=== PATIENT | male | born 1940 | race Caucasian/White ===

== ENCOUNTER → 2020-01-07 08:47 | Outpatient (BNVA) | payer MEDICARE, SELFPAY | PROVIDERS: PCP Family Medicine; Visit Provider Internal Medicine Cardiovascular Disease | DX: I50.30 Unspecified diastolic (congestive) heart failure (principal); I48.0 Paroxysmal atrial fibrillation; I25.10 Atherosclerotic heart disease of native coronary artery without angina pectoris; Z79.82 Long term (current) use of aspirin; Z79.899 Other long term (current) drug therapy; Z95.1 Presence of aortocoronary bypass graft | CPT/HCPCS: 93005; 99212 ==

== ENCOUNTER 2020-02-10 07:45 | Outpatient (REF) | payer MEDICARE, SELFPAY ==
[2020-02-10 09:09] LABS: MANUAL DIFF FLAG NO
[2020-02-10 09:19] LABS: Basophils Percent Auto 0.6 % (0-2); Eosinophils Absolute Auto 0.3 X10*3/uL (0.0-0.4); Eosinophils Percent Auto 4.8 % (0-4); Hematocrit 42.9 % (42-52); Hemoglobin 13.8 g/dl (14.0-18.0); Imm Gran Abs Auto 0.11 X10*3/uL (0.00-0.03); Imm Gran Pct Auto 1.6 % (0.0-0.4); Lymphocytes Absolute Auto 1.8 X10*3/uL (1.2-4.9); Lymphocytes Percent Auto 26.1 % (20-40); Mean Corpuscular HGB Conc 32.2 g/dl (31.0-36.0); Mean Corpuscular Hemoglobin 31.6 pg (27.0-33.0); Mean Corpuscular Volume 98.2 fL (80-98); Mean Platelet Volume 9.3 fL (9.4-12.4); Monocytes Absolute Auto 0.6 X10*3/uL (0.1-1.2); Monocytes Percent Auto 8.5 % (2-11); Neutrophils Percent Auto 58.4 % (45-73); Platelet Count 260 X10*3/uL (160-400); Red Blood Count 4.37 X10*6/uL (4.60-5.80); Red Cell Distribution Width 14.6 % (11.0-16.0); White Blood Count 6.9 X10*3/uL (4.8-10.8)
[2020-02-10 09:44] LABS: Estimated Average Glucose 120 mg/dL; Hemoglobin A1c % 5.8 %
[2020-02-10 10:13] LABS: Alanine Aminotransferase 44 U/L (0-40); Anion Gap 13 (12-20); Aspartate Amino Transferase 36 U/L (5-37); Blood Urea Nitrogen 22 mg/dL (9-16); Carbon Dioxide 32 mmol/L (22-29); Chloride 100 mmol/L (96-108); Cholesterol 219 mg/dL; Estimated Glomerular Filt Rate 50; Glucose Fasting 122 mg/dL (60-99); HDL Cholesterol 62 mg/dL; LDL Cholesterol Calculated 133 mg/dl; Potassium 4.7 mmol/l (3.3-5.1); Sodium 140 mmol/L (135-145); Triglycerides 123 mg/dL
== END 2020-02-10 07:46 | disposition home or self-care (01) ==
LOC: HO.10HDL 07:45
PROVIDERS: Absent Provider Internal Medicine Cardiovascular Disease; PCP Family Medicine; Visit Provider Family Medicine
DX: E11.9 Type 2 diabetes mellitus without complications (principal); I10 Essential (primary) hypertension; E78.00 Pure hypercholesterolemia, unspecified; Z79.899 Other long term (current) drug therapy
CPT/HCPCS: 36415; 80051; 80061; 82550; 82565; 82947; 83036; 84450; 84460; 84520; 85025

== ENCOUNTER → 2020-02-16 08:44 | Outpatient (BNVA) | payer MEDICARE, SELFPAY | PROVIDERS: PCP Family Medicine; Visit Provider Internal Medicine Cardiovascular Disease | DX: I50.30 Unspecified diastolic (congestive) heart failure (principal); I48.0 Paroxysmal atrial fibrillation; I25.10 Atherosclerotic heart disease of native coronary artery without angina pectoris; Z79.82 Long term (current) use of aspirin; Z79.899 Other long term (current) drug therapy | CPT/HCPCS: 99212 ==

== ENCOUNTER → 2020-05-03 08:27 | Outpatient (BNVA) | payer MEDICARE, SELFPAY | PROVIDERS: PCP Family Medicine; Visit Provider Internal Medicine Cardiovascular Disease | DX: I50.30 Unspecified diastolic (congestive) heart failure (principal); I48.0 Paroxysmal atrial fibrillation; I25.10 Atherosclerotic heart disease of native coronary artery without angina pectoris; Z79.899 Other long term (current) drug therapy | CPT/HCPCS: 93005; 99212 ==

== ENCOUNTER 2020-06-04 08:22 | Outpatient (REF) | payer MEDICARE, SELFPAY ==
[2020-06-04 10:52] LABS: Estimated Average Glucose 123 mg/dL; Hemoglobin A1c % 5.9 %
[2020-06-04 10:58] LABS: B Type Natriuretic Peptide 169 pg/mL (<100)
[2020-06-04 11:01] LABS: Anion Gap 13 (12-20); Blood Urea Nitrogen 22 mg/dL (9-16); Carbon Dioxide 30 mmol/L (22-29); Chloride 101 mmol/L (96-108); Cholesterol 214 mg/dL; Estimated Glomerular Filt Rate 54; Glucose Random 130 mg/dL (60-115); HDL Cholesterol 65 mg/dL; LDL Cholesterol Calculated 129 mg/dl; Magnesium 2.2 mg/dL (1.6-2.6); Potassium 4.8 mmol/L (3.3-5.1); Sodium 139 mmol/L (135-145); Triglycerides 102 mg/dL
[2020-06-04 11:04] LABS: Cholesterol 216 mg/dL; Glucose Fasting 131 mg/dL (60-99)
[2020-06-04 11:09] LABS: Creatinine Urine 32.81 mg/dL; Microalbumin Urine < 5.0 mg/L
== END 2020-06-04 08:23 | disposition home or self-care (01) ==
LOC: HO.10HDL 08:22
PROVIDERS: Internal Medicine Cardiovascular Disease; Visit Provider Family Medicine
DX: I50.30 Unspecified diastolic (congestive) heart failure (principal); I25.10 Atherosclerotic heart disease of native coronary artery without angina pectoris; I10 Essential (primary) hypertension; E11.9 Type 2 diabetes mellitus without complications
CPT/HCPCS: 36415; 80048; 80061; 82043; 82465; 82947; 83036; 83735; 83880

== ENCOUNTER → 2020-07-15 07:21 | Outpatient (REF) | payer MEDICARE, SELFPAY ==
--- NOTE | 2020-07-15 07:25 | CA_ITS ---
Transthoracic Echocardiogram Patient (Last, First, Middle): Cipriano Aguirre, Gender: Male Date of : 1940 Age: 79 Procedure Date: 07/15/2020 Procedure Type: Transthoracic Echocardiogram Location: OP Height: 187.96 cm Weight: 113.4 kg BSA: 2.39 m2 Heart Rate: bpm BP: 134 / 62 mmHg Model Engine Mechanic: KOJO Referring MD: Rickey Cardoza MD Retail Security Professional: Rickey Cardoza MD Symptoms: I50.30 - Unspecified diastolic (congestive) heart failure Study Quality: Technically Difficult/contrast ECG Rhythm: Sinus Conclusions: - 1. Technically difficult study despite use of definity contrast 2. Normal LV systolic function with mild LVH with LVEF of 55-60% with impaired relaxation filling pattern 3. Mildly dilated left atrium 4. Mitral and calcification noted with normal cardiac valvular Doppler 5. Normal RV systolic pressure Findings Procedure Information Contrast agent, definity, is being given per protocol without apparent complications. Left Ventricle Normal left ventricular size and systolic function. There is mildly increased left ventricular wall thickness. The visually estimated ejection fraction is between 55-60%. Spectral Doppler is indicative of an impaired relaxation filling pattern. E/E prime ratio is between 8 and 15 consistent with indeterminate filling pressures. Right Ventricle The right ventricle was not well visualized. Atria The left atrium is mildly dilated. Interatrial shunt cannot be excluded. The right atrium was not well visualized. Aortic Valve The aortic valve was not well visualized. There is mild calcification of the aortic valve. There is no aortic valve stenosis. There is no aortic valve regurgitation. Mitral Valve There is moderate mitral annular calcification. There is trace mitral valve regurgitation. There is no mitral valve stenosis. Pulmonic Valve The pulmonic valve was not well visualized. Tricuspid Valve The tricuspid valve was not well visualized. There is mild tricuspid valve regurgitation. The right ventricular systolic pressure is normal. Normal right atrial pressure. There is no evidence of pulmonary hypertension. Great Vessels The aorta was not well visualized. The pulmonary artery was not well visualized. Venous The inferior vena cava is normal in size. Pericardium/Pleural The pericardium was not well visualized. Prior Study Comparison No significant change compared to prior study dated: 08/29/2019. Measurements 2D Linear Measurements IVSd: 1.21 0.6-0.9/0.6-1.0 cm LVIDd: 4.68 3.9-5.3/4.2-5.9 cm LVIDd Index: 1.96 2.4-3.2/2.2-3.1 cm/m2 LVIDs: 3.24 2.0-3.6 cm LVPWd: 1.19 0.7-1.1 cm Ao Root: 4.00 2.1-3.5 cm LA Diam: 4.10 2.7-3.8/3.0-4.0 cm LAIDs Index: 1.72 1.5-2.3 cm/m2 LV Mass: 262.49 67-162/88-224 g LV Mass Index: 109.83 43-95/49-115 g/m2 LVOT Diam: 2.10 3.0+(-)1.3 cm 2D Systolic Function EF 4C: 58.40 >55% EF 2C: 52.60 >55% EF BiP: 56.30 >55% Mitral Valve MV Pk E: 0.86 MV PK A: 0.86 MV Decel Time: 250.00 E/A: 1.00 E'Lateral: 6.96 E'Medial: 8.70 E/E' Med: 9.90 E/E' Lat: 12.40 PHT: 73.00 MVA PHT: 3.01 Decel Coke: 3.45 Aortic Valve AoV Pk Bethel: 1.32 AoV Mn Bethel: 0.95 AoV VTI: 0.31 AoV Pk Grad: 7.00 Aov Mn Grad: 4.00 JERMAINE Cont.VTI: 2.73 LVOT LVOT Pk Bethel: 1.03 LVOT Mn Bethel: 0.78 LVOT VTI: 0.24 LVOT Pk Grad: 4.00 LVOT Mn Grad: 3.00 LVOT Diam: 2.10 LVOT Area: 3.46 Diastolic Function MV Pk E: 0.86 MV Pk A: 0.86 E/A: 1.00 E'Medial: 8.70 E/E' Med: 9.90 E' Laterial: 6.96 E/E' Lat: 12.40 Tricuspid Valve TR Pk Bethel: 2.47 TR Pk Grad: 24.00 RA Press: 3.00 RVSP: 27.00 Great Vessels Aorta Ao Root-2D: 4.00 2.0-3.7 cm Ao Asc: 4.00 2.1-3.4 cm Ao Arch: 2.90 Updated in Other Vendor System with Status of Final Rickey Cardoza MD electronically signed on 07/15/2020 2:14:48 PM with status of Final
== END ==
LOC: HO.CARD 07:21
PROVIDERS: PCP Family Medicine; Visit Provider Internal Medicine Cardiovascular Disease
DX: I50.30 Unspecified diastolic (congestive) heart failure (principal)
CPT/HCPCS: 93306; Q9957

== ENCOUNTER 2020-07-27 08:27 | Outpatient (REF) | payer MEDICARE, SELFPAY ==
[2020-07-27 11:11] LABS: B Type Natriuretic Peptide 189 pg/mL (<100)
[2020-07-27 11:22] LABS: Anion Gap 14 (12-20); Blood Urea Nitrogen 21 mg/dL (9-16); Calcium 9.1 mg/dL (8.4-10.2); Carbon Dioxide 28 mmol/L (22-29); Chloride 100 mmol/L (96-108); Estimated Glomerular Filt Rate 55; Glucose Random 105 mg/dL (60-115); Potassium 4.7 mmol/L (3.3-5.1); Sodium 137 mmol/L (135-145)
== END 2020-07-27 08:28 | disposition home or self-care (01) ==
LOC: HO.LAB 08:27
PROVIDERS: PCP Family Medicine; Visit Provider Internal Medicine Cardiovascular Disease
DX: I50.30 Unspecified diastolic (congestive) heart failure (principal); I48.0 Paroxysmal atrial fibrillation; I25.10 Atherosclerotic heart disease of native coronary artery without angina pectoris; I11.0 Hypertensive heart disease with heart failure; I47.1 Supraventricular tachycardia; I07.1 Rheumatic tricuspid insufficiency; E78.5 Hyperlipidemia, unspecified; Z88.8 Allergy status to other drugs, medicaments and biological substances; Z95.1 Presence of aortocoronary bypass graft; Z95.5 Presence of coronary angioplasty implant and graft; Z79.82 Long term (current) use of aspirin; Z79.899 Other long term (current) drug therapy
CPT/HCPCS: 36415; 80048; 83880; 93005; 99212

== ENCOUNTER 2020-11-23 08:17 | Outpatient (REF) | payer MEDICARE, SELFPAY ==
[2020-11-23 10:43] LABS: Alanine Aminotransferase 59 U/L (0-40); Alkaline Phosphatase 86 U/L (39-117); Anion Gap 11 (12-20); Aspartate Amino Transferase 40 U/L (5-37); Bilirubin Direct 0.2 mg/dL (0.0-0.5); Bilirubin Total 0.5 mg/dL (0.0-1.0); Carbon Dioxide 28 mmol/L (22-29); Chloride 102 mmol/L (96-108); Cholesterol 195 mg/dL; Potassium 4.6 mmol/L (3.3-5.1); Sodium 136 mmol/L (135-145); Total Protein 6.8 g/dL (6.5-8.0)
[2020-11-30 00:07] LABS: FIB-ALT 55 U/L (9-46); FIB-Alpha-2-Macroglobulin 291 mg/dL (106-279); FIB-Apolipoprotein A1 160 mg/dL (94-176); FIB-GGT 258 U/L (3-70); FIB-Haptoglobin 192 mg/dL (43-212); FIB-Total Bilirubin 0.5 mg/dL (0.2-1.2); Liver Fibrosis Score 0.71; Liver Fibrosis Stage F3; Nec Inflam Act Grade A1-A2; Nec Inflam Act Score 0.47
== END 2020-11-23 08:18 | disposition home or self-care (01) ==
LOC: HO.10HDL 08:17
PROVIDERS: Absent Provider Internal Medicine Cardiovascular Disease; Visit Provider Family Medicine
DX: K75.81 Nonalcoholic steatohepatitis (NASH) (principal); Z79.899 Other long term (current) drug therapy
CPT/HCPCS: 36415; 80051; 80076; 81596; 82465

== ENCOUNTER → 2021-02-23 08:18 | Outpatient (BNVA) | payer MEDICARE, SELFPAY | PROVIDERS: PCP Family Medicine; Visit Provider Internal Medicine Cardiovascular Disease | DX: I50.30 Unspecified diastolic (congestive) heart failure (principal); I48.0 Paroxysmal atrial fibrillation; I25.10 Atherosclerotic heart disease of native coronary artery without angina pectoris | CPT/HCPCS: 93005; 99212 ==

== ENCOUNTER → 2021-03-22 10:49 | Outpatient (REF) | payer MEDICARE, SELFPAY ==
--- NOTE | ~2021-03-22 | NM_ITS ---
TC- PYP Cardiac Study INDICATION: Evaluation for Cardiac Amyloidosis CLINICAL HISTORY: 80 years old Male with history of heart failure preserved ejection fraction as well as atrial fibrillation to evaluate for cardiac blood doses TECHNIQUE: 28.9 mCi of Tc-99m pyrophosphate was injected intravenously. Planar images of the chest were obtained in the anterior and left lateral views at 3 hours.. SPECT-CT images of the chest were also obtained. Total DLP 88 mGy-cm. COMPARISON: None FINDINGS: 1. Image Quality: Excellent 2. Semi-quantitative visual scoring of the cardiac uptake is performed as follows: 0 = absent cardiac uptake and intense bone uptake 3. H-CL Ratio is not applicable 4. Ancillary Finds: Calcified atherosclerosis noted in the aorta and the coronary tree NM/NM TC PYP cardiac amyloidosis IMPRESSION: 1. No evidence of cardiac amyloidosis of ATTR type. 2. Please note that the Tc 99m PYP is more sensitive in detecting transthyretin-related cardiac amyloidosis than that of light-chain cardiac amyloidosis.
== END ==
LOC: HO.NUCMED 10:49
PROVIDERS: PCP Internal Medicine Cardiovascular Disease; Visit Provider Internal Medicine Cardiovascular Disease
DX: I50.30 Unspecified diastolic (congestive) heart failure (principal)
CPT/HCPCS: 78803; A9538

== ENCOUNTER 2021-05-31 09:51 | Outpatient (REF) | payer MEDICARE, SELFPAY ==
--- NOTE | ~2021-05-31 | XR_ITS ---
EXAMINATION: XR LUMBOSACRAL SPINE WITH OBLIQUES CLINICAL INFORMATION: Radiculopathy with back pain. COMPARISON: 04/14/2007. TECHNIQUE: AP, both oblique, and lateral views of the lumbar spine. Lateral view of the lumbosacral junction. FINDINGS: There are 5 non-rib bearing lumbar vertebrae. No acute fracture, spondylolisthesis, or spondylolysis is identified. There is loss of disc spaces at the L4-L5 and L5-S1 levels. There is bilateral facet arthropathy seen L4-S1. Anterior marginal spurring is seen at multiple levels with bony bridging being seen and ankylosis L1-L3. There are some disc space narrowing seen T12-L3. There has been significant progression of disease, most prominent at the L4-L5 and L5-S1 levels compared to study of 04/14/2007. XR/XR lumbar spine 4V min IMPRESSION: Diffuse lumbar spondylosis as described above without acute fracture, spondylolisthesis, or spondylolysis appreciated.
== END 2021-05-31 09:52 | disposition home or self-care (01) ==
LOC: HO.XRAY 09:51
PROVIDERS: PCP Family Medicine; Visit Provider Nurse Practitioner Women's Health
DX: M54.16 Radiculopathy, lumbar region (principal)
CPT/HCPCS: 72110

== ENCOUNTER → 2021-06-27 07:11 | Outpatient (REF) | payer MEDICARE, SELFPAY ==
--- NOTE | 2021-06-27 07:13 | CA_ITS ---
Transthoracic Echocardiogram Patient (Last, First, Middle): Cipriano Aguirre H Gender: Male Date of : 1940 Age: 80 Procedure Date: 06/27/2021 Procedure Type: Transthoracic Echocardiogram Location: OP Height: 187.96 cm Weight: 113.4 kg BSA: 2.39 m2 Heart Rate: bpm BP: 150 / 60 mmHg Collar Turner: KOJO Referring MD: Rickey Cardoza MD Symptoms: I50.30 - Unspecified diastolic (congestive) heart failure Study Quality: Technically Difficult/Contrast Conclusions: - The left ventricular systolic function is normal. The calculated ejection fraction is 66% by biplane method. - Severely increased right ventricular cavity size. There is mildly decreased right ventricular systolic function. - There is mild calcification of the aortic valve. - There is mild aortic valve regurgitation. - There is mild mitral annular calcification. Findings Procedure Information Contrast agent, definity, is being given per protocol without apparent complications. Left Ventricle Normal left ventricular cavity size. There is mildly increased left ventricular wall thickness. The left ventricular systolic function is normal. The calculated ejection fraction is 66% by biplane method. Diastolic function is normal for age. Wall motion assessment difficult even with contrast use. Grossly, no major abnormalities. Right Ventricle Severely increased right ventricular cavity size. There is mildly decreased right ventricular systolic function. Atria The left atrium is mildly dilated. The right atrium is moderately dilated. Aortic Valve The aortic valve was not well visualized. There is mild calcification of the aortic valve. There is no aortic valve stenosis. There is mild aortic valve regurgitation. Mitral Valve There is mild mitral annular calcification. There is trace mitral valve regurgitation. There is no mitral valve stenosis. Pulmonic Valve The pulmonic valve is likely normal. Tricuspid Valve There is mild tricuspid valve regurgitation. The pulmonary artery systolic pressure is normal. Great Vessels The asc aorta is normal in size. Moderate plaque is seen in the sinuses of Valsalva. Venous The inferior vena cava is mildly dilated and collapses greater than 50% with inspiration. Pericardium/Pleural There is no evidence of pericardial effusion. Prior Study Comparison Changes noted compared to prior study dated: 07/15/2020. See comments on right ventricle. Previously, not well visualized. Measurements 2D Linear Measurements IVSd: 1.17 0.6-0.9/0.6-1.0 cm LVIDd: 4.87 3.9-5.3/4.2-5.9 cm LVIDd Index: 2.04 2.4-3.2/2.2-3.1 cm/m2 LVIDs: 3.16 2.0-3.6 cm LVPWd: 1.11 0.7-1.1 cm LA Diam: 4.90 2.7-3.8/3.0-4.0 cm LAIDs Index: 2.05 1.5-2.3 cm/m2 LV Mass: 260.03 67-162/88-224 g LV Mass Index: 108.80 43-95/49-115 g/m2 LVOT Diam: 2.10 3.0+(-)1.3 cm 2D Systolic Function EF 4C: 67.10 >55% EF 2C: 65.70 >55% EF BiP: 65.60 >55% Mitral Valve MV Pk E: 0.75 MV PK A: 0.83 MV Decel Time: 228.00 E/A: 0.90 E'Lateral: 6.31 E'Medial: 6.96 E/E' Med: 10.80 E/E' Lat: 11.90 PHT: 67.00 MVA PHT: 3.[address] [place]: 3.30 Aortic Valve AoV Pk Bethel: 1.72 AoV Mn Bethel: 1.27 AoV VTI: 0.40 AoV Pk Grad: 12.00 Aov Mn Grad: 7.00 JERMAINE Cont.VTI: 2.01 AI Pk Bethel: 3.[address] [place]: 1.54 LVOT LVOT Pk Bethel: 1.01 LVOT Mn Bethel: 0.83 LVOT VTI: 0.23 LVOT Pk Grad: 4.00 LVOT Mn Grad: 3.00 LVOT Diam: 2.10 LVOT Area: 3.46 Diastolic Function MV Pk E: 0.75 MV Pk A: 0.83 E/A: 0.90 E'Medial: 6.96 E/E' Med: 10.80 E' Laterial: 6.31 E/E' Lat: 11.90 Right Ventricle TAPSE (mm): 16.50 TVS' Bethel: 11.00 Tricuspid Valve TR Pk Bethel: 2.42 TR Pk Grad: 23.00 RA Press: 8.00 RVSP: 31.00 Great Vessels Aorta Sinus of Valsalva: 3.87 2.0-3.5 cm Ao Asc: 3.90 2.1-3.4 cm Ao Arch: 3.50 Updated in Other Vendor System with Status of Final Isael Mckeon MD electronically signed on 06/27/2021 3:45:22 PM with status of Final
== END ==
LOC: HO.CARD 07:11
PROVIDERS: PCP Family Medicine; Visit Provider Internal Medicine Cardiovascular Disease
DX: I50.30 Unspecified diastolic (congestive) heart failure (principal)
CPT/HCPCS: 93306; Q9957

== ENCOUNTER 2021-07-06 07:59 | Outpatient (REF) | payer MEDICARE, SELFPAY ==
[2021-07-06 11:22] LABS: Alanine Aminotransferase 81 U/L (0-40); Anion Gap 12 (12-20); Aspartate Amino Transferase 60 U/L (5-37); Blood Urea Nitrogen 19 mg/dL (9-16); Carbon Dioxide 28 mmol/L (22-29); Chloride 102 mmol/L (96-108); Cholesterol 202 mg/dL; Estimated Glomerular Filt Rate 53; Glucose Fasting 138 mg/dL (60-99); HDL Cholesterol 70 mg/dL; LDL Cholesterol Calculated 118 mg/dl; Potassium 5.2 mmol/L (3.3-5.1); Sodium 137 mmol/L (135-145); Triglycerides 70 mg/dL
[2021-07-06 11:24] LABS: Estimated Average Glucose 140 mg/dL; Hemoglobin A1c % 6.5 %
== END 2021-07-06 08:00 | disposition home or self-care (01) ==
LOC: HO.10HDL 07:59
PROVIDERS: Absent Provider Internal Medicine Cardiovascular Disease; Visit Provider Family Medicine
DX: I10 Essential (primary) hypertension (principal); E11.9 Type 2 diabetes mellitus without complications; K75.81 Nonalcoholic steatohepatitis (NASH)
CPT/HCPCS: 36415; 80051; 80061; 82565; 82947; 83036; 84450; 84460; 84520

== ENCOUNTER → 2021-09-01 08:18 | Outpatient (BNVA) | payer MEDICARE, SELFPAY | PROVIDERS: PCP Family Medicine; Referring Provider Family Medicine; Visit Provider Internal Medicine Cardiovascular Disease | DX: I50.30 Unspecified diastolic (congestive) heart failure (principal); I48.0 Paroxysmal atrial fibrillation; I25.10 Atherosclerotic heart disease of native coronary artery without angina pectoris | CPT/HCPCS: 93005; 99212 ==

== ENCOUNTER 2021-10-10 09:47 | Outpatient (REF) | payer MEDICARE, SELFPAY ==
--- NOTE | ~2021-10-10 | US_ITS ---
EXAMINATION: US ABDOMEN COMPLETE CLINICAL INFORMATION: Bloating, alcoholic cirrhosis of liver, question ascites. COMPARISON: None TECHNIQUE: Real-time imaging of the abdominal viscera. Technically limited study secondary to bowel gas and body habitus. FINDINGS: PANCREAS: Normal. The visualized pancreatic head and body are normal in appearance. The remainder of the pancreas is obscured from visualization by the overlying bowel gas. ABDOMINAL AORTA: The visualized proximal, mid and distal segments are normal in caliber. INFERIOR VENA CAVA: Visualized portions are normal. LIVER: There is hepatomegaly, with a longitudinal span of 23.3 cm. The liver contour is normal. There is diffuse increased liver parenchymal echogenicity. No focal hepatic lesion. There is no intrahepatic biliary duct dilatation seen. GALLBLADDER: There is layering biliary sludge and possible calculi. There is gallbladder wall thickening to 8 mm. No evidence of pericholecystic fluid. COMMON BILE DUCT: Normal in caliber measuring 0.5 cm in diameter. RIGHT KIDNEY: There is renal cortical thinning and increased renal cortical echotexture. No hydronephrosis. No renal calculi or focal parenchymal lesions. The kidney measures 12.7 cm in maximum dimension. LEFT KIDNEY: There is renal cortical thinning and increased renal cortical echotexture. No hydronephrosis or renal calculi. The kidney measures 13.7 cm in maximum dimension. At the lower pole, a 1.2 cm in maximal diameter anechoic, simple cyst is seen. SPLEEN: No focal finding. The spleen measures 13.0 cm in maximum dimension. FREE FLUID: There is scant free fluid in the right lower quadrant. US/US abdomen complete IMPRESSION: 1. There is hepatosplenomegaly. 2. There is generalized increase in hepatic echotexture, consistent with fatty infiltration or hepatocellular disease. Please correlate clinically. Provided history of cirrhosis noted. No focal hepatic mass or intrahepatic biliary dilatation is seen. 3. There is cholelithiasis, gallbladder wall thickening and no pericholecystic fluid. The findings suggest possible chronic cholecystitis. Please correlate clinically. 4. Bilateral renal cortical thinning and increased renal cortical echotexture are consistent with medical renal disease. Please correlate clinically. 4. A small left renal cyst is incidentally noted. 5. There is scant ascites within the right lower quadrant. 6. Technically limited ultrasound examination, in particular of the pancreatic tail.
== END 2021-10-10 09:48 | disposition home or self-care (01) ==
LOC: HO.HMGCX 09:47
PROVIDERS: PCP Family Medicine; Visit Provider Family Medicine
DX: K70.31 Alcoholic cirrhosis of liver with ascites (principal); R14.0 Abdominal distension (gaseous)
CPT/HCPCS: 76700

== ENCOUNTER 2021-12-07 07:38 | Outpatient (REF) | payer MEDICARE, SELFPAY ==
[2021-12-07 10:32] LABS: Estimated Average Glucose 134 mg/dL; Hemoglobin A1c % 6.3 %
[2021-12-07 10:41] LABS: Alanine Aminotransferase 72 U/L (0-40); Alkaline Phosphatase 85 U/L (39-117); Anion Gap 16 (12-20); Aspartate Amino Transferase 52 U/L (5-37); Bilirubin Direct 0.2 mg/dL (0.0-0.5); Bilirubin Total 0.5 mg/dL (0.0-1.0); Blood Urea Nitrogen 28 mg/dL (9-16); Carbon Dioxide 27 mmol/L (22-29); Chloride 100 mmol/L (96-108); Cholesterol 191 mg/dL; Estimated Glomerular Filt Rate 45; Glucose Fasting 136 mg/dL (60-99); Potassium 4.9 mmol/L (3.3-5.1); Sodium 138 mmol/L (135-145)
== END 2021-12-07 07:39 | disposition home or self-care (01) ==
LOC: HO.10HDL 07:38
PROVIDERS: Visit Provider Family Medicine
DX: I10 Essential (primary) hypertension (principal); E11.9 Type 2 diabetes mellitus without complications; K74.60 Unspecified cirrhosis of liver
CPT/HCPCS: 36415; 80051; 80076; 82465; 82565; 82947; 83036; 84520

== ENCOUNTER 2022-03-02 09:51 | Outpatient (REF) | payer MEDICARE, SELFPAY ==
[2022-03-02 10:32] LABS: MANUAL DIFF FLAG NO
[2022-03-02 10:35] LABS: Basophils Percent Auto 0.5 % (0-2); Eosinophils Absolute Auto 0.3 X10*3/uL (0.0-0.4); Eosinophils Percent Auto 5.5 % (0-4); Hematocrit 40.5 % (42.0-52.0); Hemoglobin 13.5 g/dl (14.0-18.0); Imm Gran Abs Auto 0.05 X10*3/uL (0.00-0.03); Imm Gran Pct Auto 0.9 % (0.0-0.4); Lymphocytes Absolute Auto 0.9 X10*3/uL (1.2-4.9); Lymphocytes Percent Auto 16.4 % (20-40); Mean Corpuscular HGB Conc 33.3 g/dl (31.0-36.0); Mean Corpuscular Hemoglobin 32.3 pg (27.0-33.0); Mean Corpuscular Volume 96.9 fL (80.0-98.0); Mean Platelet Volume 10.2 fL (9.4-12.4); Monocytes Absolute Auto 0.9 X10*3/uL (0.1-1.2); Neutrophils Absolute Auto 3.5 x10*3/uL (2.0-8.3); Neutrophils Percent Auto 61.7 % (45-73); Platelet Count 127 X10*3/uL (160-400); Red Blood Count 4.18 X10*6/uL (4.60-5.80); Red Cell Distribution Width 14.7 % (11.0-16.0); White Blood Count 5.7 X10*3/uL (4.8-10.8)
[2022-03-02 11:09] LABS: Alanine Aminotransferase 131 U/L (0-40); Albumin Level 3.6 g/dL (3.5-5.0); Alkaline Phosphatase 110 U/L (39-117); Anion Gap 10 (12-20); Aspartate Amino Transferase 103 U/L (5-37); Bilirubin Total 2.2 mg/dL (0.0-1.0); Blood Urea Nitrogen 22 mg/dL (9-16); Calcium 8.7 mg/dL (8.4-10.2); Carbon Dioxide 27 mmol/L (22-29); Chloride 99 mmol/L (96-108); Estimated Glomerular Filt Rate 53; Glucose Random 122 mg/dL (60-115); Magnesium 2.2 mg/dL (1.6-2.6); Potassium 4.3 mmol/L (3.3-5.1); Sodium 132 mmol/L (135-145); Total Protein 6.6 g/dL (6.5-8.0)
== END 2022-03-02 09:52 | disposition home or self-care (01) ==
LOC: HO.10HDL 09:51
PROVIDERS: Absent Provider Internal Medicine Cardiovascular Disease; Visit Provider Family Medicine
DX: R06.02 Shortness of breath (principal); R53.1 Weakness; E11.9 Type 2 diabetes mellitus without complications
CPT/HCPCS: 36415; 80053; 83735; 85025

== ENCOUNTER 2022-03-09 08:39 | Outpatient (REF) | payer MEDICARE, SELFPAY ==
--- NOTE | ~2022-03-09 | XR_ITS ---
EXAMINATION: XR CHEST CLINICAL INFORMATION: Paroxysmal atrial fibrillation COMPARISON: None TECHNIQUE: 2 views of the chest were obtained. FINDINGS: The lungs are hyperinflated but clear. The heart size and pulmonary vascularity is normal. No gross bony abnormality seen. There are median sternotomy sutures from previous intervention. XR/XR chest 2V IMPRESSION: Hyperinflated lungs without acute process.
[2022-03-09 11:19] LABS: Alanine Aminotransferase 105 U/L (0-40); Albumin Level 3.9 g/dL (3.5-5.0); Alkaline Phosphatase 135 U/L (39-117); Aspartate Amino Transferase 56 U/L (5-37); Bilirubin Direct 0.4 mg/dL (0.0-0.5); Bilirubin Total 0.8 mg/dL (0.0-1.0); Total Protein 7.2 g/dL (6.5-8.0)
[2022-03-09 11:37] LABS: TSH reflex Free T4 3.27 uIU/mL (0.32-4.0)
== END 2022-03-09 08:40 | disposition home or self-care (01) ==
LOC: HO.XRAY 08:39
PROVIDERS: PCP Family Medicine; Referring Provider Family Medicine; Visit Provider Internal Medicine Cardiovascular Disease
DX: I25.10 Atherosclerotic heart disease of native coronary artery without angina pectoris (principal); I48.0 Paroxysmal atrial fibrillation; I50.30 Unspecified diastolic (congestive) heart failure
CPT/HCPCS: 36415; 71046; 80076; 84443; 93005; 99212

== ENCOUNTER 2022-03-21 08:38 | Outpatient (REF) | payer MEDICARE, SELFPAY ==
[2022-03-21 11:16] LABS: Alanine Aminotransferase 54 U/L (0-40); Alkaline Phosphatase 90 U/L (39-117); Aspartate Amino Transferase 39 U/L (5-37); Bilirubin Direct 0.3 mg/dL (0.0-0.5); Bilirubin Total 0.8 mg/dL (0.0-1.0); Total Protein 6.9 g/dL (6.5-8.0)
== END 2022-03-21 08:39 | disposition home or self-care (01) ==
LOC: HO.10HDL 08:38
PROVIDERS: Visit Provider Internal Medicine Cardiovascular Disease
DX: R79.89 Other specified abnormal findings of blood chemistry (principal)
CPT/HCPCS: 36415; 80076

== ENCOUNTER 2022-05-08 | Outpatient (REF) | payer MEDICARE, SELFPAY ==
--- NOTE | ~2022-05-08 | XR_ITS ---
EXAMINATION: XR CHEST CLINICAL INFORMATION: Cough, wheezing. COMPARISON: Most recent chest radiograph dated 03/09/2022. TECHNIQUE: 2 views of the chest were obtained. FINDINGS: No airspace consolidation. No pleural effusion or pneumothorax. Stable cardiomediastinal silhouette. Sternal hardware is redemonstrated. XR/XR chest 2V IMPRESSION: No acute cardiopulmonary findings.
== END 2022-05-08 00:01 | disposition home or self-care (01) ==
LOC: HO.XRAY
PROVIDERS: PCP Family Medicine; Visit Provider Family Medicine
DX: I25.10 Atherosclerotic heart disease of native coronary artery without angina pectoris (principal); R05.9 Cough, unspecified; R06.2 Wheezing
CPT/HCPCS: 71046

== ENCOUNTER 2022-05-10 07:45 | Outpatient (REF) | payer MEDICARE, SELFPAY ==
[2022-05-10 10:56] LABS: Estimated Average Glucose 123 mg/dL; Hemoglobin A1c % 5.9 %
[2022-05-10 11:09] LABS: Anion Gap 15 (12-20); Blood Urea Nitrogen 20 mg/dL (9-16); Carbon Dioxide 29 mmol/L (22-29); Chloride 102 mmol/L (96-108); Estimated Glomerular Filt Rate 50; Glucose Fasting 123 mg/dL (60-99); Magnesium 2.2 mg/dL (1.6-2.6); Potassium 4.5 mmol/L (3.3-5.1); Sodium 141 mmol/L (135-145)
[2022-05-10 11:33] LABS: Creatinine Urine 239.24 mg/dL
== END 2022-05-10 07:46 | disposition home or self-care (01) ==
LOC: HO.10HDL 07:45
PROVIDERS: Visit Provider Family Medicine
DX: E11.9 Type 2 diabetes mellitus without complications (principal); I10 Essential (primary) hypertension; R79.89 Other specified abnormal findings of blood chemistry
CPT/HCPCS: 36415; 80051; 82043; 82565; 82947; 83036; 83735; 84520

== ENCOUNTER → 2022-08-16 07:40 | Outpatient (REF) | payer MEDICARE, SELFPAY | LOC: HO.CARD 07:40 | PROVIDERS: PCP Family Medicine; Visit Provider Internal Medicine Cardiovascular Disease | DX: I50.30 Unspecified diastolic (congestive) heart failure (principal) | CPT/HCPCS: 93306; Q9957 ==

== ENCOUNTER 2022-08-29 08:29 | Outpatient (AMB) | payer MEDICARE, SELFPAY ==
[2022-08-29 08:36] VITALS: BP 130/70; PULSE 67; BMI 34.2
--- NOTE | 2022-08-29 08:36 | A.OFFVIS_ITS ---
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 Required: No Allergies apixaban [From ELIQUIS] Allergy (Unknown, Verified 08/29/22 08:44) BLEEDING ezetimibe [From ZETIA] Allergy (Unknown, Verified 08/29/22 08:44) UNKNOWN guaifenesin [From ROBITUSSIN] Allergy (Unknown, Verified 08/29/22 08:44) UNKNOWN Racvocg-[id number]-FnG Reductase Inhibitor [[id number] REDUCTASE INHIBITOR] Allergy (Unknown, Verified 08/29/22 08:44) UNKNOWN Medication List - Last Reconciled 08/29/22 by Rickey Cardoza MD amiodarone 100 mg (1/2 x 200 mg) PO DAILY 90 days aspirin (Adult Low Dose Aspirin) 81 mg PO DAILY furosemide 40 mg PO DAILY lisinopril 5 mg PO DAILY sildenafil 100 mg PO DIRECTED tamsulosin 0.4 mg PO DAILY HPI HPI Comments History of Present Illness Details Mitch comes for follow-up. He has continued exertional shortness of breath. He says when he was on steroids back pain and shortness of breath well controlled. He is very limited because of activity because of his back pain. He also says during times when the air is blue to id, he does get more short of breath. He denies any orthopnea, PND, leg edema. Denies any prolonged irregular heartbeat or palpitations. Recent echocardiogram shows normal LV systolic function with LVEF of 60 65% with reduced RV systolic function by TAPSE. Denies any exertional anginal symptoms. Takes all his medications. FOR[facility]LY [facility] Medical History (HFpEF) heart failure with preserved ejection fraction CAD (coronary artery disease) HTN (hypertension) Hyperlipidemia Hypertensive heart disease Paroxysmal atrial fibrillation Presence of Watchman left atrial appendage closure device SVT (supraventricular tachycardia) Tricuspid regurgitation Surgical History History of cardiac radiofrequency ablation History of carpal tunnel release History of kidney surgery Hx of CABG Hx of cardiac cath Hx of heart surgery Stented coronary artery Family History Father CVD (cardiovascular disease) Mother Sudden cardiac Family/Other Sudden cardiac Social History Alcohol intake: current Review of Systems ENT Reports dizziness Card Denies chest pain, Denies chest pain at rest, Denies chest pain with activity, Denies rapid heart rate, Denies pedal edema, Denies edema, Denies leg edema, Denies lightheadedness, Denies palpitations, Denies dyspnea, Denies dyspnea on exertion and Denies orthopnea Resp Denies cough, Denies dyspnea and Denies dyspnea on exertion GI Denies hematochezia and Denies change in stool character Musc Denies abnormal gait, Reports limited range of motion, Reports muscle cramps, Denies muscle weakness, Denies numbness, Denies radiating pain into limb, Denies stiffness and Denies tingling Neuro Denies abnormal gait, Reports dizziness, Denies numbness and Denies tingling Endo Denies palpitations Physical Exam Vital Signs: Last Vital Signs Pulse 67 08/29/22 08:36 BP 130/70 08/29/22 08:36 BMI result Body Mass Index 34.2 Const General: cooperative, comfortable, no acute distress, alert, awake and well groomed Nutritional Appearance: obese Orientation/consciousness: patient oriented x3 Limitations: no limitations Neck Neck: Yes trachea midline, Yes supple and Yes no JVD Resp Effort & Inspection: normal respiratory effort Auscultation: clear to auscultation bilaterally Cardio Jugular venous distension: no JVD Palpation: normal PMI Rate: regular rate Rhythm: regular rhythm Heart sounds: S1 normal heart sound present and S2 normal heart sound present GI Auscultation: normal bowel sounds Skin General skin exam: no rashes or lesions noted and dry skin Neuro General: patient oriented x3 and no focal motor deficits Extrem General: Yes no clubbing, cyanosis or edema Psych Appearance: grossly normal Office Procedures EKG Details: EKG shows normal sinus rhythm with nonspecific ST T wave changes [id number], Complete Assessment & Plan Assessment & Plan (1) (HFpEF) heart failure with preserved ejection fraction: Code(s): I50.30 - Unspecified diastolic (congestive) heart failure Plan: Heart failure preserved ejection fraction, clinically euvolemic and well compensated current diuretic dose. Doing well. He is not interested in additional therapy. Management of heart failure was discussed. Daily weight monitoring avoidance of salt loading was discussed. Importance of rhythm control was discussed which has helped him significantly to manages heart failure syndrome. His current exertional shortness of breath does not appear to be related to significant cardiac issues at this point time. Consider pulmonary function test. Could also be related deconditioning due to his significant back pain which limits his activity level and his weight. Consider referral to pain clinic at [facility]. (2) Paroxysmal atrial fibrillation: Code(s): I48.0 - Paroxysmal atrial fibrillation Plan: Paroxysmal atrial fibrillation which has done well with rhythm control approach. Currently on low-dose amiodarone therapy. Doing well from that perspective. Continue low-dose amiodarone therapy. Annual check for amiodarone toxicity. Status post Watchman device. Continue low-dose aspirin therapy. (3) CAD (coronary artery disease): Code(s): I25.10 - Atherosclerotic heart disease of kenaitze coronary artery without angina pectoris Plan: CAD status post prior stenting and then subsequently coronary artery bypass grafting for symptoms of angina. The anginal symptoms are not present at current time. Continue low-dose aspirin therapy. Continue aggressive risk factor modification. Blood pressure is currently well optimized on low-dose lisinopril therapy. Continue the same. Not on statin therapy due to muscle aches and is not interested other forms of therapy. Risk of progressive atherosclerosis was discussed. He understands and agrees. Follow up in the clinic in 6 months time, sooner p.r.n.. Thank you for allowing me to partake in his care Coding Level of Care Code Est Pt Level 4 (05341) Diagnoses (HFpEF) heart failure with preserved ejection fraction I50.30 Paroxysmal atrial fibrillation I48.0 CAD (coronary artery disease) I25.10 CPT Codes EKG - CPT: 53708-[id number], Complete ([id number])
== END 2022-08-29 08:55 | disposition home or self-care (01) ==
PROVIDERS: Visit Provider Internal Medicine Cardiovascular Disease
DX: I50.30 Unspecified diastolic (congestive) heart failure (principal); I48.0 Paroxysmal atrial fibrillation; I25.10 Atherosclerotic heart disease of native coronary artery without angina pectoris
CPT/HCPCS: 93010; 99214

== ENCOUNTER → 2022-08-29 08:29 | Outpatient (BNVA) | payer MEDICARE, SELFPAY | PROVIDERS: Visit Provider Internal Medicine Cardiovascular Disease | DX: R06.02 Shortness of breath (principal); M54.9 Dorsalgia, unspecified; I11.0 Hypertensive heart disease with heart failure; I50.30 Unspecified diastolic (congestive) heart failure; I25.10 Atherosclerotic heart disease of native coronary artery without angina pectoris; I48.0 Paroxysmal atrial fibrillation; Z95.1 Presence of aortocoronary bypass graft; Z95.5 Presence of coronary angioplasty implant and graft; Z98.890 Other specified postprocedural states; Z79.899 Other long term (current) drug therapy | CPT/HCPCS: 93005; 99212 ==

== ENCOUNTER → 2022-09-22 10:25 | Outpatient (REF) | payer MEDICARE, SELFPAY ==
--- NOTE | 2022-09-22 10:29 | CA_ITS ---
Acquisition Time: 2022-09-22 10:41:19 Total Exercise Time: 00:01:23 Test Indications: I50.30 Medications: SEE H Protocol: PARIS Max HR: 101 BPM 73% of Pred: 137 BPM Max BP: 130/100 mmHG Max Work Load: 3.4 METS Exercise stress test exercise 1 min 23 seconds of Paris protocol achieving 65% MPHR with request to stop due to back pain, moderate SOB, and lightheadness feeling like he'll shortly faint, without chest discomforts, with isolated PACs, without EKG changes at achieved workload. Test reviewed with Dr. Bodren Referred By: Rickey Cardoza Overread By: Lani Mansfield
--- NOTE | 2022-09-22 10:29 | HM_ITS ---
Conclusion: 1. Patient was monitored for total period of 3 days 2. Baseline was normal sinus rhythm with average heart of 72 beats per minute 3. No significant pauses noted 4. Occasional PACs noted without any episodes of sustained atrial fibrillation which short episodes of paroxysmal atrial tachycardia longest lasting 32 beats 5. Patient marked 1 event without associated symptoms reported correlating with sinus rhythm MTDD
== END ==
LOC: HO.CARD 10:25
PROVIDERS: Visit Provider Internal Medicine Cardiovascular Disease
DX: I11.0 Hypertensive heart disease with heart failure (principal); I50.30 Unspecified diastolic (congestive) heart failure; I48.0 Paroxysmal atrial fibrillation
CPT/HCPCS: 93017; 93242

== ENCOUNTER → 2022-09-22 10:29 | Outpatient (BNV) | payer MEDICARE, SELFPAY | PROVIDERS: Visit Provider Nurse Practitioner | DX: I11.9 Hypertensive heart disease without heart failure (principal); I48.0 Paroxysmal atrial fibrillation; I50.30 Unspecified diastolic (congestive) heart failure | CPT/HCPCS: 93016; 93018; 93244 ==

== ENCOUNTER 2022-10-23 07:38 | Outpatient (REF) | payer MEDICARE, SELFPAY ==
[2022-10-23 10:26] LABS: MANUAL DIFF FLAG NO
[2022-10-23 10:30] LABS: Basophils Percent Auto 0.5 % (0-2); Eosinophils Absolute Auto 0.3 X10*3/uL (0.0-0.4); Eosinophils Percent Auto 5.5 % (0-4); Hematocrit 43.4 % (42.0-52.0); Imm Gran Abs Auto 0.06 X10*3/uL (0.00-0.03); Lymphocytes Absolute Auto 1.8 X10*3/uL (1.2-4.9); Lymphocytes Percent Auto 28.9 % (20-40); Mean Corpuscular HGB Conc 32.3 g/dl (31.0-36.0); Mean Corpuscular Hemoglobin 32.2 pg (27.0-33.0); Mean Corpuscular Volume 99.8 fL (80.0-98.0); Mean Platelet Volume 10.5 fL (9.4-12.4); Monocytes Absolute Auto 0.7 X10*3/uL (0.1-1.2); Monocytes Percent Auto 10.7 % (2-11); Neutrophils Absolute Auto 3.3 x10*3/uL (2.0-8.3); Neutrophils Percent Auto 53.4 % (45-73); Platelet Count 169 X10*3/uL (160-400); Red Blood Count 4.35 X10*6/uL (4.60-5.80); Red Cell Distribution Width 14.1 % (11.0-16.0); White Blood Count 6.2 X10*3/uL (4.8-10.8)
[2022-10-23 10:38] LABS: Estimated Average Glucose 128 mg/dL; Hemoglobin A1c % 6.1 % (<6.0)
[2022-10-23 10:59] LABS: Alanine Aminotransferase 51 U/L (0-40); Alkaline Phosphatase 80 U/L (39-117); Anion Gap 13 (12-20); Aspartate Amino Transferase 42 U/L (5-37); Bilirubin Total 0.6 mg/dL (0.0-1.0); Blood Urea Nitrogen 24 mg/dL (9-16); Calcium 9.4 mg/dL (8.4-10.2); Carbon Dioxide 28 mmol/L (22-29); Chloride 102 mmol/L (96-108); Estimated Glomerular Filt Rate 53; Glucose Fasting 134 mg/dL (60-99); Potassium 4.6 mmol/L (3.3-5.1); Sodium 138 mmol/L (135-145)
== END 2022-10-23 07:39 | disposition home or self-care (01) ==
LOC: HO.10HDL 07:38
PROVIDERS: Visit Provider Family Medicine
DX: R06.02 Shortness of breath (principal); E11.9 Type 2 diabetes mellitus without complications; R42 Dizziness and giddiness
CPT/HCPCS: 36415; 80053; 83036; 85025

== ENCOUNTER → 2022-10-27 07:52 | Outpatient (REF) | payer MEDICARE, SELFPAY ==
--- NOTE | ~2022-10-27 | NM_ITS ---
Lexiscan Myocardial perfusion study Indication: Shortness of breath, assess for coronary disease and ischemia Technique: The patient was brought in for a Lexiscan perfusion study on 10/27/2022 and was injected 0.4 mg of Lexiscan intravenously. Within a minute of this injection 40 mCi of sestamibi was given intravenously. Images were obtained using the SPECT gamma camera interlaced with the gating device. Images were obtained in supine position. Resting perfusion study was performed on 10/30/2022. Patient was administered 40 mCi of sestamibi intravenously at rest. Images were then obtained in supine position. Images were processed with the software and compared side to side in short axis, horizontal long axis and vertical long axis views. Total DLP 202mGy-cm. Findings: Raw acquisition reviewed. Arms by the patient's side. The stress perfusion study showed diminished tracer uptake in the distal part of septum and lateral wall and appearance seems artifactual. There is also improvement with CT attenuation correction. The gated study shows normal LV systolic function with calculated LVEF of 65%. LV cavity is normal in size. The gated study shows normal wall thickening and contraction of segments. Resting study shows no significant perfusion defects. Gating at rest reveals normal wall motion with ejection fraction at 67%. The findings are consistent with no clear reversible or fixed perfusion defects. NM/AR cardiolite stress test Impression: 1. Myocardial perfusion imaging study shows probably normal myocardial perfusion. 2. Gated LVEF is 62% during stress and 67% during rest. 3. Transient ischemic dilatation not present. EKG component of the test reported separately.
--- NOTE | 2022-10-27 07:55 | CA_ITS ---
Acquisition Time: 2022-10-27 08:27:30 Total Exercise Time: 00:02:00 Test Indications: SVT, AFIB Medications: SEE H Protocol: LEXISCAN Max HR: 088 BPM 64% of Pred: 137 BPM Max BP: 148/074 mmHG Max Work Load: 1.0 METS Pharmacological stress test with Lexiscan injection, while sitting and marching in place, without anginal symptoms, without arrhythmias, with normotensive response to injection, with nondiagnositic EKGs. Nuclear images pending. Test reviewed with Dr. Jones. Referred By: Lani Mansfield Overread By: ILYA JONES
== END ==
LOC: HO.CARD 07:52
PROVIDERS: Visit Provider Nurse Practitioner
DX: I10 Essential (primary) hypertension (principal); I25.10 Atherosclerotic heart disease of native coronary artery without angina pectoris; I48.0 Paroxysmal atrial fibrillation
CPT/HCPCS: 78452; 93017; A9500; J0280; J2785

== ENCOUNTER → 2022-10-27 07:55 | Outpatient (BNV) | payer MEDICARE, SELFPAY | PROVIDERS: Visit Provider Internal Medicine | DX: I48.0 Paroxysmal atrial fibrillation (principal) | CPT/HCPCS: 78452; 93016; 93018 ==

== ENCOUNTER 2023-03-07 08:18 | Outpatient (AMB) | payer MEDICARE, SELFPAY ==
--- NOTE | 2023-03-07 08:24 | A.OFFVIS_ITS ---
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 In November he was at a get together at a alliance party and then he mid a long walk. He knew that he could not carry out with a long walk got severely short of breath and then passed out. He did not seek emergency attention at that point in time and said had chest injury with rib contusion/fracture. He said took him about a month to recover. He said he had similar syncopal episodes in the past. He said he can walk up to 50 yd before getting severely short of breath and then he has to find a place to sit otherwise he would pass out. He has monitored his oxygen level at that point time with oxygen levels have been within normal limits. He had a Holter monitor last fall which showed normal sinus rhythm with no atrial fibrillation no pauses. He did have a symptom during that monitor in which correlated with sinus rhythm. He denies any clear orthopnea, PND, leg edema. Denies any prolonged palpitations or irregular heartbeat. He denies any exertional chest pain. He underwent a myocardial perfusion imaging last fall which showed no evidence of ischemia with limited exercise capacity and no clear pauses. He had an echocardiogram which shows normal LV systolic function but shows moderate to severe RV systolic dysfunction. [facility] Medical History (HFpEF) heart failure with preserved ejection fraction Paroxysmal atrial fibrillation HTN (hypertension) Hyperlipidemia CAD (coronary artery disease) Hypertensive heart disease SVT (supraventricular tachycardia) Tricuspid regurgitation Presence of Watchman left atrial appendage closure device Surgical History Stented coronary artery History of kidney surgery History of cardiac radiofrequency ablation History of carpal tunnel release Hx of heart surgery Hx of CABG Hx of cardiac cath Family History Father CVD (cardiovascular disease) Mother Sudden cardiac Family/Other Sudden cardiac Social History Alcohol intake: current Review of Systems Const Denies chills, Denies fatigue, Denies fever(s), Denies frequent falls, Denies weakness, Denies weight gain and Denies weight loss ENT Denies dizziness Card Denies chest pain, Denies leg edema, Denies lightheadedness, Denies palpitations, Denies dyspnea, Denies dyspnea on exertion, Denies orthopnea and Denies other (loss of consciousness) Resp Denies cough, Denies dyspnea and Denies dyspnea on exertion GI Denies hematochezia and Denies change in stool character Musc Denies abnormal gait, Denies muscle weakness, Denies numbness, Denies radiating pain into limb and Denies tingling Neuro Denies abnormal gait, Denies dizziness, Denies frequent falls, Denies numbness, Denies tingling and Denies weakness Endo Denies fatigue and Denies palpitations Physical Exam Vital Signs: Last Vital Signs Pulse 65 03/07/23 08:27 BP 126/80 03/07/23 08:27 BMI result Body Mass Index 31.4 Const General: cooperative, comfortable, no acute distress, alert, awake and well groomed Nutritional Appearance: obese Orientation/consciousness: patient oriented x3 Limitations: no limitations Neck Neck: Yes trachea midline, Yes supple and Yes no JVD Resp Effort & Inspection: normal respiratory effort Auscultation: clear to auscultation bilaterally Cardio Jugular venous distension: no JVD Palpation: normal PMI Rate: regular rate Rhythm: regular rhythm Heart sounds: S1 normal heart sound present and S2 normal heart sound present GI Auscultation: normal bowel sounds Skin General skin exam: no rashes or lesions noted and dry skin Neuro General: patient oriented x3 and no focal motor deficits Extrem General: Yes no clubbing, cyanosis or edema Psych Appearance: grossly normal Office Procedures EKG Details: EKG shows normal sinus rhythm with minimal voltage criteria for LVH otherwise nonspecific ST T wave abnormality [id number], Complete Assessment & Plan Assessment & Plan (1) Syncopal episodes: Code(s): R55 - Syncope and collapse Plan: Patient with episodes of syncope after exertion. There is no obvious LV myocardial dysfunction, myocardial ischemia or valvular abnormality that could explain this. He also has no evidence of significant chronotropic incompetence by stress testing and/or pauses that could explain syncope. Does have RV systolic dysfunction which could potentially explain his symptoms of significant shortness of breath followed by syncope. He has not noticed any hypoxemia. I think this is probably related to reduced cardiac output when he exerts himself. He has notice that he gets his symptoms when he walks greater than 50 yd or longer distance and then get short of breath unless he sits down. I have advised him to adjust his lifestyle according to his symptoms. However advised him to continue to exercise as much as tolerated and sit down when he gets severely short of breath to avoid having a syncopal episode. I do not think there is any other interventions that can be made at this point time to alter the symptoms. Advised to maintain adequate hydration. (2) (HFpEF) heart failure with preserved ejection fraction: Code(s): I50.30 - Unspecified diastolic (congestive) heart failure Plan: Heart failure preserved ejection fraction, clinically euvolemic and well compensated current diuretic dose. Has done very well with rhythm control approach in current diuretic dose. Daily weight monitoring avoidance of salt loading was discussed advised to continue maintain activity level as tolerated. Continue aggressive blood pressure control which is currently well optimized. Continue participate in weight loss program. (3) Paroxysmal atrial fibrillation: Code(s): I48.0 - Paroxysmal atrial fibrillation Plan: Paroxysmal atrial fibrillation, highly symptomatic due to loss of AV synchrony. Has done well with rhythm control approach will continue pursue rhythm control approach. There is no evidence of sinoatrial umair dysfunction. Continue to monitor for amiodarone toxicity on a yearly basis. Status post Watchman device and currently on low-dose aspirin therapy. (4) CAD (coronary artery disease): Code(s): I25.10 - Atherosclerotic heart disease of [place] coronary artery without angina pectoris Plan: CAD status post coronary artery bypass grafting with myocardial perfusion imaging last year within normal limits. Continue low-dose aspirin therapy. Currently not on statin therapy due to intolerance. Recommended other forms of therapy but he has currently not interested. Blood pressure is well optimized encouraged to continue heart healthy lifestyle with weight loss program regular physical activity with limitations as above. Will follow up in the clinic in 6 months time, sooner p.r.n.. Thank you for allowing me to partake in his care Coding Level of Care Code Est Pt Level 4 (53082) Diagnoses Syncopal episodes R55 (HFpEF) heart failure with preserved ejection fraction I50.30 Paroxysmal atrial fibrillation I48.0 CAD (coronary artery disease) I25.10 CPT Codes EKG - CPT: 72232-[id number], Complete ([id number])
[2023-03-07 08:27] VITALS: BP 126/80; PULSE 65; BMI 31.4
== END 2023-03-07 09:02 | disposition home or self-care (01) ==
PROVIDERS: PCP Family Medicine; Visit Provider Internal Medicine Cardiovascular Disease
DX: R55 Syncope and collapse (principal); I50.30 Unspecified diastolic (congestive) heart failure; I48.0 Paroxysmal atrial fibrillation; I25.10 Atherosclerotic heart disease of native coronary artery without angina pectoris
CPT/HCPCS: 93010; 99214

== ENCOUNTER → 2023-03-07 08:18 | Outpatient (BNVA) | payer MEDICARE, SELFPAY | PROVIDERS: PCP Family Medicine; Visit Provider Internal Medicine Cardiovascular Disease | DX: I50.30 Unspecified diastolic (congestive) heart failure (principal); I25.10 Atherosclerotic heart disease of native coronary artery without angina pectoris; I48.0 Paroxysmal atrial fibrillation; R55 Syncope and collapse | CPT/HCPCS: 93005; 99212 ==

== ENCOUNTER 2023-05-03 07:48 | Outpatient (REF) | payer MEDICARE, SELFPAY ==
[2023-05-03 11:04] LABS: MANUAL DIFF FLAG NO
[2023-05-03 11:09] LABS: Basophils Percent Auto 0.6 % (0-2); Eosinophils Absolute Auto 0.2 X10*3/uL (0.0-0.4); Hematocrit 43.7 % (42.0-52.0); Imm Gran Abs Auto 0.02 X10*3/uL (0.00-0.03); Imm Gran Pct Auto 0.4 % (0.0-0.4); Lymphocytes Absolute Auto 1.2 X10*3/uL (1.2-4.9); Lymphocytes Percent Auto 23.7 % (20-40); Mean Corpuscular Hemoglobin 31.3 pg (27.0-33.0); Mean Corpuscular Volume 97.8 fL (80.0-98.0); Mean Platelet Volume 10.1 fL (9.4-12.4); Monocytes Absolute Auto 0.5 X10*3/uL (0.1-1.2); Monocytes Percent Auto 10.7 % (2-11); Neutrophils Absolute Auto 3.1 x10*3/uL (2.0-8.3); Neutrophils Percent Auto 60.6 % (45-73); Platelet Count 148 X10*3/uL (160-400); Red Blood Count 4.47 X10*6/uL (4.60-5.80); Red Cell Distribution Width 15.1 % (11.0-16.0); White Blood Count 5.1 X10*3/uL (4.8-10.8)
[2023-05-03 11:13] LABS: Estimated Average Glucose 131 mg/dL; Hemoglobin A1c % 6.2 % (<6.0)
[2023-05-03 11:39] LABS: Alanine Aminotransferase 29 U/L (0-40); Albumin Level 3.8 g/dL (3.5-5.0); Alkaline Phosphatase 85 U/L (39-117); Anion Gap 14 (12-20); Aspartate Amino Transferase 25 U/L (5-37); Bilirubin Direct 0.2 mg/dL (0.0-0.5); Bilirubin Total 0.6 mg/dL (0.0-1.0); Blood Urea Nitrogen 19 mg/dL (9-16); Carbon Dioxide 27 mmol/L (22-29); Chloride 101 mmol/L (96-108); Estimated Glomerular Filt Rate > 60; Glucose Fasting 127 mg/dL (60-99); Potassium 4.7 mmol/L (3.3-5.1); Sodium 137 mmol/L (135-145); Total Protein 6.8 g/dL (6.5-8.0)
[2023-05-03 11:51] LABS: Creatinine Urine 132.93 mg/dL; Microalbum/Creatinine Ratio Ur 140.6 ug/mg cr (<30)
== END 2023-05-03 07:49 | disposition home or self-care (01) ==
LOC: HO.10HDL 07:48
PROVIDERS: Visit Provider Family Medicine
DX: E11.9 Type 2 diabetes mellitus without complications (principal); I10 Essential (primary) hypertension; R06.02 Shortness of breath; K75.81 Nonalcoholic steatohepatitis (NASH)
CPT/HCPCS: 36415; 80051; 80076; 82043; 82565; 82570; 82947; 83036; 84520; 85025

== ENCOUNTER → 2023-08-22 07:44 | Outpatient (REF) | payer MEDICARE, SELFPAY ==
--- NOTE | 2023-08-22 07:49 | CA_ITS ---
Transthoracic Echocardiogram Patient (Last, First, Middle): Cipriano Aguirre H Gender: Male Date of : 1940 Age: 83 Procedure Date: 08/22/2023 Procedure Type: Transthoracic Echocardiogram Location: OP Height: 185.42 cm Weight: 111.13 kg BSA: 2.35 m2 Heart Rate: bpm BP: 110 / 66 mmHg Engineer [employer] Construction: TO Referring MD: Rickey Cardoza MD Gis Software Engineer: Rickey Cardoza MD Symptoms: I48.0 - Paroxysmal atrial fibrillation Study Quality: Technically Difficult/ Fair Contrast ECG Rhythm: Atrial Fibrillation Conclusions: - 1. Mildly reduced LV ejection fraction to 45-50% with grade 2 diastolic dysfunction 2. Moderately dilated right ventricle with at least moderately reduced RV systolic function 3. Mild aortic regurgitation noted 4. Qrng-tk-advubgat mitral regurgitation noted 5. Normal RV systolic pressure but significantly elevated right atrial pressures 6. Mildly dilated ascending aorta Findings Procedure Information Contrast agent, definity, is being given per protocol without apparent complications. Left Ventricle Normal left ventricular cavity size. There is normal left ventricular wall thickness. The left ventricular systolic function is mildly decreased. The visually estimated ejection fraction is between 45-50%. Spectral Doppler is indicative of a pseudonormal filling pattern. E/E prime ratio is >15, consistent with elevated filling pressures. Evidence suggests grade II (moderate) diastolic dysfunction. Right Ventricle The right ventricle was not well visualized. Moderately increased right ventricular cavity size. There is moderately decreased right ventricular systolic function. Atria The left atrium is mildly dilated. The right atrium was not well visualized. Aortic Valve The aortic valve was not well visualized. There is mild calcification of the aortic valve. There is mild thickening of the aortic valve. There is no aortic valve stenosis. There is mild aortic valve regurgitation. Mitral Valve The mitral valve was not well visualized. There is severe posterior mitral leaflet thickening. There is severe mitral annular calcification. There is mild to moderate mitral valve regurgitation. There is no mitral valve stenosis. Pulmonic Valve The pulmonic valve was not well visualized. Tricuspid Valve There is mild to moderate tricuspid valve regurgitation. Significantly elevated right atrial pressure. There is no evidence of pulmonary hypertension. Great Vessels The pulmonary artery was not well visualized. There is mild dilatation of the ascending aorta measuring 4.20 cm. Venous The inferior vena cava is moderately dilated and does not collapse with inspiration. Pericardium/Pleural The pericardium was not well visualized. Prior Study Comparison Changes noted compared to prior study dated: 08/16/2022. LV systolic function appears depressed on this study. Mild aortic regurgitation noted. Right atrial pressures are significantly elevated Measurements 2D Linear Measurements IVSd: 0.99 0.6-0.9/0.6-1.0 cm LVIDd: 4.92 3.9-5.3/4.2-5.9 cm LVIDd Index: 2.09 2.4-3.2/2.2-3.1 cm/m2 LVIDs: 3.68 2.0-3.6 cm LVPWd: 0.90 0.7-1.1 cm LV Mass: 205.75 67-162/88-224 g LV Mass Index: 87.55 43-95/49-115 g/m2 LVOT Diam: 2.10 3.0+(-)1.3 cm 2D Systolic Function EF 4C: 46.80 >55% Mitral Valve MV VTI: 0.39 MV Pk Bethel: 1.00 MV Mn Bethel: 0.58 MV Pk Grad: 4.00 MV Mn Grad: 2.00 MV Pk E: 0.87 MV PK A: 0.81 MV Decel Time: 229.00 E/A: 1.10 E'Lateral: 5.00 E'Medial: 5.11 E/E' Med: 17.10 E/E' Lat: 17.50 PHT: 67.00 MVA PHT: 3.28 MVA Continuity: 2.15 Decel Bowie: 3.82 Aortic Valve AoV Pk Bethel: 1.62 AoV Mn Bethel: 1.15 AoV VTI: 0.32 AoV Pk Grad: 10.00 Aov Mn Grad: 6.00 JERMAINE Cont.VTI: 2.58 LVOT LVOT Pk Bethel: 0.97 LVOT Mn Bethel: 0.70 LVOT VTI: 0.24 LVOT Pk Grad: 4.00 LVOT Mn Grad: 2.00 LVOT Diam: 2.10 LVOT Area: 3.46 Diastolic Function MV Pk E: 0.87 MV Pk A: 0.81 E/A: 1.10 E'Medial: 5.11 E/E' Med: 17.10 E' Laterial: 5.00 E/E' Lat: 17.50 Right Ventricle TAPSE (mm): 12.70 TVS' Bethel: 7.07 Tricuspid Valve TR Pk Bethel: 2.01 TR Pk Grad: 16.00 RA Press: 15.00 RVSP: 31.00 Great Vessels Aorta Sinus of Valsalva: 3.76 2.0-3.5 cm Ao Asc: 4.20 2.1-3.4 cm Updated in Other Vendor System with Status of Final Rickey Cardoza MD electronically signed on 08/22/2023 2:49:31 PM with status of Final
== END ==
LOC: HO.CARD 07:44
PROVIDERS: PCP Family Medicine; Visit Provider Internal Medicine Cardiovascular Disease
DX: I48.0 Paroxysmal atrial fibrillation (principal)
CPT/HCPCS: 93306; Q9957

== ENCOUNTER → 2023-08-22 07:49 | Outpatient (BNV) | payer MEDICARE, SELFPAY | PROVIDERS: PCP Family Medicine; Visit Provider Internal Medicine Cardiovascular Disease | DX: I36.1 Nonrheumatic tricuspid (valve) insufficiency (principal); I35.1 Nonrheumatic aortic (valve) insufficiency; I34.0 Nonrheumatic mitral (valve) insufficiency; I48.0 Paroxysmal atrial fibrillation | CPT/HCPCS: 93306 ==

== ENCOUNTER 2023-09-06 08:35 | Outpatient (AMB) | payer MEDICARE, SELFPAY ==
--- NOTE | 2023-09-06 08:48 | MHC.OFFVIS ---
Vital Signs 09/06/23 08:50 Height 6 ft 2 in Weight 257 lb 15.053 oz BMI 33.1 BP 116/62 Blood Pressure Location Lt brachial Position Sitting Pulse 67 Pulse Source Monitor Intake Visit Reasons: 6 mth f/up Allergies apixaban [From ELIQUIS] Allergy (Unknown, Verified 08/29/22 08:44) BLEEDING ezetimibe [From ZETIA] Allergy (Unknown, Verified 08/29/22 08:44) UNKNOWN guaifenesin [From ROBITUSSIN] Allergy (Unknown, Verified 08/29/22 08:44) UNKNOWN Lnxhdtm-ZUI-SmN Reductase Inhibitor [KCMYGGA-MUD-LOS REDUCTASE INHIBITOR] Allergy (Unknown, Verified 08/29/22 08:44) UNKNOWN Medication List - Last Reconciled 09/06/23 by Rickey Cardoza MD amiodarone 100 mg (1/2 x 200 mg) PO DAILY aspirin (Adult Low Dose Aspirin) 81 mg PO DAILY furosemide 40 mg PO DAILY lisinopril 5 mg PO DAILY sildenafil 100 mg PO DIRECTED tamsulosin 0.4 mg PO DAILY HPI Comments Details: Mitch comes for follow-up. Recent echocardiogram shows worsening RV systolic function and size. Continues to have symptoms of exertional syncope. He said when he walks to a sudden level up to 50 yd he gets very short of breath and then gets lightheaded and then he passes out. He does not have any symptoms of palpitations. Does not have any symptoms of chest discomfort. He denies any orthopnea, PND. He denies any leg edema. [facility] Medical History (HFpEF) heart failure with preserved ejection fraction Paroxysmal atrial fibrillation HTN (hypertension) Hyperlipidemia CAD (coronary artery disease) Hypertensive heart disease SVT (supraventricular tachycardia) Tricuspid regurgitation Presence of Watchman left atrial appendage closure device Surgical History Stented coronary artery History of kidney surgery History of cardiac radiofrequency ablation History of carpal tunnel release Hx of heart surgery Hx of CABG Hx of cardiac cath Family History Father CVD (cardiovascular disease) Mother Sudden cardiac Family/Other Sudden cardiac Social History Alcohol intake: current Review of Systems Const Denies weakness ENT Denies dizziness Card Denies chest pain, Denies chest pain with activity, Denies syncope, Denies rapid heart rate, Denies pedal edema, Denies edema, Denies leg edema, Denies lightheadedness, Denies palpitations, Denies dyspnea, Denies dyspnea on exertion and Denies orthopnea Resp Denies cough, Denies dyspnea and Denies dyspnea on exertion GI Denies hematochezia and Denies change in stool character Musc Denies abnormal gait, Denies muscle cramps, Denies muscle weakness, Denies numbness, Denies radiating pain into limb and Denies tingling Neuro Denies abnormal gait, Denies dizziness, Denies syncope, Denies numbness, Denies tingling and Denies weakness Endo Denies palpitations Physical Exam Vital Signs: Last Vital Signs Pulse 67 09/06/23 08:50 BP 116/62 09/06/23 08:50 BMI result Body Mass Index 33.1 Const General: cooperative, comfortable, no acute distress, alert, awake and well groomed Nutritional Appearance: obese Orientation/consciousness: patient oriented x3 Limitations: no limitations Neck Neck: Yes trachea midline, Yes supple and Yes no JVD Resp Effort & Inspection: normal respiratory effort Auscultation: clear to auscultation bilaterally Cardio Jugular venous distension: no JVD Palpation: normal PMI Rate: regular rate Rhythm: regular rhythm Heart sounds: S1 normal heart sound present and S2 normal heart sound present GI Auscultation: normal bowel sounds Skin General skin exam: no rashes or lesions noted and dry skin Neuro General: patient oriented x3 and no focal motor deficits Extrem General: Yes no clubbing, cyanosis or edema Psych Appearance: grossly normal Office Procedures EKG Details: EKG shows normal sinus rhythm first-degree AV block with lateral ST T wave changes which could represent ischemia [id number], Complete Assessment & Plan Assessment & Plan (1) Syncopal episodes: Code(s): R55 - Syncope and collapse Category: Medical Plan: Patient with symptoms of exertional syncope of unclear etiology. He does get significantly short of breath prior to getting and passing out. We therefore did a walking oximetry in the office which did not show any evidence of exercise induced hypoxemia. His echocardiogram shows worsening RV size and systolic function which could be related to prior open-heart surgery with no other major valvular abnormality and no significant pulmonary hypertension. However he does have mildly reduced LV ejection fraction. Would suggest a cardiac catheterization to evaluate for coronary and graft anatomy as well as to evaluate for hemodynamics. This will be scheduled in near future. The possible this could be due to significant RV dysfunction with exercise causing him to have syncopal episode although this is difficult to diagnose/prove. Would suggest low-dose digoxin therapy to provide ionotropic support to RV function although have discussed with him that there is no scientific data to support this. He understands but is willing to try. Will also suggest a home sleep study to evaluate for obstructive sleep apnea as a cause for RV enlargement. Further treatment based on the findings. Digoxin assay next week. (2) (HFpEF) heart failure with preserved ejection fraction: Code(s): I50.30 - Unspecified diastolic (congestive) heart failure Category: Medical Plan: Heart failure preserved ejection fraction, clinically euvolemic and well compensated although echocardiogram suggest further elevated right atrial pressures. Hemodynamic evaluation above. Clinically appears to be euvolemic and well compensated. Continue furosemide therapy. Continue aggressive blood pressure control which is well optimized. Continue rhythm control approach which has helped him significantly. At this point time will workup for sleep apnea as above. Continue participate in regular physical activity and weight loss program. (3) Paroxysmal atrial fibrillation: Code(s): I48.0 - Paroxysmal atrial fibrillation Category: Medical Plan: Paroxysmal atrial fibrillation has suppressed on amiodarone therapy. Currently low-dose amiodarone for many years and has done well. Continue annual toxicity check. Status post Watchman device. Continue low-dose aspirin therapy. Avoidance of stimulants was discussed. Has benefitted from rhythm control approach will continue pursue rhythm control approach. (4) CAD (coronary artery disease): Code(s): I25.10 - Atherosclerotic heart disease of [place] coronary artery without angina pectoris Category: Medical Plan: CAD with prior LAD stenting and subsequently 2 vessel coronary artery bypass grafting for progressive CAD with symptoms exertional shortness of breath at that time. Recurrent shortness of breath this point time and therefore need to re-evaluate coronary and graft anatomy as above. He is currently on low-dose aspirin therapy. Blood pressure is well optimized. He has declined statin therapy in the past and therefore progressive atherosclerosis highly likely. Further treatment based on the findings of cardiac catheterization. Will follow up in the clinic after cardiac catheterization. Greater than 45 minutes was spent in managing his complex care. Orders: Orders Digoxin 1 Week I48.20 - Chronic atrial fibrillation, unspecified, R55 - Syncope and collapse Basic Metabolic Panel 1 Week R55 - Syncope and collapse Complete Blood Count no Diff 1 Week R55 - Syncope and collapse RT home sleep study Today R06.81 - Apnea, not elsewhere classified Cardiac Cath [facility] Diagnostic 3 Weeks R55 - Syncope and collapse Prothrombin Time INR 1 Week R55 - Syncope and collapse Medications: New semaglutide (Ozempic) for 4 weeks 0.25 mg (0.368 mL) subcut QWEEK 3 mL 1RF digoxin 125 mcg PO .three times a week 14 tabs 5RF Coding Level of Care Code Est Pt Level 5 (85390) Diagnoses Syncopal episodes R55 (HFpEF) heart failure with preserved ejection fraction I50.30 Paroxysmal atrial fibrillation I48.0 CAD (coronary artery disease) I25.10 CPT Codes EKG - CPT: 26826-[id number], Complete ([id number])
[2023-09-06 08:50] VITALS: BP 116/62; PULSE 67; BMI 33.1
== END 2023-09-06 09:19 | disposition home or self-care (01) ==
PROVIDERS: PCP Family Medicine; Visit Provider Internal Medicine Cardiovascular Disease
DX: R55 Syncope and collapse (principal); I50.30 Unspecified diastolic (congestive) heart failure; I48.0 Paroxysmal atrial fibrillation; I25.10 Atherosclerotic heart disease of native coronary artery without angina pectoris
CPT/HCPCS: 93010; 99215

== ENCOUNTER → 2023-09-06 08:35 | Outpatient (BNVA) | payer MEDICARE, SELFPAY | PROVIDERS: PCP Family Medicine; Visit Provider Internal Medicine Cardiovascular Disease | DX: R55 Syncope and collapse (principal); I11.0 Hypertensive heart disease with heart failure; I50.30 Unspecified diastolic (congestive) heart failure; I48.0 Paroxysmal atrial fibrillation; I44.0 Atrioventricular block, first degree; I25.10 Atherosclerotic heart disease of native coronary artery without angina pectoris; Z95.5 Presence of coronary angioplasty implant and graft; Z95.1 Presence of aortocoronary bypass graft; Z98.890 Other specified postprocedural states | CPT/HCPCS: 93005; 99212 ==

== ENCOUNTER 2023-09-11 08:32 | Outpatient (REF) | payer MEDICARE, SELFPAY ==
[2023-09-11 09:28] LABS: Prothrombin Time 11.6 SEC (11.1-13.3)
[2023-09-11 09:29] LABS: Hematocrit 40.5 % (42.0-52.0); Hemoglobin 13.1 g/dl (14.0-18.0); Mean Corpuscular HGB Conc 32.3 g/dl (31.0-36.0); Mean Corpuscular Hemoglobin 32.9 pg (27.0-33.0); Mean Corpuscular Volume 101.8 fL (80.0-98.0); Mean Platelet Volume 10.6 fL (9.4-12.4); Platelet Count 136 X10*3/uL (160-400); Red Blood Count 3.98 X10*6/uL (4.60-5.80); Red Cell Distribution Width 15.9 % (11.0-16.0); White Blood Count 5.9 X10*3/uL (4.8-10.8)
[2023-09-11 09:50] LABS: Anion Gap 14 (12-20); Blood Urea Nitrogen 20 mg/dL (9-16); Carbon Dioxide 27 mmol/L (22-29); Chloride 103 mmol/L (96-108); Estimated Glomerular Filt Rate 49; Glucose Random 140 mg/dL (60-115); Potassium 4.8 mmol/L (3.3-5.1); Sodium 139 mmol/L (135-145)
[2023-09-11 09:51] LABS: Digoxin < 0.2 ng/mL (0.8-2.0)
== END 2023-09-11 08:33 | disposition home or self-care (01) ==
LOC: HO.LAB 08:32
PROVIDERS: PCP Family Medicine; Visit Provider Internal Medicine Cardiovascular Disease
DX: R55 Syncope and collapse (principal); I48.20 Chronic atrial fibrillation, unspecified
CPT/HCPCS: 36415; 80048; 80162; 85027; 85610

== ENCOUNTER → 2023-09-27 23:59 | Outpatient (BNV) | payer MEDICARE, SELFPAY | PROVIDERS: PCP Family Medicine; Visit Provider Internal Medicine Cardiovascular Disease | DX: I20.89 Other forms of angina pectoris (principal); I42.9 Cardiomyopathy, unspecified; I50.20 Unspecified systolic (congestive) heart failure | CPT/HCPCS: 93457; 93566; 99152 ==

== ENCOUNTER 2023-11-12 08:09 | Outpatient (AMB) | payer MEDICARE, SELFPAY ==
[2023-11-12 08:12] VITALS: BP 114/72; PULSE 61; BMI 32.6
--- NOTE | 2023-11-12 08:12 | A.OFFVIS_ITS ---
Vital Signs 11/12/23 08:12 Height 6 ft 2 in Weight 253 lb 15.56 oz BMI 32.6 BP 114/72 Blood Pressure Location Rt brachial Position Sitting Pulse 61 Pulse Source Monitor Intake Visit Reasons: fu after cardiac cath (NS) Contract Management Specialist Required: No Collection Technician: Collection Technician Present Allergies apixaban [From ELIQUIS] Allergy (Unknown, Verified 11/12/23 08:16) BLEEDING ezetimibe [From ZETIA] Allergy (Unknown, Verified 11/12/23 08:16) UNKNOWN guaifenesin [From ROBITUSSIN] Allergy (Unknown, Verified 11/12/23 08:16) UNKNOWN Orhlehj-CNA-YpU Reductase Inhibitor [RCVCHLY-OXN-KHR REDUCTASE INHIBITOR] Gavin rgy (Unknown, Verified 11/12/23 08:16) UNKNOWN Medication List - Last Reconciled 11/12/23 by TIFFANY Hankins amiodarone 100 mg (1/2 x 200 mg) PO DAILY aspirin (Adult Low Dose Aspirin) 81 mg PO DAILY furosemide 40 mg PO DAILY lisinopril 5 mg PO DAILY sildenafil 100 mg PO DIRECTED tamsulosin 0.4 mg PO DAILY HPI HPI fu after cardiac cath (NS): Details: Cipriano is an 83 year old male with past medical history of hypertension, hyperlipidemia, hypertensive heart disease, heart failure with preserved EF, paroxysmal atrial fibrillation, coronary artery disease with LAD stent then two- vessel Coronary artery bypass grafting who reported shortness of breath and syncopal events with exertion and just underwent cardiac catheterization and now presents for follow-up. Today he reports that he does have shortness of breath with physical activity. 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 He says he is fine if he is in a sitting position. Will get short of breath and if he over exerts he will get lightheaded and have syncope. He has not had syncopal events since his last visit. He says he will sit and rest before it gets to that point. He sleeps with his head of the bed elevated. No chest discomfort at rest or with activity. No heart palpitations or concerns for atrial fibrillation. No bleeding issues reported. No leg edema. Right femoral cath site is feeling good. He ambulates with a willing walker. He takes all his meds as directed. He tried increasing his diuretic as directed and had issues with loose stools. His daughter is present. [facility] Medical History (HFpEF) heart failure with preserved ejection fraction Paroxysmal atrial fibrillation HTN (hypertension) Hyperlipidemia CAD (coronary artery disease) Hypertensive heart disease SVT (supraventricular tachycardia) Tricuspid regurgitation Presence of Watchman left atrial appendage closure device Surgical History (Updated 11/12/23 @ 09:24 by RADHA HankinsC) Stented coronary artery History of kidney surgery History of cardiac radiofrequency ablation History of carpal tunnel release Hx of heart surgery Hx of CABG Hx of cardiac cath Family History Father CVD (cardiovascular disease) Mother Sudden cardiac Family/Other Sudden cardiac Social History Alcohol intake: current Review of Systems Const All systems reviewed & are unremarkable except as noted in HPI and below ENT Reports dizziness Card Reports chest pain, Denies chest pain at rest, Denies chest pain with activity, Denies rapid heart rate, Denies pedal edema, Denies edema, Denies leg edema, Denies lightheadedness, Denies palpitations, Reports dyspnea, Reports dyspnea on exertion and Denies orthopnea Resp Denies cough, Reports dyspnea and Reports dyspnea on exertion GI Denies hematochezia and Denies change in stool character Musc Denies abnormal gait, Denies limited range of motion, Denies muscle cramps, Denies muscle weakness, Denies numbness, Denies radiating pain into limb, Denies stiffness and Denies tingling Neuro Denies abnormal gait, Reports dizziness, Denies numbness and Denies tingling Endo Denies palpitations Physical Exam Vital Signs: Last Vital Signs BP 114/72 11/12/23 08:12 BMI result Body Mass Index 32.6 Const General: cooperative, healthy appearing, comfortable and no acute distress Orientation/consciousness: patient oriented x3 Neck Neck: Yes normal visual inspection Resp Effort & Inspection: normal respiratory effort Auscultation: clear to auscultation bilaterally, no rales, no rhonchi and no wheezes Cardio Jugular venous distension: no JVD Rate: regular rate Rhythm: regular rhythm Heart sounds: S1 normal heart sound present, S2 normal heart sound present, no murmurs and no rubs Neuro General: patient oriented x3 Extrem General: Yes normal to inspection, No no pedal edema and No calf tenderness Psych Appearance: grossly normal Mental Status: mental status grossly normal Speech and movement: Normal speech and movement present Office Procedures EKG Details: Today, read by me, SR, 1st degree avb, cant exclude prior anterior infarct, rate 61, QTc 416ms [id number], Complete Assessment & Plan Assessment & Plan (1) CAD (coronary artery disease): Code(s): I25.10 - Atherosclerotic heart disease of [place] coronary artery without angina pectoris Category: Medical Plan: History of CAD. Remote LAD stent. History of 2 vessel coronary artery bypass grafting, burton to LAD and SVG to right PDA. He reports having issues with shortness of breath with exertion followed by lightheadedness and has had syncopized. He underwent cardiac catheterization for evaluation showing proximal LAD 90%, mid LAD 100%, RCA proximal 100%, left circumflex minimal irregularities and patent grafts. His PA pressures were elevated. Recommendation was for increased diuretics which he did try. He says it gave him loose stools. He is back to taking Lasix 20 mg tablets, 2 per day. He denies any chest discomfort at rest or with activity. EKG done today showing sinus rhythm with a first-degree AV block, can not exclude prior anterior infarct, rate 61. He has no leg edema or rales on exam. He does have abdominal obesity which can contribute to his shortness of breath. Will continue on aspirin indefinitely. He is not on statin, previously declined. Will have him increase Lasix to 3 tablets daily, 60 mg. Recheck of labs in 2-3 weeks. Signs and symptoms of angina and Congestive heart failure reviewed with him. Discussed low-salt diet. Emergency care if ever needed for symptoms. Sleep study is still pending. Cardiology follow-up to re-evaluate symptoms in 3-4 months, sooner if needed. (2) S/P cardiac cath: Comment: 09/27/2023, proximal LAD 90% stenosis, mid LAD 100% stenosis, left circumflex minimal irregularities, RCA proximal STAFF READINESS OFFICER, vein graft to the right PDA and BURTON to LAD patent. Code(s): Z98.890 - Other specified postprocedural states Category: Surgical Plan: Right groin cath site with palpable femoral pulse. Fungal rash noted to the groin area, patient informed. (3) Stented coronary artery: Comment: drug-eluting stent to LAD, February 2009 and for angina Code(s): Z95.5 - Presence of coronary angioplasty implant and graft Category: Surgical Plan: As above (4) Hx of CABG: Comment: coronary bypass x2, BURTON to LAD and SVG to RCA, December 2018 Code(s): Z95.1 - Presence of aortocoronary bypass graft Category: Surgical Plan: As above (5) (HFpEF) heart failure with preserved ejection fraction: Code(s): I50.30 - Unspecified diastolic (congestive) heart failure Category: Medical Plan: As above. Last echocardiogram 08/22/2023 showing EF 45-50%, grade 2 diastolic dysfunction, moderately dilated RV with at least moderate the reduced RV systolic function, mild AR, ygxg-hg-nimyczvs MR, significantly elevated right atrial pressure. Echo results reviewed with him. Discussed the need for the sleep study, weight loss and increasing his diuretic. (6) Syncopal episodes: Code(s): R55 - Syncope and collapse Category: Medical Plan: As above. No clear cardiac finding for this phenomena. Could be related to hypoxia with his shortness of breath on exertion (7) Paroxysmal atrial fibrillation: Code(s): I48.0 - Paroxysmal atrial fibrillation Category: Medical Plan: History of PAF. Currently suppressed with low-dose amiodarone. EKG today showing sinus rhythm with first-degree AV block. He is on daily aspirin. He has a Watchman device in place. No reports of heart palpitations. We are continuing to follow him for any signs of toxicity. (8) HTN (hypertension): Code(s): I10 - Essential (primary) hypertension Category: Medical Plan: Well controlled at this time. No med changes made. (9) Hyperlipidemia: Code(s): E78.5 - Hyperlipidemia, unspecified Category: Medical Plan: Kimper LDL goal less than 70. Will add lipid profile to next labs. He has declined statin. Plan Time spent on chart review, documentation, interview and assessment Orders: Orders Lipid Panel Today I25.10 - Atherosclerotic heart disease of [place] coronary artery without angina pectoris Comprehensive Met. Panel Today I25.10 - Atherosclerotic heart disease of [place] coronary artery without angina pectoris TSH reflex Free T4 Today I48.0 - Paroxysmal atrial fibrillation Coding Level of Care Code Est Pt Level 4 (85673) Diagnoses CAD (coronary artery disease) I25.10 S/P cardiac cath Z98.890 Stented coronary artery Z95.5 Hx of CABG Z95.1 (HFpEF) heart failure with preserved ejection fraction I50.30 Syncopal episodes R55 Paroxysmal atrial fibrillation I48.0 HTN (hypertension) I10 Hyperlipidemia E78.5 CPT Codes EKG - CPT: 05253-Shxrzynvohhyjlswk, Complete ([id number]) Time Spent (min) 36
== END 2023-11-12 08:59 | disposition home or self-care (01) ==
PROVIDERS: PCP Family Medicine; Visit Provider Nurse Practitioner Family
DX: I25.10 Atherosclerotic heart disease of native coronary artery without angina pectoris (principal); Z98.890 Other specified postprocedural states; Z95.5 Presence of coronary angioplasty implant and graft; Z95.1 Presence of aortocoronary bypass graft; I50.30 Unspecified diastolic (congestive) heart failure; R55 Syncope and collapse; I48.0 Paroxysmal atrial fibrillation; I10 Essential (primary) hypertension; E78.5 Hyperlipidemia, unspecified
CPT/HCPCS: 93010; 99214

== ENCOUNTER → 2023-11-12 08:09 | Outpatient (BNVA) | payer MEDICARE, SELFPAY | PROVIDERS: PCP Family Medicine; Visit Provider Nurse Practitioner Family | DX: I44.0 Atrioventricular block, first degree (principal); I11.0 Hypertensive heart disease with heart failure; I50.30 Unspecified diastolic (congestive) heart failure; I25.10 Atherosclerotic heart disease of native coronary artery without angina pectoris; I48.0 Paroxysmal atrial fibrillation; R55 Syncope and collapse; E78.5 Hyperlipidemia, unspecified; Z98.890 Other specified postprocedural states; Z95.5 Presence of coronary angioplasty implant and graft; Z95.1 Presence of aortocoronary bypass graft | CPT/HCPCS: 93005; 99212 ==

== ENCOUNTER 2023-11-22 10:02 | Outpatient (REF) | payer MEDICARE, SELFPAY ==
[2023-11-22 10:48] LABS: MANUAL DIFF FLAG NO
[2023-11-22 10:59] LABS: Basophils Percent Auto 0.5 % (0-2); Eosinophils Absolute Auto 0.1 X10*3/uL (0.0-0.4); Eosinophils Percent Auto 1.2 % (0-4); Hematocrit 41.8 % (42.0-52.0); Hemoglobin 13.4 g/dl (14.0-18.0); Imm Gran Abs Auto 0.04 X10*3/uL (0.00-0.03); Imm Gran Pct Auto 0.7 % (0.0-0.4); Lymphocytes Absolute Auto 0.6 X10*3/uL (1.2-4.9); Lymphocytes Percent Auto 10.4 % (20-40); Mean Corpuscular HGB Conc 32.1 g/dl (31.0-36.0); Mean Corpuscular Hemoglobin 32.8 pg (27.0-33.0); Mean Corpuscular Volume 102.5 fL (80.0-98.0); Mean Platelet Volume 10.1 fL (9.4-12.4); Monocytes Absolute Auto 0.4 X10*3/uL (0.1-1.2); Neutrophils Absolute Auto 4.8 x10*3/uL (2.0-8.3); Neutrophils Percent Auto 80.2 % (45-73); Platelet Count 137 X10*3/uL (160-400); Red Blood Count 4.08 X10*6/uL (4.60-5.80); Red Cell Distribution Width 14.6 % (11.0-16.0)
[2023-11-22 11:19] LABS: Alanine Aminotransferase 42 U/L (0-40); Anion Gap 10 (12-20); Aspartate Amino Transferase 52 U/L (5-37); Blood Urea Nitrogen 23 mg/dL (9-16); Carbon Dioxide 31 mmol/L (22-29); Chloride 100 mmol/L (96-108); Estimated Glomerular Filt Rate 48; Glucose Random 117 mg/dL (60-115); Magnesium 2.6 mg/dL (1.6-2.6); Potassium 5.3 mmol/L (3.3-5.1); Sodium 136 mmol/L (135-145)
== END 2023-11-22 10:03 | disposition home or self-care (01) ==
LOC: HO.10HDL 10:02
PROVIDERS: Visit Provider Family Medicine
DX: I10 Essential (primary) hypertension (principal); E11.9 Type 2 diabetes mellitus without complications; E78.00 Pure hypercholesterolemia, unspecified; Z79.899 Other long term (current) drug therapy; R06.02 Shortness of breath
CPT/HCPCS: 36415; 80051; 82550; 82565; 82947; 83735; 84450; 84460; 84520; 85025

== ENCOUNTER 2024-03-05 09:56 | Outpatient (REF) | payer MEDICARE, SELFPAY ==
--- NOTE | ~2024-03-05 | US_ITS ---
CLINICAL HISTORY: PVD, stenosis US Bilateral Carotid Duplex Comparison: None Findings: Severe atherosclerotic plaquing at the carotid bifurcations bilaterally. This extends into the proximal internal carotid arteries and external carotid arteries bilaterally. Peak systolic velocities: Right CCA: 48 cm/s. Right ICA: 131 cm/s. Right ECA: 73 cm/s. Right vertebral artery flow antegrade. Left CCA: 66 cm/s. Left ICA: 67 cm/s. Left ECA: Occluded. Left vertebral artery flow antegrade.. IMPRESSION: Severe atherosclerotic plaquing of the carotid arteries bilaterally without elevated velocity to suggest flow-limiting stenosis. Occluded left external carotid artery. This document has been electronically signed by: Waldo Grier MD on 03/06/2024 09:07:27
--- OUTSIDE RECORDS SUMMARY | 2024-03-05 10:50 | XMS_ITS | Patient Health Record ---
Author Organization [facility] Address [address] [place] [address] Care Team Providers Care Patent Searcher Name Role Phone Neal JUAN, Omid Primary Care Provider Unavailab Leonard Kim Jr Unavailable REASON FOR REFERRAL No Information MEDICATIONS Medication SIG (Take, Route, Frequency, Duration) Notes Start Date End Date Status Aspir-81 81 MG 1 tablet Orally Once a day 08/14/19 14 Active Metoprolol Tartrate 50 MG TAKE 1 TABLET BY MOUTH EVERY MORNING Oral for 30 Active Lisinopril 10 MG TAKE 1 TABLET BY RAMIRO TH EVERY MORNING Oral for 30 Active Pradaxa 150 MG TAKE 1 TABLET BY RAMIRO TH EVERY MORNING Oral for 30 Active Colyte with Flavor Packs 240 GM As directed Orally Over the specified time. for 1 day(s) 08/13/2013 Active SOCIAL HISTORY Sex Assigned At : Social History Observation Description Sex Assigned At Unknown PROBLEMS Problem Type ICD Code Onset Dates Problem Status W/U Status Risk SNOMED Code Notes Problem Colon cancer screening (V76.51) Active confirmed 306304692 Problem [facility] current use of aspirin (V58.66) Active confirmed 259709326 Problem [facility] (current) use of anticoagulants (V58.61) Active confirmed 980012271 PLAN OF TREATMENT Pending Test Test Name Order Date GI BIOPSY 11/24/2014 Future Test Test Name Order Date COLONOSCOPY 08/13/2013 Insurance Providers Payer Name Payer Address Payer Phone Subscriber Number Group Number Insured Name Patient Relationship to Insured Coverage Start Date Coverage End Date MEDICARE OF [address] [place] [address] [id number] COLEMAN WHEAT Self - patient is the insured [employer] ATTN CLAIMS [address] [place] [address] [phone] [id number] MARY ALICECOLEMAN PIÑA Self - patient is the insured MEDICAL (GENERAL) HISTORY Medical History History ICD Code Colonoscopy, 2008, tubular adenoma Hypertension coronary artery disease with stent place ment SVT with ablation atrial fibrillation
--- OUTSIDE RECORDS SUMMARY | 2024-03-05 10:50 | XMS_ITS ---
Author Organization [facility] Address Unknown Allergies, Adverse Reactions, Alerts Substance Reaction Status Noted Date Resolved Date Statins active 01/11/2019 Eliquis active 01/11/2019 Problems Problem Status Start Date End Date UNSTABLE ANGINA (Primary) (I20.0 - ICD-10-CM) ACTIVE 01/11/2019 ATHEROSCLEROSIS OF AUTOLOGOU S VEIN CORONARY ARTERY BYPASS GRAFT(S) WITH UNSPECIFIED ANGINA PECTORIS (I25.719 - ICD-10-CM) ACTIVE 01/11/2019 ATHEROSCLEROTIC HEART DISEAS E OF [place] CORONARY ARTERY WITHOUT ANGINA PECTORIS (I25.10 - ICD-10-CM) ACTIVE 01/11/2019 COMPLICATION OF VEIN FOLLOWI NG A PROCEDURE, NOT ELSEWHERE CLASSIFIED, SUBSEQUENT ENCOUNTER (T81.72XD - ICD-10-CM) ACTIVE 12/15 TYPE 2 DIABETES MELLITUS WIT HOUT COMPLICATIONS (E11.9 - ICD-10-CM) ACTIVE 01/11/2019 PAROXYSMAL ATRIAL FIBRILLATION (I48.0 - ICD-10-CM) ACT BIBIANA 01/11/2019 ACUTE RESPIRATORY FAILURE WI TH HYPOXIA (J96.01 - ICD-10-CM) ACTIVE 01/11/2019 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 (N40.0 - ICD-10-CM) ACTIVE 01/11/2019 ESSENTIAL (PRIMARY) HYPERTENSION (I10 - ICD-10-CM) ACT BIBIANA 01/11/2019 HYPERLIPIDEMIA, UNSPECIFIED (E78.5 - ICD-10-CM) ACTIVE 01/11/2019 ANEMIA, UNSPECIFIED (D64.9 - ICD-10-CM) ACTIVE 03/13/2018 NONALCOHOLIC STEATOHEPATITIS (HANNA) (K75.81 - ICD-10-C M) ACTIVE 01/11/2019 SPINAL STENOSIS, SITE UNSPECIFIED (M48.00 - ICD-10-CM) ACTIVE 01/11/2019 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 with no home health services [facility] 01/11/2019 06:56 pm EST - 01/12/2019 11:09 am EST Social History
== END 2024-03-05 09:57 | disposition home or self-care (01) ==
LOC: HO.US 09:56
PROVIDERS: PCP Family Medicine; Visit Provider Family Medicine
DX: I65.23 Occlusion and stenosis of bilateral carotid arteries (principal); I73.9 Peripheral vascular disease, unspecified
CPT/HCPCS: 93880

== ENCOUNTER → 2024-03-05 10:38 | Outpatient (BNV) | payer MEDICARE, SELFPAY | PROVIDERS: PCP Family Medicine; Visit Provider Radiology Diagnostic Radiology | DX: I65.23 Occlusion and stenosis of bilateral carotid arteries (principal) | CPT/HCPCS: 93880 ==

== ENCOUNTER 2024-03-10 08:53 | Outpatient (REF) | payer MEDICARE, SELFPAY ==
--- NOTE | ~2024-03-10 | XR_ITS ---
CLINICAL HISTORY: I48.0 - Paroxysmal atrial fibrillation 2 view chest x-ray. Comparison: CR/SR - XR CHEST 2V - 05/08/22 11:41 EDT Findings: The lungs are adequately expanded. No focal consolidation. No effusion or pneumothorax. Cardiac and mediastinal contours are mildly prominent but stable. No acute osseous abnormality Impression: No acute process. This document has been electronically signed by: Connor Hill MD on 03/10/2024 11:52:06
[2024-03-10 10:46] LABS: Hematocrit 43.3 % (42.0-52.0); Hemoglobin 14.4 g/dl (14.0-18.0); Mean Corpuscular HGB Conc 33.3 g/dl (31.0-36.0); Mean Corpuscular Hemoglobin 32.2 pg (27.0-33.0); Mean Corpuscular Volume 96.9 fL (80.0-98.0); Mean Platelet Volume 9.9 fL (9.4-12.4); Platelet Count 187 X10*3/uL (160-400); Red Blood Count 4.47 X10*6/uL (4.60-5.80); Red Cell Distribution Width 15.7 % (11.0-16.0); White Blood Count 8.7 X10*3/uL (4.8-10.8)
[2024-03-10 11:19] LABS: B Type Natriuretic Peptide 212 pg/mL (<100)
[2024-03-10 11:38] LABS: Alanine Aminotransferase 36 U/L (0-40); Alkaline Phosphatase 107 U/L (39-117); Anion Gap 12 (12-20); Aspartate Amino Transferase 37 U/L (5-37); Bilirubin Direct 0.2 mg/dL (0.0-0.5); Bilirubin Total 0.5 mg/dL (0.0-1.0); Blood Urea Nitrogen 22 mg/dL (9-16); Calcium 9.3 mg/dL (8.4-10.2); Carbon Dioxide 30 mmol/L (22-29); Chloride 102 mmol/L (96-108); Estimated Glomerular Filt Rate 49; Glucose Random 86 mg/dL (60-115); Potassium 4.2 mmol/L (3.3-5.1); Sodium 140 mmol/L (135-145); TSH reflex Free T4 1.73 uIU/mL (0.32-4.0); Total Protein 7.3 g/dL (6.5-8.0)
== END 2024-03-10 08:54 | disposition home or self-care (01) ==
LOC: HO.XRAY 08:53
PROVIDERS: PCP Family Medicine; Visit Provider Internal Medicine Cardiovascular Disease
DX: I48.0 Paroxysmal atrial fibrillation (principal); I50.30 Unspecified diastolic (congestive) heart failure; I25.10 Atherosclerotic heart disease of native coronary artery without angina pectoris; R55 Syncope and collapse
CPT/HCPCS: 36415; 71046; 80048; 80076; 83880; 84443; 85027; 93005; 99212

== ENCOUNTER 2024-03-10 08:53 | Outpatient (AMB) | payer MEDICARE, SELFPAY ==
--- NOTE | 2024-03-10 09:11 | A.OFFVIS_ITS ---
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 Required: No Accompanied by: Self / Same As Patient Allergies apixaban [From ELIQUIS] Allergy (Unknown, Verified 11/12/23 08:16) BLEEDING ezetimibe [From ZETIA] Allergy (Unknown, Verified 11/12/23 08:16) UNKNOWN guaifenesin [From ROBITUSSIN] Allergy (Unknown, Verified 11/12/23 08:16) UNKNOWN Gwakqhd-FFW-OxV Reductase Inhibitor [RFDRCNA-ATW-PKZ REDUCTASE INHIBITOR] Allergy (Unknown, Verified 11/12/23 08:16) UNKNOWN Medication List - Last Reconciled 03/10/24 by Rickey Cardoza MD amiodarone 100 mg (1/2 x 200 mg) PO DAILY aspirin (Adult Low Dose Aspirin) 81 mg PO DAILY furosemide 40 mg PO BID lisinopril 5 mg PO DAILY sildenafil 100 mg PO DIRECTED tamsulosin 0.4 mg PO DAILY HPI Comments Details: Mitch comes for follow-up. Since I last saw him he has lost 35 lb and he is feeling a lot better. His symptoms exertional shortness of breath have significantly improved in his symptoms of exertional lightheadedness/syncope have dissipated. He said he walks with a walker but does not feel lightheaded anymore when he walks a certain distance. He denies any orthopnea, PND, leg edema. Denies any prolonged palpitation irregular heartbeat. Denies any symptoms of exertional chest pain. Takes all his medications. [facility] Medical History (HFpEF) heart failure with preserved ejection fraction Paroxysmal atrial fibrillation HTN (hypertension) Hyperlipidemia CAD (coronary artery disease) Hypertensive heart disease SVT (supraventricular tachycardia) Tricuspid regurgitation Presence of Watchman left atrial appendage closure device Surgical History (Updated 03/10/24 @ 09:35 by Rickey Cardoza MD) S/P cardiac cath Hx of CABG Stented coronary artery History of kidney surgery History of cardiac radiofrequency ablation History of carpal tunnel release Hx of heart surgery Family History Father CVD (cardiovascular disease) Mother Sudden cardiac Family/Other Sudden cardiac Social History Alcohol intake: current Alcohol intake frequency: holidays/special occasions only Patient Tobacco Use Status: Never used Tobacco Review of Systems Const Denies chills, Denies fatigue, Denies fever(s), Denies weight gain and Denies weight loss ENT Denies dizziness Card Denies chest pain, Denies leg edema, Denies lightheadedness, Denies palpitations, Denies dyspnea on exertion, Denies orthopnea and Denies other Resp Denies cough and Denies dyspnea on exertion GI Denies hematochezia and Denies change in stool character Musc Denies abnormal gait, Denies muscle weakness, Denies numbness, Denies radiating pain into limb and Denies tingling Neuro Denies abnormal gait, Denies dizziness, Denies numbness and Denies tingling Endo Denies fatigue and Denies palpitations Physical Exam Vital Signs: Last Vital Signs Pulse 63 03/10/24 09:12 BP 110/50 L 03/10/24 09:12 BMI result Body Mass Index 32.0 Const General: cooperative, comfortable, no acute distress, alert, awake and well groomed Nutritional Appearance: overweight Orientation/consciousness: patient oriented x3 Limitations: no limitations Neck Neck: Yes trachea midline, Yes supple and Yes no JVD Resp Effort & Inspection: normal respiratory effort Auscultation: clear to auscultation bilaterally Cardio Jugular venous distension: no JVD Palpation: normal PMI Rate: regular rate Rhythm: regular rhythm Heart sounds: S1 normal heart sound present and S2 normal heart sound present GI Auscultation: normal bowel sounds Skin General skin exam: no rashes or lesions noted and dry skin Neuro General: patient oriented x3 and no focal motor deficits Extrem General: Yes no clubbing, cyanosis or edema Psych Appearance: grossly normal Office Procedures EKG Details: EKG shows normal sinus rhythm with minimal voltage criteria for LVH with nonspecific ST T wave changes [id number], Complete Assessment & Plan Assessment & Plan (1) (HFpEF) heart failure with preserved ejection fraction: Code(s): I50.30 - Unspecified diastolic (congestive) heart failure Category: Medical Plan: Heart failure preserved ejection fraction, clinically euvolemic and well compensated on current diuretic dose. Continue rhythm control approach which has helped him significantly. Continue current diuretic regimen. Daily weight monitoring avoidance of salt loading was discussed. He has done extremely well on Ozempic therapy with significant loss of weight and much improvement in his functionality with improved NYHA class. Clinically doing well at this point time. Follow-up echocardiogram on annual basis. Continue aggressive blood pressure control which is currently well optimized. As he loses more weight, may need reduction in his overall diuretic regimen. Will continue follow clin ically. (2) Paroxysmal atrial fibrillation: Code(s): I48.0 - Paroxysmal atrial fibrillation Category: Medical Plan: Paroxysmal atrial fibrillation has remained suppressed on low-dose amiodarone therapy. Has done extremely well with rhythm control approach will pursue rhythm control approach. Continue low-dose amiodarone therapy. Advised to check for chest x-ray as well as LFTs TSH today. Status post Watchman device. Continue low-dose aspirin therapy for life. (3) CAD (coronary artery disease): Code(s): I25.10 - Atherosclerotic heart disease of [place] coronary artery without angina pectoris Category: Medical Plan: CAD status post coronary artery bypass grafting with patent graft last year by cardiac catheterization. Continue low-dose aspirin therapy for life. Has declined statin therapy in the past. This is important lipid modification with goal LDL less than 70 mg/dL. Discussed with him. He wants to continue to monitor it. Continue aggressive blood pressure control which is currently well optimized. Encouraged to continue maintain activity level as tolerated. Encouraged to continue to participate in the continued weight loss program. (4) Syncopal episodes: Code(s): R55 - Syncope and collapse Category: Medical Plan: Prior history of syncopal episode with exertion without any clear etiology. Most likely significant weight along with RV dysfunction causing him exertional syncope. He has no stenotic lesions 1 no significant pulmonary hypertension at this point time. His symptoms have dissipated since he has lost weight 35 lb. Continue participate in weight loss program. Advised to maintain adequate hydration. Will continue to monitor diuretic therapy. Follow up in the clinic in 6 months time, sooner p.r.n.. Greater than 40 minutes was spent in managing his care. Orders: Orders Basic Metabolic Panel Today I48.0 - Paroxysmal atrial fibrillation Liver Panel Today I48.0 - Paroxysmal atrial fibrillation TSH reflex Free T4 Today I48.0 - Paroxysmal atrial fibrillation XR chest 2V Today I48.0 - Paroxysmal atrial fibrillation Complete Blood Count no Diff Today I48.0 - Paroxysmal atrial fibrillation B Type Natriuretic Peptide Today I48.0 - Paroxysmal atrial fibrillation Coding Level of Care Code Est Pt Level 5 (45576) Complex EM visit Add On G2211 Diagnoses (HFpEF) heart failure with preserved ejection fraction I50.30 Paroxysmal atrial fibrillation I48.0 CAD (coronary artery disease) I25.10 Syncopal episodes R55 CPT Codes EKG - CPT: 01105-Tjrzbtfgtucopieen, Complete ([id number])
[2024-03-10 09:12] VITALS: BP 110/50; PULSE 63; BMI 32.0
--- OUTSIDE RECORDS SUMMARY | 2024-03-10 13:12 | XMS_ITS | Patient Health Record ---
Author Organization [facility] Address [address] [place] [address] Care Team Providers Care Comic Artist Name Role Phone Neal JUAN, Omid Primary [...] Problem Colon cancer screening (V76.51) Active confirmed 290075197 Problem [facility] care current use of aspirin (V58.66) Active confirmed 433832843 Problem senior care (current) use of anticoagulants (V58.61) Active confirmed 547966022 PLAN OF TREATMENT Pending Test Test Name Order Date GI BIOPSY 11/24/2014 Future Test Test Name Order Date COLONOSCOPY 08/13/2013 Insurance Providers Payer Name Payer Address Payer Phone Subscriber Number Group Number Insured Name Patient Relationship to Insured Coverage Start Date Coverage End Date MEDICARE OF [address] [place] [address] [id number] COLEMAN WHEAT Self - patient is the insured [employer] ATTN CLAIMS [address] [place] [address] [id number] MARY ALICECOLEMAN PIÑA Self - patient is the insured MEDICAL (GENERAL) HISTORY Medical History History ICD Code Colonoscopy, 2008, tubular adenoma Hypertension coronary artery disease with stent place ment SVT with ablation atrial fibrillation
== END 2024-03-10 09:38 | disposition home or self-care (01) ==
PROVIDERS: PCP Family Medicine; Visit Provider Internal Medicine Cardiovascular Disease
DX: I50.30 Unspecified diastolic (congestive) heart failure (principal); I48.0 Paroxysmal atrial fibrillation; I25.10 Atherosclerotic heart disease of native coronary artery without angina pectoris; R55 Syncope and collapse
CPT/HCPCS: 93010; 99215; G2211

== ENCOUNTER → 2024-03-10 10:02 | Outpatient (BNV) | payer MEDICARE, SELFPAY | PROVIDERS: PCP Family Medicine; Visit Provider Radiology Vascular & Interventional Radiology | DX: I48.0 Paroxysmal atrial fibrillation (principal) | CPT/HCPCS: 71046 ==

== ENCOUNTER 2024-06-24 07:32 | Outpatient (REF) | payer MEDICARE, SELFPAY ==
--- OUTSIDE RECORDS SUMMARY | 2024-06-24 07:35 | XMS_ITS ---
Author Organization [facility] Care Team Providers Care Field Nurse Name Role Phone Omid De Jesus Unavailable Unavailable Komal Salgado Unavailable Unavailable Allergies and adverse reactions Code CodeSystem Substance Reaction Severity StartDate Concern Status 754683932 SNOMED CT Statins Unknown 01/11/2019 active Eliquis Unknown 01/11/2019 active Care Team Name Role Address Phone Organization Dates Omid De Jesus [facility] [address], [address], [place], [address], [place] (Office): : [facility] 01/11/2019 - 01/12/2019 Komal Salgado [address] [place] [address] [address], [place], [address], [place] (Office): [facility] 01/11/2019 - 01/12/2019 Mental Status Section Date Assessment Total Score Description 01/12/2019 CAM 0 No delirium ind icated Problems Problem # Description Date of onset Resolved Date Code CodeSystem Concern Status 1 ACUTE RESPIRATORY FAILURE WITH HYPOXIA 01/12/[address] active 2 ANEMIA, UNSPECIFIED 01/12/[address] active 3 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 01/12/[address] active 4 ATHEROSCLEROTIC HEART DISEASE OF [place] CORONARY ARTERY WITHOUT ANGINA PECTORIS 01/12/[address] active 5 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 01/12/[address] active 6 COMPLICATION OF VEIN FOLLOWING A PROCEDURE, NOT ELSEWHERE CLASSIFIED, SUBSEQUENT ENCOUNTER 01/12/[address] active 7 ESSENTIAL (PRIMARY) HYPERTENSION 01/12/[address] active 8 HYPERLIPIDEMIA, UNSPECIFIED 01/12/[address] active 9 NONALCOHOLIC STEATOHEPATITIS (HANNA) 01/12/[address] active 10 OBESITY, UNSPECIFIED 01/12/[address] active 11 PAROXYSMAL ATRIAL FIBRILLATION 01/12/[address] active 12 SPINAL STENOSIS, SITE UNSPECIFIED 01/12/[address] active 13 TYPE 2 DIABETES MELLITUS WITHOUT COMPLICATIONS 01/12/[address] active 14 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 01/12/[address] active 15 UNSTABLE ANGINA 01/12/[address] active Reason for Referral No Reasons for Referral Entered Social History Social History Observation Description Start Date End Date Code Code System Current Smoking Status Tobacco smoking consumption unknown 812264055 SNOMED CT Sex Assigned At Male 1940 18581-2 [facility] Gender Identity Vital Signs Code Code System Vitals Name Values and Units Timing Information 2339-0 [facility] Blood Sugar Value=95.0 Units=mg/dL 01/12/2019 42401-2 INC Pain Level Value=0.0 01/12/2019 9279-1 LOINC Respiratory Rate Value=18.0 Units=/m in 01/12/2019 8462-4 LOINC Blood Pressure-Diastolic Value=84 Un its=mmHg 01/12/2019 8480-6 LOINC Blood Pressure-Systolic Ymdcl=259 Un its=mmHg 01/12/2019 8310-5 LOINC Body Temperature Value=97.6 Units=?? F 01/12/2019 8867-4 LOINC Heart rate Value=92.0 Units=/min 02/2018 8302-2 LOINC Height Value=72.0 Units=Inches 01/12/2019 19691-1 INC O2 % BldC Oximetry Value=95.0 Units= % 01/12/2019 70164-9 LOINC Weight Snfto=284.0 Units=Lbs 02/2018
--- OUTSIDE RECORDS SUMMARY | 2024-06-24 07:35 | XMS_ITS | Patient Health Record ---
Author Organization [facility] Address [address] [place] [address] Care Team Providers Care Telephone Triage Nurse Name Role Phone Neal JUAN, Omid Primary Care Provider Unavailab Leonard Kim Jr Unavailable Reason For Referral No Information Medications Medication SIG (Take, Route, Frequency, Duration) Notes [...] specified time. 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 use of aspirin (V58.66) Active confirmed Problem 813267027 nursing home (curre nt) use of anticoagulants (V58.61) Active confirmed Plan Of Treatment Pending Test Test Name Order Date GI BIOPSY 11/24/2014 Future Test Test Name Order Date COLONOSCOPY 08/13/2013 Insurance Providers Payer Name Payer Address Payer Phone Subscriber Number Group Number Insured Name Patient Relationship to Insured Coverage Start Date Coverage End Date MEDICARE OF [place] [address] [place] [address] [phone] [id number] [employer] Self - patient is the insured MEDEX ATTN CLAIMS [address] [place] [address] [id number] [employer] Self - patient is the insured Medical (General) History Medical History History ICD Code Colonoscopy, 2008, tubular adenoma Hypertension coronary artery disease with stent place ment SVT with ablation atrial fibrillation
[2024-06-24 10:30] LABS: Estimated Average Glucose 111 mg/dL; Hemoglobin A1C 132.3008 umol/L; Hemoglobin A1c % 5.5 % (<6.0); Total Hemoglobin (HGBA1C) 3579.8898 umol/L
[2024-06-24 10:54] LABS: Anion Gap 14 (12-20); Blood Urea Nitrogen 28 mg/dL (9-16); Carbon Dioxide 27 mmol/L (22-29); Chloride 102 mmol/L (96-108); Estimated Glomerular Filt Rate 46; Glucose Fasting 101 mg/dL (60-99); Potassium 4.4 mmol/L (3.3-5.1); Sodium 139 mmol/L (135-145)
[2024-06-24 11:26] LABS: Creatinine Urine 88.39 mg/dL; Microalbumin Urine < 5.0 mg/L
== END 2024-06-24 07:33 | disposition home or self-care (01) ==
LOC: HO.10HDL 07:32
PROVIDERS: Visit Provider Family Medicine
DX: I10 Essential (primary) hypertension (principal); E11.9 Type 2 diabetes mellitus without complications; R06.02 Shortness of breath
CPT/HCPCS: 36415; 80051; 82043; 82565; 82570; 82947; 83036; 84520

== ENCOUNTER 2024-08-01 08:29 | Outpatient (AMB) | payer MEDICARE, SELFPAY ==
[2024-08-01 08:30] VITALS: BP 114/78; PULSE 65; O2SAT 98; BMI 29.8
--- NOTE | 2024-08-01 08:30 | A.OFFPC_ITS ---
Vital Signs 08/01/24 08:30 Height 6 ft 2 in Weight 232 lb 6 oz BMI 29.8 BP 114/78 Blood Pressure Location Lt brachial Position Sitting Pulse 65 Pulse Source Pulse Oximeter Pulse Oximetry (%) 98 Oxygen Delivery Method Room Air Intake Visit Reasons: NEW PATIENT Service Desk Specialist Required: No Accompanied by: Self / Same As Patient Allergies apixaban (From ELIQUIS) Allergy (Unknown, Verified 08/01/24 08:31) BLEEDING ezetimibe (From ZETIA) Allergy (Unknown, Verified 08/01/24 08:31) UNKNOWN guaifenesin (From ROBITUSSIN) Allergy (Unknown, Verified 08/01/24 08:31) UNKNOWN Wvwdugy-YVF-DiV Reductase Inhibitor (GIJUGGJ-NQS-LPW REDUCTASE INHIBITOR) Allergy (Unknown, Verified 08/01/24 08:31) UNKNOWN Medication List - Last Reconciled 08/01/24 by Dona Cancino MD amiodarone 100 mg (1/2 x 200 mg) PO DAILY aspirin (Adult Low Dose Aspirin) 81 mg PO DAILY cetirizine (Zyrtec) 10 mg PO DAILY PRN famotidine 40 mg PO BEDTIME furosemide 40 mg PO BID lisinopril 5 mg PO DAILY prednisone 10 mg PO .Q 2 weeks prn semaglutide (Ozempic) 1 mg subcut QWEEK sildenafil 100 mg PO DIRECTED tamsulosin 0.4 mg PO DAILY [vitamin b12 PO] [vitamin c PO] Tobacco use date assessed: 08/01/24 Fall risk assessment: 2 + Falls in past year Last assessed Fall Risk: 08/01/24 Dental Screening Dental Screen Date: 08/01/24 Did you have a dental visit in the last 12 months?: Yes Did you have a dental problem in the last 6 months where you did not have access to dental care?: No Was dental information given to patient?: Patient has dentist [facility] Medical History (Updated 08/01/24 @ 09:10 by Dona Cancino MD) (HFpEF) heart failure with preserved ejection fraction Paroxysmal atrial fibrillation HTN (hypertension) Hyperlipidemia CAD (coronary artery disease) Hypertensive heart disease SVT (supraventricular tachycardia) Tricuspid regurgitation Presence of Watchman left atrial appendage closure device Surgical History S/P cardiac cath Hx of CABG Stented coronary artery History of kidney surgery History of cardiac radiofrequency ablation History of carpal tunnel release Hx of heart surgery Family History Father CVD (cardiovascular disease) Mother Sudden cardiac Family/Other Sudden cardiac Social History (Updated 08/01/24 @ 09:03 by Dona Cancino MD) Housing: House Alcohol intake: current Alcohol intake frequency: holidays/special occasions only Comment: 2 drinks gin Q night Patient Tobacco Use Status: Never used Tobacco e-Cigarette/Vaping Use: Never Used Second Hand Smoke Exposure: No service: No Current occupational status: employed Current occupational exposures/hazards: No Cognitive needs: Yes Hearing needs: No Vision needs: No Questionnaire PHQ-9 Over the last 2 weeks, how often have you been bothered by any of the following problems? 1. Little interest or pleasure in doing things: not at all 2. Feeling down, depressed, or hopeless: not at all 3. Trouble falling or staying asleep, or sleeping too much: not at all 4. Feeling tired or having little energy: not at all 5. Poor appetite or overeating: not at all 6. Feeling bad about yourself - or that you are a failure or have let yourself or your family down: not at all 7. Trouble concentrating on things, such as reading the newspaper or watching television: not at all 8. Moving or speaking so slowly that other people could have noticed. Or the opposite - being so fidgety or restless that you have been moving around a lot more than usual: not at all 9. Thoughts that you would be better off or of hurting yourself in some way: not at all Total score: 0 Source: Developed by Drs. Obdulio Ware, Bridget Griffin, Chaim Dan and colleagues, with an educational jin from [employer]. Thrive Questionnaire Date Thrive assessed: 08/01/24 I am a: Patient What is your living situation today?: I have a steady place to live Within the past 12 months, did the food you bought not last and you didn't have the money to get more?: Never true Within the past 12 months, did you worry whether your food would run out before you got money to buy more?: Never true Do you have trouble paying for medicines?: No Do you have trouble getting transportation to medical appointments?: No Do you have trouble paying your heating and electricity bill?: No Do you have trouble taking care of your child, family member or friend?: No Do you have trouble with day-to-day activities such as bathing, preparing meals, shopping, managing finances, etc.?: No Are you currently unemployed and looking for a job?: No Are you interested in more education?: No Please select the resources that you would like help with: None Currently or been in a relationship where the following occur: No concerns reported THRIVE Score: 0 AUDIT C Alcohol Use Questionnaire (AUDIT-C) 1. How often do you have a drink containing alcohol?: 2-3 times a week 2. How many drinks containing alcohol do you have on a typical day when you are drinking?: 1 or 2 3. How often do you have six or more drinks on one occasion?: Weekly Total Score: 6 YULIYA-7 AMB Questionnaire YULIYA-7 Date YULIYA - 7 assessed: 08/01/24 Feeling nervous, anxious, or on edge: 0 = Not at all Not being able to stop or control worryin = Not at all Worrying too much about different things: 0 = Not at all Trouble relaxin = Not at all Being so restless that it is hard to sit still: 0 = Not at all Becoming easily annoyed or irritable: 0 = Not at all Feeling afraid as if something awful might happen: 0 = Not at all Total YULIYA-7 score (0-4 normal; 5-9 mild; 10-14 moderate; 15-21 severe): 0 Source: Developed by Drs. Obdulio Ware, Bridget Griffin, Chaim Dan and colleagues, with an educational jin from [employer]. Physical exam (Primary Care) Vital Signs: Last Vital Signs Pulse 65 08/01/24 08:30 BP 114/78 08/01/24 08:30 Pulse Ox 98 08/01/24 08:30 Oxygen Delivery Method Room Air 08/01/24 08:30 BMI result Body Mass Index 29.8 Tobacco/Smoking Status: Tobacco use Status Tobacco use date assessed 08/01/24 08/01/24 08:34 Patient Tobacco Use Status Never used Tobacco 08/01/24 08:34 e-Cigarette/Vaping Use Never Used 08/01/24 08:41 PHQ-9: PHQ-9 Score PHQ-9: Total score 0 08/01/24 08:34 Thrive Assessment: Date of Thrive Assessment Date Thrive assessed 08/01/24 08/01/24 08:34 Currently or been in a relationship where the following occur: No concerns reported Const General: alert; No acute distress Eyes Conjunctivae: conjunctivae normal Resp Auscultation: clear to auscultation bilaterally Cardio Rate: regular rate Rhythm: regular rhythm GI Inspection: Yes normal to inspection Extrem General: Yes normal to inspection and No edema Coding Level of Care Code New Pt Level 4 (45513) Diagnoses (HFpEF) heart failure with preserved ejection fraction I50.30 CAD (coronary artery disease) I25.10 Paroxysmal atrial fibrillation I48.0 Hyperlipidemia E78.5 HTN (hypertension) I10 Overweight (BMI 25.0-29.9) E66.3 Impaired fasting blood sugar R73.01 Cholelithiasis K80.20 Hepatic steatosis K76.0 Cirrhosis K74.60 Assessment & Plan Assessment & Plan (1) (HFpEF) heart failure with preserved ejection fraction: Code(s): I50.30 - Unspecified diastolic (congestive) heart failure Category: Medical Plan: Continuing with diuretic and patient continues to follow-up with cardiology (2) CAD (coronary artery disease): Code(s): I25.10 - Atherosclerotic heart disease of [place] coronary artery without angina pectoris Category: Medical Plan: Control the cholesterol, weight, blood pressure continuing with aspirin 81 mg once a day (3) Paroxysmal atrial fibrillation: Code(s): I48.0 - Paroxysmal atrial fibrillation Category: Medical Plan: Patient had a watchman's device on aspirin and amiodarone Daniela had a chest x- ray. Will continue to follow-up with thyroid and liver function test (4) Hyperlipidemia: Comment: Statin intolerant Code(s): E78.5 - Hyperlipidemia, unspecified Category: Medical Plan: Patient is not on any statins LDL goal of less than 70 and triglyceride of less than 150 (5) HTN (hypertension): Code(s): I10 - Essential (primary) hypertension Category: Medical Plan: Continue with blood pressure medication. Decrease salt intake and exercise on lisinopril 5 mg once a day (6) Overweight (BMI 25.0-29.9): Code(s): E66.3 - Overweight Category: Medical Plan: Continue with diet and exercise patient was on Ozempic before (7) Impaired fasting blood sugar: Code(s): R73.01 - Impaired fasting glucose Category: Medical (8) Cholelithiasis: Code(s): K80.20 - Calculus of gallbladder without cholecystitis without obstruction Category: Medical (9) Hepatic steatosis: Code(s): K76.0 - Fatty (change of) liver, not elsewhere classified Category: Medical (10) Cirrhosis: Code(s): K74.60 - Unspecified cirrhosis of liver Category: Medical Plan History of Present Illness The patient is an 83-year-old male presenting for a comprehensive review of his chronic conditions and preventative care measures. The patient has a history of hypertension, hypercholesterolemia, coronary artery disease, atrial fibrillation, and congestive heart failure. He has experienced a 17-pound weight loss since February, which is concerning given his medical history. He follows up with cardiology and was last seen in February, with pr eserved ejection fraction noted at that time. The patient has a history of syncope and right ventricular dysfunction, which has been associated with insertional syncope. He has severe atherosclerotic plaque in the carotid arteries bilaterally, with an occluded left external carotid artery. The patient has mildly reduced ejection fraction and mild cardiomyopathy, with no significant coronary disease to explain the left ventricular dysfunction. He is on a low dose of aspirin and has declined statin therapy due to intolerance. The patient has a fatty liver and gallbladder stones, with a history of cirrhosis noted in 2021. He has prediabetes, with a mildly elevated blood sugar but normal hemoglobin A1c. The patient reports constipation, likely related to Ozempic use, and an enlarged prostate for which he is on tamsulosin. He has osteoarthritis, which affects his mobility and is exacerbated by his history of heavy physical labor. Health Maintenance - Vaccinations: Discussed pneumonia and shingles vaccines, patient has not received pneumonia vaccine. - Lifestyle: Emphasized importance of diet and exercise, advised to reduce alcohol intake due to liver concerns. - Screening: Recommended follow-up ultrasound for liver and gallbladder, and regular blood work for liver function and thyroid monitoring. 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 - Substance Use: Consumes a small amount of alcohol socially, denies smoking history. - Exercise: Engages in physical activity but limited by osteoarthritis and back pain. - Diet: Prefers plant-based foods, avoids excessive meat consumption, and is mindful of dietary choices due to gallbladder and liver conditions. Review of Systems - Cardiovascular: Reports syncope, denies chest pain or palpitations. - Gastrointestinal: Reports constipation, denies diarrhea or abdominal pain. - Musculoskeletal: Reports back pain, denies joint swelling. - Neurological: Reports lightheadedness, denies seizures. - Respiratory: Denies dyspnea or cough. Physical Exam General: Cooperative, healthy appearing, comfortable, no acute distress and well developed Orientation: Patient oriented x3 Limitations: No limitations Head: Normal to inspection Ears: Hearing grossly normal bilaterally Nose: Normal external nose present Face and sinus: Normal facial exam Eyes: Appearance normal, both eyes and all related structures Neck: Normal visual inspection and Yes full ROM Respiratory: Normal respiratory effort and able to speak in complete sentences. Clear to auscultation bilaterally Cardiovascular: Regular rate and rhythm. Normal S1 and S2 GI: Normal to inspection. Soft to palpation and nontender Skin: No rashes or lesions noted Neuro: Patient oriented x3 Extremities: Normal to inspection, slight swelling noted Results - Labs: Normal blood count, mildly elevated blood sugar, normal hemoglobin A1c, creatinine 1.45 mg/dL, GFR 46 mL/min. - Imaging: Ultrasound showed severe atherosclerotic plaque in carotid arteries, occluded left external carotid artery, liver enlargement, gallbladder stones, and cirrhosis. Plan The patient will continue with current medications, including aspirin and tamsulosin, and will follow up with cardiology for ongoing management of atrial fibrillation and congestive heart failure. A follow-up ultrasound of the liver and gallbladder is recommended to monitor the existing conditions, and regular blood work will be conducted to assess liver function and thyroid levels. The patient is advised to maintain a healthy diet, focusing on plant-based foods and reducing alcohol intake to manage liver health. Preventative care measures include considering pneumonia and shingles vaccinations, although the patient has expressed reluctance towards additional vaccines. Patient was informed and verbally consented to the use of an ambient scribe for clinic note documentation during this visit. Discussion Notes During the consultation, I discussed the importance of managing chronic conditions such as atrial fibrillation and congestive heart failure with the patient, emphasizing the need for regular follow-ups with cardiology. We reviewed the patient's liver health, advising a follow-up ultrasound and regular blood work to monitor liver function and thyroid levels due to the use of amiodarone. I highlighted the significance of a healthy diet and reduced alcohol consumption to support liver health and discussed the potential benefits of pneumonia and shingles vaccinations, although the patient expressed hesitance towards additional vaccines. Patient Instructions - Continue taking aspirin and tamsulosin as prescribed. - Follow up with cardiology for heart condition management. - Schedule a follow-up ultrasound for liver and gallbladder monitoring. - Maintain a healthy diet, focusing on plant-based foods and reducing alcohol intake. - Consider pneumonia and shingles vaccinations, discuss any concerns with your healthcare provider. Orders: Orders Complete Blood Count Auto Diff Today E78.5 - Hyperlipidemia, unspecified Comprehensive Met. Panel Today E78.5 - Hyperlipidemia, unspecified Free T4 (Free Thyroxine) Today E78.5 - Hyperlipidemia, unspecified Hemoglobin A1c Today E78.5 - Hyperlipidemia, unspecified Vitamin B12 and Folate Today E78.5 - Hyperlipidemia, unspecified Thyroid Stimulating Hormone Today E78.5 - Hyperlipidemia, unspecified Lipid Panel Today E78.00 - Pure hypercholesterolemia, unspecified, E78.5 - Hyperlipidemia, unspecified Magnesium Today E78.5 - Hyperlipidemia, unspecified B Type Natriuretic Peptide Today E78.5 - Hyperlipidemia, unspecified US abdomen complete Today K74.60 - Unspecified cirrhosis of liver, R79.89 - Other specified abnormal findings of blood chemistry
--- OUTSIDE RECORDS SUMMARY | 2024-08-01 08:34 | XMS_ITS | Patient Health Record ---
Author Organization [facility] Address [address] [place] [address] Care Team Providers Care Manager Dental Name Role Phone Neal JUAN, Omid Primary [...] Problem Status W/U Status Risk Notes Problem 818424171 Colon cancer screening (V76.51) Active confirmed Problem 493958007 skilled nursing curren t use of aspirin (V58.66) Active confirmed Problem 322049235 skilled nursing (curre nt) use of anticoagulants (V58.61) Active confirmed Plan Of Treatment Pending Test Test Name Order Date GI BIOPSY 11/24/2014 Future Test Test Name Order Date COLONOSCOPY 08/13/2013 Insurance Providers Payer Name Payer Address Payer Phone Subscriber Number Group Number Insured Name Patient Relationship to Insured Coverage Start Date Coverage End Date MEDICARE OF [place] [address] [place] [address] [id number] [employer] Self - patient is the insured MEDEX ATTN CLAIMS [address] [place] [address] [id number] [employer] Self - patient is the insured Medical (General) History Medical History History ICD Code Colonoscopy, 2008, tubular adenoma Hypertension coronary artery disease with stent place ment SVT with ablation atrial fibrillation
== END 2024-08-01 09:38 | disposition home or self-care (01) ==
LOC: HO.HMCH 08:30
PROVIDERS: PCP Internal Medicine; Visit Provider Internal Medicine
DX: I11.0 Hypertensive heart disease with heart failure (principal); I50.30 Unspecified diastolic (congestive) heart failure; I48.0 Paroxysmal atrial fibrillation; K74.60 Unspecified cirrhosis of liver; E66.3 Overweight; Z68.29 Body mass index [BMI] 29.0-29.9, adult; I25.10 Atherosclerotic heart disease of native coronary artery without angina pectoris; E78.5 Hyperlipidemia, unspecified; R73.01 Impaired fasting glucose; K80.20 Calculus of gallbladder without cholecystitis without obstruction; K76.0 Fatty (change of) liver, not elsewhere classified

== ENCOUNTER → 2024-08-01 08:29 | Outpatient (BNVA) | payer MEDICARE, SELFPAY | PROVIDERS: PCP Internal Medicine; Visit Provider Internal Medicine | DX: I11.0 Hypertensive heart disease with heart failure (principal); I50.30 Unspecified diastolic (congestive) heart failure; I25.10 Atherosclerotic heart disease of native coronary artery without angina pectoris; I48.0 Paroxysmal atrial fibrillation; E78.5 Hyperlipidemia, unspecified; R73.02 Impaired glucose tolerance (oral); K80.20 Calculus of gallbladder without cholecystitis without obstruction; K76.0 Fatty (change of) liver, not elsewhere classified; K74.60 Unspecified cirrhosis of liver; E66.3 Overweight; Z68.29 Body mass index [BMI] 29.0-29.9, adult; Z71.3 Dietary counseling and surveillance | CPT/HCPCS: 99202 ==

== ENCOUNTER 2024-08-27 08:12 | Outpatient (AMB) | payer MEDICARE, SELFPAY ==
--- OUTSIDE RECORDS SUMMARY | 2024-08-27 08:16 | XMS_ITS | Patient Health Record ---
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 (V58.61) Active confirmed Plan Of Treatment Pending Test Test Name Order Date GI BIOPSY 11/24/2014 Future Test Test Name Order Date COLONOSCOPY 08/13/2013 Insurance Providers Payer Name Payer Address Payer Phone Subscriber Number Group Number Insured Name Patient Relationship to Insured Coverage Start Date Coverage End Date [place]ARE [place] [address] [place] [address] [phone] [id number] [employer] Self - patient is the insured MEDEX ATTN CLAIMS [address] [place] [address] [id number] [employer] Self - patient is the insured Medical (General) History Medical History History ICD Code Colonoscopy, 2008, tubular adenoma Hypertension coronary artery disease with stent place ment SVT with ablation atrial fibrillation
--- NOTE | 2024-08-27 08:18 | MHC.OFFVIS ---
Vital Signs 08/27/24 08:24 Height 6 ft 2 in Weight 227 lb 1.218 oz BMI 29.2 BP 118/60 Blood Pressure Location Lt brachial Position Sitting Pulse 70 Pulse Source Monitor Intake Visit Reasons: 6m folllow up Allergies apixaban (From ELIQUIS) Allergy (Unknown, Verified 08/01/24 08:31) BLEEDING ezetimibe (From ZETIA) Allergy (Unknown, Verified 08/01/24 08:31) UNKNOWN guaifenesin (From ROBITUSSIN) Allergy (Unknown, Verified 08/01/24 08:31) UNKNOWN Lvrlhne-VSN-IaA Reductase Inhibitor (WXCFAHE-CKX-MHC REDUCTASE INHIBITOR) Allergy (Unknown, Verified 08/01/24 08:31) UNKNOWN Medication List - Last Reconciled 08/27/24 by Rickey Cardoza MD amiodarone 100 mg (1/2 x 200 mg) PO DAILY cetirizine (Zyrtec) 10 mg PO DAILY PRN famotidine 40 mg PO BEDTIME furosemide 40 mg PO BID lisinopril 5 mg PO DAILY prednisone 10 mg PO .Q 2 weeks prn semaglutide (Ozempic) 1 mg subcut QWEEK sildenafil 100 mg PO DIRECTED tamsulosin 0.4 mg PO DAILY [vitamin b12 PO] [vitamin c PO] HPI Comments Details: Mitch comes for follow-up. Patient says that he has been stable and doing well. He still gets exertionally short of breath. Recently while he was pulling about a boat anchor and super exertional activity he got severely short of breath and then passed out. Happen about 2-3 months ago. Since then he has been watching himself. He does get exertional short of breath although denies any orthopnea, PND, leg edema, abdominal distension. He has not had any prolonged palpitation irregular heartbeat. No bleeding issues or neurologic events. He has stopped his Ozempic therapy due to side effects. That he has been maintaining his weight. [facility] Medical History (HFpEF) heart failure with preserved ejection fraction Paroxysmal atrial fibrillation HTN (hypertension) Hyperlipidemia CAD (coronary artery disease) Hypertensive heart disease SVT (supraventricular tachycardia) Tricuspid regurgitation Presence of Watchman left atrial appendage closure device Surgical History S/P cardiac cath Hx of CABG Stented coronary artery History of kidney surgery History of cardiac radiofrequency ablation History of carpal tunnel release Hx of heart surgery Family History Father CVD (cardiovascular disease) Mother Sudden cardiac Family/Other Sudden cardiac Social History Housing: House Alcohol intake: current Alcohol intake frequency: holidays/special occasions only Comment: 2 drinks gin Q night Patient Tobacco Use Status: Never used Tobacco e-Cigarette/Vaping Use: Never Used Second Hand Smoke Exposure: No service: No Current occupational status: employed Current occupational exposures/hazards: No Cognitive needs: Yes Hearing needs: No Vision needs: No Review of Systems Const Denies weakness Eyes Reports no additional complaints ENT Reports no additional complaints and Denies dizziness Card Reports no additional complaints, Denies chest pain, Denies chest pain with activity, Denies syncope, Denies rapid heart rate, Denies pedal edema, Denies edema, Denies leg edema, Denies lightheadedness, Denies palpitations, Denies dyspnea, Denies dyspnea on exertion and Denies orthopnea Resp Denies cough, Denies dyspnea and Denies dyspnea on exertion GI Denies hematochezia and Denies change in stool character Musc Denies abnormal gait, Denies muscle cramps, Denies muscle weakness, Denies numbness, Denies radiating pain into limb and Denies tingling Neuro Denies abnormal gait, Denies dizziness, Denies syncope, Denies numbness, Denies tingling and Denies weakness Endo Denies palpitations Physical Exam Vital Signs: Last Vital Signs Pulse 70 08/27/24 08:24 BP 118/60 08/27/24 08:24 BMI result Body Mass Index 29.2 Const General: cooperative, comfortable, no acute distress, alert, awake and well groomed Nutritional Appearance: overweight Orientation/consciousness: patient oriented x3 Limitations: no limitations Neck Neck: Yes trachea midline, Yes supple and Yes no JVD Resp Effort & Inspection: normal respiratory effort Auscultation: clear to auscultation bilaterally Cardio Jugular venous distension: no JVD Palpation: normal PMI Rate: regular rate Rhythm: regular rhythm Heart sounds: S1 normal heart sound present and S2 normal heart sound present GI Auscultation: normal bowel sounds Skin General skin exam: no rashes or lesions noted and dry skin Neuro General: patient oriented x3 and no focal motor deficits Extrem General: Yes no clubbing, cyanosis or edema Psych Appearance: grossly normal Office Procedures EKG Details: EKG shows normal sinus rhythm with low amplitude P waves suggestive of atrial myopathy with nonspecific STT wave changes [id number], Complete Assessment & Plan Assessment & Plan (1) (HFpEF) heart failure with preserved ejection fraction: Code(s): I50.30 - Unspecified diastolic (congestive) heart failure Category: Medical Plan: Heart failure preserved ejection fraction with RV dysfunction which is causing him to have issues when he over exerts himself with loss of cardiac output and syncope. We have tried multiple interventions without success. Advised him to watch and avoid sudden strenuous exertion. Also when he gets short of breath I have advised him to take it easy and rest but continue to exercise. Clinically appears to be euvolemic and well compensated current diuretic dose. Daily weight monitoring avoidance salt loading was discussed. Avoidance of alcohol was discussed. Continue participate in weight loss program which has helped him significantly. He understands. Continue rhythm control approach. (2) CAD (coronary artery disease): Code(s): I25.10 - Atherosclerotic heart disease of [place] coronary artery without angina pectoris Category: Medical Plan: CAD with remote coronary artery bypass grafting with no recent symptoms of angina. Continue aggressive risk factor modification. He is currently off all lipid medication due to intolerance and wants to defer any further therapy. Blood pressure is well optimized. Continue the same. Encouraged to maintain activity level as tolerated. (3) Paroxysmal atrial fibrillation: Code(s): I48.0 - Paroxysmal atrial fibrillation Category: Medical Plan: Paroxysmal atrial fibrillation suppressed on low-dose amiodarone therapy in his done well with amiodarone therapy and rhythm control approach will continue the same. Status post Watchman device. Should be on low-dose aspirin therapy. Will follow up in the clinic in 6 months time, sooner p.r.n.. Thank you for allowing me to partake in his care Medications: Changed From prednisone 10 mg PO .Q 2 weeks prn E78.5 - Hyperlipidemia, unspecified To prednisone 10 mg (1/2 x 20 mg) PO .Q 2 weeks prn PRN 20 tabs 0RF For back pain E78.5 - Hyperlipidemia, unspecified Coding Level of Care Code Est Pt Level 4 (66995) Complex EM visit Add On G2211 Diagnoses (HFpEF) heart failure with preserved ejection fraction I50.30 CAD (coronary artery disease) I25.10 Paroxysmal atrial fibrillation I48.0 CPT Codes EKG - CPT: 33863-[id number], Complete ([id number])
[2024-08-27 08:24] VITALS: BP 118/60; PULSE 70; BMI 29.2
== END 2024-08-27 08:48 | disposition home or self-care (01) ==
LOC: HO.HCS 08:13
PROVIDERS: PCP Internal Medicine; Visit Provider Internal Medicine Cardiovascular Disease
DX: I50.30 Unspecified diastolic (congestive) heart failure (principal); I25.10 Atherosclerotic heart disease of native coronary artery without angina pectoris; I48.0 Paroxysmal atrial fibrillation
CPT/HCPCS: 93010; 99214; G2211

== ENCOUNTER → 2024-08-27 08:12 | Outpatient (BNVA) | payer MEDICARE, SELFPAY | PROVIDERS: PCP Internal Medicine; Visit Provider Internal Medicine Cardiovascular Disease | DX: I11.0 Hypertensive heart disease with heart failure (principal); I50.30 Unspecified diastolic (congestive) heart failure; I25.10 Atherosclerotic heart disease of native coronary artery without angina pectoris; I48.0 Paroxysmal atrial fibrillation; R94.31 Abnormal electrocardiogram [ECG] [EKG] | CPT/HCPCS: 93005; 99212 ==

== ENCOUNTER 2024-10-09 08:04 | Outpatient (REF) | payer MEDICARE, SELFPAY ==
--- NOTE | ~2024-10-09 | US_ITS ---
CLINICAL HISTORY: R79.89 - Other specified abnormal findings of blood chemistry US abdomen complete with color Doppler Comparison: US/SR - US ABDOMEN - 10/10/21 10:00 EDT Findings: The visualized pancreas, aorta, and inferior vena cava are unremarkable. Liver is enlarged and diffusely echogenic. Right lobe 21.5 cm length. New mass right lobe of the liver of mixed echogenicity fairly well circumscribed measures 2.2 x 2.0 x 2.6 cm. Common duct 3.0 mm diameter. Physiologic distention of the gallbladder. No gallstones. Echogenic bile. No gallbladder wall thickening. No pericholecystic fluid. No sonographic Oneill sign. Main portal vein antegrade. Right kidney normal size, 12.0 cm in length. Normal cortical width and echotexture. No solid or cystic renal masses. No nephrolithiasis. No hydronephrosis. Left kidney normal, 12.5 cm in length. Normal cortical width and echotexture. Renal cortical cyst lower pole measuring 2.0 x 1.5 x 1.3 cm. No nephrolithiasis. No hydronephrosis. Spleen measures 12.5 cm. No splenic masses. No ascites. No lymphadenopathy. Impression: 1. Hepatosplenomegaly. Coarse hepatic echotexture reflecting hepatic steatosis or diffuse hepatocellular disease. 2. New solid mass right lobe of the liver. A dedicated MRI of the abdomen multiphase contrast-enhanced study is the imaging modality of choice. 3. Probable benign renal cortical cyst left kidney 4. Borderline splenomegaly. This document has been electronically signed by: Earl Holliday MD on 10/09/2024 12:45:56
== END 2024-10-09 08:05 | disposition home or self-care (01) ==
LOC: HO.US 08:04
PROVIDERS: PCP Internal Medicine; Visit Provider Internal Medicine
DX: R79.89 Other specified abnormal findings of blood chemistry (principal); K74.60 Unspecified cirrhosis of liver
CPT/HCPCS: 76700

== ENCOUNTER → 2024-10-13 00:47 | Outpatient (BNV) | payer MEDICARE, SELFPAY | PROVIDERS: Emergency Provider Emergency Medicine; Visit Provider Radiology Diagnostic Radiology | DX: R53.1 Weakness (principal) | CPT/HCPCS: 71045 ==

== ENCOUNTER 2024-10-13 01:15 | Inpatient (IN) | payer MEDICARE, SELFPAY ==
[2024-10-13] VITALS (13 sets, daily range): BP systolic 106–153; BP diastolic 48–81; PULSE 83–105; RESP 13–22; TEMP 36.5–38.7; O2SAT 90–99; BMI 35.6
--- NOTE | 2024-10-13 | ECG_ITS ---
Test Reason : WEAKNESS Blood Pressure : */* mmHG Vent. Rate : 96 BPM Atrial Rate : * BPM P-R Int : * ms QRS Dur : 94 ms QT Int : 314 ms P-R-T Axes : * 9 175 degrees QTcB Int : 396 ms Atrial fibrillation Inferior infarct , age undetermined ST & T wave abnormality, consider lateral ischemia Abnormal ECG When compared with ECG of 29-Aug-2019 08:20, Atrial fibrillation has replaced Sinus rhythm T wave inversion now evident in Inferior leads T wave inversion now evident in Anterior leads QT has shortened Referred By: Generic ED Physician Electronically Signed By: KERRY MORALES MD
--- NOTE | ~2024-10-13 | XR_ITS ---
CLINICAL HISTORY: weakness 1 view chest x-ray. Comparison: CR - XR CHEST 2V - 03/10/24 10:04 EST Findings: The lungs appear clear. There is no consolidation, effusion, or pneumothorax. Enlargement of the cardiac silhouette is stable. Patient is status post median sternotomy. IMPRESSION: No acute cardiopulmonary abnormality. This document has been electronically signed by: Negrito Chua MD on 10/13/2024 02:28:10
--- NOTE | ~2024-10-13 | CT_ITS ---
CLINICAL HISTORY: trauma CT cervical spine without intravenous contrast Comparison: None Findings: Craniocervical junction: No occipital condylar fractures. No evidence of atlantooccipital dissociation. The anterior and posterior arch and lateral masses of C1 are intact. Odontoid and atlanto-dental interval intact. The pars interarticularis of C2 is intact. Excessive pannus posterior to the odontoid. There is normal vertebral body heights with no evidence of compression fracture. ACDF hardware C5-6. Normal alignment. No locked or perched facets. No spinous process fractures. Lordotic curvature is preserved. The retropharyngeal soft tissues are not widened. Segmental analysis as below (MR is more accurate in the evaluation of disc herniation and central canal pathology): C2-C3: Uncovertebral body spurs and degenerative facet hypertrophy on the left C3-C4: Uncovertebral body spurs and degenerative facet hypertrophy more so on the left C4-C5: Degenerative facet hypertrophy bilaterally C5-C6: Uncovertebral body spurs C6-C7: Uncovertebral body spurs C7-T1: No herniation or stenosis. The bones are without evidence of lytic or blastic lesion. Lung apices are unremarkable. Impression: 1. Negative CT cervical spine for acute process. This document has been electronically signed by: Earl Holliday MD on 10/13/2024 06:09:15
--- NOTE | ~2024-10-13 | CT_ITS ---
CLINICAL HISTORY: biliary obstructions CT abdomen and pelvis with IV contrast Comparison: US - US ABDOMEN COMPLETE - 10/09/24 08:26 EDT Findings: Mild pleural-parenchymal disease right lower lobe.Small layering pleural effusions [id number]-[id number]-left. The heart is not enlarged. Coronary artery calcifications: Moderate. Calcified mitral annulus. Hepatic steatosis with volume redistribution of the liver. 2.4 cm equivocal hyper dense lesion right lobe of the liver follow-up with multiphase MRI. Patent hepatic and portal veins. Layering gallstones. No biliary dilatation. Homogeneous enhancement of the pancreas. No splenomegaly. Normal adrenal glands. Symmetrical renal excretion with no segmental or diffuse renal parenchymal disease or evidence of obstructive uropathy/hydroureteronephrosis. Probable renal cortical cysts on the left. Capsular calcification midpole right kidney measuring 8 mm. Ultrasound may be of further diagnostic value. Normal caliber abdominal aorta. Bowel demonstrates a nonobstructive pattern. No free air. Trace ascites.Appendix not visualized.No significant diverticular disease. Increased stool burden. No intraperitoneal, retroperitoneal, pelvic or inguinal masses lymphadenopathy or abnormal fluid collections. Normal distention of the urinary bladder. Equivocal cystitis. Air within the lumen of the urinary bladder probable from recent instrumentation. Degenerative spondylosis lumbar spine vacuum disc phenomenon. No acute compression fractures. Posterior right healed rib fractures. Impression: 1. 2.4 cm equivocal hyperdense lesion right lobe of the liver. Multiphase MRI of the liver is the imaging modality of choice. Cirrhosis. Trace ascites. 2. Cholelithiasis without evidence of cholecystitis. No biliary dilatation. Normal pancreas. 3. Pleural-parenchymal disease lung bases. Renal cortical lesions can be correlated with ultrasound. Chronic osseous findings. This document has been electronically signed by: Earl Holliday MD on 10/13/2024 06:04:05
--- NOTE | ~2024-10-13 | CT_ITS ---
CLINICAL HISTORY: trauma CT of the head without intravenous contrast Comparison: None Findings: The ventricles and sulci are prominent, consistent with generalized cerebral parenchymal volume loss. The ventricles are symmetric and the basilar cisterns are intact. Mild periventricular, deep and subcortical white matter hypodensities are nonspecific but statistically reflect the sequela of chronic small vessel ischemic change. No intracranial hemorrhage, extra-axial fluid collection, midline shift or mass-effect is evident. No evidence of acute large vessel or territorial ischemia. Brainstem and cerebellum unremarkable. Vascular calcifications indicate intracranial atherosclerosis. The imaged portion of the paranasal sinuses are clear. No mastoid effusions are demonstrated. The orbital contents are unremarkable. Calvarium is intact. Impression: 1. No CT evidence of acute intracranial abnormality. 2. Cerebral volume loss, intracranial atherosclerotic disease and mild sequela of chronic small vessel ischemic disease. This document has been electronically signed by: Earl Holliday MD on 10/13/2024 05:05:14
[2024-10-13 01:49] LABS: MANUAL DIFF FLAG NO
[2024-10-13 01:50] LABS: Hematocrit 39.5 % (42.0-52.0); Hemoglobin 13.5 g/dl (14.0-18.0); Imm Gran Abs Auto 0.09 X10*3/uL (0.00-0.03); Imm Gran Pct Auto 1.2 % (0.0-0.4); Lymphocytes Absolute Auto 0.3 X10*3/uL (1.2-4.9); Mean Corpuscular HGB Conc 34.2 g/dl (31.0-36.0); Mean Corpuscular Hemoglobin 31.6 pg (27.0-33.0); Mean Corpuscular Volume 92.5 fL (80.0-98.0); NRBC Abs Auto 0.000 X10*3/uL (0.0-0.012); NRBC Pct Auto 0.0 /100WBC (0.0-0.2); Platelet Count 114 X10*3/uL (160-400); Red Blood Count 4.27 X10*6/uL (4.60-5.80); White Blood Count 7.5 X10*3/uL (4.8-10.8)
--- NOTE | 2024-10-13 02:04 | PC.NURSE ---
pt biba from home, a&ox4, respirations even and unlabored. pt reports increased weakness, fever, pain and blood with urination and a fall yesterday. pt denies loc/thinners/head strike. pt reports due to weakness he feels he is unable to ambulate. vss. rectal temp obtained. 20g placed in left ac.
[2024-10-13 02:06] LABS: IDNOW Serial# 58CA691E; Influenza B2 Negative (Negative)
[2024-10-13 02:07] LABS: Alanine Aminotransferase 166 U/L (0-40); Albumin Level 3.7 g/dL (3.5-5.0); Alkaline Phosphatase 112 U/L (39-117); Anion Gap 17 (12-20); Aspartate Amino Transferase 144 U/L (5-37); Blood Urea Nitrogen 26 mg/dL (9-16); Calcium 8.6 mg/dL (8.4-10.2); Carbon Dioxide 21 mmol/L (22-29); Chloride 101 mmol/L (96-108); Creatinine Clr Calc Pharmacy 56.1; Estimated Glomerular Filt Rate 53; Lipase 23 U/L (8-78); Magnesium 2.2 mg/dL (1.6-2.6); Potassium 4.2 mmol/L (3.3-5.1); Sodium 135 mmol/L (135-145); Total Protein 6.6 g/dL (6.5-8.0)
[2024-10-13 02:09] LABS: COVID-19 Test Negative (Negative); IDNOW Serial# 55D5AD1C
[2024-10-13 02:12] LABS: Troponin-I High Sensitivity 20.5 ng/L (<3.5-35.0)
--- OUTSIDE RECORDS SUMMARY | 2024-10-13 02:18 | XMS_ITS | Patient Health Record ---
Author Organization 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) use of anticoagulants (V58.61) Active confirmed Plan Of Treatment Pending Test Test Name Order Date GI BIOPSY 11/24/2014 Future Test Test Name Order Date COLONOSCOPY 08/13/2013 Insurance Providers Payer Name Payer Address Payer Phone Subscriber Number Group Number Insured Name Patient Relationship to Insured Coverage Start Date Coverage End Date MEDICARE OF [place] [address] [place] [address] [phone] [id number] [employer] Self - patient is the insured [employer] ATT[employer] CLAIMS [address] [place] [phone] [id number] [employer] Self - patient is the insured Medical (General) History Medical History History ICD Code Colonoscopy, 2008, tubular adenoma Hypertension coronary artery disease with stent place ment SVT with ablation atrial fibrillation
[2024-10-13 03:18] LABS: Appearance Urine Cloudy; Glucose Urine UA Negative (Negative); PH 5.5 (5.0-9.0); Specific Gravity - Urine 1.025 (1.005-1.025); UMIC TRIGGER UACC YES
[2024-10-13 03:24] LABS: Ammonia 28 umol/L (13-55)
--- NOTE | 2024-10-13 03:34 | ED_ITS ---
HPI - General Adult General Chief complaint: Weakness Stated complaint: blood in urine, gen weakness, ? kidney infection Time Seen by Provider: 10/13/24 02:52 Source: patient Limitations: no limitations History of Present Illness ED Provider: Rhianna Gomez PA-C HPI narrative: 84-year-old male with a history of alcohol use disorder, cirrhosis, hypertension, hyperlipidemia, paroxysmal AFib no longer anticoagulated, known coronary artery disease, diastolic heart failure with EF of 45-50% on echo August of 2023, presents with generalized malaise. Patient states he has been having episodes of weakness at home, he subsequently fell today, landing on his right side. He denies head strike or loss of consciousness. Denies recent cough or cold symptoms no fever. Denies abdominal pain, nausea vomiting. Patient states he thinks he has blood in his urine, that it has been discolored. Denies history of kidney stones, back pain, flank pain, dysuria. Patient states he drank socially, that he has never experienced alcohol withdrawal, no seizure activity. He denies drinking on a regular basis. Related Data Home Medications ?Medication ?Instructions ?Recorded ?Confirmed lisinopril 5 mg tablet 5 mg PO BEDTIME 01/07/2003/08 tamsulosin 0.4 mg capsule 0.4 mg PO BEDTIME 01/07/20 0 10/13/24 amiodarone 200 mg tablet 100 mg PO BEDTIME 10/13/24 0 10/13/24 prednisone 20 mg tablet 10 mg PO Q7D PRN Back Pain 0 10/13/24 10/13/24 Allergies Allergy/AdvReac Type Severity Reaction Status Date / Time apixaban (From ELIQUIS) Allergy Unknown BLEEDING Verified 10/13/24 01:24 ezetimibe (From ZETIA) Allergy Unknown UNKNOWN Verified 10/13/24 01:24 guaifenesin (From ROBITUSSIN) Allergy Unknown UNKNOWN Verified 10/13/24 01:24 Pqkaofk-CBH-VsC Reductase Allergy Unknown UNKNOWN Verified 10/13/24 01:24 Inhibitor ([id number] REDUCTASE INHIBITOR) Review of Systems 2 Review of Systems: Yes all other systems are reviewed and are negative Constitutional: Constitutional: Reports fatigue, Denies fever(s), Reports frequent falls, Denies headache(s) and Reports malaise ENT: Denies dizziness and Denies headache(s) Cardiovascular: Cardiovascular: Denies chest pain and Denies dyspnea Respiratory: Respiratory: Denies cough and Denies dyspnea Gastrointestinal: Gastrointestinal: Denies abdominal pain, Denies nausea and Denies vomiting Genitourinary: Genitourinary: Denies dysuria and Denies flank pain Musculoskeletal: Musculoskeletal: Denies back pain Neurologic: Denies dizziness, Reports frequent falls and Denies headache(s) Endocrine: Endocrine: Reports fatigue PMFSH Past Medical History Attestation statement: The following information was validated with the patient. Medical History (HFpEF) heart failure with preserved ejection fraction Paroxysmal atrial fibrillation HTN (hypertension) Hyperlipidemia CAD (coronary artery disease) Hypertensive heart disease SVT (supraventricular tachycardia) Tricuspid regurgitation Presence of Watchman left atrial appendage closure device Surgical History S/P cardiac cath Hx of CABG Stented coronary artery History of kidney surgery History of cardiac radiofrequency ablation History of carpal tunnel release Hx of heart surgery Family History Family History Father CVD (cardiovascular disease) Mother Sudden cardiac Family/Other Sudden cardiac Social History Social History Housing: House Alcohol intake: current Alcohol intake frequency: a few times a week Comment: 2 drinks gin Q night Patient Tobacco Use Status: Never used Tobacco Smoked in Last 30 Days: No e-Cigarette/Vaping Use: Never Used Second Hand Smoke Exposure: No Use of substances other than those prescribed or required for medical reasons: No Advance Directives: No Advance Directives Information Provided: Yes Do you have a plan to hurt others: No Plan service: No Current occupational status: employed Current occupational exposures/hazards: No Cognitive needs: Yes Hearing needs: No Vision needs: No Physical Exam ED Vital Signs: Vital Signs - 24 hr 10/13/24 01:20 10/13/24 01:44 10/13/24 02:55 Temperature 99.8 F Pulse Rate 88 85 83 Respiratory Rate 15 20 20 Blood Pressure 133/67 128/66 Pulse Oximetry 95 95 Oxygen Delivery Method Room Air Room Air 10/13/24 03:25 10/13/24 05:45 10/13/24 11:50 Temperature 98.2 F 98.3 F Pulse Rate 83 83 85 Respiratory Rate 20 19 18 Blood Pressure 127/73 137/74 122/53 L Pulse Oximetry 95 92 Oxygen Delivery Method Room Air Room Air 10/13/24 15:50 10/13/24 16:28 10/13/24 17:59 Temperature 98.2 F 99.3 F Pulse Rate 85 88 Respiratory Rate 21 H 22 H Blood Pressure 108/48 L Pulse Oximetry 96 Oxygen Delivery Method Room Air 10/13/24 18:08 Temperature 101.6 F H Pulse Rate Respiratory Rate Blood Pressure Pulse Oximetry Oxygen Delivery Method BMI result Body Mass Index 35.6 Const Other: Alert, pleasant, no evidence of head trauma on exam Orientation/consciousness: patient oriented x3 Eyes Other: Scleral icterus Resp Effort & Inspection: normal respiratory effort Cardio Other: Normal peripheral perfusion Skin Other: Appears jaundice Neuro General: patient oriented x3, gait normal, no focal motor deficits and CN's II- XI intact bilaterally Psych Other: Cooperative Course Course Course Narrative: 10/13/24 1800 TERRA Willis: Notified by nursing staff that patient is now hypotensive, 500mL fluid bolus ordered. Case discussed with Dr. Peraza who feels patient requires admission. Discussed with hospitalist, Dr. Weiss, who accepts admission to medicine. Repeat BP at 1815 134/74. 10/13/24 1522 TERRA Willis: Per Maia from CM, patient is declining the STR recommended by physical therapy. Patient is alert and oriented x 3, has capacity to make his own decisions. I attempted to convince him to go to STR as recommended by PT but he declines this. He does state that he needs to stay in ED overnight so his son can pick him up in the am. He is noted to have dark brown urine with visible blood on the urinal. Will repeat basic labs including CK. UA notable for 3+ blood, no evidence of infection. 7:28 AM 10/13/2024 (Dr. Candida Banuelos, D.O.) Time: 07:28 Date: 10/13/24 Provider: Candida Banuelos, DO Patient in physician observation for case management needs. No acute events reported overnight.? No current issues or complaints. VS stable. Patient is pending PT/CM eval. Will continue to monitor. Reevaluation(s) Reevaluation #1: Signed out to night team pending imaging and final disposition Medications Administered Generic Name Dose Route Start Last Admin Trade Name Freq PRN Reason Stop Dose Admin Lactated Ringer's 1,000 mls @ 80 mls/hr 10/13/24 19:00 10/13/24 19:49 Lr IVCONT 10/14/24 07:29 80 mls/hr .[id number] TOSHIA Administration Discontinued Medications Generic Name Dose Route Start Last Admin Trade Name Freq PRN Reason Stop Dose Admin Albuterol/Ipratropium 3 ml 10/13/24 15:49 10/13/24 15:55 Albuterol/Iprat 2.5/0.5mg 3 Ml Ampul.Neb INHALE 10/13/24 15:50 3 ml ONCE ONE Administration Ceftriaxone Sodium 1 gm 10/13/24 18:08 10/13/24 18:40 Ceftriaxone Sodium 1 Gm Vial IVPUSH 10/13/24 18:09 1 gm ONCE ONE Administration Sodium Chloride 500 mls @ 500 mls/hr 10/13/24 02:54 10/13/24 04:19 Ns IV 10/13/24 03:53 Infused .Q1H ONE Infusion Sodium Chloride 500 mls @ 999 mls/hr 10/13/24 18:00 10/13/24 19:36 Ns IV 10/13/24 18:30 Infused .Q31M TOSHIA Infusion Iohexol 100 ml 10/13/24 03:49 10/13/24 03:49 Iohexol 350 Mg/Ml 100 Ml Infus..Btl IV 10/13/24 03:50 100 ml ONCE ONE Administration Medical Decision Making Medical Decision Making MDM Narrative: 84-year-old male with a history of alcohol use disorder, cirrhosis, hypertension, hyperlipidemia, paroxysmal AFib no longer anticoagulated, known coronary artery disease, diastolic heart failure with EF of 45-50% on echo August of 2023, presents with generalized malaise. Patient states he has been having episodes of weakness at home, he subsequently fell today, landing on his right side. He denies head strike or loss of consciousness. Denies recent cough or cold symptoms no fever. Denies abdominal pain, nausea vomiting. Patient states he thinks he has blood in his urine, that it has been discolored. Denies history of kidney stones, back pain, flank pain, dysuria. Patient states he drank socially, that he has never experienced alcohol withdrawal, no seizure activity. He denies drinking on a regular basis. Problem: Cirrhosis, age, paroxysmal AFib, heart failure, ongoing alcohol use History: Per patient I have considered the following differential diagnoses: Hepatic encephalopathy, worsening cirrhosis, biliary obstruction, cholecystitis, biliary colic, cholangitis, SBP, alcohol intoxication, ACS, arrhythmia , viral syndrome Plan: Patient here with a very vague symptoms. He is alert and oriented, however appears confused at times with certain questions. He appears jaundiced to me, his screening labs thus far reveal worsening liver function, he could be encephalopathic. Adding on a ammonia, scanning his abdomen. It is reassuring that he is not having belly pain, nausea vomiting to suggest SBP, or underlying biliary infection. He does have risk factors for coronary artery disease, he currently denies chest pain, adding EKG and troponin. He states he drank socially, unclear if this is true, adding on a serum ethanol. It sounds as if he is not experience withdrawal in the past, we will keep this on our rate are. He has not had any viral related symptoms to account for his generalized malaise, viral panel was added and is negative. He admits to falling, he denies head strike, he is not the most reliable historian, I am also scanning his head and neck. In regard to his report of blood in the urine, it is likely bilirubin, he has no history of kidney stones, he is not having any flank pain, no dysuria. UA we will be sent. I have independently reviewed the following tests: Labs: No overall leukocytosis, however left shift noted, stable anemia, worsening thrombocytopenia is 114, Viral panel negative, no electrolyte abnormality, creatinine at baseline, magnesium 2.2, ammonia 28, 1st troponin 20.5, LFTs are increasing was baseline, T bili 5.8, AST 144, ALT 166, we will fractionate the bilirubin EKG: AFib, rate of 96, ST and T-wave abnormality laterally, QTC 396 CT brain: Impression: 1. No CT evidence of acute intracranial abnormality. 2. Cerebral volume loss, intracranial atherosclerotic disease and mild sequela of chronic small vessel ischemic disease. This document has been electronically signed by: Earl Holliday MD on 10/13/2024 05:05:14 CT cervical spine: Impression: 1. Negative CT cervical spine for acute process. CT abdomen and pelvis: Impression: 1. 2.4 cm equivocal hyperdense lesion right lobe of the liver. Multiphase MRI of the liver is the imaging modality of choice. Cirrhosis. Trace ascites. 2. Cholelithiasis without evidence of cholecystitis. No biliary dilatation. Normal pancreas. 3. Pleural-parenchymal disease lung bases. Renal cortical lesions can be correlated with ultrasound. Chronic osseous findings. This document has been electronically signed by: Earl Holliday MD on 10/13/2024 06:04:05 7:25 AM 10/13/2024 (Dr. Candida Banuelos, D.O.) cardiac enzymes are flat. T bili and D bili are elevated however, patient has no abdominal pain and only minimal ascites, no drainable fluid. Very low suspicion for SBP. No CT evidence biliary tract obstruction. Plan to have case management and Physical therapy evaluate the patient for potential rehab placement. I do not feel he is stable for discharge to be at home by himself. He is very unsteady and is having frequent falls. Would benefit from physical therapy. Differential Diagnosis Differential Diagnoses: The differential diagnosis associated with the presentation includes See medical decision-making Admission/Observation Consideration of admission/observation: Escalation of care including admission/observation considered Likely admission versus case management PT Lab Data MDM Lab Attestation statement: I reviewed the patient's lab results. 10/13/24 15:15 10/13/24 15:15 Labs: Lab Results 10/13/24 10/13/24 10/13/24 Range/Units 01:42 03:11 04:00 WBC 7.5 (4.8-10.8) X10*3/uL RBC 4.27 L (4.60-5.80) X10*6/uL Hgb 13.5 L (14.0-18.0) g/dl Hct 39.5 L (42.0-52.0) % MCV 92.5 (80.0-98.0) fL MCH 31.6 (27.0-33.0) pg MCHC 34.2 (31.0-36.0) g/dl RDW 15.1 (11.0-16.0) % Plt Count 114 L D (160-400) X10*3/uL MPV 10.0 (9.4-12.4) fL Immature Gran % (Auto) 1.2 H (0.0-0.4) % Neut % (Auto) 87.3 H (45-73) % Lymph % (Auto) 3.3 L (20-40) % [place] % (Auto) 7.6 (2-11) % Eos % (Auto) 0.3 (0-4) % Baso % (Auto) 0.3 (0-2) % Lymph # (Auto) 0.3 L (1.2-4.9) X10*3/uL [place] # (Auto) 0.6 (0.1-1.2) X10*3/uL Eos # (Auto) 0.0 (0.0-0.4) X10*3/uL Baso # (Auto) 0.0 (0.0-0.2) X10*3/uL Abs Immat Gran (auto) 0.09 H (0.00-0.03) X10*3/uL Absolute Neuts (auto) 6.5 (2.0-8.3) x10*3/uL Absolute Nucleated RBC 0.000 (0.0-0.012) X10*3/uL Nucleated RBC % (auto) 0.0 (0.0-0.2) /100WBC Sodium 135 (135-145) mmol/L Potassium 4.2 (3.3-5.1) mmol/L Chloride 101 (96-108) mmol/L Carbon Dioxide 21 L (22-29) mmol/L Anion Gap 17 (12-20) BUN 26 H (9-16) mg/dL Creatinine 1.28 (0.5-1.4) mg/dL Estim Creat Clear Calc 56.1 Estimated GFR 53 Random Glucose 138 H (60-115) mg/dL Lactic Acid (0.5-2.0) mmol/L Calcium 8.6 D (8.4-10.2) mg/dL Magnesium 2.2 (1.6-2.6) mg/dL Total Bilirubin 5.8 H (0.0-1.0) mg/dL Direct Bilirubin 4.2 H (0.0-0.5) mg/dL AST 144 H (5-37) U/L ALT 166 H (0-40) U/L Alkaline Phosphatase 112 (39-117) U/L Ammonia 28 (13-55) umol/L Total Creatine Kinase 162 (38-174) U/L Troponin I High Sens 20.5 23.4 (<3.5-35.0) ng/L B-Natriuretic Peptide (<100) pg/mL Total Protein 6.6 (6.5-8.0) g/dL Albumin 3.7 (3.5-5.0) g/dL Lipase 23 (8-78) U/L Urine Color Dark Yellow Urine Appearance Cloudy Urine pH 5.5 (5.0-9.0) Ur Specific [place] 1.025 (1.005-1.025) Urine Protein 100 (2+) H (Neg-Trace) mg/dL Urine Glucose (UA) Negative (Negative) mg/dL Urine Ketones 40 (Negative) mg/dL Urine Blood Large (3+) H (Negative) Urine Nitrite Negative (Negative) Ur Leukocyte Esterase Trace H (Negative) Urine RBC >20 H (0-2) /HPF Urine WBC 0-5 (0-5) /HPF Ur Squamous Epith Cells 0-2 (0-2) /HPF Urine Bacteria None Seen (None Seen) Hyaline Casts 0-2 (0-2) /LPF Ethyl Alcohol < 10 mg/dL COVID-19 (BRISEYDA) Negative (Negative) COVID-19 Clin Com See Note Influenza Type A (KARIE) Negative (Negative) Influenza Type B (KARIE) Negative (Negative) Influenza A & B Note See Note 10/13/24 10/13/24 10/13/24 Range/Units 13:43 15:15 18:25 WBC 5.6 (4.8-10.8) X10*3/uL RBC 4.24 L (4.60-5.80) X10*6/uL Hgb 13.5 L (14.0-18.0) g/dl Hct 39.1 L (42.0-52.0) % MCV 92.2 (80.0-98.0) fL MCH 31.8 (27.0-33.0) pg MCHC 34.5 (31.0-36.0) g/dl RDW 15.1 (11.0-16.0) % Plt Count 110 L (160-400) X10*3/uL MPV 10.0 (9.4-12.4) fL Immature Gran % (Auto) 1.3 H (0.0-0.4) % Neut % (Auto) 77.8 H (45-73) % Lymph % (Auto) 6.1 L (20-40) % [place] % (Auto) 12.8 H (2-11) % Eos % (Auto) 1.6 (0-4) % Baso % (Auto) 0.4 (0-2) % Lymph # (Auto) 0.3 L (1.2-4.9) X10*3/uL [place] # (Auto) 0.7 (0.1-1.2) X10*3/uL Eos # (Auto) 0.1 (0.0-0.4) X10*3/uL Baso # (Auto) 0.0 (0.0-0.2) X10*3/uL Abs Immat Gran (auto) 0.07 H (0.00-0.03) X10*3/uL Absolute Neuts (auto) 4.3 (2.0-8.3) x10*3/uL Absolute Nucleated RBC 0.000 (0.0-0.012) X10*3/uL Nucleated RBC % (auto) 0.0 (0.0-0.2) /100WBC Sodium 135 (135-145) mmol/L Potassium 4.0 (3.3-5.1) mmol/L Chloride 102 (96-108) mmol/L Carbon Dioxide 20 L (22-29) mmol/L Anion Gap 17 (12-20) BUN 25 H (9-16) mg/dL Creatinine 1.09 (0.5-1.4) mg/dL Estim Creat Clear Calc 65.9 Estimated GFR > 60 Random Glucose 150 H (60-115) mg/dL Lactic Acid 2.8 H* (0.5-2.0) mmol/L Calcium 8.4 (8.4-10.2) mg/dL Magnesium (1.6-2.6) mg/dL Total Bilirubin 5.1 H (0.0-1.0) mg/dL Direct Bilirubin (0.0-0.5) mg/dL AST 149 H (5-37) U/L ALT 160 H (0-40) U/L Alkaline Phosphatase 120 H (39-117) U/L Ammonia (13-55) umol/L Total Creatine Kinase 138 (38-174) U/L Troponin I High Sens (<3.5-35.0) ng/L B-Natriuretic Peptide 309 H (<100) pg/mL Total Protein 6.4 L (6.5-8.0) g/dL Albumin 3.5 (3.5-5.0) g/dL Lipase (8-78) U/L Urine Color Dark Yellow Urine Appearance Cloudy Urine pH 5.5 (5.0-9.0) Ur Specific [place] >= 1.030 H (1.005-1.025) Urine Protein 100 (2+) H (Neg-Trace) mg/dL Urine Glucose (UA) Negative (Negative) mg/dL Urine Ketones Trace (Negative) mg/dL Urine Blood Large (3+) H (Negative) Urine Nitrite Negative (Negative) Ur Leukocyte Esterase Small (1+) H (Negative) Urine RBC >20 H (0-2) /HPF Urine WBC 0-5 (0-5) /HPF Ur Squamous Epith Cells 0-2 (0-2) /HPF Urine Bacteria None Seen (None Seen) Hyaline Casts 0-2 (0-2) /LPF Ethyl Alcohol mg/dL COVID-19 (BRISEYDA) Negative (Negative) COVID-19 Clin Com See Note Influenza Type A (KARIE) Negative (Negative) Influenza Type B (KARIE) Negative (Negative) Influenza A & B Note See Note 10/13/24 Range/Units 18:27 WBC (4.8-10.8) X10*3/uL RBC (4.60-5.80) X10*6/uL Hgb (14.0-18.0) g/dl Hct (42.0-52.0) % MCV (80.0-98.0) fL MCH (27.0-33.0) pg MCHC (31.0-36.0) g/dl RDW (11.0-16.0) % Plt Count (160-400) X10*3/uL MPV (9.4-12.4) fL Immature Gran % (Auto) (0.0-0.4) % Neut % (Auto) (45-73) % Lymph % (Auto) (20-40) % [place] % (Auto) (2-11) % Eos % (Auto) (0-4) % Baso % (Auto) (0-2) % Lymph # (Auto) (1.2-4.9) X10*3/uL [place] # (Auto) (0.1-1.2) X10*3/uL Eos # (Auto) (0.0-0.4) X10*3/uL Baso # (Auto) (0.0-0.2) X10*3/uL Abs Immat Gran (auto) (0.00-0.03) X10*3/uL Absolute Neuts (auto) (2.0-8.3) x10*3/uL Absolute Nucleated RBC (0.0-0.012) X10*3/uL Nucleated RBC % (auto) (0.0-0.2) /100WBC Sodium (135-145) mmol/L Potassium (3.3-5.1) mmol/L Chloride (96-108) mmol/L Carbon Dioxide (22-29) mmol/L Anion Gap (12-20) BUN (9-16) mg/dL Creatinine (0.5-1.4) mg/dL Estim Creat Clear Calc Estimated GFR Random Glucose (60-115) mg/dL Lactic Acid (0.5-2.0) mmol/L Calcium (8.4-10.2) mg/dL Magnesium (1.6-2.6) mg/dL Total Bilirubin (0.0-1.0) mg/dL Direct Bilirubin (0.0-0.5) mg/dL AST (5-37) U/L ALT (0-40) U/L Alkaline Phosphatase (39-117) U/L Ammonia (13-55) umol/L Total Creatine Kinase (38-174) U/L Troponin I High Sens 16.8 (<3.5-35.0) ng/L B-Natriuretic Peptide (<100) pg/mL Total Protein (6.5-8.0) g/dL Albumin (3.5-5.0) g/dL Lipase (8-78) U/L Urine Color Urine Appearance Urine pH (5.0-9.0) Ur Specific [place] (1.005-1.025) Urine Protein (Neg-Trace) mg/dL Urine Glucose (UA) (Negative) mg/dL Urine Ketones (Negative) mg/dL Urine Blood (Negative) Urine Nitrite (Negative) Ur Leukocyte Esterase (Negative) Urine RBC (0-2) /HPF Urine WBC (0-5) /HPF Ur Squamous Epith Cells (0-2) /HPF Urine Bacteria (None Seen) Hyaline Casts (0-2) /LPF Ethyl Alcohol mg/dL COVID-19 (BRISEYDA) (Negative) COVID-19 Clin Com Influenza Type A (KARIE) (Negative) Influenza Type B (KARIE) (Negative) Influenza A & B Note Independent Interpretation I performed an independent interpretation of an: EKG Radiology Impression Discussion of test interpretation with radiology: I have reviewed the radiologist's reading. Chronic Conditions Patient?s care impacted by: Other (Alcoholic liver cirrhosis, heart with a preserved ejection fraction) Social Determinants Patient?s care significantly limited by Social Determinants of Health including: Problems related to primary support group Discharge Plan Discharge Clinical Impression: Cirrhosis, Weakness, Fall at home, Thrombocytopenia, Hematuria, Sepsis Patient Disposition: Admitted As Inpatient Sepsis Bolus Exclusion Sepsis Bolus Exclusion CHF/Renal Failure Date of Occurrence: 10/13/24 Time of Occurrence:: 18:10 This patient met severe sepsis criteria due to the following condition(s):: H ypotension In my clinical judgement the administration of 30 ml/kg of crystalloid would be detrimental to this patient due to the patient's following conditions:: Concern for fluid overload Replace the 30 mls/kg with (Zero amount not acceptable and all fluids for severe sepsis must be given at GREATER than 125 mls/hr) *Note: One of the mata must be documented Crystalloids amount given in mls: (rate must be at least 150cc/hr): 500 At a rate of (must be > 125 cchr):: 999
[2024-10-13] MEDS: iohexoL 350 MG/ML 100 ML INFUS..BTL IV (03:49)
[2024-10-13 04:23] LABS: Troponin-I High Sensitivity 23.4 ng/L (<3.5-35.0)
--- NOTE | 2024-10-13 10:04 | PC.NURSE ---
Alert and oriented, ate well for breakfast, seen by PT
--- NOTE | 2024-10-13 13:38 | PC.NURSE ---
Patient with dark urine, provider aware
[2024-10-13 13:55] LABS: Appearance Urine Cloudy; Glucose Urine UA Negative (Negative); PH 5.5 (5.0-9.0); Specific Gravity - Urine >= 1.030 (1.005-1.025); UMIC TRIGGER UACC YES
[2024-10-13 14:06] LABS: UACC Culture Trigger YES
--- NOTE | 2024-10-13 14:07 | MHC.CM.PN ---
Addendum entered by aMia Castillo 10/13/24 16:34: PT WILL REMAIN OVERNIGHT DAUGHTER WOULD LIKE A CALL IN THE MORNING TO ARRANGE TIME TO TRANSPORT [place] UNABLE TO VERIFY INS/PCP TODAY THEY WILL FOLLOW UP TOMORROW Addendum entered by Maia Castillo 10/13/24 15:10: [facility] Original Note: CM CONSULT RECEIVED, PT PRESENTED WITH MALAISE AND RECENT FALL PT UNDERSTANDS STR HAS BEEN RECOMMENDED, HOWEVER STATES HE IS NOT GOING HE IS AGREEABLE TO [facility], NO PREFERRED AGENCY CM SPOKE TO PTS SONLARISSA AT THE NUMBER ON FILE, HE REPORTS HIS SISTER, KATELIN IS THE HCP HE ALSO NOTES THE PT WILL NOT GO TO STR HE HAS HAD A BAD EXPERIENCE IN THE PAST HE ASKS THAT HOME SERVICES BE ARRANGED CM CALLED PTS DAUGHTER/HCPKATELIN [phone] SHE AGREES PT WILL NOT GO TO STR, AND SAYS THEY CAN ARRANGE FOR PRIVATE PAY CARE AT HOME SHE REQUESTED CM SPEAK TO HER WHO SUGGESTED PT GET AN UPDRAFT TREATMENT WELL PRESCRIPTIONS FOR PREDNISONE AND A RESCUE INHALER SUGGESTIONS RELAYED TO PROVIDER
--- NOTE | 2024-10-13 14:39 | ECG_ITS ---
Test Reason : TACHYCARDIA Blood Pressure : */* mmHG Vent. Rate : 92 BPM Atrial Rate : 92 BPM P-R Int : 190 ms QRS Dur : 92 ms QT Int : 358 ms P-R-T Axes : * 13 155 degrees QTcB Int : 442 ms Sinus rhythm with Premature atrial complexes Low voltage QRS ST & T wave abnormality, consider inferolateral ischemia Abnormal ECG When compared with ECG of 13-Oct-2024 01:27, Sinus rhythm has replaced Atrial fibrillation Referred By: Razia Willis Electronically Signed By: Vishal Borden
[2024-10-13 15:37] LABS: MANUAL DIFF FLAG NO
[2024-10-13 15:40] LABS: Hematocrit 39.1 % (42.0-52.0); Hemoglobin 13.5 g/dl (14.0-18.0); Imm Gran Abs Auto 0.07 X10*3/uL (0.00-0.03); Imm Gran Pct Auto 1.3 % (0.0-0.4); Lymphocytes Absolute Auto 0.3 X10*3/uL (1.2-4.9); Mean Corpuscular HGB Conc 34.5 g/dl (31.0-36.0); Mean Corpuscular Hemoglobin 31.8 pg (27.0-33.0); Mean Corpuscular Volume 92.2 fL (80.0-98.0); NRBC Abs Auto 0.000 X10*3/uL (0.0-0.012); NRBC Pct Auto 0.0 /100WBC (0.0-0.2); Platelet Count 110 X10*3/uL (160-400); Red Blood Count 4.24 X10*6/uL (4.60-5.80); White Blood Count 5.6 X10*3/uL (4.8-10.8)
[2024-10-13 15:55] LABS: Alanine Aminotransferase 160 U/L (0-40); Albumin Level 3.5 g/dL (3.5-5.0); Alkaline Phosphatase 120 U/L (39-117); Anion Gap 17 (12-20); Aspartate Amino Transferase 149 U/L (5-37); Blood Urea Nitrogen 25 mg/dL (9-16); Calcium 8.4 mg/dL (8.4-10.2); Carbon Dioxide 20 mmol/L (22-29); Chloride 102 mmol/L (96-108); Creatinine Clr Calc Pharmacy 65.9; Estimated Glomerular Filt Rate > 60; Potassium 4.0 mmol/L (3.3-5.1); Sodium 135 mmol/L (135-145); Total Protein 6.4 g/dL (6.5-8.0)
[2024-10-13] MEDS: Albuterol/Iprat 2.5/0.5MG 3 ML AMPUL.NEB INHALE (15:55)
--- NOTE | 2024-10-13 16:46 | PC.NURSE ---
med rec completed with patient- patient states he only takes 3 pills , and that he takes them all at night. States he takes amiodarone, lisiopril, and flomax. stopped all other meds and takes no meds in the AM
--- NOTE | 2024-10-13 18:21 | P.HPHOSP_ITS ---
[facility] Medical History (HFpEF) heart failure with preserved ejection fraction Paroxysmal atrial fibrillation HTN (hypertension) Hyperlipidemia CAD (coronary artery disease) Hypertensive heart disease SVT (supraventricular tachycardia) Tricuspid regurgitation Presence of Watchman left atrial appendage closure device Family History Father CVD (cardiovascular disease) Mother Sudden cardiac Family/Other Sudden cardiac Surgical History S/P cardiac cath Hx of CABG Stented coronary artery History of kidney surgery History of cardiac radiofrequency ablation History of carpal tunnel release Hx of heart surgery Social History Housing: House Alcohol intake: current Alcohol intake frequency: a few times a week Comment: 2 drinks gin Q night Patient Tobacco Use Status: Never used Tobacco Smoked in Last 30 Days: No e-Cigarette/Vaping Use: Never Used Second Hand Smoke Exposure: No Use of substances other than those prescribed or required for medical reasons: No Advance Directives: No Advance Directives Information Provided: Yes Do you have a plan to hurt others: No Plan service: No Current occupational status: employed Current occupational exposures/hazards: No Cognitive needs: Yes Hearing needs: No Vision needs: No Meds Allergies Allergy/AdvReac Type Severity Reaction Status Date / Time apixaban (From ELIQUIS) Allergy Unknown BLEEDING Verified 10/13/24 01:24 ezetimibe (From ZETIA) Allergy Unknown UNKNOWN Verified 10/13/24 01:24 guaifenesin (From ROBITUSSIN) Allergy Unknown UNKNOWN Verified 10/13/24 01:24 Mobnffw-CTE-EzW Reductase Allergy Unknown UNKNOWN Verified 10/13/24 01:24 Inhibitor (PRDSTEY-YQO-WXA REDUCTASE INHIBITOR) Active Medications: Current Medications Amiodarone HCl (Amiodarone Hcl 200 Mg Tablet) 100 mg PO BEDTIME TOSHIA Sodium Chloride (Ns) 500 mls @ 999 mls/hr IV .Q31M TOSHIA Stop: 10/13/24 18:30 Lisinopril (Lisinopril 5 Mg Tablet) 5 mg PO BEDTIME TOSHIA; Protocol Tamsulosin HCl (Tamsulosin Hcl 0.4 Mg Capsule) 0.4 mg PO BEDTIME TOSHIA Home Medications ?Medication ?Instructions ?Recorded ?Confirmed ?Last Taken ?Type lisinopril 5 mg tablet 5 mg PO BEDTIME 01/07/2003/08 Unknown History tamsulosin 0.4 mg capsule 0.4 mg PO BEDTIME 01/07/20 0 10/13/24 Unknown History amiodarone 200 mg tablet 100 mg PO BEDTIME 10/13/24 0 10/13/24 Unknown History Physical Exam 2 Vital Signs and Narrative: Vital Signs: Last Vital Signs Temp 101.6 F H 10/13/24 18:08 Pulse 88 10/13/24 16:28 Resp 22 H 10/13/24 16:28 BP 108/48 L 10/13/24 16:28 Pulse Ox 96 10/13/24 16:28 O2 Del Method Room Air 10/13/24 16:28 BMI result Body Mass Index 35.6 Results Labs 10/13/24 15:15 10/13/24 15:15 Labs: Laboratory Results - last 24 hr 10/13/24 10/13/24 10/13/24 01:42 03:11 13:43 MCV 92.5 MCH 31.6 MCHC 34.2 RDW 15.1 Plt Count 114 L D MPV 10.0 Immature Gran % (Auto) 1.2 H Neut % (Auto) 87.3 H Lymph % (Auto) 3.3 L [place] % (Auto) 7.6 Eos % (Auto) 0.3 Baso % (Auto) 0.3 Lymph # (Auto) 0.3 L [place] # (Auto) 0.6 Eos # (Auto) 0.0 Baso # (Auto) 0.0 Abs Immat Gran (auto) 0.09 H Absolute Neuts (auto) 6.5 Absolute Nucleated RBC 0.000 Nucleated RBC % (auto) 0.0 Anion Gap 17 Estim Creat Clear Calc 56.1 Estimated GFR 53 Random Glucose 138 H Calcium 8.6 D Magnesium 2.2 Total Bilirubin 5.8 H Direct Bilirubin 4.2 H AST 144 H ALT 166 H Alkaline Phosphatase 112 Ammonia 28 Total Creatine Kinase 162 Total Protein 6.6 Albumin 3.7 Lipase 23 Urine Color Dark Yellow Dark Yellow Urine Appearance Cloudy Cloudy Urine pH 5.5 5.5 Ur Specific [place] 1.025 >= 1.030 H Urine Protein 100 (2+) H 100 (2+) H Urine Glucose (UA) Negative Negative Urine Ketones 40 Trace Urine Blood Large (3+) H Large (3+) H Urine Nitrite Negative Negative Ur Leukocyte Esterase Trace H Small (1+) H Urine RBC >20 H >20 H Urine WBC 0-5 0-5 Ur Squamous Epith Cells 0-2 0-2 Urine Bacteria None Seen None Seen Hyaline Casts 0-2 0-2 Ethyl Alcohol < 10 COVID-19 (BRISEYDA) Negative COVID-19 Clin Com See Note Influenza Type A (KARIE) Negative Influenza Type B (KARIE) Negative Influenza A & B Note See Note 10/13/24 15:15 MCV 92.2 MCH 31.8 MCHC 34.5 RDW 15.1 Plt Count 110 L MPV 10.0 Immature Gran % (Auto) 1.3 H Neut % (Auto) 77.8 H Lymph % (Auto) 6.1 L [place] % (Auto) 12.8 H Eos % (Auto) 1.6 Baso % (Auto) 0.4 Lymph # (Auto) 0.3 L [place] # (Auto) 0.7 Eos # (Auto) 0.1 Baso # (Auto) 0.0 Abs Immat Gran (auto) 0.07 H Absolute Neuts (auto) 4.3 Absolute Nucleated RBC 0.000 Nucleated RBC % (auto) 0.0 Anion Gap 17 Estim Creat Clear Calc 65.9 Estimated GFR > 60 Random Glucose 150 H Calcium 8.4 Magnesium Total Bilirubin 5.1 H Direct Bilirubin AST 149 H ALT 160 H Alkaline Phosphatase 120 H Ammonia Total Creatine Kinase 138 Total Protein 6.4 L Albumin 3.5 Lipase Urine Color Urine Appearance Urine pH Ur Specific [place] Urine Protein Urine Glucose (UA) Urine Ketones Urine Blood Urine Nitrite Ur Leukocyte Esterase Urine RBC Urine WBC Ur Squamous Epith Cells Urine Bacteria Hyaline Casts Ethyl Alcohol COVID-19 (BRISEYDA) COVID-19 Clin Com Influenza Type A (KARIE) Influenza Type B (KARIE) Influenza A & B Note
--- NOTE | 2024-10-13 18:29 | PHA.MEDREC ---
Pharmacy Consult ? Medication Reconciliation Pharmacy has completed the medication reconciliation. Med rec completed by Vinita, noted that she spoke to the patient. He told her he no longer takes lasix d/t frequent urination.
[2024-10-13 18:48] LABS: IDNOW Serial# 55D5AD1C; Influenza B2 Negative (Negative)
[2024-10-13 18:49] LABS: COVID-19 Test Negative (Negative); IDNOW Serial# 58CA691E
--- NOTE | 2024-10-13 18:49 | PM.IMHP ---
History of Present Illness Date of Service: 10/13/24 Attending physician on admission: Pratik Cordero Chief Complaint: Dizziness Cipriano Aguirre is 84 years old man with past medical history paroxysmal atrial fibrillation status post ablation not on anticoagulation, CAD status post CABG, tricuspid regurgitation, HFpEF, essential hypertension and hyperlipidemia (statin intolerant) presents to the emergency department complaining of dizziness, generalized weakness, fever and shortness on breath. His symptoms started yesterday. Yesterday, he had self-limited episode of chest pressure and did not take nitro. He denied abdominal pain, nausea, vomiting, diarrhea or cough. Denied pain with urination bone noted that his urine is dark (like cranberry juice). He also reports a fall yesterday upon walking to the bathroom. He denied head trauma. Patient denied tobacco smoking, alcohol abuse or illicit drug use. He denied history of prostate or bladder cancer. 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 In the ED, he was found to have fever of 101.6. There is no hypotension, hypoxia or severe tachypnea. Blood workup showed no leukocytosis but does neutrophilia of 77.8. There is lactic acidosis of 2.08. There are no significant electrolyte imbalances. CO2 is 20, anion gap 17, BUN 25 and creatinine 1.09. Random glucose 150. Abdominal pelvis CT scan showed what 2.4 cm acute workup hyperdense lesion in the right lobe of the liver, cirrhosis, trace ascites, cholelithiasis without cholecystitis and no biliary dilatation. The pancreas is normal. It showed pleural - parenchymal disease in the lung bases. Head and C-spine CT scan showed no acute abnormalities. CXR showed no acute cardiopulmonary abnormality. Serology is negative for COVID-19 and influenza. Urinalysis showed proteinuria 2+, blood 3+, leukocyte esterase 1+ and RBC >20, WBC 0-5. ECG showed sinus rhythm with PACs a low voltage with ST and T-wave abnormalities (old). ED tx: NS 1000 mL, DuoNeb 3 mL, ceftriaxone 1 g IV Review of Systems Review of Systems: All 12 systems were reviewed and normal except as noted in HPI. [facility] Medical History (HFpEF) heart failure with preserved ejection fraction Paroxysmal atrial fibrillation HTN (hypertension) Hyperlipidemia CAD (coronary artery disease) Hypertensive heart disease SVT (supraventricular tachycardia) Tricuspid regurgitation Presence of Watchman left atrial appendage closure device Family History Father CVD (cardiovascular disease) Mother Sudden cardiac Family/Other Sudden cardiac Surgical History S/P cardiac cath Hx of CABG Stented coronary artery History of kidney surgery History of cardiac radiofrequency ablation History of carpal tunnel release Hx of heart surgery Social History Housing: House Alcohol intake: current Alcohol intake frequency: a few times a week Comment: 2 drinks gin Q night Patient Tobacco Use Status: Never used Tobacco Smoked in Last 30 Days: No e-Cigarette/Vaping Use: Never Used Second Hand Smoke Exposure: No Use of substances other than those prescribed or required for medical reasons: No Advance Directives: No Advance Directives Information Provided: Yes Do you have a plan to hurt others: No Plan service: No Current occupational status: employed Current occupational exposures/hazards: No Cognitive needs: Yes Hearing needs: No Vision needs: No Meds Allergies Allergy/AdvReac Type Severity Reaction Status Date / Time apixaban (From ELIQUIS) Allergy Unknown BLEEDING Verified 10/13/24 01:24 ezetimibe (From ZETIA) Allergy Unknown UNKNOWN Verified 10/13/24 01:24 guaifenesin (From ROBITUSSIN) Allergy Unknown UNKNOWN Verified 10/13/24 01:24 Uheagfs-GST-TeG Reductase Allergy Unknown UNKNOWN Verified 10/13/24 01:24 Inhibitor (OMDFYWU-[id number]-JBF REDUCTASE INHIBITOR) Active Medications: Current Medications Acetaminophen (Acetaminophen 325 Mg Tablet) 650 mg PO Q6H PRN PRN Reason: Pain, Mild 1-3,fever,headache Amiodarone HCl (Amiodarone Hcl 200 Mg Tablet) 100 mg PO BEDTIME TOSHIA Calcium Carbonate (Calcium Carbonate 750 Mg Tab.Chew) 750 mg PO Q4H PRN PRN Reason: Heartburn Lactated Ringer's (Lr) 1,000 mls @ 80 mls/hr IVCONT .[id number] TOSHIA Stop: 10/14/24 07:29 Lisinopril (Lisinopril 5 Mg Tablet) 5 mg PO BEDTIME TOSHIA; Protocol Magnesium Hydroxide (Milk Of Magnesia 30 Ml Oral.Susp) 30 ml PO DAILY PRN PRN Reason: Constipation Melatonin (Melatonin 3 Mg Tablet) 6 mg PO BEDTIME PRN PRN Reason: Insomnia Ondansetron HCl (Ondansetron Hcl 4 Mg/2 Ml Vial) 4 mg IVPUSH Q8H PRN PRN Reason: Nausea and Vomiting Sodium Chloride (0.9 % Sodium Chloride Flush 3 Ml Syringe) 3 ml IVFLUSH QSHIFT TOSHIA Tamsulosin HCl (Tamsulosin Hcl 0.4 Mg Capsule) 0.4 mg PO BEDTIME TOSHIA Home Medications ?Medication ?Instructions ?Recorded ?Confirmed ?Last Taken ?Type lisinopril 5 mg tablet 5 mg PO BEDTIME 01/07/20 10/13/24 Unknown History tamsulosin 0.4 mg capsule 0.4 mg PO BEDTIME 01/07/20 10/13/24 Unknown History amiodarone 200 mg tablet 100 mg PO BEDTIME 10/13/24 10/13/24 Unknown History prednisone 20 mg tablet 10 mg PO Q7D PRN Back Pain 10/13/24 10/13/24 Unknown History Physical Exam Vital Signs and Narrative: Vital Signs: Last Vital Signs Temp 101.6 F H 10/13/24 18:08 Pulse 95 10/13/24 18:28 Resp 18 10/13/24 18:28 BP 119/68 10/13/24 18:28 Pulse Ox 94 10/13/24 18:28 O2 Del Method Room Air 10/13/24 18:28 BMI result Body Mass Index 35.6 Constitutional - Awake and Alert, No apparent distress HEENT - PER, EOMI Heart - RRR,(+) murmur. Lungs- Normal lung expansion, Normal respiratory effort, No respiratory distress, CTA bilaterally Abdomen - NT / ND; +BS; No rebound or guarding Extremities - no calf tenderness bilaterally, no swelling Musculoskeletal - Normal inspection, normal ROM Skin - Warm/Dry. Ecchymosis in the right forearm, medial aspect. Neurological - Alert & oriented x3. Moving all extremities spontaneously. No focal weakness grossly noted. Normal speech. Psychological - Appropriate affect Results Labs 10/13/24 15:15 10/13/24 15:15 Labs: Laboratory Results - last 24 hr 10/13/24 10/13/24 10/13/24 01:42 03:11 13:43 MCV 92.5 MCH 31.6 MCHC 34.2 RDW 15.1 Plt Count 114 L D MPV 10.0 Immature Gran % (Auto) 1.2 H Neut % (Auto) 87.3 H Lymph % (Auto) 3.3 L [place] % (Auto) 7.6 Eos % (Auto) 0.3 Baso % (Auto) 0.3 Lymph # (Auto) 0.3 L [place] # (Auto) 0.6 Eos # (Auto) 0.0 Baso # (Auto) 0.0 Abs Immat Gran (auto) 0.09 H Absolute Neuts (auto) 6.5 Absolute Nucleated RBC 0.000 Nucleated RBC % (auto) 0.0 Anion Gap 17 Estim Creat Clear Calc 56.1 Estimated GFR 53 Random Glucose 138 H Calcium 8.6 D Magnesium 2.2 Total Bilirubin 5.8 H Direct Bilirubin 4.2 H AST 144 H ALT 166 H Alkaline Phosphatase 112 Ammonia 28 Total Creatine Kinase 162 Total Protein 6.6 Albumin 3.7 Lipase 23 Urine Color Dark Yellow Dark Yellow Urine Appearance Cloudy Cloudy Urine pH 5.5 5.5 Ur Specific [place] 1.025 >= 1.030 H Urine Protein 100 (2+) H 100 (2+) H Urine Glucose (UA) Negative Negative Urine Ketones 40 Trace Urine Blood Large (3+) H Large (3+) H Urine Nitrite Negative Negative Ur Leukocyte Esterase Trace H Small (1+) H Urine RBC >20 H >20 H Urine WBC 0-5 0-5 Ur Squamous Epith Cells 0-2 0-2 Urine Bacteria None Seen None Seen Hyaline Casts 0-2 0-2 Ethyl Alcohol < 10 COVID-19 (BRISEYDA) Negative COVID-19 Clin Com See Note Influenza Type A (KARIE) Negative Influenza Type B (KARIE) Negative Influenza A & B Note See Note 10/13/24 10/13/24 15:15 18:25 MCV 92.2 MCH 31.8 MCHC 34.5 RDW 15.1 Plt Count 110 L MPV 10.0 Immature Gran % (Auto) 1.3 H Neut % (Auto) 77.8 H Lymph % (Auto) 6.1 L [place] % (Auto) 12.8 H Eos % (Auto) 1.6 Baso % (Auto) 0.4 Lymph # (Auto) 0.3 L [place] # (Auto) 0.7 Eos # (Auto) 0.1 Baso # (Auto) 0.0 Abs Immat Gran (auto) 0.07 H Absolute Neuts (auto) 4.3 Absolute Nucleated RBC 0.000 Nucleated RBC % (auto) 0.0 Anion Gap 17 Estim Creat Clear Calc 65.9 Estimated GFR > 60 Random Glucose 150 H Calcium 8.4 Magnesium Total Bilirubin 5.1 H Direct Bilirubin AST 149 H ALT 160 H Alkaline Phosphatase 120 H Ammonia Total Creatine Kinase 138 Total Protein 6.4 L Albumin 3.5 Lipase Urine Color Urine Appearance Urine pH Ur Specific [place] Urine Protein Urine Glucose (UA) Urine Ketones Urine Blood Urine Nitrite Ur Leukocyte Esterase Urine RBC Urine WBC Ur Squamous Epith Cells Urine Bacteria Hyaline Casts Ethyl Alcohol COVID-19 (BRISEYDA) COVID-19 Clin Com Influenza Type A (KARIE) Negative Influenza Type B (KARIE) Negative Influenza A & B Note See Note Assessment and Plan (1) SIRS (systemic inflammatory response syndrome): Status: Acute (2) Acute lactic acidosis: Status: Acute Plan Cipriano Aguirre is 84 y/o man presents with: SIRS criteria, etiology unclear. High risk for TACO due HFpEF. Empiric IV antibiotic therapy with vancomycin and Zosyn. Continue IV fluids. Blood, urine cultures and resp panel obtained in ED-will follow results. Check tick-borne disease panel. Acute lactic acidosis, likely secondary to acute infection. Continue IV fluids and antibiotics. Continue to monitor lactic acid. Fall. Fall precautions. PT eval. Check vitamin-D level. Hematuria. Check INR. Urine culture obtained -will follow results. Monitor H&H. Urology consult. Elevated LFTs; Hx of cirrhosis noted in 2021 ?hepatic steatosis. Normal CPK. Liver lesion. Cholelithiasis without cholecystitis or CBD. No GI symptoms. Check liver MRI for better assessment of the lesion. Check INR. Hepatitis panel obtained in ED -will follow results. Continue to monitor. Paroxysmal atrial fibrillation. Status post ablation. Had a Watchman device. Not on anticoagulation due to history of GI bleeding. Currently NSR. Continue amiodarone. Essential hypertension. Continue lisinopril. Hyperlipidemia. Statin intolerance. HFpEF. Clear lungs. CXR negative. CAD. Status post stenting and CABG. BPH. Continue tamsulosin. Obesity, class 2. BMI 35.6 kg/m2. Continue with diet and exercise. He was on Ozempic before. Code status: Full DVT prophylaxis: SCDs only (anticoagulation contraindicated due to active hematuria). Patient will need hospitalization for at least 2 midnights for multiple active medical issues including SIRS, hematuria and elevated LFTs management evaluation with IV fluids, empiric IV antibiotic therapy and evaluation by urology service. Quality Stroke Does the patient have a stroke diagnosis?: No VTE Prior VTE?: No VTE Risk Level:: Medical - moderate - high VTE Device Contraindication: N/A - Device Ordered VTE Drug Contraindication: Treatment Not Indicated
[2024-10-13 18:55] LABS: B Type Natriuretic Peptide 309 pg/mL (<100)
[2024-10-13 18:58] LABS: Troponin-I High Sensitivity 16.8 ng/L (<3.5-35.0)
[2024-10-13 19:32] LABS: INTERNATIONAL NORM RATIO 1.0 (0.9-1.1); Prothrombin Time 11.7 SEC (10.9-12.4)
--- NOTE | 2024-10-13 19:44 | PC.NURSE ---
report texted to Nyasia DE LUNA
[2024-10-13] MEDS: Lactated Ringers 1,000 ML 80 ML IVCONT (19:49)
[2024-10-13 20:30] LABS: Reflex Lactate? Lactic Acid Added
[2024-10-13 21:32] LABS: ~Lactic Acid-LAB USE ONLY 2.7 mmol/L (0.5-2.0)
[2024-10-13] MEDS: Lactated Ringers 500 ML 999 ML IV (21:58)
[2024-10-13 23:10] LABS: Reflex Lactate? 2 Y
[2024-10-14 00:11] VITALS: BP 124/66; PULSE 64; RESP 18; TEMP 36.7; O2SAT 96
[2024-10-14 00:18] LABS: ~Lactic Acid-LAB USE ONLY 1.7 mmol/L (0.5-2.0)
[2024-10-14] MEDS: vancomycin/NS 2,000 MG/500 ML PLAST..BAG 250 MG IV (01:09)
[2024-10-14] MEDS: 0.9 % Sodium Chloride Flush 3 ML SYRINGE IVFLUSH ×2 (01:13→15:27)
[2024-10-14 04:45] LABS: MANUAL DIFF FLAG NO
[2024-10-14 04:47] LABS: Hematocrit 35.4 % (42.0-52.0); Hemoglobin 12.3 g/dl (14.0-18.0); Imm Gran Abs Auto 0.07 X10*3/uL (0.00-0.03); Imm Gran Pct Auto 1.4 % (0.0-0.4); Lymphocytes Absolute Auto 0.5 X10*3/uL (1.2-4.9); Mean Corpuscular HGB Conc 34.7 g/dl (31.0-36.0); Mean Corpuscular Hemoglobin 31.8 pg (27.0-33.0); Mean Corpuscular Volume 91.5 fL (80.0-98.0); NRBC Abs Auto 0.000 X10*3/uL (0.0-0.012); NRBC Pct Auto 0.0 /100WBC (0.0-0.2); Platelet Count 106 X10*3/uL (160-400); Red Blood Count 3.87 X10*6/uL (4.60-5.80); White Blood Count 5.0 X10*3/uL (4.8-10.8)
[2024-10-14 05:04] LABS: Alanine Aminotransferase 148 U/L (0-40); Albumin Level 3.1 g/dL (3.5-5.0); Alkaline Phosphatase 113 U/L (39-117); Anion Gap 13 (12-20); Aspartate Amino Transferase 143 U/L (5-37); Blood Urea Nitrogen 20 mg/dL (9-16); Calcium 8.0 mg/dL (8.4-10.2); Carbon Dioxide 20 mmol/L (22-29); Chloride 105 mmol/L (96-108); Creatinine Clr Calc Pharmacy 71.9; Estimated Glomerular Filt Rate > 60; Magnesium 2.2 mg/dL (1.6-2.6); Potassium 3.9 mmol/L (3.3-5.1); Sodium 134 mmol/L (135-145); Total Protein 5.7 g/dL (6.5-8.0)
[2024-10-14 05:56] VITALS: BP 100/59; PULSE 93; RESP 16; TEMP 36.8; O2SAT 96
--- NOTE | 2024-10-14 06:43 | PHA.PROG ---
Admission Date/Time: October 13, 2024 18:28 Indication: SEPSIS Weight in k kg Adjusted body weight in Kg: [place] body weight in Kg: Obesity Dosing Indication % IBW: Serum Creatinine - Last 168 Hours 10/13/24 10/13/24 10/14/24 01:42 15:15 04:39 Creatinine 1.28 1.09 1.00 Estimated CrCl and GFR - Last 168 Hours 10/13/24 10/13/24 10/14/24 01:42 15:15 04:39 Estim Creat Clear Calc 56.1 65.9 71.9 Estimated GFR 53 > 60 > 60 Vancomycin Loading Dose: 2000 MG Current Vancomycin Dosing Regimen: 1000 MG Q12H Vancomycin Monitoring using AUC goal of 400 - 600 range with trough as surrogate marker: NJZ=022 TROUGH=19.1 Date and Time for next Vancomycin Level to be drawn: 10/15/24 @1100 Pharmacist Comments on Vancomycin Plan: Vancomycin dosing will take advantage of [employer] as a clinical decision support tool that uses Bayesian modeling to calculate individual patient's pharmacokinetic parameters and forecast the patient's drug concentration time course with the target goal AUC 24 range of 400 - 600 mg/L/hr.
[2024-10-14 08:03] LABS: HBS Num1 0.00 mIU/mL (0-7.99); HBc Num1 0.13 S/CO (0.00-0.79); HBsAGNum1 0.52 S/CO (0.00-0.99); Hepatitis A Antibody IgM 0.17 Index (0-0.79); Hepatitis B Surface Antigen Negative (Negative); ~HepC Num1 0.22 S/CO (0.00-0.79); ~Hepatitis A Antibody IgM Nonreactive (Nonreactive); ~Hepatitis B Surface Antibody NONREACTIVE (Nonreactive); ~Hepatitis C Antibody Nonreactive (Nonreactive)
[2024-10-14 08:39] VITALS: BP 145/83; PULSE 86; RESP 18; TEMP 37.4; O2SAT 98
[2024-10-14 09:30] LABS: Chlamydia pneumoniae PCR Not Detected (Not Detect.); Coronavirus 229E PCR Not Detected (Not Detect.); Coronavirus HKU1 PCR Not Detected (Not Detect.); Coronavirus NL63 PCR Not Detected (Not Detect.); Coronavirus OC43 PCR Not Detected (Not Detect.); RSV PCR Not Detected (Not Detect.); Rhino/Enterovirus PCR Not Detected (Not Detect.)
[2024-10-14 09:45] LABS: Influenza A H1 PCR Not Detected (Not Detect.); Influenza A H1-2009 PCR Not Detected (Not Detect.); Influenza A H3 PCR Not Detected (Not Detect.); SARS-CoV-2 PCR Not Detected (Not Detect.)
[2024-10-14 14:21] VITALS: BP 146/90; PULSE 96; RESP 18; TEMP 37.8; O2SAT 96
--- NOTE | 2024-10-14 14:55 | MHC.CM.PN ---
PT REPORTS HE IS INDEPENDENT WITH CARE AND WORKS HE HAS NO DME AND NO SERVICES PCP: ROGERS MENDOZA COPY OF HCP REQUESTED, HE REPORTS IT IS HIS DAUGHTER, KATELIN IMM DELIVERED DCP; HOME WITH [facility] PT REFUSING STR FAMILY TO TRANSPORT
--- NOTE | 2024-10-14 16:36 | PM.UROCN ---
History of Present Illness Consult details Consult date: 10/14/24 Narrative: CC: Hematuria 84-year-old male Present to emergency room with dizziness Cardiac history includes paroxysmal AFib status post ablation, CAD status post CABG, tricuspid regurg, heart failure, essential hypertension and dyslipidemia Reports self-limited episode of chest pressure yesterday. Noted his urine to be dark like cranberry juice. No prior history of prostate or bladder issues. Is on tamsulosin baseline for BPH Found to have fever 101.6 in emergency room with mild acidosis and neutrophilia despite no leukocytosis. Normal laboratories UA positive blood, positive esterase Urine culture shows less than 10,[address] scan essentially normal Has been given dose of antibiotics The fever remains down would treat with short course antibiotics May follow as outpatient for office cystoscopy Review of Systems Constitutional: Constitutional: Reports as per HPI and Reports no additional constitutional complaints Cardiovascular: Cardiovascular: Reports as per HPI and Reports no additional cardiovascular complaints Respiratory: Respiratory: Reports as per HPI and Reports no additional respiratory complaints Gastrointestinal: Gastrointestinal: Reports as per HPI and Reports no additional gastrointestinal complaints Genitourinary: Genitourinary: Reports as per HPI Musculoskeletal: Musculoskeletal: Reports no additional musculoskeletal complaints and Reports as per HPI Neurologic: Reports system reviewed and no additional complaints, except as documented and Reports as per HPI [facility] Past Medical History Medical History (HFpEF) heart failure with preserved ejection fraction Paroxysmal atrial fibrillation HTN (hypertension) Hyperlipidemia CAD (coronary artery disease) Hypertensive heart disease SVT (supraventricular tachycardia) Tricuspid regurgitation Presence of Watchman left atrial appendage closure device Family History Family History Father CVD (cardiovascular disease) Mother Sudden cardiac Family/Other Sudden cardiac Surgical History Surgical History S/P cardiac cath Hx of CABG Stented coronary artery History of kidney surgery History of cardiac radiofrequency ablation History of carpal tunnel release Hx of heart surgery Social History Social History Household Members: Other Housing: House Do you presently have visiting nurse or other home services: No Alcohol intake: current Alcohol intake frequency: a few times a week Comment: 2 drinks gin Q night Patient Tobacco Use Status: Never used Tobacco Smoked in Last 30 Days: No e-Cigarette/Vaping Use: Never Used Second Hand Smoke Exposure: No Use of substances other than those prescribed or required for medical reasons: No Have you been hit, kicked, punched, or otherwise hurt by someone within the past year? If so, by whom?: No Advance Directives: No Advance Directives Information Provided: Yes Do you have a plan to hurt others: No Plan Recently lost weight without trying: No Nutrition Risks: No Nutritional Risk service: No Current occupational status: employed Current occupational exposures/hazards: No Cognitive needs: Yes Hearing needs: No Vision needs: No Meds Allergies Allergy/AdvReac Type Severity Reaction Status Date / Time apixaban (From ELIQUIS) Allergy Unknown BLEEDING Verified 10/13/24 01:24 ezetimibe (From ZETIA) Allergy Unknown UNKNOWN Verified 10/13/24 01:24 guaifenesin (From ROBITUSSIN) Allergy Unknown UNKNOWN Verified 10/13/24 01:24 Brvired-TFJ-MkJ Reductase Allergy Unknown UNKNOWN Verified 10/13/24 01:24 Inhibitor ([id number] REDUCTASE INHIBITOR) Active Medications: Current Medications Acetaminophen (Acetaminophen 325 Mg Tablet) 650 mg PO Q6H PRN PRN Reason: Pain, Mild 1-3,fever,headache Amiodarone HCl (Amiodarone Hcl 200 Mg Tablet) 100 mg PO BEDTIME COUNT INCLUDES THE [facility] Last Admin: 10/13/24 21:59 Dose: 100 mg Calcium Carbonate (Calcium Carbonate 750 Mg Tab.Chew) 750 mg PO Q4H PRN PRN Reason: Heartburn Piperacillin Sod/Tazobactam (Sod 3.375 gm/ Sodium Chloride) 50 mls @ 100 mls/hr IV Q6H COUNT INCLUDES THE [facility] Last Infusion: 10/14/24 11:41 Dose: Infused Vancomycin HCl 1,000 mg/ (Sodium Chloride) 270 mls @ 270 mls/hr IV Q12H COUNT INCLUDES THE [facility] Last Infusion: 10/14/24 13:38 Dose: Infused Magnesium Hydroxide (Milk Of Magnesia 30 Ml Oral.Susp) 30 ml PO DAILY PRN PRN Reason: Constipation Melatonin (Melatonin 3 Mg Tablet) 6 mg PO BEDTIME PRN PRN Reason: Insomnia Ondansetron HCl (Ondansetron Hcl 4 Mg/2 Ml Vial) 4 mg IVPUSH Q8H PRN PRN Reason: Nausea and Vomiting Sodium Chloride (0.9 % Sodium Chloride Flush 3 Ml Syringe) 3 ml IVFLUSH QSHIFT COUNT INCLUDES THE [facility] Last Admin: 10/14/24 15:27 Dose: 3 ml Tamsulosin HCl (Tamsulosin Hcl 0.4 Mg Capsule) 0.4 mg PO BEDTIME COUNT INCLUDES THE [facility] Last Admin: 10/13/24 21:58 Dose: 0.4 mg Home Medications ?Medication ?Instructions ?Recorded ?Confirmed ?Last Taken ?Type lisinopril 5 mg tablet 5 mg PO BEDTIME 01/07/20 10/13/24 Unknown History tamsulosin 0.4 mg capsule 0.4 mg PO BEDTIME 01/07/20 10/13/24 Unknown History amiodarone 200 mg tablet 100 mg PO BEDTIME 10/13/24 10/13/24 Unknown History prednisone 20 mg tablet 10 mg PO Q7D PRN Back Pain 10/13/24 10/13/24 Unknown History Physical Exam Vital Signs: Vital Signs: Last Vital Signs Temp 100.1 F 10/14/24 14:21 Pulse 96 10/14/24 14:21 Resp 18 10/14/24 14:21 BP 146/90 H 10/14/24 14:21 Pulse Ox 96 10/14/24 14:21 O2 Del Method Room Air 10/14/24 14:21 BMI result Body Mass Index 35.6 Const: General: cooperative, healthy appearing, comfortable and no acute distress Orientation/consciousness: patient oriented x3 HEENT: Face and sinus: Yes normal facial exam Mouth: moist mucous membranes Neck: Neck: Yes normal visual inspection, Yes full ROM and Yes trachea midline Chest: Chest palpation & inspection: normal inspection of the chest Resp: Effort & Inspection: normal respiratory effort, able to speak in complete sentences and no respiratory distress GI: Inspection: Yes normal to inspection Back/Spine/Pelvis: Cervical Spine: normal cervical lordosis Thoracic/Lumbar Spine: thoracic and lumbar spine normal to inspection Skin: General skin exam: no rashes or lesions noted Neuro: General: patient oriented x3, tone normal and moves all extremities Extrem: General: Yes normal to inspection and Yes capillary refill normal Results Labs 10/14/24 04:39 10/14/24 04:39 Labs: Abnormal lab results 10/13/24 10/13/24 10/13/24 Range/Units 15:15 18:25 21:06 RBC (4.60-5.80) X10*6/uL Hgb (14.0-18.0) g/dl Hct (42.0-52.0) % Plt Count (160-400) X10*3/uL Immature Gran % (Auto) (0.0-0.4) % Lymph % (Auto) (20-40) % [place] % (Auto) (2-11) % Lymph # (Auto) (1.2-4.9) X10*3/uL Abs Immat Gran (auto) (0.00-0.03) X10*3/uL Sodium (135-145) mmol/L Carbon Dioxide (22-29) mmol/L BUN (9-16) mg/dL Random Glucose (60-115) mg/dL Lactic Acid 2.8 H* (0.5-2.0) mmol/L Lactic Acid F/U @ 2Hr 2.7 H* (0.5-2.0) mmol/L Calcium (8.4-10.2) mg/dL Total Bilirubin (0.0-1.0) mg/dL AST (5-37) U/L ALT (0-40) U/L B-Natriuretic Peptide 309 H (<100) pg/mL Total Protein (6.5-8.0) g/dL Albumin (3.5-5.0) g/dL 25-OH Vitamin D Total (>30) ng/mL 10/14/24 Range/Units 04:39 RBC 3.87 L (4.60-5.80) X10*6/uL Hgb 12.3 L (14.0-18.0) g/dl Hct 35.4 L (42.0-52.0) % Plt Count 106 L (160-400) X10*3/uL Immature Gran % (Auto) 1.4 H (0.0-0.4) % Lymph % (Auto) 10.6 L (20-40) % [place] % (Auto) 15.5 H (2-11) % Lymph # (Auto) 0.5 L (1.2-4.9) X10*3/uL Abs Immat Gran (auto) 0.07 H (0.00-0.03) X10*3/uL Sodium 134 L (135-145) mmol/L Carbon Dioxide 20 L (22-29) mmol/L BUN 20 H (9-16) mg/dL Random Glucose 138 H (60-115) mg/dL Lactic Acid (0.5-2.0) mmol/L Lactic Acid F/U @ 2Hr (0.5-2.0) mmol/L Calcium 8.0 L (8.4-10.2) mg/dL Total Bilirubin 4.0 H (0.0-1.0) mg/dL AST 143 H (5-37) U/L ALT 148 H (0-40) U/L B-Natriuretic Peptide (<100) pg/mL Total Protein 5.7 L (6.5-8.0) g/dL Albumin 3.1 L (3.5-5.0) g/dL 25-OH Vitamin D Total 19.8 L (>30) ng/mL Short CBC 10/14/24 Range/Units 04:39 WBC 5.0 (4.8-10.8) X10*3/uL Hgb 12.3 L (14.0-18.0) g/dl Hct 35.4 L (42.0-52.0) % Plt Count 106 L (160-400) X10*3/uL BMP 10/14/24 04:39 Sodium 134 L Potassium 3.9 Chloride 105 Carbon Dioxide 20 L BUN 20 H Creatinine 1.00 Calcium 8.0 L Liver Function 10/14/24 Range/Units 04:39 Total Bilirubin 4.0 H (0.0-1.0) mg/dL AST 143 H (5-37) U/L ALT 148 H (0-40) U/L Alkaline Phosphatase 113 (39-117) U/L Albumin 3.1 L (3.5-5.0) g/dL Urine 10/13/24 10/13/24 Range/Units 03:11 13:43 Urine Color Dark Yellow Dark Yellow Urine Appearance Cloudy Cloudy Urine pH 5.5 5.5 (5.0-9.0) Ur Specific [place] 1.025 >= 1.030 H (1.005-1.025) Urine Protein 100 (2+) H 100 (2+) H (Neg-Trace) mg/dL Urine Glucose (UA) Negative Negative (Negative) mg/dL All other labs normal. Assessment and Plan (1) Hematuria: Status: Acute Plan Short course antibiotics Outpatient hematuria evaluation Procedures Date of Service Date of Service: 10/14/24
--- NOTE | 2024-10-14 17:56 | P.PNIM_ITS ---
Subjective Subjective Date of Service: 10/14/24 Interval History: Patient seen with son by bedside today. Patient reports feeling fatigued but better than yesterday. Has no new complaints currently. Denies chest pain, retrosternal discomfort, diaphoresis, palpitations. Denies nausea, vomiting, diarrhea. Denies new rashes on the body, other than his bruising from previous falls Denies coughing, phlegm production wheezing or difficulty breathing at rest or exertion. Review of Systems Review of Systems: Yes all other systems are reviewed and are negative Physical Exam 2 Exam: Exam: General: A&O x3, oriented to time place person and situation, comfortable, no pain Cardiac: S1, S2 auscultated with no S3/4, no MRG. Well perfused. Respiratory: Normal breath sounds auscultated throughout all lung zones, without wheezing, rales. Normal rate. GI/ : No abdominal pain on palpation, no masses or distentions. MSK: Normal ambulation without pain at bony prominences or musculature Neurological: Normal neurological examination on overview, without obvious CN II-XII abnormalities. Vital Signs: Vital Signs: Last Vital Signs Temp 100.1 F 10/14/24 14:21 Pulse 96 10/14/24 14:21 Resp 18 10/14/24 14:21 BP 146/90 H 10/14/24 14:21 Pulse Ox 96 10/14/24 14:21 O2 Del Method Room Air 10/14/24 14:21 BMI result Body Mass Index 35.6 Objective Data Active Medications Acetaminophen (Acetaminophen 325 Mg Tablet) 650 mg PO Q6H PRN PRN Reason: Pain, Mild 1-3,fever,headache Amiodarone HCl (Amiodarone Hcl 200 Mg Tablet) 100 mg PO BEDTIME [facility] Last Admin: 10/13/24 21:59 Dose: 100 mg Documented By: REYNALDO Calcium Carbonate (Calcium Carbonate 750 Mg Tab.Chew) 750 mg PO Q4H PRN PRN Reason: Heartburn Piperacillin Sod/Tazobactam (Sod 3.375 gm/ Sodium Chloride) 50 mls @ 100 mls/hr IV Q6H [facility] Last Infusion: 10/14/24 17:40 Dose: Infused Documented By: IRVING Vancomycin HCl 1,000 mg/ (Sodium Chloride) 270 mls @ 270 mls/hr IV Q12H [facility] Last Infusion: 10/14/24 13:38 Dose: Infused Documented By: IRVING Magnesium Hydroxide (Milk Of Magnesia 30 Ml Oral.Susp) 30 ml PO DAILY PRN PRN Reason: Constipation Melatonin (Melatonin 3 Mg Tablet) 6 mg PO BEDTIME PRN PRN Reason: Insomnia Ondansetron HCl (Ondansetron Hcl 4 Mg/2 Ml Vial) 4 mg IVPUSH Q8H PRN PRN Reason: Nausea and Vomiting Sodium Chloride (0.9 % Sodium Chloride Flush 3 Ml Syringe) 3 ml IVFLUSH QSHIFT [facility] Last Admin: 10/14/24 15:27 Dose: 3 ml Documented By: IRVING Tamsulosin HCl (Tamsulosin Hcl 0.4 Mg Capsule) 0.4 mg PO BEDTIME [facility] Last Admin: 10/13/24 21:58 Dose: 0.4 mg Documented By: REYNALDO Labs 10/14/24 04:39 10/14/24 04:39 Labs: Laboratory Results - last 24 hr 10/13/24 10/13/24 10/13/24 15:15 18:25 19:18 MCV MCH MCHC RDW Plt Count MPV Immature Gran % (Auto) Neut % (Auto) Lymph % (Auto) [place] % (Auto) Eos % (Auto) Baso % (Auto) Lymph # (Auto) [place] # (Auto) Eos # (Auto) Baso # (Auto) Abs Immat Gran (auto) Absolute Neuts (auto) Absolute Nucleated RBC Nucleated RBC % (auto) Hold Purple Top PT 11.7 INR 1.0 Anion Gap Estim Creat Clear Calc Estimated GFR Random Glucose Lactic Acid 2.8 H* Lactic Acid F/U @ 2Hr Lactic Acid F/U @ 4Hr Calcium Magnesium Total Bilirubin AST ALT Alkaline Phosphatase B-Natriuretic Peptide 309 H Total Protein Albumin 25-OH Vitamin D Total Respiratory Panel Cornelius Adenovirus (Rapid PCR) B.pert (TEM-PCR) B.parapertussis DNA PCR C. pneumoniae DNA (PCR) Coronavirus OC43 (PCR) Coronavirus HKU1 (PCR) Coronavirus 229E (PCR) COVID-19 (BRISEYDA) Negative COVID-19 Clin Com See Note Coronavirus NL63 (PCR) Hepatitis A IgM Ab Nonreactive Hep Bs Antigen Negative Hep Bs Antibody NONREACTIVE Hep B Core Total Ab Nonreactive Hepatitis C Ab (EIA) Nonreactive Human Metapneumovir PCR Influenza Type A (KARIE) Negative Influenza A (RT-PCR) Influenza A (H1) PCR Influ A () PCR Influenza A (H3) PCR Influenza Type B (KARIE) Negative Influenza B (RT-PCR) Influenza A & B Note See Note M. pneumoniae (PCR) Parainfluenza 1 (PCR) Parainfluenza 2 (PCR) Parainfluenza 3 (PCR) Parainfluenza 4 (PCR) RSV (PCR) Entero/Rhino (PCR) SARS-CoV-2 RNA (RT-PCR) 10/13/24 10/13/24 10/13/24 19:20 21:06 23:50 MCV MCH MCHC RDW Plt Count MPV Immature Gran % (Auto) Neut % (Auto) Lymph % (Auto) [place] % (Auto) Eos % (Auto) Baso % (Auto) Lymph # (Auto) [place] # (Auto) Eos # (Auto) Baso # (Auto) Abs Immat Gran (auto) Absolute Neuts (auto) Absolute Nucleated RBC Nucleated RBC % (auto) Hold Purple Top SEE NOTE PT INR Anion Gap Estim Creat Clear Calc Estimated GFR Random Glucose Lactic Acid Lactic Acid F/U @ 2Hr 2.7 H* Lactic Acid F/U @ 4Hr 1.7 Calcium Magnesium Total Bilirubin AST ALT Alkaline Phosphatase B-Natriuretic Peptide Total Protein Albumin 25-OH Vitamin D Total Respiratory Panel Cornelius See Note Adenovirus (Rapid PCR) Not Detected B.pert (TEM-PCR) Not Detected B.parapertussis DNA PCR Not Detected C. pneumoniae DNA (PCR) Not Detected Coronavirus OC43 (PCR) Not Detected Coronavirus HKU1 (PCR) Not Detected Coronavirus 229E (PCR) Not Detected COVID-19 (BRISEYDA) COVID-19 Clin Com Coronavirus NL63 (PCR) Not Detected Hepatitis A IgM Ab Hep Bs Antigen Hep Bs Antibody Hep B Core Total Ab Hepatitis C Ab (EIA) Human Metapneumovir PCR Not Detected Influenza Type A (KARIE) Influenza A (RT-PCR) Not Detected Influenza A (H1) PCR Not Detected Influ A () PCR Not Detected Influenza A (H3) PCR Not Detected Influenza Type B (KARIE) Influenza B (RT-PCR) Not Detected Influenza A & B Note M. pneumoniae (PCR) Not Detected Parainfluenza 1 (PCR) Not Detected Parainfluenza 2 (PCR) Not Detected Parainfluenza 3 (PCR) Not Detected Parainfluenza 4 (PCR) Not Detected RSV (PCR) Not Detected Entero/Rhino (PCR) Not Detected SARS-CoV-2 RNA (RT-PCR) Not Detected 10/14/24 04:39 MCV 91.5 MCH 31.8 MCHC 34.7 RDW 15.1 Plt Count 106 L MPV 9.9 Immature Gran % (Auto) 1.4 H Neut % (Auto) 68.9 Lymph % (Auto) 10.6 L [place] % (Auto) 15.5 H Eos % (Auto) 3.2 Baso % (Auto) 0.4 Lymph # (Auto) 0.5 L [place] # (Auto) 0.8 Eos # (Auto) 0.2 Baso # (Auto) 0.0 Abs Immat Gran (auto) 0.07 H Absolute Neuts (auto) 3.5 Absolute Nucleated RBC 0.000 Nucleated RBC % (auto) 0.0 Hold Purple Top PT INR Anion Gap 13 Estim Creat Clear Calc 71.9 Estimated GFR > 60 Random Glucose 138 H Lactic Acid Lactic Acid F/U @ 2Hr Lactic Acid F/U @ 4Hr Calcium 8.0 L Magnesium 2.2 Total Bilirubin 4.0 H AST 143 H ALT 148 H Alkaline Phosphatase 113 B-Natriuretic Peptide Total Protein 5.7 L Albumin 3.1 L 25-OH Vitamin D Total 19.8 L Respiratory Panel Cornelius Adenovirus (Rapid PCR) B.pert (TEM-PCR) B.parapertussis DNA PCR C. pneumoniae DNA (PCR) Coronavirus OC43 (PCR) Coronavirus HKU1 (PCR) Coronavirus 229E (PCR) COVID-19 (BRISEYDA) COVID-19 Clin Com Coronavirus NL63 (PCR) Hepatitis A IgM Ab Hep Bs Antigen Hep Bs Antibody Hep B Core Total Ab Hepatitis C Ab (EIA) Human Metapneumovir PCR Influenza Type A (KARIE) Influenza A (RT-PCR) Influenza A (H1) PCR Influ A (H1) PCR Influenza A (H3) PCR Influenza Type B (KARIE) Influenza B (RT-PCR) Influenza A & B Note M. pneumoniae (PCR) Parainfluenza 1 (PCR) Parainfluenza 2 (PCR) Parainfluenza 3 (PCR) Parainfluenza 4 (PCR) RSV (PCR) Entero/Rhino (PCR) SARS-CoV-2 RNA (RT-PCR) Microbiology Microbiology Results: Microbiology 10/13/24 Unknown Urine Culture - Final Urine clean catch - Clean Catch Midstream Assessment and Plan (1) (HFpEF) heart failure with preserved ejection fraction: Status: Acute (2) Presence of Watchman left atrial appendage closure device: Status: Acute (3) Acute lactic acidosis: Status: Acute (4) Sepsis: Status: Acute (5) Syncopal episodes: Status: Acute Plan 84-year-old male, with a history of paroxysmal atrial fibrillation s/p ablation, no anticoagulation, CAD s/p CABG, tricuspid regurgitation, HFpEF, HTN, HLD, who presents with dizziness weakness and fever, admitted with sepsis of undetermined source. Sepsis Source yet to be determined. No evidence of pneumonia, pyelonephritis, intra-abdominal infection, meningism at this time. Started on vancomycin and Zosyn Continue IV fluids Continue p.o. intake Blood and urine cultures pending Check tick-borne panel Acute lactic acidosis Resolved Likely 2/2 infection Continue IVF Ischemic HFpEF CAD s/p CABG Paroxysmal atrial fibrillation- watchman device- no anticoagulation HTN HLD Patient is at high-risk for iatrogenic CHF exacerbation with IVF Continue amiodarone Continue lisinopril Transaminitis Cirrhosis with ascites Cholelithiasis without cholecystitis/choledocholithiasis Normal CPK Liver lesion was identified Plan for MRI liver in the outpatient setting for clear assessment of the lesion Follow hepatitis panel Hematuria Follow up urine culture Monitor H&H Urology consult was placed Fall Fall precautions in place PT evaluation Vitamin-D was checked, which was low Consider echocardiogram - [facility]ITY [employer] - VTE: SCDs - CODE STATUS: Full code - DIET: Cardiac Total time managing care of this patient today: 35 minutes. Quality Stroke Does the patient have a stroke diagnosis?: No VTE Prior VTE?: No VTE Risk Level:: Medical - moderate - high VTE Device Contraindication: N/A - Device Ordered VTE Drug Contraindication: Treatment Not Indicated
[2024-10-14 20:00] VITALS: BP 155/90; PULSE 76; RESP 18; TEMP 36.7; O2SAT 97
[2024-10-14 22:00] VITALS: BP 158/91; PULSE 88; RESP 17; TEMP 36.8; O2SAT 95
[2024-10-15] MEDS: 0.9 % Sodium Chloride Flush 3 ML SYRINGE IVFLUSH ×2 (00:10→17:21)
[2024-10-15 04:00] VITALS: BP 116/67; PULSE 81; RESP 16; TEMP 36.5; O2SAT 96
[2024-10-15 05:33] LABS: Creatinine Clr Calc Pharmacy 73.3; Estimated Glomerular Filt Rate > 60
--- NOTE | 2024-10-15 06:42 | PC.NURSE ---
Assumed care of pt at 1900. Pt A&O x 3. Pt able to make needs known. Meds administered per APR. See flowsheets for more information. Call shah in reach. All safety measures in place. Pt able to self reposition throughout the night.?
[2024-10-15 08:00] VITALS: BP 136/70; PULSE 87; RESP 18; TEMP 36.6; O2SAT 100
[2024-10-15 11:21] LABS: MANUAL DIFF FLAG NO
[2024-10-15 11:29] LABS: Hematocrit 37.3 % (42.0-52.0); Hemoglobin 12.6 g/dl (14.0-18.0); Imm Gran Abs Auto 0.09 X10*3/uL (0.00-0.03); Imm Gran Pct Auto 1.5 % (0.0-0.4); Lymphocytes Absolute Auto 0.8 X10*3/uL (1.2-4.9); Mean Corpuscular HGB Conc 33.8 g/dl (31.0-36.0); Mean Corpuscular Hemoglobin 31.7 pg (27.0-33.0); Mean Corpuscular Volume 93.7 fL (80.0-98.0); NRBC Abs Auto 0.000 X10*3/uL (0.0-0.012); NRBC Pct Auto 0.0 /100WBC (0.0-0.2); Platelet Count 109 X10*3/uL (160-400); Red Blood Count 3.98 X10*6/uL (4.60-5.80); White Blood Count 5.9 X10*3/uL (4.8-10.8)
[2024-10-15 11:42] LABS: Anion Gap 10 (12-20); Blood Urea Nitrogen 19 mg/dL (9-16); Calcium 8.3 mg/dL (8.4-10.2); Carbon Dioxide 23 mmol/L (22-29); Chloride 106 mmol/L (96-108); Creatinine Clr Calc Pharmacy 76.5; Estimated Glomerular Filt Rate > 60; Potassium 4.2 mmol/L (3.3-5.1); Sodium 135 mmol/L (135-145)
--- NOTE | 2024-10-15 11:45 | PC.NURSE ---
Addendum entered by Angelica Marie RN 10/15/24 19:10: Patient's daughter called upset stating that she has not spoken to anyone from medical team, ED charge notified and will reach out to the daughter Original Note: Patient's daughter at bedside requesting to speak with provider, sent to hospitalist
--- NOTE | 2024-10-15 11:56 | HE.PHANOTE ---
RE VANCOMYCIN LEVEL LOW AT 12.8. PT IS BEING TREATED FOR SEPSIS, WILL INCREASE TO 1250 Q12 AND RECHECK RENAL AND VANCO LEVEL TOMORROW.
[2024-10-15 16:28] VITALS: BP 129/74; PULSE 83; RESP 18; TEMP 36.2; O2SAT 97
--- NOTE | 2024-10-15 16:28 | HO.PM.IMPN ---
Subjective Subjective Date of Service: 10/15/24 Interval History: Feeling much better today. The patient denies recurrence of fever, chills, rigors. Denies coughing or sputum production. No dysuria or pyuria. Urine remains dark in color. No abdominal discomfort or swelling. Denies diarrhea or constipation. Review of Systems Review of Systems: Yes all other systems are reviewed and are negative Physical Exam Exam: Exam: General: A&O x3, oriented to time place person and situation, comfortable, no pain Cardiac: S1, S2 auscultated with no S3/4, no MRG. Well perfused. Respiratory: Normal breath sounds auscultated throughout all lung zones, without wheezing, rales. Normal rate. GI/ : No abdominal pain on palpation, no masses. Bowel sounds present, no hyper-resonance on percussion. MSK: Normal ambulation without pain at bony prominences or musculature Neurological: Normal neurological examination on overview, without obvious CN II-XII abnormalities. Vital Signs: Vital Signs: Last Vital Signs Temp 97.9 F 10/15/24 08:00 Pulse 87 10/15/24 08:00 Resp 18 10/15/24 08:00 BP 136/70 10/15/24 08:00 Pulse Ox 100 10/15/24 08:00 O2 Del Method Room Air 10/15/24 08:00 BMI result Body Mass Index 35.6 Objective Data Active Medications Acetaminophen (Acetaminophen 325 Mg Tablet) 650 mg PO Q6H PRN PRN Reason: Pain, Mild 1-3,fever,headache Amiodarone HCl (Amiodarone Hcl 200 Mg Tablet) 100 mg PO BEDTIME [facility] Last Admin: 10/14/24 22:30 Dose: 100 mg Documented By: WES Calcium Carbonate (Calcium Carbonate 750 Mg Tab.Chew) 750 mg PO Q4H PRN PRN Reason: Heartburn Piperacillin Sod/Tazobactam (Sod 3.375 gm/ Sodium Chloride) 50 mls @ 100 mls/hr IV Q6H [facility] Last Infusion: 10/15/24 11:53 Dose: Infused Documented By: SUSAN Vancomycin HCl 1,250 mg/ (Sodium Chloride) 250 mls @ 166.667 mls/hr IV Q12H [facility] Last Infusion: 10/15/24 14:51 Dose: Infused Documented By: SUSAN Magnesium Hydroxide (Milk Of Magnesia 30 Ml Oral.Susp) 30 ml PO DAILY PRN PRN Reason: Constipation Melatonin (Melatonin 3 Mg Tablet) 6 mg PO BEDTIME PRN PRN Reason: Insomnia Ondansetron HCl (Ondansetron Hcl 4 Mg/2 Ml Vial) 4 mg IVPUSH Q8H PRN PRN Reason: Nausea and Vomiting Pharmacy Consult (Consult Rx Vancomycin Dosing) 1 each MISCELLANE DAILY [facility] Sodium Chloride (0.9 % Sodium Chloride Flush 3 Ml Syringe) 3 ml IVFLUSH QSHIFT [facility] Last Admin: 10/15/24 08:43 Dose: Not Given Documented By: SUSAN Non-Admin Reason: IV Running Tamsulosin HCl (Tamsulosin Hcl 0.4 Mg Capsule) 0.4 mg PO BEDTIME [facility] Last Admin: 10/14/24 22:29 Dose: 0.4 mg Documented By: WES Labs 10/15/24 11:00 10/15/24 11:00 Labs: Laboratory Results - last 24 hr 10/13/24 10/15/24 10/15/24 13:43 04:35 11:00 MCV 93.7 MCH 31.7 MCHC 33.8 RDW 15.2 Plt Count 109 L MPV 9.9 Immature Gran % (Auto) 1.5 H Neut % (Auto) 68.1 Lymph % (Auto) 12.8 L [place] % (Auto) 14.4 H Eos % (Auto) 2.7 Baso % (Auto) 0.5 Lymph # (Auto) 0.8 L [place] # (Auto) 0.8 Eos # (Auto) 0.2 Baso # (Auto) 0.0 Abs Immat Gran (auto) 0.09 H Absolute Neuts (auto) 4.0 Absolute Nucleated RBC 0.000 Nucleated RBC % (auto) 0.0 Anion Gap 10 L Estim Creat Clear Calc 73.3 76.5 Estimated GFR > 60 > 60 Random Glucose 131 H Calcium 8.3 L Random Vancomycin 12.8 L Ref Lab Test Result SEE NOTE Microbiology Microbiology Results: Microbiology 10/13/24 18:25 Blood Culture - Preliminary Blood - Venous No growth after 24 hours. 10/13/24 18:26 Blood Culture - Preliminary Blood - Venous No growth after 24 hours. Assessment and Plan (1) (HFpEF) heart failure with preserved ejection fraction: Status: Acute (2) Paroxysmal atrial fibrillation: Status: Acute (3) Presence of Watchman left atrial appendage closure device: Status: Acute (4) Thrombocytopenia: Status: Acute (5) Liver mass, right lobe: Status: Acute (6) Cirrhosis: Status: Acute (7) Sepsis: Status: Acute (8) Fall at home: Status: Acute Plan 84-year-old male, with a history of paroxysmal atrial fibrillation s/p ablation, no anticoagulation, CAD s/p CABG, tricuspid regurgitation, HFpEF, HTN, HLD, who presents with dizziness weakness and fever, admitted with sepsis of undetermined source. Sepsis Source yet to be determined. No evidence of pneumonia, pyelonephritis, intra-abdominal infection, meningism at this time. Started on vancomycin and Zosyn Continue IV fluids Continue p.o. intake Blood and urine cultures pending Pending tick-borne panel Acute lactic acidosis Resolved Likely 2/2 infection Continue IVF Ischemic HFpEF CAD s/p CABG Paroxysmal atrial fibrillation- watchman device- no anticoagulation HTN HLD Patient is at high-risk for iatrogenic CHF exacerbation with IVF Continue amiodarone Continue lisinopril Transaminitis Cirrhosis with ascites Cholelithiasis without cholecystitis/choledocholithiasis Normal CPK Liver lesion was identified Plan for MRI liver in the outpatient setting for clear assessment of the lesion Follow hepatitis panel Hematuria Follow up urine culture Monitor H&H Urology consult was placed Fall Fall precautions in place PT evaluation Vitamin-D was checked, which was low Consider echocardiogram [employer] - VTE: SCDs - CODE STATUS: Full code - DIET: Cardiac Total time managing care of this patient today: 35 minutes. Quality Stroke Does the patient have a stroke diagnosis?: No VTE Prior VTE?: No VTE Risk Level:: Medical - moderate - high VTE Device Contraindication: N/A - Device Ordered VTE Drug Contraindication: Treatment Not Indicated
--- NOTE | 2024-10-15 18:55 | PC.NURSE ---
spoke with daughter Loulou, , who reports frustration w a lack of communication from her father's provider despite being his HCP. reports that she visited today and her nurse attempted to page a provider to bedside w no response. lab results/vitals/meds reviewed w Loulou. reached out to Dr Lowe via [employer] to notify him of family's request. family reports concern about pt not having a bm d/t being a private person, family notified of plan for admission to m/s room [facility].
[2024-10-15 21:08] LABS: A. Phagocytphilium DNA,RT-PCR NOT DETECTED (NOT DETECTED); Babesia Microti DNA, RT-PCR NOT DETECTED (NOT DETECTED); Borrelia Miyamotoi,DNA RT-PCR NOT DETECTED (NOT DETECTED); E.Chaffeensis DNA RT-PCR NOT DETECTED (NOT DETECTED); Lyme(Borrelia ssp)DNA RT-PCR NOT DETECTED (NOT DETECTED)
[2024-10-15 21:09] VITALS: BP 143/84; PULSE 85; RESP 20; TEMP 36.2; O2SAT 95
[2024-10-16 03:32] VITALS: BP 159/81; PULSE 84; RESP 18; TEMP 36.2; O2SAT 95
[2024-10-16 06:22] LABS: MANUAL DIFF FLAG NO
[2024-10-16 06:26] LABS: Hematocrit 35.3 % (42.0-52.0); Hemoglobin 12.0 g/dl (14.0-18.0); Imm Gran Abs Auto 0.12 X10*3/uL (0.00-0.03); Imm Gran Pct Auto 2.2 % (0.0-0.4); Lymphocytes Absolute Auto 0.8 X10*3/uL (1.2-4.9); Mean Corpuscular HGB Conc 34.0 g/dl (31.0-36.0); Mean Corpuscular Hemoglobin 31.5 pg (27.0-33.0); Mean Corpuscular Volume 92.7 fL (80.0-98.0); NRBC Abs Auto 0.000 X10*3/uL (0.0-0.012); NRBC Pct Auto 0.0 /100WBC (0.0-0.2); Platelet Count 129 X10*3/uL (160-400); Red Blood Count 3.81 X10*6/uL (4.60-5.80); White Blood Count 5.5 X10*3/uL (4.8-10.8)
[2024-10-16 06:38] LABS: Anion Gap 10 (12-20); Blood Urea Nitrogen 18 mg/dL (9-16); Calcium 8.1 mg/dL (8.4-10.2); Carbon Dioxide 22 mmol/L (22-29); Chloride 107 mmol/L (96-108); Creatinine Clr Calc Pharmacy 76.5; Estimated Glomerular Filt Rate > 60; Potassium 4.2 mmol/L (3.3-5.1); Sodium 135 mmol/L (135-145)
[2024-10-16 07:19] VITALS: BP 129/71; PULSE 83; RESP 18; TEMP 36.6; O2SAT 95
[2024-10-16] MEDS: 0.9 % Sodium Chloride Flush 3 ML SYRINGE IVFLUSH ×3 (10:51→21:34)
--- NOTE | 2024-10-16 12:07 | HE.PHANOTE ---
RE: VANCO Trough returned @ 16.9. Continuing the same dose of 1250 mg q12h with predicted AUC of 563 and trough of 19.7. Next trough to be drawn 10/17 @1100. Will continue to monitor.
--- NOTE | 2024-10-16 15:29 | HO.WOUND ---
Wound Consult: Initial 84 yr old male admitted to [facility] on 10/13/24 - See progress notes and H&P for detailed history. Wound consult placed for skin tear to right arm. Patient agreeable to assessment and photo documentation. patient reports fall at home sustaining skin tear to right forearm, bruising noted to right upper arm. Etiology: skin tear right arm Measurements: 1.5cm x 1.5cm x 0.1cm Wound Bed: moist red, red scab, partial skin flap remains and is dusky Drainage / Odor: scant sanguineous Edges: ? attached Caryn wound: ? No Induration, Fluctuance or Warmth noted Pain: none Goals of Treatment: ? moist wound healing with xeroform Recommendations: 1. Turn and Reposition every 2 hours and as needed for patient comfort. Use pillows or wedges to support off loading positions. 2. Off Load all bony prominences with use of pillows and heel boots if needed. Apply Preventative foams where needed. 3. Monitor for incontinence and moisture control, use barrier creams when needed for prevention and treatment. 4. Provide adequate and supplemental nutrition. 5. Order or Continue low air loss mattress. 6. When applicable maintain blood glucose levels per Providers order. right arm: cleanse with normal saline, apply xeroform, wrap with rolled gauze, change daily and PRN. Re-consult wound care Nurse for wound deterioration or wound changes.
[2024-10-16 16:00] VITALS: BP 144/80; PULSE 90; RESP 16; TEMP 37.6; O2SAT 95
--- NOTE | 2024-10-16 16:39 | HO.PM.IMPN ---
Subjective Subjective Date of Service: 10/16/24 Interval History: Patient looks and feels much better today than yesterday. He denies rigors chills or fevers overnight. No development of new rash on the body. Denies cough. Reports that his breathing has returned back to normal. Denies palpitations, dizziness or diaphoresis or retrosternal chest pain/ pressure. Review of Systems Review of Systems: Yes all other systems are reviewed and are negative Physical Exam Exam: Exam: General: A&O x3, oriented to time place person and situation, comfortable, no pain Cardiac: S1, S2 auscultated with no S3/4, no MRG. Well perfused. Not in AFib Respiratory: Normal breath sounds auscultated throughout all lung zones, without wheezing, rales. Normal rate. GI/ : No abdominal pain on palpation, no masses. Bowel sounds present, no hyper-resonance on percussion. MSK: Normal ambulation without pain at bony prominences or musculature Neurological: Normal neurological examination on overview, without obvious CN II-XII abnormalities. Vital Signs: Vital Signs: Last Vital Signs Temp 99.6 F 10/16/24 16:00 Pulse 90 10/16/24 16:00 Resp 16 10/16/24 16:00 BP 144/80 H 10/16/24 16:00 Pulse Ox 95 10/16/24 16:00 O2 Del Method Room Air 10/16/24 16:00 BMI result Body Mass Index 35.6 Objective Data Active Medications Acetaminophen (Acetaminophen 325 Mg Tablet) 650 mg PO Q6H PRN PRN Reason: Pain, Mild 1-3,fever,headache Amiodarone HCl (Amiodarone Hcl 200 Mg Tablet) 100 mg PO BEDTIME [facility] Last Admin: 10/15/24 22:02 Dose: 100 mg Documented By: CHANDLER Comments: Calcium Carbonate (Calcium Carbonate 750 Mg Tab.Chew) 750 mg PO Q4H PRN PRN Reason: Heartburn Piperacillin Sod/Tazobactam (Sod 3.375 gm/ Sodium Chloride) 50 mls @ 100 mls/hr IV Q6H [facility] Last Infusion: 10/16/24 11:22 Dose: Infused Documented By: ANU Vancomycin HCl 1,250 mg/ (Sodium Chloride) 250 mls @ 166.667 mls/hr IV Q12H [facility] Last Infusion: 10/16/24 14:51 Dose: Infused Documented By: ANU Lisinopril (Lisinopril 5 Mg Tablet) 5 mg PO BEDTIME [facility]; Protocol Last Admin: 10/15/24 22:03 Dose: 5 mg Documented By: CHANDLER Magnesium Hydroxide (Milk Of Magnesia 30 Ml Oral.Susp) 30 ml PO DAILY PRN PRN Reason: Constipation Melatonin (Melatonin 3 Mg Tablet) 6 mg PO BEDTIME PRN PRN Reason: Insomnia Ondansetron HCl (Ondansetron Hcl 4 Mg/2 Ml Vial) 4 mg IVPUSH Q8H PRN PRN Reason: Nausea and Vomiting Pharmacy Consult (Consult Rx Vancomycin Dosing) 1 each MISCELLANE DAILY [facility] Sodium Chloride (0.9 % Sodium Chloride Flush 3 Ml Syringe) 3 ml IVFLUSH QSHIFT [facility] Last Admin: 10/16/24 10:51 Dose: 3 ml Documented By: ANU Tamsulosin HCl (Tamsulosin Hcl 0.4 Mg Capsule) 0.4 mg PO BEDTIME [facility] Last Admin: 10/15/24 22:03 Dose: 0.4 mg Documented By: CHANDLER Labs 10/16/24 06:16 10/16/24 06:16 Labs: Laboratory Results - last 24 hr 10/13/24 10/16/24 10/16/24 23:50 06:16 10:55 MCV 92.7 MCH 31.5 MCHC 34.0 RDW 15.2 Plt Count 129 L MPV 9.8 Immature Gran % (Auto) 2.2 H Neut % (Auto) 67.1 Lymph % (Auto) 14.6 L [place] % (Auto) 12.3 H Eos % (Auto) 3.3 Baso % (Auto) 0.5 Lymph # (Auto) 0.8 L [place] # (Auto) 0.7 Eos # (Auto) 0.2 Baso # (Auto) 0.0 Abs Immat Gran (auto) 0.12 H Absolute Neuts (auto) 3.7 Absolute Nucleated RBC 0.000 Nucleated RBC % (auto) 0.0 Anion Gap 10 L Estim Creat Clear Calc 76.5 Estimated GFR > 60 Random Glucose 131 H Calcium 8.1 L Random Vancomycin 16.9 A.phagocytophil DNA PCR NOT DETECTED Babesia microti DNA PCR NOT DETECTED Borrelia sp DNA (PCR) NOT DETECTED Borrelia miyamotoi (PCR) NOT DETECTED E.chaffeensis DNA (PCR) NOT DETECTED Tick-borne Disease PCR SEE NOTE Microbiology Microbiology Results: Microbiology 10/13/24 18:25 Blood Culture - Preliminary Blood - Venous No growth after 48 hours. 10/13/24 18:26 Blood Culture - Preliminary Blood - Venous No growth after 48 hours. Assessment and Plan (1) (HFpEF) heart failure with preserved ejection fraction: Status: Acute (2) Paroxysmal atrial fibrillation: Status: Acute (3) Presence of Watchman left atrial appendage closure device: Status: Acute (4) Cirrhosis: Status: Acute (5) Sepsis: Status: Acute (6) Syncopal episodes: Status: Acute Plan 84-year-old male, with a history of paroxysmal atrial fibrillation s/p ablation, no anticoagulation, CAD s/p CABG, tricuspid regurgitation, HFpEF, HTN, HLD, who presents with dizziness weakness and fever, admitted with sepsis of undetermined source. Sepsis Source yet to be determined. No evidence of pneumonia, pyelonephritis, intra-abdominal infection, meningism at this time. - Blood cultures negative - Urine culture is negative - Tick borne panel negative Started on vancomycin and Zosyn Continue IV fluids Continue p.o. intake Infectious diseases consult placed today Ischemic HFpEF CAD s/p CABG Paroxysmal atrial fibrillation- watchman device- no anticoagulation HTN HLD Patient is at high-risk for iatrogenic CHF exacerbation with IVF Continue amiodarone Continue lisinopril Transaminitis Cirrhosis with ascites Cholelithiasis without cholecystitis/choledocholithiasis Normal CPK Liver lesion was identified Plan for MRI liver in the outpatient setting for clear assessment of the lesion Follow hepatitis panel Hematuria Follow up urine culture Monitor H&H Urology consult was placed Fall Fall precautions in place PT evaluation Vitamin-D was checked, which was low Acute lactic acidosis - Resolved Secondary to sepsis [employer] - VTE: Enoxaparin & SCDs - CODE STATUS: Full code - DIET: Cardiac Total time managing care of this patient today: 35 minutes. Quality Stroke Does the patient have a stroke diagnosis?: No VTE Prior VTE?: No VTE Risk Level:: Medical - moderate - high VTE Device Contraindication: N/A - Device Ordered VTE Drug Contraindication: Treatment Not Indicated
[2024-10-16 20:00] VITALS: BP 125/76; PULSE 97; RESP 18; TEMP 36.4; O2SAT 96
[2024-10-17 04:00] VITALS: BP 117/57; PULSE 81; RESP 18; TEMP 36.4; O2SAT 97
[2024-10-17 05:44] LABS: MANUAL DIFF FLAG NO
[2024-10-17 05:49] LABS: Hematocrit 37.0 % (42.0-52.0); Hemoglobin 12.2 g/dl (14.0-18.0); Imm Gran Abs Auto 0.27 X10*3/uL (0.00-0.03); Imm Gran Pct Auto 3.9 % (0.0-0.4); Lymphocytes Absolute Auto 1.0 X10*3/uL (1.2-4.9); Mean Corpuscular HGB Conc 33.0 g/dl (31.0-36.0); Mean Corpuscular Hemoglobin 31.2 pg (27.0-33.0); Mean Corpuscular Volume 94.6 fL (80.0-98.0); NRBC Abs Auto 0.000 X10*3/uL (0.0-0.012); NRBC Pct Auto 0.0 /100WBC (0.0-0.2); Platelet Count 156 X10*3/uL (160-400); Red Blood Count 3.91 X10*6/uL (4.60-5.80); White Blood Count 6.9 X10*3/uL (4.8-10.8)
[2024-10-17 06:13] LABS: Anion Gap 13 (12-20); Blood Urea Nitrogen 19 mg/dL (9-16); Calcium 8.4 mg/dL (8.4-10.2); Carbon Dioxide 23 mmol/L (22-29); Chloride 106 mmol/L (96-108); Creatinine Clr Calc Pharmacy 66.5; Estimated Glomerular Filt Rate > 60; Potassium 4.5 mmol/L (3.3-5.1); Sodium 137 mmol/L (135-145)
[2024-10-17 08:00] VITALS: BP 137/66; PULSE 81; RESP 19; TEMP 36.2; O2SAT 95
[2024-10-17] MEDS: 0.9 % Sodium Chloride Flush 3 ML SYRINGE IVFLUSH ×3 (08:13→19:11)
--- NOTE | 2024-10-17 10:38 | MHC.CM.PN ---
Per MD rounds patient is not medically cleared to discharge today. Cultures are still pending neg/48hours. An ID consult has been ordered. [facility] is following for discharge. DP Home with [facility]. Patient will arrange for transportation home.
--- NOTE | 2024-10-17 11:45 | HE.PHANOTE ---
RE: VANCO DOSING Trough came back as 20.8 mg/L and renal function has worsen. Dose is held for 6 hours then restart as 1000 mg q12h, starting @1900 10/17/24. Next trough is scheduled for 10/18/24 @1700.
--- NOTE | 2024-10-17 12:30 | P.PNIM_ITS ---
Subjective Subjective Date of Service: 10/17/24 Interval History: The patient reports experiencing a particularly difficult night, similar to the previous Sunday, characterized by fatigue and tiredness. Yesterday afternoon, around 2-3 PM, Mr. Aguirre experienced what he described as an allergy attack. He reported producing a significant amount of white sputum, which he expectorated into a glass, estimating it to be about 6 ounces. Mr. 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 Regarding his appetite and dietary intake, Mr. Aguirre mentioned having two bowls of chicken soup last night, which he was able to keep down until around 2:30 AM. He then had to use the bathroom with assistance from a nurse. He expressed having no desire to eat today, in contrast to having cereal yesterday. Despite the initial presentation with sepsis, all cultures (blood and urine) and tick-borne panel have returned negative. The patient denies any current cardiac concerns. Review of Systems Review of Systems: Yes all other systems are reviewed and are negative Physical Exam 2 Exam: Exam: General: A&O x3, oriented to time place person and situation, comfortable, no pain Cardiac: S1, S2 auscultated with no S3/4, no MRG. Well perfused. Not in AFib Respiratory: Normal breath sounds auscultated throughout all lung zones, without wheezing, rales. Normal rate. GI/ : No abdominal pain on palpation, no masses. Bowel sounds present, no hyper-resonance on percussion. MSK: Normal ambulation without pain at bony prominences or musculature Neurological: Normal neurological examination on overview, without obvious CN II-XII abnormalities. Vital Signs: Vital Signs: Last Vital Signs Temp 97.1 F 10/17/24 08:00 Pulse 81 10/17/24 08:00 Resp 19 10/17/24 08:00 BP 137/66 10/17/24 08:00 Pulse Ox 95 10/17/24 08:00 O2 Del Method Room Air 10/17/24 08:00 BMI result Body Mass Index 35.6 Objective Data Active Medications Acetaminophen (Acetaminophen 325 Mg Tablet) 650 mg PO Q6H PRN PRN Reason: Pain, Mild 1-3,fever,headache Amiodarone HCl (Amiodarone Hcl 200 Mg Tablet) 100 mg PO BEDTIME [facility] Last Admin: 10/16/24 21:33 Dose: 100 mg Documented By: CHANDLER Calcium Carbonate (Calcium Carbonate 750 Mg Tab.Chew) 750 mg PO Q4H PRN PRN Reason: Heartburn Enoxaparin Sodium (Enoxaparin Sodium 40 Mg/0.4 Ml Syringe) 40 mg SUBCUT Q24H [facility] Last Admin: 10/16/24 17:16 Dose: 40 mg Documented By: AUN Piperacillin Sod/Tazobactam (Sod 3.375 gm/ Sodium Chloride) 50 mls @ 100 mls/hr IV Q6H [facility] Last Infusion: 10/17/24 11:54 Dose: Infused Documented By: SAQIB Vancomycin HCl 1,000 mg/ (Sodium Chloride) 270 mls @ 270 mls/hr IV Q12H [facility] Lisinopril (Lisinopril 5 Mg Tablet) 5 mg PO BEDTIME [facility]; Protocol Last Admin: 10/16/24 21:33 Dose: 5 mg Documented By: CHANDLER Magnesium Hydroxide (Milk Of Magnesia 30 Ml Oral.Susp) 30 ml PO DAILY PRN PRN Reason: Constipation Melatonin (Melatonin 3 Mg Tablet) 6 mg PO BEDTIME PRN PRN Reason: Insomnia Ondansetron HCl (Ondansetron Hcl 4 Mg/2 Ml Vial) 4 mg IVPUSH Q8H PRN PRN Reason: Nausea and Vomiting Pharmacy Consult (Consult Rx Vancomycin Dosing) 1 each MISCELLANE DAILY [facility] Sodium Chloride (0.9 % Sodium Chloride Flush 3 Ml Syringe) 3 ml IVFLUSH QSHIFT [facility] Last Admin: 10/17/24 08:13 Dose: 3 ml Documented By: SAQIB Tamsulosin HCl (Tamsulosin Hcl 0.4 Mg Capsule) 0.4 mg PO BEDTIME [facility] Last Admin: 10/16/24 21:32 Dose: 0.4 mg Documented By: CHANDLER Labs 10/17/24 05:06 10/17/24 05:06 Labs: Laboratory Results - last 24 hr 10/17/24 10/17/24 05:06 11:05 MCV 94.6 MCH 31.2 MCHC 33.0 RDW 15.2 Plt Count 156 L MPV 10.0 Immature Gran % (Auto) 3.9 H Neut % (Auto) 69.1 Lymph % (Auto) 14.3 L [place] % (Auto) 9.1 Eos % (Auto) 2.9 Baso % (Auto) 0.7 Lymph # (Auto) 1.0 L [place] # (Auto) 0.6 Eos # (Auto) 0.2 Baso # (Auto) 0.1 Abs Immat Gran (auto) 0.27 H Absolute Neuts (auto) 4.8 Absolute Nucleated RBC 0.000 Nucleated RBC % (auto) 0.0 Anion Gap 13 Estim Creat Clear Calc 66.5 Estimated GFR > 60 Random Glucose 133 H Calcium 8.4 Random Vancomycin 20.8 H Assessment and Plan (1) (HFpEF) heart failure with preserved ejection fraction: Status: Acute (2) CAD (coronary artery disease): Status: Acute (3) Paroxysmal atrial fibrillation: Status: Acute (4) Presence of Watchman left atrial appendage closure device: Status: Acute (5) Sepsis: Status: Acute (6) Cirrhosis: Status: Acute Plan 84-year-old male, with a history of paroxysmal atrial fibrillation s/p ablation, no anticoagulation, CAD s/p CABG, tricuspid regurgitation, HFpEF, HTN, HLD, who presents with dizziness weakness and fever, admitted with sepsis of undetermined source. Sepsis Source yet to be determined. No evidence of pneumonia, pyelonephritis, intra-abdominal infection, meningism at this time. - Blood cultures negative - Urine culture is negative - Tick borne panel negative Was on vancomycin and Zosyn Continue IV fluids Continue p.o. intake Infectious diseases consult placed Decreased Appetite Assessment: Patient reports decreased appetite and difficulty tolerating food. He attempted to eat chicken soup last night but experienced nausea and had to use the bathroom urgently. He has no desire to eat today. Plan: - Monitor oral intake and appetite - Nursing to track food consumption and tolerance - Consider dietary consultation if poor intake persists Ischemic HFpEF CAD s/p CABG Paroxysmal atrial fibrillation- watchman device- no anticoagulation HTN HLD Patient is at high-risk for iatrogenic CHF exacerbation with IVF Continue amiodarone Continue lisinopril Transaminitis Cirrhosis with ascites Cholelithiasis without cholecystitis/choledocholithiasis Normal CPK Liver lesion was identified Plan for MRI liver in the outpatient setting for clear assessment of the lesion Follow hepatitis panel Hematuria Follow up urine culture Monitor H&H Urology consult was placed Fall Fall precautions in place Normal CPK PT evaluation Vitamin-D was checked, which was low Acute lactic acidosis - Resolved Secondary to sepsis [employer] - VTE: Enoxaparin & SCDs - CODE STATUS: Full code - DIET: Cardiac Total time managing care of this patient today: 45 minutes. Quality Stroke Does the patient have a stroke diagnosis?: No VTE Prior VTE?: No VTE Risk Level:: Medical - moderate - high VTE Device Contraindication: N/A - Device Ordered VTE Drug Contraindication: Treatment Not Indicated
[2024-10-17 15:39] VITALS: BP 129/72; PULSE 77; RESP 18; TEMP 36.3; O2SAT 96
[2024-10-17 19:21] VITALS: PULSE 70; RESP 16; TEMP 36.3; O2SAT 97
[2024-10-18 02:55] VITALS: BP 122/58; PULSE 79; RESP 18; TEMP 36; O2SAT 94
[2024-10-18 07:30] LABS: Hematocrit 36.7 % (42.0-52.0); Hemoglobin 12.0 g/dl (14.0-18.0); Mean Corpuscular HGB Conc 32.7 g/dl (31.0-36.0); Mean Corpuscular Hemoglobin 31.3 pg (27.0-33.0); Mean Corpuscular Volume 95.6 fL (80.0-98.0); NRBC Abs Auto 0.000 X10*3/uL (0.0-0.012); NRBC Pct Auto 0.0 /100WBC (0.0-0.2); Platelet Count 193 X10*3/uL (160-400); Red Blood Count 3.84 X10*6/uL (4.60-5.80); White Blood Count 6.5 X10*3/uL (4.8-10.8)
[2024-10-18 07:32] VITALS: BP 124/73; PULSE 73; RESP 18; TEMP 36.2; O2SAT 95
[2024-10-18 07:39] LABS: Anion Gap 12 (12-20); Blood Urea Nitrogen 18 mg/dL (9-16); Calcium 8.3 mg/dL (8.4-10.2); Carbon Dioxide 24 mmol/L (22-29); Chloride 107 mmol/L (96-108); Creatinine Clr Calc Pharmacy 69.1; Estimated Glomerular Filt Rate > 60; Potassium 4.5 mmol/L (3.3-5.1); Sodium 138 mmol/L (135-145)
[2024-10-18 07:41] VITALS: BP 124/73; PULSE 63; RESP 18; TEMP 36.2; O2SAT 95
[2024-10-18] MEDS: 0.9 % Sodium Chloride Flush 3 ML SYRINGE IVFLUSH ×2 (07:44→16:42)
--- NOTE | 2024-10-18 07:53 | HO.PM.IMPN ---
Subjective Subjective Date of Service: 10/18/24 Interval History: Sitting up in chair today. Feels well, and back to baseline. The patient denies any recurrence of fevers chills or rigors. Denies any other obvious nidus of infection. The patient does inform me that he keeps two black bears in his backyard, and feeds them regularly - I have asked him if he has been bitten/ scratched...etc by his pet barriers, to which he says, absolutely not. They are cuddly . He offered for me to meet the bears, which I kindly declined. The patient endorses fatigue, intermittent myalgias. We will investigate further with blood work, however I think noncontributory to current presentation. Review of Systems Review of Systems: Yes all other systems are reviewed and are negative Physical Exam Exam: Exam: General: A&O x3, oriented to time place person and situation, comfortable, no pain Cardiac: S1, S2 auscultated with no S3/4, no MRG. Well perfused. Not in AFib Respiratory: Normal breath sounds auscultated throughout all lung zones, without wheezing, rales. Normal rate. GI/ : No abdominal pain on palpation, no masses. Bowel sounds present, no hyper-resonance on percussion. MSK: Normal ambulation without pain at bony prominences or musculature Neurological: Normal neurological examination on overview, without obvious CN II-XII abnormalities. Vital Signs: Vital Signs: Last Vital Signs Temp 97.2 F 10/18/24 07:41 Pulse 63 10/18/24 07:41 Resp 18 10/18/24 07:41 BP 124/73 10/18/24 07:41 Pulse Ox 95 10/18/24 07:41 O2 Del Method Room Air 10/18/24 07:41 BMI result Body Mass Index 35.6 Objective Data Active Medications Acetaminophen (Acetaminophen 325 Mg Tablet) 650 mg PO Q6H PRN PRN Reason: Pain, Mild 1-3,fever,headache Amiodarone HCl (Amiodarone Hcl 200 Mg Tablet) 100 mg PO BEDTIME [facility] Last Admin: 10/17/24 20:36 Dose: 100 mg Documented By: RICARDO Calcium Carbonate (Calcium Carbonate 750 Mg Tab.Chew) 750 mg PO Q4H PRN PRN Reason: Heartburn Enoxaparin Sodium (Enoxaparin Sodium 40 Mg/0.4 Ml Syringe) 40 mg SUBCUT Q24H REPLACED BY [facility] Last Admin: 10/17/24 16:35 Dose: 40 mg Documented By: LEFEBKRISSY Piperacillin Sod/Tazobactam (Sod 3.375 gm/ Sodium Chloride) 50 mls @ 100 mls/hr IV Q6H REPLACED BY [facility] Last Infusion: 10/18/24 06:06 Dose: Infused Documented By: RICARDO Vancomycin HCl 1,000 mg/ (Sodium Chloride) 270 mls @ 270 mls/hr IV Q12H REPLACED BY [facility] Last Infusion: 10/17/24 20:31 Dose: Infused Documented By: RICARDO Lisinopril (Lisinopril 5 Mg Tablet) 5 mg PO BEDTIME REPLACED BY [facility]; Protocol Last Admin: 10/17/24 20:36 Dose: 5 mg Documented By: RICARDO Magnesium Hydroxide (Milk Of Magnesia 30 Ml Oral.Susp) 30 ml PO DAILY PRN PRN Reason: Constipation Melatonin (Melatonin 3 Mg Tablet) 6 mg PO BEDTIME PRN PRN Reason: Insomnia Ondansetron HCl (Ondansetron Hcl 4 Mg/2 Ml Vial) 4 mg IVPUSH Q8H PRN PRN Reason: Nausea and Vomiting Pharmacy Consult (Consult Rx Vancomycin Dosing) 1 each MISCELLANE DAILY REPLACED BY [facility] Sodium Chloride (0.9 % Sodium Chloride Flush 3 Ml Syringe) 3 ml IVFLUSH QSHIFT REPLACED BY [facility] Last Admin: 10/17/24 19:11 Dose: 3 ml Documented By: RICARDO Tamsulosin HCl (Tamsulosin Hcl 0.4 Mg Capsule) 0.4 mg PO BEDTIME REPLACED BY [facility] Last Admin: 10/17/24 20:36 Dose: 0.4 mg Documented By: RICARDO Labs 10/18/24 06:13 10/18/24 06:13 Labs: Laboratory Results - last 24 hr 10/17/24 10/18/24 11:05 06:13 MCV 95.6 MCH 31.3 MCHC 32.7 RDW 15.3 Plt Count 193 MPV 10.0 Immature Gran % (Auto) Cancelled Neut % (Auto) Cancelled Lymph % (Auto) Cancelled [place] % (Auto) Cancelled Eos % (Auto) Cancelled Baso % (Auto) Cancelled Lymph # (Auto) Cancelled [place] # (Auto) Cancelled Eos # (Auto) Cancelled Baso # (Auto) Cancelled Abs Immat Gran (auto) Cancelled Absolute Neuts (auto) Cancelled Absolute Nucleated RBC 0.000 Nucleated RBC % (auto) 0.0 Anion Gap 12 Estim Creat Clear Calc 69.1 Estimated GFR > 60 Random Glucose 115 Calcium 8.3 L Random Vancomycin 20.8 H Assessment and Plan (1) Hypertensive heart disease: Status: Acute (2) HTN (hypertension): Status: Acute (3) (HFpEF) heart failure with preserved ejection fraction: Status: Acute (4) CAD (coronary artery disease): Status: Acute (5) Paroxysmal atrial fibrillation: Status: Acute (6) Presence of Watchman left atrial appendage closure device: Status: Acute (7) Thrombocytopenia: Status: Acute (8) Cirrhosis: Status: Acute (9) Sepsis: Status: Acute Plan 84-year-old male, with a history of paroxysmal atrial fibrillation s/p ablation, no anticoagulation, CAD s/p CABG, tricuspid regurgitation, HFpEF, HTN, HLD, who presents with dizziness weakness and fever, admitted with sepsis of undetermined source. Sepsis High suspicion for Lyme disease Source yet to be determined. No evidence of pneumonia, pyelonephritis, intra-abdominal infection, meningism at this time. - Blood cultures negative - Urine culture is negative - Tick borne panel negative Despite negative tick-borne panel, the patient's presentation was acute, in which PCR or antibodies may not detect Borrelia antigen at this time. High suspicion for acute Lyme disease (possible coinfection with Babesia; as the patient's platelets have been slowly improving) PLAN - Continue Vancomycin - Continue Zosyn - Encourage p.o. intake - Infectious diseases consult pending Paroxysmal Atrial fibrillation - reconversion Patient suffered with atrial fibrillation, s/p Watchman device placement. Not on anticoagulation at this time. Physical examination revealing the patient currently being in atrial fibrillation. No RVR. Asymptomatic. We will reach out to Cardiology to inform them of conversion back to AFib. 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 Has history of ischemic congestive heart failure. No eosinophilia. Denies overt neuropathies. 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 I do not believe this is the cause of sepsis, however could be contributory to overall patient condition. Ischemic HFpEF CAD s/p CABG Paroxysmal atrial fibrillation- watchman device- no anticoagulation HTN HLD Patient is at high-risk for iatrogenic CHF exacerbation with IVF Continue amiodarone Continue lisinopril Transaminitis Cirrhosis with ascites Cholelithiasis without cholecystitis/choledocholithiasis Normal CPK Liver lesion was identified Plan for MRI liver in the outpatient setting for clear assessment of the lesion Follow hepatitis panel Hematuria Follow up urine culture Monitor H&H Urology consult was placed Fall Fall precautions in place Normal CPK PT evaluation Vitamin-D was checked, which was low Acute lactic acidosis - Resolved Secondary to sepsis [employer] [employer] - VTE: Enoxaparin & SCDs - CODE STATUS: Full code - DIET: Cardiac Total time managing care of this patient today: 45 minutes. Quality Stroke Does the patient have a stroke diagnosis?: No VTE Prior VTE?: No VTE Risk Level:: Medical - moderate - high VTE Device Contraindication: N/A - Device Ordered VTE Drug Contraindication: Treatment Not Indicated
[2024-10-18 08:29] LABS: Band Neutrophils Percent 6 % (3-5); Basophils Abs Manual 0.1 X10*3/uL (0.0-0.2); Basophils Percent Manual 1 % (0-2); Lymphocytes Absolute Manual 1.0 X10*3/uL (1.2-4.9); Lymphocytes Percent Manual 15 % (20-40); Monocytes Absolute Manual 0.1 X10*3/uL (0.1-1.2); Monocytes Percent Manual 1 % (2-11); Myelocytes Absolute 0.3 X10*/uL; Myelocytes Percent 4 %; Neutrophils Absolute Manual 5.1 X10*3/uL (2.0-8.3); Neutrophils Percent Manual 72 % (45-73); Promyelocytes Absolute 0.1 X10*3/uL; Promyelocytes Percent 1 %
[2024-10-18 08:30] LABS: RBC Morphology NOTED
--- NOTE | 2024-10-18 08:30 | ECG_ITS ---
Test Reason : arrhythmia Blood Pressure : */* mmHG Vent. Rate : 88 BPM Atrial Rate : * BPM P-R Int : * ms QRS Dur : 92 ms QT Int : 344 ms P-R-T Axes : * 1 156 degrees QTcB Int : 416 ms Atrial fibrillation Nonspecific ST and T wave abnormality Abnormal ECG When compared with ECG of 13-Oct-2024 14:52, Atrial fibrillation has replaced Sinus rhythm Referred By: Diana Lowe Electronically Signed By: Vishal Borden
[2024-10-18 08:31] LABS: Macrocytosis 1+ (5-14) /OIF
[2024-10-18 08:49] LABS: Burr Cells 2+ (3-5) /OIF
[2024-10-18 11:24] VITALS: PULSE 83
--- NOTE | 2024-10-18 12:00 | HO.SKINPHOTO ---
Location: Right wrist skin tear - cleaned with normal saline, pat dry, xerform, non-adherent gauze, gauze wrap.
[2024-10-18 15:10] VITALS: BP 140/73; PULSE 79; RESP 16; TEMP 36.1; O2SAT 96
[2024-10-18 19:27] VITALS: BP 139/79; PULSE 75; RESP 18; TEMP 36.2; O2SAT 96
--- NOTE | 2024-10-18 23:16 | W.PM.IDCN ---
History of Present Illness Data of Consult Service Date: 10/17/24 Requesting physician: Diana Loew Primary Care Provider: MD FARA Jiménez Reason for consult: fever of unknown origin He presents with fever and malaise over the last week. Temperature is as high as 102 and here 101.6. He lives in [facility] [place] and there are bears and ticks. He has no specific symptoms. Review of Systems Review of Systems: Yes all other systems are reviewed and are negative PMFSH Past Medical History Medical History (Updated 10/18/24 @ 23:30 by Christa Squires MD) Fever of unknown origin (HFpEF) heart failure with preserved ejection fraction Paroxysmal atrial fibrillation HTN (hypertension) Hyperlipidemia CAD (coronary artery disease) Hypertensive heart disease SVT (supraventricular tachycardia) Tricuspid regurgitation Presence of Watchman left atrial appendage closure device Family History Family History Father CVD (cardiovascular disease) Mother Sudden cardiac Family/Other Sudden cardiac Family history: reviewed and not pertinent Surgical History Surgical History S/P cardiac cath Hx of CABG Stented coronary artery History of kidney surgery History of cardiac radiofrequency ablation History of carpal tunnel release Hx of heart surgery Social History Social History Household Members: Other Housing: House Do you presently have visiting nurse or other home services: No Alcohol intake: current Alcohol intake frequency: a few times a week Comment: 2 drinks gin Q night Patient Tobacco Use Status: Never used Tobacco e-Cigarette/Vaping Use: Never Used Second Hand Smoke Exposure: No service: No Current occupational status: employed Current occupational exposures/hazards: No Cognitive needs: Yes Hearing needs: No Vision needs: No Meds Allergies Allergy/AdvReac Type Severity Reaction Status Date / Time apixaban (From ELIQUIS) Allergy Unknown BLEEDING Verified 10/13/24 01:24 ezetimibe (From ZETIA) Allergy Unknown UNKNOWN Verified 10/13/24 01:24 guaifenesin (From ROBITUSSIN) Allergy Unknown UNKNOWN Verified 10/13/24 01:24 Svlxagy-XPB-IeI Reductase Allergy Unknown UNKNOWN Verified 10/13/24 01:24 Inhibitor (LZIQAZO-[id number] REDUCTASE INHIBITOR) Active Medications: Current Medications Acetaminophen (Acetaminophen 325 Mg Tablet) 650 mg PO Q6H PRN PRN Reason: Pain, Mild 1-3,fever,headache Amiodarone HCl (Amiodarone Hcl 200 Mg Tablet) 100 mg PO BEDTIME [facility] Last Admin: 10/18/24 20:47 Dose: 100 mg Calcium Carbonate (Calcium Carbonate 750 Mg Tab.Chew) 750 mg PO Q4H PRN PRN Reason: Heartburn Enoxaparin Sodium (Enoxaparin Sodium 40 Mg/0.4 Ml Syringe) 40 mg SUBCUT Q24H [facility] Last Admin: 10/18/24 16:30 Dose: Not Given Lisinopril (Lisinopril 5 Mg Tablet) 5 mg PO BEDTIME [facility]; Protocol Last Admin: 10/18/24 20:47 Dose: 5 mg Magnesium Hydroxide (Milk Of Magnesia 30 Ml Oral.Susp) 30 ml PO DAILY PRN PRN Reason: Constipation Melatonin (Melatonin 3 Mg Tablet) 6 mg PO BEDTIME PRN PRN Reason: Insomnia Ondansetron HCl (Ondansetron Hcl 4 Mg/2 Ml Vial) 4 mg IVPUSH Q8H PRN PRN Reason: Nausea and Vomiting Pharmacy Consult (Consult Rx Vancomycin Dosing) 1 each MISCELLANE DAILY [facility] Sodium Chloride (0.9 % Sodium Chloride Flush 3 Ml Syringe) 3 ml IVFLUSH QSHIFT [facility] Last Admin: 10/18/24 16:42 Dose: 3 ml Tamsulosin HCl (Tamsulosin Hcl 0.4 Mg Capsule) 0.4 mg PO BEDTIME [facility] Last Admin: 10/18/24 20:49 Dose: 0.4 mg Home Medications ?Medication ?Instructions ?Recorded ?Confirmed ?Last Taken ?Type lisinopril 5 mg tablet 5 mg PO BEDTIME 01/07/20 10/13/24 Unknown History tamsulosin 0.4 mg capsule 0.4 mg PO BEDTIME 01/07/20 10/13/24 Unknown History amiodarone 200 mg tablet 100 mg PO BEDTIME 10/13/24 10/13/24 Unknown History prednisone 20 mg tablet 10 mg PO Q7D PRN Back Pain 10/13/24 10/13/24 Unknown History Physical Exam Vital Signs: Vital Signs: Last Vital Signs Temp 97.1 F 10/18/24 19:27 Pulse 75 10/18/24 19:27 Resp 18 10/18/24 19:27 BP 139/79 10/18/24 19:27 Pulse Ox 96 10/18/24 19:27 O2 Del Method Room Air 10/18/24 19:27 BMI result Body Mass Index 35.6 Const: General: cooperative HEENT: Head: Yes normal to inspection Face and sinus: Yes normal facial exam Mouth: Normal oral and palatal mucosa present Teeth and gingiva: dentition normal Eyes: General: appearance normal, both eyes and all related structures Pupils: Equal, round and reactive pupils present Resp: Effort & Inspection: normal respiratory effort Cardio: Rate: regular rate Rhythm: regular rhythm GI: Palpation (GI): Soft to palpation and nontender : General: Yes no CVA tenderness Back/Spine/Pelvis: Back: no CVA tenderness Skin: General skin exam: no rashes or lesions noted Neuro: General: moves all extremities Cranial nerves: Yes Equal, round and reactive pupils present Extrem: General: Yes normal to inspection Psych: Appearance: grossly normal Results Labs 10/18/24 06:13 10/18/24 06:13 Labs: Short CBC 10/18/24 Range/Units 06:13 WBC 6.5 (4.8-10.8) X10*3/uL Hgb 12.0 L (14.0-18.0) g/dl Hct 36.7 L (42.0-52.0) % Plt Count 193 (160-400) X10*3/uL BMP 10/18/24 06:13 Sodium 138 Potassium 4.5 Chloride 107 Carbon Dioxide 24 BUN 18 H Creatinine 1.04 Calcium 8.3 L Microbiology Microbiology Results: Microbiology 10/13/24 18:25 Blood - Venous Blood Culture - Final No growth after 5 days. 10/13/24 18:26 Blood - Venous Blood Culture - Final No growth after 5 days. 10/13/24 Unknown Urine clean catch - Clean Catch Midstream Urine Culture - Final Assessment and Plan (1) Fever of unknown origin: Status: Acute Plan There is risk for tick exposure ,less likely brucella or baylisascaris (aka raccoon roundworm but one type affects bears). Po Doxycycline for 10 days and then consider Albendazole 25-50 mg/kg/day for 14 days if fever recurs.
[2024-10-19 03:59] VITALS: BP 139/60; PULSE 80; RESP 18; TEMP 36.1; O2SAT 93
[2024-10-19 06:50] LABS: Hematocrit 36.9 % (42.0-52.0); Hemoglobin 12.2 g/dl (14.0-18.0); Mean Corpuscular HGB Conc 33.1 g/dl (31.0-36.0); Mean Corpuscular Hemoglobin 31.4 pg (27.0-33.0); Mean Corpuscular Volume 94.9 fL (80.0-98.0); NRBC Abs Auto 0.000 X10*3/uL (0.0-0.012); NRBC Pct Auto 0.0 /100WBC (0.0-0.2); Platelet Count 212 X10*3/uL (160-400); Red Blood Count 3.89 X10*6/uL (4.60-5.80); White Blood Count 6.4 X10*3/uL (4.8-10.8)
[2024-10-19 07:15] LABS: Anion Gap 13 (12-20); Blood Urea Nitrogen 16 mg/dL (9-16); Calcium 8.3 mg/dL (8.4-10.2); Carbon Dioxide 20 mmol/L (22-29); Chloride 110 mmol/L (96-108); Creatinine Clr Calc Pharmacy 70.5; Estimated Glomerular Filt Rate > 60; Potassium 4.3 mmol/L (3.3-5.1); Sodium 139 mmol/L (135-145)
[2024-10-19 07:40] LABS: Band Neutrophils Percent 4 % (3-5); Eosinophils Absolute Manual 0.1 X10*3/uL (0.0-0.4); Eosinophils Percent Manual 2 % (0-4); Lymphocytes Absolute Manual 1.0 X10*3/uL (1.2-4.9); Lymphocytes Percent Manual 15 % (20-40); Monocytes Absolute Manual 0.6 X10*3/uL (0.1-1.2); Monocytes Percent Manual 9 % (2-11); Myelocytes Absolute 0.2 X10*/uL; Myelocytes Percent 3 %; Neutrophils Absolute Manual 4.5 X10*3/uL (2.0-8.3); Neutrophils Percent Manual 66 % (45-73); Promyelocytes Absolute 0.1 X10*3/uL; Promyelocytes Percent 1 %
[2024-10-19 07:41] LABS: RBC Morphology NOTED
[2024-10-19 07:42] LABS: Glucose, Whole Blood 151 mg/dL (60-115)
[2024-10-19 07:44] LABS: Acanthocytes 1+ (0-2) /OIF; Burr Cells 2+ (3-5) /OIF; Ovalocytes 1+ (5-14) /OIF; Toxic Granulation PRESENT
[2024-10-19 07:45] VITALS: BP 151/82; PULSE 85; RESP 16; TEMP 36.8; O2SAT 97
[2024-10-19] MEDS: 0.9 % Sodium Chloride Flush 3 ML SYRINGE IVFLUSH ×3 (09:07→20:43)
--- NOTE | 2024-10-19 11:26 | P.CONCA_ITS ---
History of Present Illness History of Present Illness Date of Service: 10/19/24 Chief complaint: sepsis Narrative: [age] year gentleman who we have been asked to see for atrial fibrillation. He has known history of AFib and was previously on amiodarone and was in sinus rhythm. He had ablation in the past 2. He is currently not on anticoagulation and had Watchman device in the past. He was admitted for dizziness weakness and fever. There is some concern for tick-borne illness and he is currently on antibiotics and ID is following him. He was in sinus rhythm but reverted to AFib. He is denying any palpitations and is saying that he does not feel atrial fibrillation. He has background history of coronary disease with CABG, tricuspid regurgitation and heart failure with preserved ejection fraction. He is short of breath during the interview but saying that this is his baseline. He has nurses concerned that he gets out of breath with activities and she has noticed that he is worse than yesterday. [facility] Past Medical History Medical History (Updated 10/18/24 @ 23:30 by Christa Squires MD) Fever of unknown origin (HFpEF) heart failure with preserved ejection fraction Paroxysmal atrial fibrillation HTN (hypertension) Hyperlipidemia CAD (coronary artery disease) Hypertensive heart disease SVT (supraventricular tachycardia) Tricuspid regurgitation Presence of Watchman left atrial appendage closure device Family History Family History Father CVD (cardiovascular disease) Mother Sudden cardiac Family/Other Sudden cardiac Family history: reviewed and not pertinent Surgical History Surgical History S/P cardiac cath Hx of CABG Stented coronary artery History of kidney surgery History of cardiac radiofrequency ablation History of carpal tunnel release Hx of heart surgery Social History Social History Household Members: Other Housing: House Do you presently have visiting nurse or other home services: No Alcohol intake: current Alcohol intake frequency: a few times a week Comment: 2 drinks gin Q night Patient Tobacco Use Status: Never used Tobacco e-Cigarette/Vaping Use: Never Used Second Hand Smoke Exposure: No service: No Current occupational status: employed Current occupational exposures/hazards: No Cognitive needs: Yes Hearing needs: No Vision needs: No Meds Allergies Allergy/AdvReac Type Severity Reaction Status Date / Time apixaban (From ELIQUIS) Allergy Unknown BLEEDING Verified 10/13/24 01:24 ezetimibe (From ZETIA) Allergy Unknown UNKNOWN Verified 10/13/24 01:24 guaifenesin (From ROBITUSSIN) Allergy Unknown UNKNOWN Verified 10/13/24 01:24 Xdcxifd-CJX-HgN Reductase Allergy Unknown UNKNOWN Verified 10/13/24 01:24 Inhibitor ([id number]-[id number]-CJX REDUCTASE INHIBITOR) Active Medications: Current Medications Acetaminophen (Acetaminophen 325 Mg Tablet) 650 mg PO Q6H PRN PRN Reason: Pain, Mild 1-3,fever,headache Amiodarone HCl (Amiodarone Hcl 200 Mg Tablet) 100 mg PO BEDTIME [facility] Last Admin: 10/18/24 20:47 Dose: 100 mg Calcium Carbonate (Calcium Carbonate 750 Mg Tab.Chew) 750 mg PO Q4H PRN PRN Reason: Heartburn Doxycycline Monohydrate (Doxycycline Monohydrate 100 Mg Capsule) 100 mg PO Q12H [facility] Last Admin: 10/19/24 11:13 Dose: 100 mg Enoxaparin Sodium (Enoxaparin Sodium 40 Mg/0.4 Ml Syringe) 40 mg SUBCUT Q24H [facility] Last Admin: 10/18/24 16:30 Dose: Not Given Furosemide (Furosemide 40 Mg/4 Ml Vial) 40 mg IVPUSH DAILY [facility]; Protocol Lisinopril (Lisinopril 5 Mg Tablet) 5 mg PO BEDTIME [facility]; Protocol Last Admin: 10/18/24 20:47 Dose: 5 mg Magnesium Hydroxide (Milk Of Magnesia 30 Ml Oral.Susp) 30 ml PO DAILY PRN PRN Reason: Constipation Melatonin (Melatonin 3 Mg Tablet) 6 mg PO BEDTIME PRN PRN Reason: Insomnia Ondansetron HCl (Ondansetron Hcl 4 Mg/2 Ml Vial) 4 mg IVPUSH Q8H PRN PRN Reason: Nausea and Vomiting Sodium Chloride (0.9 % Sodium Chloride Flush 3 Ml Syringe) 3 ml IVFLUSH QSHIFT [facility] Last Admin: 10/19/24 09:07 Dose: 3 ml Tamsulosin HCl (Tamsulosin Hcl 0.4 Mg Capsule) 0.4 mg PO BEDTIME [facility] Last Admin: 10/18/24 20:49 Dose: 0.4 mg Home Medications ?Medication ?Instructions ?Recorded ?Confirmed ?Last Taken ?Type lisinopril 5 mg tablet 5 mg PO BEDTIME 01/07/2003/08 Unknown History tamsulosin 0.4 mg capsule 0.4 mg PO BEDTIME 01/07/20 0 10/13/24 Unknown History amiodarone 200 mg tablet 100 mg PO BEDTIME 10/13/24 0 10/13/24 Unknown History prednisone 20 mg tablet 10 mg PO Q7D PRN Back Pain 0 10/13/24 10/13/24 Unknown History Physical Exam 2 Vital Signs: Vital Signs: Last Vital Signs Temp 98.3 F 10/19/24 07:45 Pulse 85 10/19/24 07:45 Resp 16 10/19/24 07:45 BP 151/82 H 10/19/24 07:45 Pulse Ox 97 10/19/24 07:45 O2 Del Method Room Air 10/19/24 07:45 BMI result Body Mass Index 35.6 GENERAL APPEARANCE: Morbidly obese. Short of breath. NECK: no carotid bruit, + jugular venous distention. SKIN: no suspicious lesions, warm and dry. HEART: no murmurs, irregular rate and rhythm. LUNGS: clear to auscultation bilaterally. ABDOMEN: soft, nontender. EXTREMITIES: no edema. PERIPHERAL PULSES: equal. NEUROLOGIC: No gross deficits, AAO X 3 Objective Labs and Meds 10/19/24 06:23 10/19/24 06:23 Lab results: Laboratory Results - last 24 hr 10/18/24 10/19/24 10/19/24 17:21 06:23 07:39 WBC 6.4 RBC 3.89 L Hgb 12.2 L Hct 36.9 L MCV 94.9 MCH 31.4 MCHC 33.1 RDW 15.5 Plt Count 212 MPV 9.4 Immature Gran % (Auto) Cancelled Neut % (Auto) Cancelled Lymph % (Auto) Cancelled [place] % (Auto) Cancelled Eos % (Auto) Cancelled Baso % (Auto) Cancelled Lymph # (Auto) Cancelled [place] # (Auto) Cancelled Eos # (Auto) Cancelled Baso # (Auto) Cancelled Abs Immat Gran (auto) Cancelled Absolute Neuts (auto) Cancelled Absolute Nucleated RBC 0.000 Nucleated RBC % (auto) 0.0 Neutrophils % (Manual) 66 Band Neutrophils % 4 Lymphocytes % (Manual) 15 L Monocytes % (Manual) 9 Eosinophils % (Manual) 2 Myelocytes % 3 Promyelocytes % 1 Abs Neuts (Manual) 4.5 Lymphocytes # (Manual) 1.0 L Monocytes # (Manual) 0.6 Eosinophils # (Manual) 0.1 Myelocytes # 0.2 Promyelocytes # 0.1 Toxic Granulation PRESENT Platelet Estimate NORMAL Plt Morphology Comment NORMAL RBC Morphology NOTED Ovalocytes 1+ (5-14) Jenny Cells 2+ (3-5) Acanthocytes (Spur) 1+ (0-2) Sodium 139 Potassium 4.3 Chloride 110 H Carbon Dioxide 20 L Anion Gap 13 BUN 16 Creatinine 1.02 Estim Creat Clear Calc 70.5 Estimated GFR > 60 POC Glucose 151 H Random Glucose 159 H Calcium 8.3 L Random Vancomycin 17.7 Assessment and Plan (1) (HFpEF) heart failure with preserved ejection fraction: Status: Acute (2) Paroxysmal atrial fibrillation: Status: Acute Plan [age] gentleman who has background history of coronary artery bypass surgery and echocardiography last year showing borderline ejection ejection fraction 45-50% and moderate dilatation of right ventricle with moderate RV dysfunction. He had ablation for AFib and was on amiodarone. He has reverted to AFib during this admission and we have been asked to see him. He is asymptomatic from AFib point of view. Clinically does appear to be volume overloaded. Blood pressure is elevated. Titrate antihypertensive medications and add diuretics. Would favor giving him IV diuretics today. Continue amiodarone 100 mg daily. He should be on baby aspirin given history of coronary disease as well as Watchman. Thank you for allowing me to participate in the care of your patient. Please feel free to contact me if you have any questions. Procedures Date of Service Date of Service: 10/19/24
[2024-10-19 12:52] VITALS: BP 150/88
[2024-10-19] MEDS: Furosemide 40 MG/4 ML VIAL IVPUSH (12:52)
--- NOTE | 2024-10-19 15:31 | P.PNIM_ITS ---
Subjective Subjective Date of Service: 10/19/24 Interval History: No new issues or complaints today. Feels well sitting by bedside. Denies shortness of breath chest pain, rigors, pyrexia. Denies abdominal pain or diarrhea. Endorsing that he overall feels well and is ready to go home. Discussed transitioned from IV to p.o. antibiotics today, and would recommend 24 hours remaining inpatient for monitoring, with plan for discharge tomorrow Review of Systems Review of Systems: Yes all other systems are reviewed and are negative Physical Exam 2 Exam: Exam: General: A&O x3, oriented to time place person and situation, comfortable, no pain Cardiac: S1, S2 auscultated with no S3/4, no MRG. Well perfused. Not in AFib Respiratory: Normal breath sounds auscultated throughout all lung zones, without wheezing, rales. Normal rate. GI/ : No abdominal pain on palpation, no masses. Bowel sounds present, no hyper-resonance on percussion. MSK: Normal ambulation without pain at bony prominences or musculature Neurological: Normal neurological examination on overview, without obvious CN II-XII abnormalities. Vital Signs: Vital Signs: Last Vital Signs Temp 98.3 F 10/19/24 07:45 Pulse 85 10/19/24 07:45 Resp 16 10/19/24 07:45 BP 150/88 H 10/19/24 12:52 Pulse Ox 97 10/19/24 07:45 O2 Del Method Room Air 10/19/24 07:45 BMI result Body Mass Index 35.6 Objective Data Active Medications Acetaminophen (Acetaminophen 325 Mg Tablet) 650 mg PO Q6H PRN PRN Reason: Pain, Mild 1-3,fever,headache Amiodarone HCl (Amiodarone Hcl 200 Mg Tablet) 100 mg PO BEDTIME [facility] Last Admin: 10/18/24 20:47 Dose: 100 mg Documented By: RICARDO Calcium Carbonate (Calcium Carbonate 750 Mg Tab.Chew) 750 mg PO Q4H PRN PRN Reason: Heartburn Doxycycline Monohydrate (Doxycycline Monohydrate 100 Mg Capsule) 100 mg PO Q12H [facility] Last Admin: 10/19/24 11:13 Dose: 100 mg Documented By: CHARLI Enoxaparin Sodium (Enoxaparin Sodium 40 Mg/0.4 Ml Syringe) 40 mg SUBCUT Q24H [facility] Last Admin: 10/18/24 16:30 Dose: Not Given Documented By: CHARLI Non-Admin Reason: Patient Refused Furosemide (Furosemide 40 Mg/4 Ml Vial) 40 mg IVPUSH DAILY [facility]; Protocol Last Admin: 10/19/24 12:52 Dose: 40 mg Documented By: CHARLI Lisinopril (Lisinopril 5 Mg Tablet) 5 mg PO BEDTIME [facility]; Protocol Last Admin: 10/18/24 20:47 Dose: 5 mg Documented By: RICARDO Magnesium Hydroxide (Milk Of Magnesia 30 Ml Oral.Susp) 30 ml PO DAILY PRN PRN Reason: Constipation Melatonin (Melatonin 3 Mg Tablet) 6 mg PO BEDTIME PRN PRN Reason: Insomnia Ondansetron HCl (Ondansetron Hcl 4 Mg/2 Ml Vial) 4 mg IVPUSH Q8H PRN PRN Reason: Nausea and Vomiting Sodium Chloride (0.9 % Sodium Chloride Flush 3 Ml Syringe) 3 ml IVFLUSH QSHIFT [facility] Last Admin: 10/19/24 09:07 Dose: 3 ml Documented By: CHARLI Tamsulosin HCl (Tamsulosin Hcl 0.4 Mg Capsule) 0.4 mg PO BEDTIME [facility] Last Admin: 10/18/24 20:49 Dose: 0.4 mg Documented By: RICARDO Labs 10/19/24 06:23 10/19/24 06:23 Labs: Laboratory Results - last 24 hr 10/18/24 10/19/24 10/19/24 17:21 06:23 07:39 MCV 94.9 MCH 31.4 MCHC 33.1 RDW 15.5 Plt Count 212 MPV 9.4 Immature Gran % (Auto) Cancelled Neut % (Auto) Cancelled Lymph % (Auto) Cancelled [place] % (Auto) Cancelled Eos % (Auto) Cancelled Baso % (Auto) Cancelled Lymph # (Auto) Cancelled [place] # (Auto) Cancelled Eos # (Auto) Cancelled Baso # (Auto) Cancelled Abs Immat Gran (auto) Cancelled Absolute Neuts (auto) Cancelled Absolute Nucleated RBC 0.000 Nucleated RBC % (auto) 0.0 Neutrophils % (Manual) 66 Band Neutrophils % 4 Lymphocytes % (Manual) 15 L Monocytes % (Manual) 9 Eosinophils % (Manual) 2 Myelocytes % 3 Promyelocytes % 1 Abs Neuts (Manual) 4.5 Lymphocytes # (Manual) 1.0 L Monocytes # (Manual) 0.6 Eosinophils # (Manual) 0.1 Myelocytes # 0.2 Promyelocytes # 0.1 Toxic Granulation PRESENT Platelet Estimate NORMAL Plt Morphology Comment NORMAL RBC Morphology NOTED Ovalocytes 1+ (5-14) [place] Cells 2+ (3-5) Acanthocytes (Spur) 1+ (0-2) Anion Gap 13 Estim Creat Clear Calc 70.5 Estimated GFR > 60 POC Glucose 151 H Random Glucose 159 H Calcium 8.3 L Random Vancomycin 17.7 Microbiology Microbiology Results: Microbiology 10/13/24 18:25 Blood Culture - Final Blood - Venous No growth after 5 days. 10/13/24 18:26 Blood Culture - Final Blood - Venous No growth after 5 days. Assessment and Plan (1) (HFpEF) heart failure with preserved ejection fraction: Status: Acute (2) HTN (hypertension): Status: Acute (3) CAD (coronary artery disease): Status: Acute (4) Paroxysmal atrial fibrillation: Status: Acute (5) Presence of Watchman left atrial appendage closure device: Status: Acute (6) Cirrhosis: Status: Acute (7) Liver mass, right lobe: Status: Acute (8) Cirrhosis: Status: Acute (9) Sepsis: Status: Acute Plan 84-year-old male, with a history of paroxysmal atrial fibrillation s/p ablation, no anticoagulation, CAD s/p CABG, tricuspid regurgitation, HFpEF, HTN, HLD, who presents with dizziness weakness and fever, admitted with sepsis of undetermined source. Sepsis High suspicion for Lyme disease Source yet to be determined. No evidence of pneumonia, pyelonephritis, intra-abdominal infection, meningism at this time. - Blood cultures negative - Urine culture is negative - Tick borne panel negative Despite negative tick-borne panel, the patient's presentation was acute, in which PCR or antibodies may not detect Borrelia antigen at this time. High suspicion for acute Lyme disease (possible coinfection with Babesia; as the patient's platelets have been slowly improving). Discontinue vancomycin/Zosyn 10/18 and transitioned to doxycycline 100 mg b.i.d. p.o.. PLAN - Discontinue vancomycin - Discontinue Zosyn - Start doxycycline 100 mg b.i.d. p.o. x 14 days total - Infectious diseases consult recommendations greatly appreciated Paroxysmal Atrial fibrillation - reconversion Patient suffered with atrial fibrillation, s/p Watchman device placement. Not on anticoagulation at this time. Physical examination revealing the patient currently being in atrial fibrillation. No RVR. Asymptomatic. We will reach out to Cardiology to inform them of conversion back to AFib. Will receive 40 mg IV furosemide once - transition to p.o. furosemide. 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 Has history of ischemic congestive heart failure. No eosinophilia. Denies overt neuropathies. 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 I do not believe this is the cause of sepsis, however could be contributory to overall patient condition. Ischemic HFpEF CAD s/p CABG Paroxysmal atrial fibrillation- watchman device- no anticoagulation HTN HLD Patient is at high-risk for iatrogenic CHF exacerbation with IVF Continue amiodarone Continue lisinopril Transaminitis Cirrhosis with ascites Cholelithiasis without cholecystitis/choledocholithiasis Normal CPK Liver lesion was identified Plan for MRI liver in the outpatient setting for clear assessment of the lesion Follow hepatitis panel Hematuria Follow up urine culture Monitor H&H Urology consult was placed Fall Fall precautions in place Normal CPK PT evaluation Vitamin-D was checked, which was low Acute lactic acidosis - Resolved Secondary to sepsis [employer] - VTE: Enoxaparin & SCDs - CODE STATUS: Full code - DIET: Cardiac Total time managing care of this patient today: 35 minutes. Quality Stroke Does the patient have a stroke diagnosis?: No VTE Prior VTE?: No VTE Risk Level:: Medical - moderate - high VTE Device Contraindication: N/A - Device Ordered VTE Drug Contraindication: Treatment Not Indicated
[2024-10-19 19:56] VITALS: BP 172/89; PULSE 83; RESP 18; TEMP 36.2; O2SAT 97
[2024-10-20 04:00] VITALS: BP 137/73; PULSE 88; RESP 19; TEMP 36.4; O2SAT 95
[2024-10-20 06:45] LABS: Hematocrit 36.8 % (42.0-52.0); Hemoglobin 11.8 g/dl (14.0-18.0); Mean Corpuscular HGB Conc 32.1 g/dl (31.0-36.0); Mean Corpuscular Hemoglobin 31.0 pg (27.0-33.0); Mean Corpuscular Volume 96.6 fL (80.0-98.0); NRBC Abs Auto 0.000 X10*3/uL (0.0-0.012); NRBC Pct Auto 0.0 /100WBC (0.0-0.2); Platelet Count 234 X10*3/uL (160-400); Red Blood Count 3.81 X10*6/uL (4.60-5.80); White Blood Count 6.3 X10*3/uL (4.8-10.8)
[2024-10-20 07:16] LABS: Anion Gap 13 (12-20); Blood Urea Nitrogen 15 mg/dL (9-16); Calcium 8.4 mg/dL (8.4-10.2); Carbon Dioxide 24 mmol/L (22-29); Chloride 108 mmol/L (96-108); Creatinine Clr Calc Pharmacy 75.7; Estimated Glomerular Filt Rate > 60; Potassium 4.1 mmol/L (3.3-5.1); Sodium 141 mmol/L (135-145)
[2024-10-20 07:30] VITALS: BP 148/79; PULSE 84; RESP 16; TEMP 36.8; O2SAT 96
[2024-10-20] MEDS: Furosemide 40 MG/4 ML VIAL IVPUSH (07:59)
[2024-10-20] MEDS: 0.9 % Sodium Chloride Flush 3 ML SYRINGE IVFLUSH (07:59)
[2024-10-20 08:27] LABS: Atypical Lymph Absolute Manual 0.1 x10*3/uL; Atypical Lymphs Percent Manual 2 % (0-6); Band Neutrophils Percent 1 % (3-5); Basophils Abs Manual 0.1 X10*3/uL (0.0-0.2); Basophils Percent Manual 1 % (0-2); Eosinophils Absolute Manual 0.4 X10*3/uL (0.0-0.4); Eosinophils Percent Manual 6 % (0-4); Lymphocytes Absolute Manual 0.9 X10*3/uL (1.2-4.9); Lymphocytes Percent Manual 14 % (20-40); Metamyelocytes Absolute 0.1 X10*3/uL; Metamyelocytes Percent 2 %; Monocytes Absolute Manual 0.5 X10*3/uL (0.1-1.2); Monocytes Percent Manual 8 % (2-11); Myelocytes Absolute 0.1 X10*/uL; Myelocytes Percent 2 %; Neutrophils Absolute Manual 4.1 X10*3/uL (2.0-8.3); Neutrophils Percent Manual 64 % (45-73)
[2024-10-20 08:28] LABS: Acanthocytes 1+ (0-2) /OIF; Burr Cells 1+ (0-2) /OIF; Large Platelet PRESENT; Polychromasia 1+ (0-2) /OIF; RBC Morphology NOTED
--- NOTE | 2024-10-20 12:15 | W.MHC.F2F ---
Service Date Service Date: 10/20/24 Encounter Date of encounter: 10/20/24 Reasons for Services Signs and symptoms assessed: Lower extremity weakness, prolonged hospital stay, recent sepsis Reason for fci: medication management and teach disease management Reason for physical therapy: home safety and mobility, gait/transfer training, ADL training and energy conservation Reason for occupational therapy: home safety and mobility, gait/transfer training and energy conservation Homebound: Leaving the home is medically contraindicated at this time without the asist of a device and/or another person due th the listed conditions above and below. Reason homebound: unsteady gait / fall risk, pain with transfers and weakness related to hospital stay Certification: Based on the above findings, I certify that this patient is confined to the home and needs intermittent fci care, physical therapy and/or speech therapy, or continues to need occupational therapy. The patient is under my care, and I have initiated the establishment of the plan of care. The patient will be followed by a physician who will periodically review the plan of care. Time Spent With Patient Time: Total time managing care of this patient today 15 minutes.
--- NOTE | 2024-10-20 13:45 | PM.DS ---
DS: Providers Provider Date of Service: 10/20/24 Date of admission: 10/13/24 18:28 Date of discharge: 10/20/24 Primary care physician: Dona Cancino MD Consults: 10/13/24 19:25 Consult to Urology Routine Consulting Provider: [facility] Reason for consultation: Hematuria Has provider been notified: No 10/16/24 09:52 Consult to Wound Care Routine Reason for consultation: skin tear to Rt lower arm 10/16/24 10:56 Consult to Infectious Diseases Routine Consulting Provider: [facility] Reason for consultation: pyrexia unknown origin - on V/Zosyn - getting better 10/18/24 10:45 Consult to Cardiology Routine Consulting Provider: [facility] Reason for consultation: recurrence atrial fib (no RVR) - watchman Attending physician on discharge: Diana Lowe DS: Diagnosis Discharge Diagnosis (1) (HFpEF) heart failure with preserved ejection fraction: Status: Acute (2) HTN (hypertension): Status: Acute (3) CAD (coronary artery disease): Status: Acute (4) Paroxysmal atrial fibrillation: Status: Acute (5) Presence of Watchman left atrial appendage closure device: Status: Acute (6) Cirrhosis: Status: Acute (7) Liver mass, right lobe: Status: Acute (8) Sepsis: Status: Acute DS: Summary Hospital Course Hospital Course: 84-year-old male, with a history of paroxysmal atrial fibrillation s/p ablation, no anticoagulation, CAD s/p CABG, tricuspid regurgitation, HFpEF, HTN, HLD, who presents with dizziness weakness and fever, admitted with sepsis of undetermined source, highly suspected to be due to Lyme Disease. He presents to the emergency department complaining of dizziness, generalized weakness, fever and shortness on breath. His symptoms started yesterday. Yesterday, he had self-limited episode of chest pressure and did not take nitro. He denied abdominal pain, nausea, vomiting, diarrhea or cough. Denied pain with urination bone noted that his urine is dark (like cranberry juice). He also reports a fall yesterday upon walking to the bathroom. He denied head trauma. Patient denied tobacco smoking, alcohol abuse or illicit drug use. He denied history of prostate or bladder cancer. 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 In the ED, he was found to have fever of 101.6. There is no hypotension, hypoxia or severe tachypnea. Blood workup showed no leukocytosis but does neutrophilia of 77.8. There is lactic acidosis of 2.08. There are no significant electrolyte imbalances. CO2 is 20, anion gap 17, BUN 25 and creatinine 1.09. Random glucose 150. Abdominal pelvis CT scan showed what 2.4 cm acute workup hyperdense lesion in the right lobe of the liver, cirrhosis, trace ascites, cholelithiasis without cholecystitis and no biliary dilatation. The pancreas is normal. It showed pleural - parenchymal disease in the lung bases. Head and C-spine CT scan showed no acute abnormalities. CXR showed no acute cardiopulmonary abnormality. Serology is negative for COVID-19 and influenza. Urinalysis showed proteinuria 2+, blood 3+, leukocyte esterase 1+ and RBC >20, WBC 0-5. ECG showed sinus rhythm with PACs a low voltage with ST and T-wave abnormalities (old). ED tx: NS 1000 mL, DuoNeb 3 mL, ceftriaxone 1 g IV Sepsis High suspicion for Lyme disease No evidence of pneumonia, pyelonephritis, intra-abdominal infection, meningism during admission. - Blood cultures negative - Urine culture is negative - Tick borne panel negative Despite negative tick-borne panel, the patient's presentation was acute, in which PCR or antibodies may not detect Borrelia antigen at this time. High suspicion for acute Lyme disease (possible coinfection with Babesia; as the patient's platelets have been slowly improving). ID had been consulted; agree with plan. Discontinue vancomycin/Zosyn 10/18 and transitioned to doxycycline 100 mg b.i.d. p.o.. Paroxysmal Atrial fibrillation - conversion Patient suffered with atrial fibrillation, s/p Watchman device placement. Not on anticoagulation at this time. Physical examination revealing the patient currently being in atrial fibrillation. No RVR. Asymptomatic. Cardiology was consulted to inform them of conversion Plan - Cardiology to follow in the outpatient setting Exposure to bears Patient endorses fatigue, myalgia. Has history of ischemic congestive heart failure. No eosinophilia. Denies overt neuropathies. 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 I do not believe this is the cause of sepsis, however could be contributory to overall patient condition. Ischemic HFpEF CAD s/p CABG Paroxysmal atrial fibrillation- watchman device- no anticoagulation HTN HLD Patient was at high-risk for iatrogenic CHF exacerbation with IVF Continue amiodarone Continue lisinopril Continue furosemide 40 mg OD p.o. Hematuria Noted on presentation, however did not persist. On initiation of antibiotics and IVF, the patient's urine has returned to clear yellow Transaminitis Cirrhosis with ascites Cholelithiasis without cholecystitis/choledocholithiasis Normal CPK Liver lesion was identified Plan for MRI liver in the outpatient setting for clear assessment of the lesion Hhepatitis panel negative Status at Discharge Functional status at discharge: independent ambulation Overall status at discharge: patient is back to baseline Time Attestation Total time managing care of this patient today: 45 mintues. Discharge Coordination Time (in mins): 15 Quality: Safe Use of Opioids Does Pt have an Active Cancer Diagnosis on the Problem List?: No Quality: Stroke Does the patient have a stroke diagnosis?: No Physical Exam Exam: Exam: General: A&O x3, oriented to time place person and situation, comfortable, no pain Cardiac: S1, S2 auscultated with no S3/4, no MRG. Well perfused. In AFib Respiratory: Normal breath sounds auscultated throughout all lung zones, without wheezing, rales. Normal rate. GI/ : No abdominal pain on palpation, no masses. Bowel sounds present, no hyper-resonance on percussion. MSK: Normal ambulation without pain at bony prominences or musculature Neurological: Normal neurological examination on overview, without obvious CN II-XII abnormalities. Vital Signs: Vital Signs: Last Vital Signs Temp 98.2 F 10/20/24 07:30 Pulse 84 10/20/24 07:30 Resp 16 10/20/24 07:30 BP 148/79 H 10/20/24 07:30 Pulse Ox 96 10/20/24 07:30 O2 Del Method Room Air 10/20/24 07:30 BMI result Body Mass Index 35.6 DS: Data Data Completed and Pending Labs on day of discharge: Laboratory Results - last 24 hr 10/20/24 05:30 WBC 6.3 RBC 3.81 L Hgb 11.8 L Hct 36.8 L MCV 96.6 MCH 31.0 MCHC 32.1 RDW 15.3 Plt Count 234 MPV 9.6 Immature Gran % (Auto) Cancelled Neut % (Auto) Cancelled Lymph % (Auto) Cancelled [place] % (Auto) Cancelled Eos % (Auto) Cancelled Baso % (Auto) Cancelled Lymph # (Auto) Cancelled [place] # (Auto) Cancelled Eos # (Auto) Cancelled Baso # (Auto) Cancelled Abs Immat Gran (auto) Cancelled Absolute Neuts (auto) Cancelled Absolute Nucleated RBC 0.000 Nucleated RBC % (auto) 0.0 Neutrophils % (Manual) 64 Band Neutrophils % 1 L Lymphocytes % (Manual) 14 L Atypical Lymphs % (Man) 2 Monocytes % (Manual) 8 Eosinophils % (Manual) 6 H Basophils % (Manual) 1 Metamyelocytes % 2 Myelocytes % 2 Abs Neuts (Manual) 4.1 Lymphocytes # (Manual) 0.9 L Atyp Lymphs # (Manual) 0.1 Monocytes # (Manual) 0.5 Eosinophils # (Manual) 0.4 Basophils # (Manual) 0.1 Metamyelocytes # 0.1 Myelocytes # 0.1 Platelet Estimate NORMAL Large Platelets PRESENT Plt Morphology Comment NOTED RBC Morphology NOTED Polychromasia 1+ (0-2) Jenny Cells 1+ (0-2) Acanthocytes (Spur) 1+ (0-2) Sodium 141 Potassium 4.1 Chloride 108 Carbon Dioxide 24 Anion Gap 13 BUN 15 Creatinine 0.95 Estim Creat Clear Calc 75.7 Estimated GFR > 60 Random Glucose 109 Calcium 8.4 Discharge Plan Discharge Anticipated Discharge Date/Time: 10/20/24 09:07 Patient Disposition: Home Health Service Discharge Diagnosis: Sepsis secondary to acute lyme disease Referrals: chintan waite [Other] - 1 Week Po,Dona Palacios MD [Primary Care Provider, Internal Medicine] - 1 Week Discharge Medications: New doxycycline monohydrate 100 mg Capsule 100 mg PO Q12H 10 Days Qty: 20 0RF furosemide [Lasix] 40 mg tablet 40 mg PO DAILY Qty: 30 0RF Continued amiodarone 200 mg tablet 100 mg PO BEDTIME prednisone 20 mg tablet 10 mg PO Q7D PRN (Reason: Back Pain) tamsulosin 0.4 mg capsule 0.4 mg PO BEDTIME lisinopril 5 mg tablet 5 mg PO BEDTIME Discharge Orders: Discharge Order (Routine); Ordered 10/20/24 Ordered By: Diana Lowe Activity on Discharge: As tolerated Stand Alone Forms: Patient Portal Discharge page Print Language: Italian Care Plan Goals: - continue antibiotics until end - follow up on trichenella IgG testing that was done inpatient - follow up outpatient Cardiology for AFib - follow up with PCP within 1 week of discharge; liver lobe lesion Health Concerns: Sepsis - presumed acute Lyme disease Cirrhosis Liver lesion HFpEF / AFib Watchman device Plan of Treatment: - continue antibiotics until end - follow up on trichenella IgG testing that was done inpatient - follow up outpatient Cardiology for AFib - follow up with PCP within 1 week of discharge; liver lobe lesion Assessment: Hemodynamically stable, and euvolemic at time of discharge. The patient has been cleared by Infectious diseases and Cardiology for discharge home. No acute issues that would warrant continued inpatient admission. Follow up outpatient VNA with PT Patient Instructions: Furosemide (By mouth) (Lasix), Doxycycline (By mouth) Discharge Date/Time: 10/20/24 12:32
[2024-10-30 01:04] LABS: Trichenella Antibody (IgG) NEGATIVE
== END 2024-10-20 12:32 | disposition home health service (06) | DRG 872 ==
LOC: HO.ED 18:16 → HO.EDOVER 18:31 → HO.S3 10-15 19:23
PROVIDERS: Physician Assistant Medical; Registered Nurse Emergency; Admitting Provider Internal Medicine; Emergency Provider Emergency Medicine; PCP Internal Medicine; Visit Provider Hospitalist
DX: A41.9 Sepsis, unspecified organism (principal); I50.32 Chronic diastolic (congestive) heart failure; E87.21 Acute metabolic acidosis; A69.20 Lyme disease, unspecified; I25.10 Atherosclerotic heart disease of native coronary artery without angina pectoris; Z20.822 Contact with and (suspected) exposure to COVID-19; R31.9 Hematuria, unspecified; K74.60 Unspecified cirrhosis of liver; K80.20 Calculus of gallbladder without cholecystitis without obstruction; I48.0 Paroxysmal atrial fibrillation; K76.9 Liver disease, unspecified; E78.5 Hyperlipidemia, unspecified; E66.812 Obesity, class 2; I07.1 Rheumatic tricuspid insufficiency; Z68.35 Body mass index [BMI] 35.0-35.9, adult; Z71.3 Dietary counseling and surveillance; N40.0 Benign prostatic hyperplasia without lower urinary tract symptoms; Z95.5 Presence of coronary angioplasty implant and graft; Z95.818 Presence of other cardiac implants and grafts; Z79.899 Other long term (current) drug therapy
CPT/HCPCS: 36415; 70450; 71045; 72125; 74177; 80048; 80053; 80202; 80307; 81001; 82140; 82248; 82306; 82550; 82565; 82947; 83605; 83690; 83735; 83880; 84484; 85007; 85025; 85027; 85610; 86704; 86706; 86709; 86784; 86803; 87040; 87086; 87340; 87468; 87469; 87478; 87484; 87502; 87633; 87635; 87798; 93005; 94640; 97162; 97530; 99285; J0696; J1650; J1938; J2543; J3373; J3374; J7120; Q9967

== ENCOUNTER → 2024-10-13 01:27 | Outpatient (BNV) | payer MEDICARE, SELFPAY | PROVIDERS: Emergency Provider Emergency Medicine; Visit Provider Internal Medicine Cardiovascular Disease | DX: I49.1 Atrial premature depolarization (principal) | CPT/HCPCS: 93010 ==

== ENCOUNTER 2024-10-13 18:28 | Outpatient (BNV) | payer MEDICARE, SELFPAY | END 2024-10-18 08:30 | PROVIDERS: Admitting Provider Internal Medicine; Emergency Provider Emergency Medicine; PCP Internal Medicine; Visit Provider Internal Medicine Cardiovascular Disease | DX: I48.91 Unspecified atrial fibrillation (principal) | CPT/HCPCS: 93010 ==

== ENCOUNTER → 2024-10-13 18:28 | Outpatient (BNV) | payer MEDICARE, SELFPAY | PROVIDERS: Admitting Provider Internal Medicine; Emergency Provider Emergency Medicine; Visit Provider Internal Medicine | DX: R65.10 Systemic inflammatory response syndrome (SIRS) of non-infectious origin without acute organ dysfunction (principal); E87.21 Acute metabolic acidosis | CPT/HCPCS: 99223 ==

== ENCOUNTER → 2024-10-13 18:28 | Outpatient (BNV) | payer MEDICARE, SELFPAY | PROVIDERS: Admitting Provider Internal Medicine; Emergency Provider Emergency Medicine; PCP Internal Medicine; Visit Provider Internal Medicine | DX: R50.9 Fever, unspecified (principal) | CPT/HCPCS: 99222 ==

== ENCOUNTER → 2024-10-13 18:28 | Outpatient (BNV) | payer MEDICARE, SELFPAY | PROVIDERS: Admitting Provider Internal Medicine; Emergency Provider Emergency Medicine; Visit Provider Urology | DX: R31.9 Hematuria, unspecified (principal) | CPT/HCPCS: 99222 ==

== ENCOUNTER → 2024-10-13 18:28 | Outpatient (BNV) | payer MEDICARE, SELFPAY | PROVIDERS: Admitting Provider Internal Medicine; Emergency Provider Emergency Medicine; PCP Internal Medicine; Visit Provider Internal Medicine Cardiovascular Disease | DX: I50.30 Unspecified diastolic (congestive) heart failure (principal); I48.0 Paroxysmal atrial fibrillation | CPT/HCPCS: 99223 ==

== ENCOUNTER → 2024-10-21 08:43 | Outpatient (BNV) | payer MEDICARE, SELFPAY | PROVIDERS: PCP Internal Medicine; Visit Provider Radiology Diagnostic Radiology | DX: K74.60 Unspecified cirrhosis of liver (principal) | CPT/HCPCS: 74183 ==

== ENCOUNTER 2024-10-21 08:47 | Outpatient (REF) | payer MEDICARE, SELFPAY ==
--- NOTE | ~2024-10-21 | MR_ITS ---
EXAMINATION: MR ABDOMEN WITHOUT THEN WITH IV CONTRAST HISTORY: R16.0 - Hepatomegaly, not elsewhere classified COMPARISON: Correlation is made with a CT of the abdomen with contrast dated 10/13/2024 and an abdominal ultrasound dated 10/01/2024. TECHNIQUE: Axial in and out of phase T1-weighted gradient echo, axial diffusion weighted, and axial and coronal HASTE T2 with fat saturation images were obtained through the abdomen. Subsequently, fat suppressed axial and coronal T1-weighted images were obtained after the intravenous administration of 10 mL Gadavist. FINDINGS: Liver: The liver demonstrates a nodular contour, consistent with cirrhosis. There is no loss of signal intensity in the liver on opposed phase imaging to suggest steatosis. There is a 1.9 cm mass in segment which is minimally hyperintense on T2-weighted images and minimally hypointense on T1-weighted images, corresponding to the abnormality seen on prior imaging. Imaging characteristics are as follows: Lesion #: 1 Location: segment segment Size: 1.9 cm T2 signal intensity: Hyperintense Arterial Phase Hyperenhancement (APHE): yes Additional Major Features Enhancing Capsule: yes Nonperipheral washout: yes Threshold Growth: yes, new lesion LI-RADS Category: LR-5 Definitely HCC The hepatic and portal veins are patent. There is no intrahepatic biliary dilatation. Gallbladder/biliary tree: No gallstones are identified. The common bile duct is normal in caliber. No intraluminal filling defects are identified to suggest choledocholithiasis. Spleen: The spleen is unremarkable. A 1.7 cm splenule is noted. Pancreas: The pancreas is unremarkable. There is no enhancing pancreatic mass. The pancreatic duct is normal in caliber. Adrenals: The adrenal glands are unremarkable. Kidneys: There are bilateral renal cysts measuring up to 1.5 cm on the right and 1.5 cm on the left. The kidneys are otherwise unremarkable. There is no hydronephrosis. Lymph nodes: There is no retroperitoneal lymphadenopathy in the upper abdomen. Fluid: There is no ascites in the upper abdomen. Visualized bowel: The visualized small and large bowel loops are unremarkable in appearance. Visualized bones: There is a probable vertebral hemangioma in the L1 vertebral body. Additional findings: There are [id number] bilateral pleural effusions. MR/MR abdomen wo/w con IMPRESSION: Hepatic cirrhosis. 1.9 cm mass in segment as described above, compatible with hepatocellular carcinoma. Multidisciplinary discussion for consensus management is recommended. Findings were sent to Dr. Cancino by secure text message on 10/21/2024 at 10:19 AM. Electronically signed by: Obdulio Gtz MD 10/21/2024 10:22 AM EDT
--- OUTSIDE RECORDS SUMMARY | 2024-10-21 09:55 | XMS_ITS | Patient Health Record ---
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 nt) use of anticoagulants (V58.61) Active confirmed Plan Of Treatment Pending Test Test Name Order Date GI BIOPSY 11/24/2014 Future Test Test Name Order Date COLONOSCOPY 08/13/2013 Insurance Providers Payer Name Payer Address Payer Phone Subscriber Number Group Number Insured Name Patient Relationship to Insured Coverage Start Date Coverage End Date MEDICARE OF [place] [address] [place] [address] [id number] [employer] Self - patient is the insured [employer] ATTN CLAIMS [address] [place] [address] [id number] [employer] Self - patient is the insured Medical (General) History Medical History History ICD Code Colonoscopy, 2008, tubular adenoma Hypertension coronary artery disease with stent place ment SVT with ablation atrial fibrillation
--- OUTSIDE RECORDS SUMMARY | 2024-10-21 09:55 | XMS_ITS | Encounter Summary ---
Author Organization [facility] Address [address] [place] [address] Phone Care Team Providers Care Clinical Secretary Name Role Phone Omid De Jesus MD Primary Care Provider Dona Cancino MD Primary Care Provider [phone] Encounter Details Date Type Department Care Team (Late st Contact Info) Description 04/04/2018 Ancillary Orders Virtual Department [address] [place] [address] Rebel Duke MD [address] [place] [id number] [email or web address] Cold right foot; No pulse Social History Tobacco Use Types Packs/Day Years Used Date Smoking Tobacco: Never Assessed Sex and Gender Information Value Date Recorded Sex Assigned at Not on file Legal Sex Male 10:12 PM EDT Gender Identity Not on file Sexual Orientation Not on file documented as of this encounter Plan of Treatment Not on file documented as of this encounter Visit Diagnoses Diagnosis Cold right foot No pulse Other symptoms involving cardiovascular system documented in this encounter Care Teams Clinical Secretary Relationship Specialty Start Date End Date Omid De Jesus MD [address] [place] [address] [address] PCP - General Internal Medicine 04/04/18 10/13/24 Dona Cancino MD [address] [place] [id number] PCP - General Internal Medicine 10/14/24 documented as of this encounter Additional Source Comments The information contained in this document represents components of the legal health record. It is not the complete legal health record.[facility]
--- OUTSIDE RECORDS SUMMARY | 2024-10-21 09:55 | XMS_ITS ---
Author Organization [facility] Care Team Providers Care Health Safety Coordinator Name Role Phone Omid De Jesus Unavailable Unavailable Komal Salgado Unavailable Unavailable Allergies and adverse reactions Code CodeSystem Substance Reaction Severity StartDate Concern Status 489447509 SNOMED CT Statins Unknown 01/11/2019 active Eliquis Unknown 01/11/2019 active Care Team Name Role Address Phone Organization Dates Omid De Jesus [facility] [address], [address], [place], [address], [place] (Office): : [facility] 01/11/2019 - 01/12/2019 Komal Salgado [address] [place] [address] [address], [place], [address], [place] (Office): [facility] 01/11/2019 - 01/12/2019 Mental Status Section Date Assessment Total Score Description 01/12/2019 CAM 0 No delirium ind icated Problems Problem # Description Date of onset Resolved Date Code CodeSystem Concern Status 1 ACUTE RESPIRATORY FAILURE WITH HYPOXIA 01/12/[address] active 2 ANEMIA, UNSPECIFIED 01/12/[address] active 3 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 01/12/[address] active 4 ATHEROSCLEROTIC HEART DISEASE OF [place] CORONARY ARTERY WITHOUT ANGINA PECTORIS 01/12/[address] active 5 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 01/12/[address] active 6 COMPLICATION OF VEIN FOLLOWING A PROCEDURE, NOT ELSEWHERE CLASSIFIED, SUBSEQUENT ENCOUNTER 01/12/[address] active 7 ESSENTIAL (PRIMARY) HYPERTENSION 01/12/[address] active 8 HYPERLIPIDEMIA, UNSPECIFIED 01/12/[address] active 9 NONALCOHOLIC STEATOHEPATITIS (HANNA) 01/12/[address] active 10 OBESITY, UNSPECIFIED 01/12/[address] active 11 PAROXYSMAL ATRIAL FIBRILLATION 01/12/[address] active 12 SPINAL STENOSIS, SITE UNSPECIFIED 01/12/[address] active 13 TYPE 2 DIABETES MELLITUS WITHOUT COMPLICATIONS 01/12/[address] active 14 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 01/12/[address] active 15 UNSTABLE ANGINA 01/12/[address] active Reason for Referral No Reasons for Referral Entered Social History Social History Observation Description Start Date End Date Code Code System Current Smoking Status Tobacco smoking consumption unknown 353160641 SNOMED CT Sex Assigned At Male 1940 28381-[facility] Gender Identity Vital Signs Code Code System Vitals Name Values and Units Timing Information 2339-[facility] Blood Sugar Value=95.0 Units=mg/dL 01/12/2019 88216-1 INC Pain Level Value=0.0 01/12/2019 9279-1 LOINC Respiratory Rate Value=18.0 Units=/m in 01/12/2019 8462-4 LOINC Blood Pressure-Diastolic Value=84 Un its=mmHg 01/12/2019 8480-6 LOINC Blood Pressure-Systolic Ibevm=300 Un its=mmHg 01/12/2019 8310-5 LOINC Body Temperature Value=97.6 Units= F 01/12/2019 8867-4 LOINC Heart rate Value=92.0 Units=/min 02/2018 8302-2 LOINC Height Value=72.0 Units=Inches 01/12/2019 85368-0 INC O2 % BldC Oximetry Value=95.0 Units= % 01/12/2019 87717-9 LOINC Weight Jsgru=226.0 Units=Lbs 02/2018
--- OUTSIDE RECORDS SUMMARY | 2024-10-21 09:55 | XMS_ITS | Encounter Summary ---
Author Organization [facility] Address [address] [place] [address] Phone Care Team Providers Care Piece Goods Clerk Name Role Phone Omid De Jesus MD Primary Care Provider Dona Cancino MD Primary Care Provider Encounter Details Date Type Department Care Team (Latest Contact Info) Description 06/25/2018 Transcribe Orders Virtual Department [address] [place] [address] Ángel Mosqueda PA [address] [place] [address] Neck pain (Primary Dx) Social History Tobacco Use Types Packs/Day Years Used Date Smoking Tobacco: Never Assessed Sex and Gender Information Value Date Recorded Sex Assigned at Not on file Legal Sex Male 10:12 PM EDT Gender Identity Not on file Sexual Orientation Not on file documented as of this encounter Plan of Treatment Not on file documented as of this encounter Results * XR CERVICAL SPINE 2-3 VIEWS (06/26/2018 9:41 AM EDT) Anatomical Region Laterality Modality C-spine Radiographic Sandrita ging 06/26/2018 9:43 AM EDT Impressions 06/26/2018 9:55 AM EDT Status post fusion at C5-C6. No subluxations. Multilevel degenerative disc and endplate changes. Multilevel bilateral facet arthropathy. POS - [id number] Narrative 06/26/2018 9:55 AM EDT HISTORY: Pain, status-post fusion. COMPARISON: None. VIEWS: AP, lateral and swimmer's lateral views. FINDINGS: Anterior fusion hardware at C5-C6. Hardware appears intact. Markers from radiolucent disc age within the C5-C6 disc space. Bridging anterior osteophytes at C3-C4, C4-C5 and C6-C7. Moderate disc space narrowing and sclerotic degenerative endplate changes at C3- C4. Similar disc space narrowing at C6-C7. No subluxations. No suspicious lucencies or areas of sclerosis within the bones. Evidence of multilevel bilateral facet arthropathy. Prevertebral soft tissues are normal. Calcification in the regions of the right and left carotid bulbs. Procedure Note Alexis Murry MD - 06/26/2018 HISTORY: Pain, status-post fusion. COMPARISON: None. VIEWS: AP, lateral and swimmer's lateral views. FINDINGS: Anterior fusion hardware at C5-C6. Hardware appears intact. Markers fromradiolucent disc age within the C5-C6 disc space. Bridging anteriorosteophytes at C3-C4, C4- C5 and C6-C7. Moderate disc space narrowing andsclerotic degenerative endplate changes at C3-C4. Similar disc spacenarrowing at C6-C7. No subluxations. No suspicious lucencies or areas ofsclerosis within the bones. Evidence of multilevel bilateral facetarthropathy. Prevertebral soft tissues are normal. Calcification in the regions of theright and left carotid bulbs. IMPRESSION: Status post fusion at C5-C6. No subluxations. Multilevel degenerativedisc and endplate changes. Multilevel bilateral facet arthropathy. POS - [id number] Ángel HALL IMG XR SPINE Final Result documented in this encounter Visit Diagnoses Diagnosis Neck pain- Primary Cervicalgia Neck pain Cervicalgia documented in this encounter Care Teams Piece Goods Clerk Relationship Specialty Start Date End Date Omid De Jesus MD [address] [place] [address] [place] [address] PCP - General Internal Medicine 04/04/18 10/13/24 Dona Cancino MD [address] [place] [address] Drive [address] [place] [address] PCP - General Internal Medicine 10/14/24 documented as of this encounter Additional Source Comments The information contained in this document represents components of the legal health record. It is not the complete legal health record.[facility]
--- OUTSIDE RECORDS SUMMARY | 2024-10-21 09:55 | XMS_ITS | Encounter Summary ---
Author Organization [facility] Address [address] [place] [address] Phone Care Team Providers Care Distribution Center Administrator Name Role Phone Omid De Jesus MD Primary Care Provider [phone] Dona Cancino MD Primary Care Provider Encounter Details Date Type Department Care Team (Late st Contact Info) Description 04/04/2018 Ancillary Orders Virtual Department [address] [place] [address] Rebel Duke MD [address] [place] [address] [email or web address] Social History Tobacco Use Types Packs/Day Years Used Date Smoking Tobacco: Never Assessed Sex and Gender Information Value Date Recorded Sex Assigned at Not on file Legal Sex Male 10:12 PM EDT Gender Identity Not on file Sexual Orientation Not on file documented as of this encounter Plan of Treatment Not on file documented as of this encounter Visit Diagnoses Not on filedocumented in this encounter Care Teams Distribution Center Administrator Relationship Specialty Start Date End Date Omid De Jesus MD [address] [place] [address] [address] [place] [address] PCP - General Internal Medicine 04/04/18 10/13/24 Dona Cancino MD [address] [place] [address] PCP - General Internal Medicine 10/14/24 documented as of this encounter Additional Source Comments The information contained in this document represents components of the legal health record. It is not the complete legal health record.[facility]
--- OUTSIDE RECORDS SUMMARY | 2024-10-21 09:55 | XMS_ITS | Encounter Summary ---
Author Organization [facility] Address [address] [place] [address] Phone Care Team Providers Care Marketing Communications Assistant Name Role Phone Omid De Jesus MD Primary Care Provider [phone] Dona Cancino MD Primary Care Provider [phone] Encounter Details Date Type Department Care Team (Late st Contact Info) Description 04/05/2018 Ancillary Orders Virtual Department [address] [place] [address] Rebel Duke MD [address] [place] [address] [email or web address] Cold right foot; No pulse Social History [...] documented as of this encounter Results * US Ankle/Brachial Indices (04/05/2018 12:24 PM EST) Anatomical Region Laterality Modality Ankle Left, Ankle Right Ultrasou nd 04/05/2018 1:01 PM EST Impressions 04/05/2018 5:30 PM EST Mild PVR waveform right ankle amplitude loss, mild PAD is possible on the right. Otherwise no significant abnormality. If clinically warranted, anatomic or catheter directed imaging may be considered. Code 27916.52 59114 Narrative 04/05/2018 5:30 PM EST History: 77-year-old male. No pulse right foot, cold foot, status-post surgery. Question arterial insufficiency. LINDA assessment desired. Hypertension: Yes. Diminished pulses: Yes. ND: Yes. Findings: Bilateral ankle brachial indices performed. Brachial: Right 139 mm Hg Index Left 142 mm Hg Index Ankle (PT): Right 157 mm Hg 1.11 Left 168 mm Hg 1.18 Ankle (DP): Right 165 mm Hg 1.16 Left 165 mm Hg 1.16 Segmental BP: Right: 139 Left: 142 Ankle/Brachial Index: Right: 1.16 Left: 1.18 FINDINGS: Bilateral ankle arterial pressure measurements are obtained. In the right lower extremity, the systolic pressure ratio between the dorsalis pedis and the brachial artery is 165/139 and that between the posterior tibial artery and the brachial artery is 157/139. These ratios are 1.16 and 1.11 respectively. In the left lower extremity, the systolic pressure ratio between the dorsalis pedis and the brachial artery is 165/142 and that between the posterior tibial artery and the brachial artery is 168/142. These ratios are 1.16 and 1.18 respectively. There is mild amplitude loss of the right ankle PVR waveform. Procedure Note Parag Cody MD - 04/05/2018 History: 77-year-old male. No pulse right foot, cold foot, status-postsurgery. Question arterial insufficiency. LINDA assessment desired. Hypertension: Yes. Diminished pulses: Yes. ND: Yes. Findings: Bilateral ankle brachial indices performed. Brachial: Right 139 mm Hg Index Left 142 mm Hg Index Ankle (PT): Right 157 mm Hg 1.11 Left 168 mm Hg1.18 Ankle (DP): Right 165 mm Hg 1.16 Left 165 mm Hg 1.16 Segmental BP: Right: 139Left: 142 Ankle/Brachial Index: Right: 1.16Left: 1.18 FINDINGS: Bilateral ankle arterial pressure measurements are obtained. Inthe right lower extremity, the systolic pressure ratio between thedorsalis pedis and the brachial artery is 165/139 and that between theposterior tibial artery and the brachial artery is 157/139. These ratiosare 1.16 and 1.11 respectively. In the left lower extremity, the systolic pressure ratio between thedorsalis pedis and the brachial artery is 165/142 and that between theposterior tibial artery and the brachial artery is 168/142. These ratiosare 1.16 and 1.18 respectively. There is mild amplitude loss of the rightankle PVR waveform. IMPRESSION: Mild PVR waveform right ankle amplitude loss, mild PAD is possible on theright. Otherwise no significant abnormality. If clinically warranted,anatomic or catheter directed imaging may be considered. Code 92575.52 36792 us Rebel Duke MD CV US VASCULAR Final R esult documented in this encounter Visit Diagnoses Diagnosis Cold right foot No pulse Other symptoms involving cardiovascular system Cold right foot No pulse Other symptoms involving cardiovascular system documented in this encounter Care Teams Marketing Communications Assistant Relationship Specialty Start Date End Date Omid De Jesus MD [address] [place] [address] [address] [place] [address] PCP - General Internal Medicine 04/04/18 10/13/24 Dona Cancino MD [address] [place] [address] Drive [address] [place] [address] PCP - General Internal Medicine 10/14/24 documented as of this encounter Additional Source Comments The information contained in this document represents components of the legal health record. It is not the complete legal health record.[facility]
--- OUTSIDE RECORDS SUMMARY | 2024-10-21 09:55 | XMS_ITS | Clinical Summary ---
Author Organization [facility] Address [address] [place] [address] Phone Care Team Providers Care Staff Pharmacist Hospital Name Role Phone Dona Cancino MD Primary Care Provider [phone] Allergies No known active allergies Medications tamsulosin (FLOMAX) 0.4 mg Cap Take 0.4 mg by mouth nightly at bedtime. 01/21/2019 Active amiodarone (PACERONE) 200 MG tablet Take 200 mg by mouth daily. 02/08/2019 Active famotidine (PEPCID) 20 MG tablet Take 20 mg by mouth daily. 01/27/2019 Active lisinopril (PRINIVIL,ZESTR IL) 2.5 MG tablet Take 2.5 mg by mouth daily. 02/28/2019 Active metoprolol succinate (TOPROL-XL) 25 MG 24 hr tablet Take 25 mg by mouth daily. 02/28/2019 Active clopidogreL (PLAVIX) 75 mg tablet Take 75 mg by mouth daily. 02/11/2019 Active Encounters Date Type Department Care Team Description 10/13/2024 Orders Only [facility] [address] [place] [id number] Homehealth, Interface ProviderMD from Last 3 Months Social History Tobacco Use Types Packs/Day Years Used Date Smoking Tobacco: Never Assessed Education Answer Date Recorded Are you interested in more education? Not on mayela e 10/13/2024 Are you concerned about learning? Not on file 10/13/2024 No 10/13/2024 No 10/13/2024 Digital Access Answer Date Recorded No 10/13/2024 No 10/13/2024 Reliable internet access at home? Not on file 10/13/2024 Device with a working camera? Not on file Sex and Gender Information Value Date Recorded Sex Assigned at Not on file Legal Sex Male 10:12 PM EDT Gender Identity Not on file Sexual Orientation Not on file Last Filed Vital Signs Vital Sign Reading Time Taken Comments Blood Pressure 120/68 03/12/2019 12:30 PM EST Pulse 78 03/12/2019 12:30 PM EST Temperature 36.4 C (97.6 F) 03/12/2019 12:30 PM EST Respiratory Rate 16 03/12/2019 12:30 PM EST Oxygen Saturation 95% 03/12/2019 12:30 PM EST Inhaled Oxygen Concentration - - Weight 117.9 kg (260 lb) 03/12/2019 12:30 PM EST Height - - Body Mass Index - - Plan of Treatment Not on file Medical Devices Not on file Insurance MEDICARE PART A & B [place] MED[employer] SUPPLEMENT MEDICARE PART A & B [employer] SUPPLEMENT MEDICARE PART A & B [employer] MEDEX SUPPLEMENT MEDICARE PART A & B [place] SUPPLE[place] MEDICARE PART A & B [employer] MEDEX SUPPLEMENT MEDICARE PART A & B [employer] MEDEX SUPPLEMENT MEDICARE PART A & B [place] MED[place] SUPPLEMENT MEDICARE PART A & B [employer] MEDEX SUPPLEMENT MEDICARE PART A & B [employer] MEDEX SUPPLEMENT Care Teams Staff Pharmacist Hospital Relationship Specialty Start Date End Date Barak Dona Marie MD [address] [place] [address] PCP - General Internal Medicine 10/14/24 Additional Source Comments The information contained in this document represents components of the legal health record. It is not the complete legal health record.[facility]
--- OUTSIDE RECORDS SUMMARY | 2024-10-21 09:56 | XMS_ITS | Encounter Summary ---
Author Organization [facility] Address [address] [place] [address] Phone Care Team Providers Care Publisher Assistant Name Role Phone Omid De Jesus MD Primary Care Provider Dona Cancino MD Primary Care Provider Encounter Details Date Type Department Care Team (Late st Contact Info) Description 03/06/2019 Transcribe Orders [facility] Specimen Processing [address] [place] [address] Omid De Jesus MD [address] [place] [address] [place] [address] Diagnosis unknown (Primary Dx) Social History Tobacco Use Types Packs/Day Years Used Date Smoking Tobacco: Never Assessed Sex and Gender Information Value Date Recorded Sex Assigned at Not on file Legal Sex Male 10:12 PM EDT Gender Identity Not on file Sexual Orientation Not on file documented as of this encounter Plan of Treatment Not on file documented as of this encounter Results * (ABNORMAL) CBC and differential (03/06/2019 9:05 AM EST) WBC 5.22 3.40 - 11.20 K/uL [facility] RBC 4.14(L) 4.50 - 5.50 M/uL [facility] HGB 12.2(L) 13.0 - 17.0 g/dL [facility] HCT 38.2(L) 40.0 - 51.0 % [facility] PLT 219 130 - 400 K/uL [facility] MCV 92.3 79.0 - 98.0 fL [facility] MCH 29.5 27.0 - 34.8 pg [facility] MCHC 31.9 31.5 - 36.0 g/dL [facility] RDW 17.6(H) 10.8 - 14.6 % [facility] MPV 9.7 9.4 - 12.4 [facility] NRBC 0.00 0.00 /100 WBCs [facility] ABSOLUTE NRBC 0.00 0.00 K/uL [facility] DIFF METHOD Auto [facility] NEUTS 49.3 45.30 - 77.70 % [facility] LYMPHS 32.8 12.30 - 39.70 % [facility] MONOS 9.2 4.10 - 12.80 % [facility] EOS 6.9 0 - 7.2 % [facility] BASOS 0.8 0 - 2.80 % [facility] Granulocytes, immature (%) 1.0(H) 0.0 - 0.9 % [facility] ABSOLUTE NEUTS 2.58 1.40 - 7.70 K/uL [facility] ABSOLUTE LYMPHS 1.71 0.60 - 3.20 K/uL [facility] ABSOLUTE MONOS 0.48 0.11 - 0.59 K/uL [facility] ABSOLUTE EOS 0.36 0.01 - 0.50 K/uL [facility] ABSOLUTE BASOS 0.04 0.00 - 0.08 K/uL [facility] Granulocytes, immature 0.05 0.00 - 0.05 K/uL [facility] Blood 03/06/2019 9:05 AM EST 03/06/2019 5:25 PM EST us Omid De Jesus MD LAB BLOOD ORDERABLES Final Result [facility] [address] [place] [address] documented in this encounter Visit Diagnoses Diagnosis Diagnosis unknown- Primary documented in this encounter Care Teams Publisher Assistant Relationship Specialty Start Date End Date Omid De Jesus MD [address] [place] [address] [place] [address] PCP - General Internal Medicine 04/04/18 10/13/24 Dona Cancino MD [address] [place] [address] Drive [address] [place] [phone] PCP - General Internal Medicine 10/14/24 documented as of this encounter Additional Source Comments The information contained in this document represents components of the legal health record. It is not the complete legal health record.[facility]
== END 2024-10-21 08:48 | disposition home or self-care (01) ==
LOC: HO.MRI 08:47
PROVIDERS: PCP Internal Medicine; Visit Provider Internal Medicine
DX: R16.0 Hepatomegaly, not elsewhere classified (principal)
CPT/HCPCS: 74183; A9585

== ENCOUNTER → 2024-10-31 13:11 | Outpatient (BNV) | payer MEDICARE, SELFPAY | PROVIDERS: PCP Internal Medicine; Referring Provider Internal Medicine; Visit Provider Internal Medicine Medical Oncology | DX: C22.0 Liver cell carcinoma (principal) | CPT/HCPCS: 99204 ==

== ENCOUNTER 2024-11-27 09:20 | Outpatient (AMB) | payer MEDICARE, SELFPAY ==
--- NOTE | 2024-11-27 09:32 | MHC.OFFVIS ---
Vital Signs 11/27/24 09:33 Height 6 ft 2 in Weight 222 lb 10.67 oz BMI 28.6 BP 126/74 Blood Pressure Location Lt brachial Position Sitting Pulse 82 Intake Visit Reasons: f/u [facility] dc Intake Note: Follow-up [facility] dc with ekg c/o sob [place] Required: No Allergies apixaban (From ELIQUIS) Allergy (Unknown, Verified 10/31/24 13:25) BLEEDING ezetimibe (From ZETIA) Allergy (Unknown, Verified 10/31/24 13:25) UNKNOWN guaifenesin (From ROBITUSSIN) Allergy (Unknown, Verified 10/31/24 13:25) UNKNOWN Ljudkhh-BRF-KsJ Reductase Inhibitor (MFJBHGD-XUP-ZHE REDUCTASE INHIBITOR) Allergy (Unknown, Verified 10/31/24 13:25) UNKNOWN Medication List - Last Reconciled 11/27/24 by Rickey Cardoza MD amiodarone 100 mg (1/2 x 200 mg) PO DAILY furosemide (Lasix) 40 mg PO DAILY lisinopril 5 mg PO BEDTIME prednisone 10 mg PO Q7D PRN tamsulosin 0.4 mg PO BEDTIME HPI Comments Details: Mitch comes for follow-up after recent hospitalization for sepsis at which time he was noted to be in atrial fibrillation was seen by us. He was not in any overt heart failure although appear to be fluid overloaded and did get IV diuresis. However he has also diagnose with hepatocellular carcinoma with a focal lesion in the liver for which she just underwent percutaneous intervention with radiofrequency ablation at [facility] [place]. Awaiting MRI. He comes for follow-up today, currently on low-dose amiodarone therapy. He is not taking aspirin therapy as he is supposed to as he said he bleeds a lot when he gets cut. He is still tries to be active and go to work every day. He however says that he is very much more short of breath since the last time I saw him and can barely walk few steps. Denies any orthopnea, abdominal distension, leg edema. Denies any palpitations. He has not had any syncopal episodes. He has not had any other bleeding issues. [facility] Medical History Fever of unknown origin (HFpEF) heart failure with preserved ejection fraction Paroxysmal atrial fibrillation HTN (hypertension) Hyperlipidemia CAD (coronary artery disease) SVT (supraventricular tachycardia) Tricuspid regurgitation Presence of Watchman left atrial appendage closure device Surgical History S/P cardiac cath Hx of CABG Stented coronary artery History of kidney surgery History of cardiac radiofrequency ablation History of carpal tunnel release Hx of heart surgery Family History Father CVD (cardiovascular disease) Mother Sudden cardiac Family/Other Sudden cardiac Social History Household Members: Other Housing: House Do you presently have visiting nurse or other home services: No Alcohol intake: current Alcohol intake frequency: a few times a week Comment: 2 drinks gin Q night Patient Tobacco Use Status: Never used Tobacco e-Cigarette/Vaping Use: Never Used Second Hand Smoke Exposure: No service: No Current occupational status: employed Current occupational exposures/hazards: No Cognitive needs: Yes Hearing needs: No Vision needs: No Review of Systems Const Denies chills, Denies fatigue, Denies fever(s), Denies frequent falls, Denies weakness, Denies weight gain and Denies weight loss ENT Denies dizziness Card Denies chest pain, Denies leg edema, Denies lightheadedness, Denies palpitations, Denies dyspnea, Denies dyspnea on exertion, Denies orthopnea and Denies other (loss of consciousness) Resp Denies cough, Denies dyspnea and Denies dyspnea on exertion GI Denies hematochezia and Denies change in stool character Musc Denies abnormal gait, Denies muscle weakness, Denies numbness, Denies radiating pain into limb and Denies tingling Neuro Denies abnormal gait, Denies dizziness, Denies frequent falls, Denies numbness, Denies tingling and Denies weakness Endo Denies fatigue and Denies palpitations Physical Exam Vital Signs: Last Vital Signs Pulse 82 11/27/24 09:33 BP 126/74 11/27/24 09:33 BMI result Body Mass Index 28.6 Const General: cooperative, comfortable, no acute distress, alert, awake and well groomed Nutritional Appearance: overweight Orientation/consciousness: patient oriented x3 Limitations: no limitations Neck Neck: Yes trachea midline, Yes supple and Yes no JVD Resp Effort & Inspection: normal respiratory effort Auscultation: clear to auscultation bilaterally Cardio Jugular venous distension: no JVD Palpation: normal PMI Rhythm: abnormal rhythm irregularly irregular Heart sounds: S1 normal heart sound present and S2 normal heart sound present GI Auscultation: normal bowel sounds Skin General skin exam: no rashes or lesions noted and dry skin Neuro General: patient oriented x3 and no focal motor deficits Extrem General: Yes no clubbing, cyanosis or edema Psych Appearance: grossly normal Office Procedures EKG Details: EKGs shows atrial fibrillation with inferior infarct with poor R-wave progression low-voltage QRS. [id number], Complete Assessment & Plan Assessment & Plan (1) Persistent atrial fibrillation: Code(s): I48.19 - Other persistent atrial fibrillation Category: Medical Plan: Persistent atrial fibrillation rate control with significant symptoms which is the only explanation for his recent symptoms. Deconditioning can possibly explain it. No signs or symptoms of heart failure. He had done very well with rhythm control approach in the past and will pursue this. However complexity with rhythm management in his case was discussed given his Watchman device. He will need Re loading with amiodarone, which will be done with 400 mg b.i.d. for 2 weeks followed by synchronized cardioversion. Cardioversion will be preceded by FORD to rule out any evidence of thrombi in the left atrial cavity or on top of the Watchman device. If there are no thrombi he will need short term oral anticoagulation therapy for 4 weeks. This was discussed with him. Importance of daily aspirin therapy was discussed given presence of Watchman device. He understands. Overall management was discussed in details including risks, benefits, alternatives for FORD as well as synchronized cardioversion. Both patient and patient's daughter understand. (2) (HFpEF) heart failure with preserved ejection fraction: Code(s): I50.30 - Unspecified diastolic (congestive) heart failure Category: Medical Plan: Heart failure preserved ejection fraction, clinically euvolemic and well compensated. Currently on furosemide 40 mg daily as listed. Management was discussed. He has no signs of fluid overload despite persistent atrial fibrillation but remains significantly symptomatic related to loss of AV synchrony with underlying diastolic dysfunction as well as RV enlargement and dysfunction. Will pursue rhythm control approach as above. Continue current diuretic dose. Daily weight monitoring avoidance salt loading was discussed additional diuretics as need be. (3) CAD (coronary artery disease): Code(s): I25.10 - Atherosclerotic heart disease of [place] coronary artery without angina pectoris Category: Medical Plan: CAD status post prior coronary artery bypass grafting as well as stenting. Currently no symptoms suggestive of angina. Continue blood pressure control which is well optimized. Symptoms are most likely related to atrial fibrillation as above. He has refused statin therapy or other lipid modification in the past. Currently on aspirin therapy which is strongly recommended. Will follow up in the clinic after cardioversion in 4-6 weeks time. Greater than 40 minutes was spent in managing his complex care. Orders: Orders Cardioversion 2 Weeks I48.19 - Other persistent atrial fibrillation CA echo transesophageal 2 Weeks I48.19 - Other persistent atrial fibrillation Medications: New amiodarone 400 mg PO BID 30 tabs 0RF Discontinued amiodarone Discontinued Reason: Doctor's Order 100 mg (1/2 x 200 mg) PO DAILY 45 tabs 3RF Coding Level of Care Code Est Pt Level 5 (35986) Complex EM visit Add On G2211 Diagnoses Persistent atrial fibrillation I48.19 (HFpEF) heart failure with preserved ejection fraction I50.30 CAD (coronary artery disease) I25.10 CPT Codes EKG - CPT: 91054-Jgrosexnduhdveifx, Complete ([id number])
[2024-11-27 09:33] VITALS: BP 126/74; PULSE 82; BMI 28.6
--- OUTSIDE RECORDS SUMMARY | 2024-11-27 10:35 | XMS_ITS | Encounter Summary ---
Author Organization [facility] Address [address] [place] [address] Phone Care Team Providers Care Licensed Loan Officer Assistant Name Role Phone Omid De Jesus MD Primary Care Provider Dona Cancino MD Primary Care Provider Encounter Details Date Type Department Care Team (Latest Contact Info) Description 06/25/2018 Transcribe Orders Virtual Department [address] [place] [address] Ángel Mosqueda PA [address] [place] [phone] Neck pain (Primary Dx) Social History Tobacco [...] Cervicalgia documented in this encounter Care Teams Licensed Loan Officer Assistant Relationship Specialty Start Date End Date Omid De Jesus MD [address] [place] [address] [place] [address] PCP - General Internal Medicine 04/04/18 10/13/24 Dona Cancino MD [address] [place] [address] Drive [address] [place] [address] PCP - General Internal Medicine 10/14/24 documented as of this encounter Additional Source Comments The information contained in this document represents components of the legal health record. It is not the complete legal health record.[facility]
--- OUTSIDE RECORDS SUMMARY | 2024-11-27 10:35 | XMS_ITS | Encounter Summary ---
Author Organization [facility] Address [address] [place] [address] Phone Care Team Providers Care Equipment Operator/Laborer/Supervisor Name Role Phone Omid De Jesus MD Primary Care Provider Dona Cancino MD Primary Care Provider [phone] Encounter Details Date Type Department Care Team (Late st Contact Info) Description 04/05/2018 Ancillary Orders Virtual Department [address] [place] [address] Rebel Duke MD [address] [place] [address] [email or web address] Cold right foot; No pulse Social [...] catheter directed imaging may be considered. Code 44303.52 35821 Narrative 04/05/2018 5:30 PM EST History: 77-year-old male. No pulse right foot, cold foot, status-post surgery. Question arterial insufficiency. LINDA assessment desired. Hypertension: Yes. Diminished pulses: Yes. AL: Yes. Findings: Bilateral ankle brachial indices performed. [...] assessment desired. Hypertension: Yes. Diminished pulses: Yes. AL: Yes. Findings: Bilateral ankle brachial indices performed. [...] catheter directed imaging may be considered. Code 71319.52 [address]69[address] us Rebel Duke MD CV US VASCULAR Final R esult documented in this encounter Visit Diagnoses Diagnosis Cold right foot No pulse Other symptoms involving cardiovascular system Cold right foot No pulse Other symptoms involving cardiovascular system documented in this encounter Care Teams Equipment Operator/Laborer/Supervisor Relationship Specialty Start Date End Date Omid De Jesus MD [address] [place] [address] [address] [place] [address] PCP - General Internal Medicine 04/04/18 10/13/24 Dona Cancino MD [address] [place] [address] Drive [address] [place] [address] PCP - General Internal Medicine 10/14/24 documented as of this encounter Additional Source Comments The information contained in this document represents components of the legal health record. It is not the complete legal health record.[facility]
--- OUTSIDE RECORDS SUMMARY | 2024-11-27 10:35 | XMS_ITS | Patient Health Record ---
Author Organization [facility] Address [address] [place] [address] Care Team Providers Care Map Maker Name Role Phone Dona Cancino MD Primary Care Provider Leonard Khoury Jr Reason For Referral No Information Medications Medication SIG (Take, Route, Frequency, Duration) Notes Start Date End Date Status Aspir-81 81 MG 1 tablet Orally Once a day 08/14/19 14 Active Metoprolol Tartrate 50 MG TAKE 1 TABLET BY MOUTH EVERY MORNING Oral; Duration: 30 Active Lisinopril 10 MG TAKE 1 TABLET BY RAMIRO TH EVERY MORNING Oral; Duration: 30 Active Pradaxa 150 MG TAKE 1 TABLET BY RAMIRO TH EVERY MORNING Oral; Duration: 30 Active Colyte with Flavor Packs 240 GM As directed Orally Over the specified time.; Duration: 1 day(s) 08/13/2013 Active Problems Problem Type SNOMED Code ICD Code Onset Dates Problem Status W/U Status Risk Notes Problem Colon cancer screening (531329391) Colon cancer screening (V76.51) Active confirmed Problem Already on aspirin (986229869) [facility] current use of aspirin (V58.66) Active confirmed Problem Long-term current use of anticoagulant (470245937) manager intermediate (current) use of anticoagulants (V58.61) Active confirmed Encounters Encounter Location Date Provider Diagnosis [facility] [address] [place] [phone] 10/28/2024 Leonard Hooker Jr Plan Of Treatment Pending Test Test Name Order Date GI BIOPSY 11/24/2014 Future Test Test Name Order Date COLONOSCOPY 08/13/2013 Insurance Providers Payer Name Payer Address Payer Phone Subscriber Number Group Number Insured Name Patient Relationship to Insured Coverage Start Date Coverage End Date MEDICARE OF [place] [address] [place] [address] [id number] [employer] Self - patient is the insured [employer] ATTN CLAIMS [address] [place] [address] [phone] [id number] [employer] Self - patient is the insured Medical (General) History Medical History History ICD Code Colonoscopy, 2008, tubular adenoma Hypertension coronary artery disease with stent place ment SVT with ablation atrial fibrillation
--- OUTSIDE RECORDS SUMMARY | 2024-11-27 10:35 | XMS_ITS | Encounter Summary ---
Author Organization [facility] Address [address] [place] [address] Phone Care Team Providers Care Box Toe Maker Name Role Phone Omid De Jesus MD Primary Care Provider [phone] Dona Cancino MD Primary Care Provider [phone] Encounter Details Date Type Department Care Team (Late st Contact Info) Description 04/04/2018 Ancillary Orders Virtual Department [address] [place] [address] Rebel Duke MD [address] [place] [address] [email or web address] Social History Tobacco Use Types Packs/Day [...] on filedocumented in this encounter Care Teams Box Toe Maker Relationship Specialty Start Date End Date Omid De Jesus MD [address] [place] [address] [address] [place] [address] PCP - General Internal Medicine 04/04/18 10/13/24 Dona Cancino MD [address] [place] [address] PCP - General Internal Medicine 10/14/24 documented as of this encounter Additional Source Comments The information contained in this document represents components of the legal health record. It is not the complete legal health record.[facility]
--- OUTSIDE RECORDS SUMMARY | 2024-11-27 10:35 | XMS_ITS | Encounter Summary ---
Author Organization [facility] Address [address] [place] [address] Phone Care Team Providers Care Director Of Early Childhood Name Role Phone Omid De Jesus MD Primary Care Provider Dona Cancino MD Primary Care Provider Encounter Details Date Type Department Care Team (Late st Contact Info) Description 04/04/2018 Ancillary Orders Virtual Department [address] [place] [address] Rebel Duke MD [address] [place] [address] [email or web address] Cold right foot; No pulse Social [...] system documented in this encounter Care Teams Director Of Early Childhood Relationship Specialty Start Date End Date Omid De Jesus MD [address] [place] [address] [address] PCP - General Internal Medicine 04/04/18 10/13/24 Dona Cancino MD [address] [place] [phone] PCP - General Internal Medicine 10/14/24 documented as of this encounter Additional Source Comments The information contained in this document represents components of the legal health record. It is not the complete legal health record.[facility]
--- OUTSIDE RECORDS SUMMARY | 2024-11-27 10:35 | XMS_ITS | Clinical Summary ---
Author Organization [facility] Address [address] [place] [address] Phone Care Team Providers Care Pinion Staker Name Role Phone Dona Cancino MD Primary Care Provider [phone] Allergies No known active allergies Medications tamsulosin [...] Encounters Date Type Department Care Team Description 10/22/2024 Home Care Visit [facility] [address] [place] [address] Catherine Castillo RN NON ADMIT HOME HEALTH VISIT 10/13/2024 Orders Only [facility] [address] [place] [address] Homehealth, Interface ProviderMD from Last 3 Months [...] file Insurance [place] [id number] [place] [employer] MEDEX SUPPLEMENT MEDICARE PART A & B [facility] MEDEX SUPPLEMENT MEDICARE PART A & B [employer] MEDEX SUPPLEMENT MEDICARE PART A & B [employer] MEDEX SUPPLEMENT MEDICARE PART A & B [employer] MEDEX SUPPLEMENT MEDICARE PART A & B [employer] MEDEX SUPPLEMENT MEDICARE PART A & B [facility] MEDEX SUPPLEMENT MEDICARE PART A & B [employer] MEDEX SUPPLEMENT MEDICARE PART A & B [employer] MEDEX SUPPLEMENT Care Teams Pinion Staker Relationship Specialty Start Date End Date Dona Cancino MD [address] [place] [phone] PCP - General Internal Medicine 10/14/24 Additional Source Comments The information contained in this document represents components of the legal health record. It is not the complete legal health record.[facility]
== END 2024-11-27 10:09 | disposition home or self-care (01) ==
LOC: HO.HCS 09:21
PROVIDERS: PCP Internal Medicine; Visit Provider Internal Medicine Cardiovascular Disease
DX: I48.19 Other persistent atrial fibrillation (principal); I50.30 Unspecified diastolic (congestive) heart failure; I25.10 Atherosclerotic heart disease of native coronary artery without angina pectoris
CPT/HCPCS: 93010; 99215; G2211

== ENCOUNTER → 2024-11-27 09:20 | Outpatient (BNVA) | payer MEDICARE, SELFPAY | PROVIDERS: PCP Internal Medicine; Visit Provider Internal Medicine Cardiovascular Disease | DX: I48.19 Other persistent atrial fibrillation (principal); I25.10 Atherosclerotic heart disease of native coronary artery without angina pectoris; I11.0 Hypertensive heart disease with heart failure; I50.30 Unspecified diastolic (congestive) heart failure | CPT/HCPCS: 93005; 99212 ==

== ENCOUNTER 2024-12-10 08:52 | Outpatient (AMB) | payer MEDICARE, SELFPAY ==
--- NOTE | 2024-12-10 09:13 | A.OFFVIS_ITS ---
Intake Visit Reasons: Cysto Intake Note: Patient is present for Cystoscopy (Hematuria) Urology Med: Tamsulosin Antibiotic Allergy: Blood Thinner: None Airplane Captain Required: No Allergies apixaban (From ELIQUIS) Allergy (Unknown, Verified 12/10/24 09:21) BLEEDING ezetimibe (From ZETIA) Allergy (Unknown, Verified 12/10/24 09:21) UNKNOWN guaifenesin (From ROBITUSSIN) Allergy (Unknown, Verified 12/10/24 09:21) UNKNOWN Sppbfdj-RNS-QwZ Reductase Inhibitor (UUBGCAD-YCG-SKU REDUCTASE INHIBITOR) Allergy (Unknown, Verified 12/10/24 09:21) UNKNOWN HPI Comments Details: Cipriano is a pleasant male. He is a patient of Dr. Cancino. He is seen for the following urologic conditions - bladder outlet obstruction with UTI in emergency room Had been seen in emergency room with UTI and hematuria Cardiac history includes paroxysmal AFib status post ablation, CAD status post CABG, tricuspid regurg, heart failure, essential hypertension and dyslipidemia No recurrent Bladder outlet obstruction Restart tamsulosin with finasteride UA had shown positive leukesterase, urine culture less than 10,000 CFU but symptomatic PFSH Medical History (Updated 12/10/24 @ 09:44 by David Ventura MD) Liver mass Liver mass, right lobe Fever of unknown origin (HFpEF) heart failure with preserved ejection fraction Paroxysmal atrial fibrillation HTN (hypertension) Hyperlipidemia CAD (coronary artery disease) SVT (supraventricular tachycardia) Tricuspid regurgitation Presence of Watchman left atrial appendage closure device Surgical History S/P cardiac cath Hx of CABG Stented coronary artery History of kidney surgery History of cardiac radiofrequency ablation History of carpal tunnel release Hx of heart surgery Family History Father CVD (cardiovascular disease) Mother Sudden cardiac Family/Other Sudden cardiac Social History Household Members: Other Housing: House Do you presently have visiting nurse or other home services: No Alcohol intake: current Alcohol intake frequency: a few times a week Comment: 2 drinks gin Q night Patient Tobacco Use Status: Never used Tobacco e-Cigarette/Vaping Use: Never Used Second Hand Smoke Exposure: No service: No Current occupational status: employed Current occupational exposures/hazards: No Cognitive needs: Yes Hearing needs: No Vision needs: No Review of Systems Const Denies chills and Denies fever(s) Card Reports no additional complaints and Denies syncope Resp Denies cough GI Denies abdominal pain and Denies heartburn Reports as per HPI and Denies change in libido Neuro Denies syncope Psych Denies change in libido Endo Denies change in libido Physical Exam Const General: cooperative, healthy appearing, comfortable and no acute distress Orientation/consciousness: patient oriented x3 HEENT Face and sinus: Yes normal facial exam Mouth: moist mucous membranes Neck Neck: Yes normal visual inspection, Yes full ROM and Yes trachea midline Chest Chest palpation & inspection: normal inspection of the chest Resp Effort & Inspection: normal respiratory effort, able to speak in complete sente nces and no respiratory distress GI Inspection: Yes normal to inspection Back/Spine/Pelvis Cervical Spine: normal cervical lordosis Thoracic/Lumbar Spine: thoracic and lumbar spine normal to inspection Skin General skin exam: no rashes or lesions noted Neuro General: patient oriented x3, gait normal, tone normal and moves all extremities Extrem General: Yes normal to inspection and Yes capillary refill normal Results AMB Urinalysis, Automated UA Leukoctes 0 Velvet/uL Last Edit by Sara Rey [facility] on 12/10/24 09:31 UA Nitrite Negative Last Edit by Sara Rey [facility] on 12/10/24 09:31 UA Urobilinogen 0.2 mg/dL Last Edit by Sara Rey [facility] on 12/10/24 09:3 1 UA Protein 30 mg/dL Last Edit by Sara Rey [facility] on 12/10/24 09:31 UA pH 6.0 Last Edit by Sara Rey [facility] on 12/10/24 09:31 UA Blood 0 Les/uL Last Edit by Sara Rey [facility] on 12/10/24 09:31 UA Specific [place] 1.020 Last Edit by Sara Rey [facility] on 12/10/24 09: 31 UA Ketone Negative Last Edit by Sara Rey [facility] on 12/10/24 09:31 UA Bilirubin 0 mg/dL Last Edit by Sara Rey [facility] on 12/10/24 09:31 UA Glucose 0 mg/dL Last Edit by IGNACIO Page on 12/10/24 09:31 Assessment & Plan Assessment & Plan (1) Bladder outlet obstruction: Code(s): N32.0 - Bladder-neck obstruction Category: Medical Plan Start finasteride Orders: Orders AMB Urinalysis Automated Today Z13.9 - Encounter for screening, unspecified Medications: New finasteride 5 mg PO DAILY 90 tabs 1RF 90 days Changed From tamsulosin 0.4 mg PO BEDTIME To tamsulosin 0.4 mg PO BEDTIME 90 caps 1RF 90 days Coding Level of Care Code Est Pt Level 4 (55658) Diagnoses Bladder outlet obstruction N32.0
--- OUTSIDE RECORDS SUMMARY | 2024-12-10 09:47 | XMS_ITS | Encounter Summary ---
Author Organization [facility] Address [address] [place] [address] Phone Care Team Providers Care Trim Die Maker Name Role Phone Omid De Jesus MD Primary Care Provider [phone] Dona Cancino MD Primary Care Provider [phone] Encounter Details Date Type Department Care Team (Late st Contact Info) Description 04/04/2018 Ancillary Orders Virtual Department [address] [place] [address] Rebel Duke MD [address] [place] [id number] [email or web address] Social History Tobacco Use Types Packs/Day [...] on filedocumented in this encounter Care Teams Trim Die Maker Relationship Specialty Start Date End Date Omid De Jesus MD [address] [place] [address] [address] [place] [address] PCP - General Internal Medicine 04/04/18 10/13/24 Dona Cancino MD [address] [place] [phone] PCP - General Internal Medicine 10/14/24 documented as of this encounter Additional Source Comments The information contained in this document represents components of the legal health record. It is not the complete legal health record.[facility]
--- OUTSIDE RECORDS SUMMARY | 2024-12-10 09:47 | XMS_ITS | Encounter Summary ---
Author Organization [facility] Address [address] [place] [address] Phone Care Team Providers Care Inpatient Pharmacist Name Role Phone Omid De Jesus MD Primary Care Provider Dona Cancino MD Primary Care Provider [phone] Encounter Details Date Type Department Care Team (Late st Contact Info) Description 03/06/2019 Transcribe Orders [facility] Specimen Processing [address] [place] [address] Omid De Jesus MD [address] [place] [address] [place] [address] Diagnosis unknown (Primary Dx) Social History Tobacco [...] EST) WBC 5.22 3.40 - 11.20 K/uL [facility] RBC 4.14(L) 4.50 - 5.50 M/uL [facility] HGB 12.2(L) 13.0 - 17.0 g/dL [facility] HCT 38.2(L) 40.0 - 51.0 % [facility] PLT 219 130 - 400 K/uL [facility] MCV 92.3 79.0 - 98.0 fL [facility] MCH 29.5 27.0 - 34.8 pg [facility] MCHC 31.9 31.5 - 36.0 g/dL [facility] RDW 17.6(H) 10.8 - 14.6 % [facility] MPV 9.7 9.4 - 12.4 [facility] NRBC 0.00 0.00 /100 WBCs [facility] ABSOLUTE NRBC 0.00 0.00 K/uL [facility] DIFF METHOD Auto [facility] NEUTS 49.3 45.30 - 77.70 % [facility] LYMPHS 32.8 12.30 - 39.70 % [facility] MONOS 9.2 4.10 - 12.80 % [facility] EOS 6.9 0 - 7.2 % [facility] BASOS 0.8 0 - 2.80 % [facility] Granulocytes, immature (%) 1.0(H) 0.0 - 0.9 % [facility] ABSOLUTE NEUTS 2.58 1.40 - 7.70 K/uL [facility] ABSOLUTE LYMPHS 1.71 0.60 - 3.20 K/uL [facility] ABSOLUTE MONOS 0.48 0.11 - 0.59 K/uL [facility] ABSOLUTE EOS 0.36 0.01 - 0.50 K/uL [facility] ABSOLUTE BASOS 0.04 0.00 - 0.08 K/uL [facility] Granulocytes, immature 0.05 0.00 - 0.05 K/uL [facility] Blood 03/06/2019 9:05 AM EST 03/06/2019 5:25 PM EST us Omid De Jesus MD LAB BLOOD ORDERABLES Final Result [facility] [address] [place] [address] documented in this encounter Visit Diagnoses Diagnosis Diagnosis unknown- Primary documented in this encounter Care Teams Inpatient Pharmacist Relationship Specialty Start Date End Date Omdi De Jesus MD [address] [place] [address] [place] [address] PCP - General Internal Medicine 04/04/18 10/13/24 Dona Cancino MD [address] [place] [address] [address] [place] [phone] PCP - General Internal Medicine 10/14/24 documented as of this encounter Additional Source Comments The information contained in this document represents components of the legal health record. It is not the complete legal health record.[facility]
--- OUTSIDE RECORDS SUMMARY | 2024-12-10 09:47 | XMS_ITS | Patient Health Record ---
Author Organization [facility] Address [address] [place] [phone] Care Team Providers Care Farmworker Fruit Name Role Phone Dona Cancino MD Primary [...] Status Risk Notes Problem Colon cancer screening (149134346) Colon cancer screening (V76.51) Active confirmed Problem Already on aspirin (076206376) half-way current use of aspirin (V58.66) Active confirmed Problem Long-term current use of anticoagulant (791849336) extermination supervisor (current) use of anticoagulants (V58.61) Active confirmed Encounters Encounter Location Date Provider Diagnosis [facility] [address] [place] [phone] 10/28/2024 Leonadr Hooker Jr Plan Of Treatment Pending Test Test Name Order Date GI BIOPSY 11/24/2014 Future Test Test Name Order Date COLONOSCOPY 08/13/2013 Insurance Providers Payer Name Payer Address Payer Phone Subscriber Number Group Number Insured Name Patient Relationship to Insured Coverage Start Date Coverage End Date MEDICARE OF [place] [address] [place] [address] [id number] COLEMAN WHEAT Self - patient is the insured MEDEX ATTN CLAIMS [address] [place] [address] [id number] COLEMAN WHEAT Self - patient is the insured Medical (General) History Medical History History ICD Code Colonoscopy, 2008, tubular adenoma Hypertension coronary artery disease with stent place ment SVT with ablation atrial fibrillation
--- OUTSIDE RECORDS SUMMARY | 2024-12-10 09:47 | XMS_ITS | Encounter Summary ---
Author Organization [facility] Address [address] [place] [address] Phone Care Team Providers Care Operations Lead Name Role Phone Omid De Jesus MD Primary Care Provider [phone] Dona Cancino MD Primary Care Provider Encounter Details Date Type Department Care Team (Late st Contact Info) Description 04/04/2018 Ancillary Orders Virtual Department [address] [place] [address] Rebel Duke MD [address] [place] [phone] [email or web address] Cold right foot; No pulse Social [...] system documented in this encounter Care Teams Operations Lead Relationship Specialty Start Date End Date Omid De Jesus MD [address] [place] [address] [address] [place] [address] PCP - General Internal Medicine 04/04/18 10/13/24 Dona Cancino MD [address] [place] [phone] PCP - General Internal Medicine 10/14/24 documented as of this encounter Additional Source Comments The information contained in this document represents components of the legal health record. It is not the complete legal health record.[facility]
--- OUTSIDE RECORDS SUMMARY | 2024-12-10 09:47 | XMS_ITS | Encounter Summary ---
Author Organization [facility] Address [address] [place] [address] Phone Care Team Providers Care Top Steep Tender Name Role Phone Omid De Jesus MD Primary Care Provider Dona Cancino MD Primary Care Provider [phone] Encounter Details Date Type Department Care Team (Latest Contact Info) Description 06/25/2018 Transcribe Orders Virtual Department [address] [place] [address] Ángel Mosqueda PA [address] [place] [address] Neck pain (Primary Dx) Social History Tobacco [...] Cervicalgia documented in this encounter Care Teams Top Steep Tender Relationship Specialty Start Date End Date Omid De Jesus MD [address] [place] [address] [place] [address] PCP - General Internal Medicine 04/04/18 10/13/24 Dona Cancino MD [address] [place] [address] Drive [address] [place] [address] PCP - General Internal Medicine 10/14/24 documented as of this encounter Additional Source Comments The information contained in this document represents components of the legal health record. It is not the complete legal health record.[facility]
--- OUTSIDE RECORDS SUMMARY | 2024-12-10 09:47 | XMS_ITS | Clinical Summary ---
Author Organization [facility] Address [address] [place] [address] Phone Care Team Providers Care Small Electric Engine Technician Name Role Phone Dona Cancino MD Primary Care Provider [phone] Allergies No known active allergies Medications tamsulosin [...] Team Description 10/22/2024 Home Care Visit [facility] [address] [place] [address] Catherine Castillo RN NON ADMIT HOME HEALTH VISIT 10/13/2024 Orders Only [facility] [address] [place] [address] Homehealth, Interface ProviderMD from Last 3 Months [...] Insurance [place] PART A [place] [address] [employer] MEDEX SUPPLEMENT MEDICARE PART A & B [facility] MEDEX SUPPLEMENT MEDICARE PART A & B [employer] MEDEX SUPPLEMENT MEDICARE PART A & B [employer] MEDEX SUPPLEMENT MEDICARE PART A & B [employer] MEDEX SUPPLEMENT MEDICARE PART A & B [employer] MEDEX SUPPLEMENT MEDICARE PART A & B [facility] MEDEX SUPPLEMENT MEDICARE PART A & B Member Subscriber Plan / Payer (Ef fective 2004-Present) Name:Cipriano Wheat Member ID:[id number] Relation to Subscriber:Self Name:Cipriano Wheat Subscriber ID:[id number] Payer ID:[id number] Group ID:Not on file Type:Medicare Address: [employer] [address] [place] [address] [employer] MEDEX SUPPLEMENT MEDICARE PART A & B Member Subscriber Plan / Payer (Ef fective 2004-) Name:Cipriano Wheat Member ID:[id number] Relation to Subscriber:Self Name:Cipriano Wheat Subscriber ID:[id number] Payer ID:[id number] Group ID:Not on file Type:Medicare Address: [employer] [address] [place] [phone] [employer] MEDEX SUPPLEMENT Care Teams Small Electric Engine Technician Relationship Specialty Start Date End Date Dona Cancino MD [address] [place] [phone] PCP - General Internal Medicine 10/14/24 Additional Source Comments The information contained in this document represents components of the legal health record. It is not the complete legal health record.[facility]
--- OUTSIDE RECORDS SUMMARY | 2024-12-10 09:47 | XMS_ITS | Encounter Summary ---
Author Organization [facility] Address [address] [place] [address] Phone Care Team Providers Care Track Worker Name Role Phone Omid De Jesus MD Primary Care Provider [phone] Dona Cancino MD Primary Care Provider [phone] Encounter Details Date Type Department Care Team (Late st Contact Info) Description 04/05/2018 Ancillary Orders Virtual Department [address] [place] [address] Rebel Duke MD [address] [place] [address] [email or web address] Cold right foot; No pulse Social [...] catheter directed imaging may be considered. Code 09623.52 [id number] Narrative 04/05/2018 5:30 PM EST History: 77-year-old male. No pulse right foot, cold foot, status-post surgery. Question arterial insufficiency. LINDA assessment desired. Hypertension: Yes. Diminished pulses: Yes. OH: Yes. Findings: Bilateral ankle brachial indices performed. [...] assessment desired. Hypertension: Yes. Diminished pulses: Yes. OH: Yes. Findings: Bilateral ankle brachial indices performed. [...] catheter directed imaging may be considered. Code 36619.52 [id number] us Rebel Duke MD CV US VASCULAR Final R esult documented in this encounter Visit Diagnoses Diagnosis Cold right foot No pulse Other symptoms involving cardiovascular system Cold right foot No pulse Other symptoms involving cardiovascular system documented in this encounter Care Teams Track Worker Relationship Specialty Start Date End Date Omid De Jesus MD [address] [place] [address] [address] [place] [address] PCP - General Internal Medicine 04/04/18 10/13/24 Dona Cancino MD [address] [place] [address] [address] [place] [address] PCP - General Internal Medicine 10/14/24 documented as of this encounter Additional Source Comments The information contained in this document represents components of the legal health record. It is not the complete legal health record.[facility]
== END 2024-12-10 09:43 | disposition home or self-care (01) ==
LOC: HO.HUSH 08:53
PROVIDERS: PCP Internal Medicine; Visit Provider Urology
DX: N32.0 Bladder-neck obstruction (principal); Z13.9 Encounter for screening, unspecified
CPT/HCPCS: 99214

== ENCOUNTER → 2024-12-10 08:52 | Outpatient (BNVA) | payer MEDICARE, SELFPAY | PROVIDERS: PCP Internal Medicine; Visit Provider Urology | DX: N32.0 Bladder-neck obstruction (principal); R31.9 Hematuria, unspecified; Z13.9 Encounter for screening, unspecified | CPT/HCPCS: 81003; 99212 ==

== ENCOUNTER 2024-12-17 11:17 | Day surgery (SDC) | payer MEDICARE, SELFPAY ==
[2024-12-08 10:52] VITALS: BMI 28.6
--- NOTE | 2024-12-08 11:42 | P.CONAN_ITS ---
Documented by User: Alisa Hull NP 12/15/24 12:48 HPI - Anesthesia Eval Consult details Narrative: 84 yr old male for Transesophageal Echocardiogram, Cardioversion K+ was high on last labs 10/31/24, DOS electrolytes ordered. Atrial fibrillation: Has Watchman, on amiodorone, ASA HF with preserved EF: on daily furosemide, *see echo below. CAD: H/O CABG, underwent cardiac cath at [facility] 09/2023 showing patent BURTON to LAD. Mid LAD is 100% stenosis. Proximal LAD 90% heavily calcified stenosis. Minimal disease in the circumflex. Hepatocellular carcinoma with a focal lesion in the liver: 11/24/24 underwent percutaneous intervention with radiofrequency ablation at [facility] with both local & [facility] Active Problems Active Problems: All Active Problems (Updated 11/27/24 @ 18:00 by Dona Cancino MD) Persistent atrial fibrillation (Acute) HCC (hepatocellular carcinoma) (Acute) Cirrhosis (Acute) Hepatic steatosis (Acute) Cholelithiasis (Acute) Impaired fasting blood sugar (Acute) Presence of Watchman left atrial appendage closure device (Acute) Overweight (BMI 25.0-29.9) (Acute) (HFpEF) heart failure with preserved ejection fraction (Acute) Paroxysmal atrial fibrillation (Acute) CAD (coronary artery disease) (Acute) HTN (hypertension) (Acute) Hyperlipidemia (Acute) Tricuspid regurgitation (Acute) Past Medical History Medical History Liver mass Liver mass, right lobe Fever of unknown origin (HFpEF) heart failure with preserved ejection fraction Paroxysmal atrial fibrillation HTN (hypertension) Hyperlipidemia CAD (coronary artery disease) SVT (supraventricular tachycardia) Tricuspid regurgitation Presence of Watchman left atrial appendage closure device Family History Family History Father CVD (cardiovascular disease) Mother Sudden cardiac Family/Other Sudden cardiac Surgical History Surgical History S/P cardiac cath Hx of CABG Stented coronary artery History of kidney surgery History of cardiac radiofrequency ablation History of carpal tunnel release Hx of heart surgery Social History Social History Household Members: Other Housing: House Do you presently have visiting nurse or other home services: No Alcohol intake: current Alcohol intake frequency: a few times a week Comment: 2 drinks gin Q night Patient Tobacco Use Status: Never used Tobacco e-Cigarette/Vaping Use: Never Used Second Hand Smoke Exposure: No Use of substances other than those prescribed or required for medical reasons: No Advance Directives: No Advance Directives Information Provided: Yes service: No Current occupational status: employed Current occupational exposures/hazards: No Cognitive needs: Yes Hearing needs: No Vision needs: No Meds Allergies Allergy/AdvReac Type Severity Reaction Status Date / Time apixaban (From ELIQUIS) Allergy Unknown BLEEDING Verified 12/10/24 09:21 ezetimibe (From ZETIA) Allergy Unknown UNKNOWN Verified 12/10/24 09:21 guaifenesin (From ROBITUSSIN) Allergy Unknown UNKNOWN Verified 12/10/24 09:21 Uwejerw-AKY-KaU Reductase Allergy Unknown UNKNOWN Verified 12/10/24 09:21 Inhibitor (XDQOQVO-JQV-YYG REDUCTASE INHIBITOR) Home Medications ?Medication ?Instructions ?Recorded ?Confirmed ?Last Taken ?Type lisinopril 5 mg tablet 5 mg PO BEDTIME 01/07/20 Unknown History prednisone 20 mg tablet 10 mg PO Q7D PRN Back Pain 0 10/13/24 11/27/24 Unknown History amiodarone 400 mg tablet mg PO 12/10/24 12/17/24 His tory furosemide 20 mg tablet mg PO 12/10/24 Unknown Hist ory Exam Height,Weight and Vital Signs: Height 6 ft 2 in Weight 101.151 kg Pertinent Lab Results Pertinent Lab Results: Laboratory Tests 10/31/24 14:08 WBC 5.3 RBC 4.19 L Hgb 13.0 L Hct 39.7 L Plt Count 217 Sodium 135 Potassium 5.4 H D Chloride 105 Carbon Dioxide 26 BUN 17 H Creatinine 1.22 Narrative Narrative: ECHO 08/2023 Conclusions: - 1. Mildly reduced LV ejection fraction to 45-50% with grade 2 diastolic dysfunction 2. Moderately dilated right ventricle with at least moderately reduced RV systolic function 3. Mild aortic regurgitation noted 4. Fyxu-sp-wrxeemlm mitral regurgitation noted 5. Normal RV systolic pressure but significantly elevated right atrial pressures 6. Mildly dilated ascending aorta EKG Documented by User: Dotty Sahu MD 12/17/24 12:45 PMFSH Past Medical History Medical History Liver mass Liver mass, right lobe Fever of unknown origin (HFpEF) heart failure with preserved ejection fraction Paroxysmal atrial fibrillation HTN (hypertension) Hyperlipidemia CAD (coronary artery disease) SVT (supraventricular tachycardia) Tricuspid regurgitation Presence of Watchman left atrial appendage closure device Family History Family History Father CVD (cardiovascular disease) Mother Sudden cardiac Family/Other Sudden cardiac Family history of problems with anesthesia: No Surgical History Surgical History S/P cardiac cath Hx of CABG Stented coronary artery History of kidney surgery History of cardiac radiofrequency ablation History of carpal tunnel release Hx of heart surgery History of Problems with Anesthesia: No Social History Social History Household Members: Other Housing: House Do you presently have visiting nurse or other home services: No Alcohol intake: current Alcohol intake frequency: a few times a week Comment: 2 drinks gin Q night Patient Tobacco Use Status: Never used Tobacco e-Cigarette/Vaping Use: Never Used Second Hand Smoke Exposure: No Use of substances other than those prescribed or required for medical reasons: No Advance Directives: No Advance Directives Information Provided: Yes service: No Current occupational status: employed Current occupational exposures/hazards: No Cognitive needs: Yes Hearing needs: No Vision needs: No Meds Allergies Allergy/AdvReac Type Severity Reaction Status Date / Time apixaban (From ELIQUIS) Allergy Unknown BLEEDING Verified 12/10/24 09:21 ezetimibe (From ZETIA) Allergy Unknown UNKNOWN Verified 12/10/24 09:21 guaifenesin (From ROBITUSSIN) Allergy Unknown UNKNOWN Verified 12/10/24 09:21 Hdemqtx-YVU-HzE Reductase Allergy Unknown UNKNOWN Verified 12/10/24 09:21 Inhibitor (DISFROI-YOQ-BQW REDUCTASE INHIBITOR) Home Medications ?Medication ?Instructions ?Recorded ?Confirmed ?Last Taken ?Type lisinopril 5 mg tablet 5 mg PO BEDTIME 01/07/20 Unknown History prednisone 20 mg tablet 10 mg PO Q7D PRN Back Pain 0 10/13/24 11/27/24 Unknown History amiodarone 400 mg tablet mg PO 12/10/24 12/17/24 His tory furosemide 20 mg tablet mg PO 12/10/24 Unknown Hist ory Exam Airway Mallampati Class: II TM Dist: <=3cm Neck ROM: Limited Heart: af Lungs: cta Assessment and Plan Assessment Anesthesia Assessment: Anesthesia Plan Discussed and Chart Reviewed Final Anesthetic Review Family History of Problems with Anesthesia: No History of Problems with Anesthesia: No NPO: Yes ASA Class: III Final Preanesthetic Review: No Changes in Pt Med Stat, Meds/Allgs Chart Reviewed, Consent Obtained/Reviewed and Anes Risks/Benef Reviewed Patient Risk: Intermediate Procedure Risk: Low Anesthetic Plan Anesthetic Plan: MAC: and Agree w/ Assess. and Plan Disposition: Standard PACU
[2024-12-17] VITALS (7 sets, daily range): BP systolic 97–135; BP diastolic 51–63; PULSE 54–79; RESP 13–20; TEMP 36–36.3; O2SAT 92–97
[2024-12-17] MEDS: Lactated Ringers 1,000 ML 50 ML IVCONT (12:09)
--- NOTE | 2024-12-17 12:17 | CA_ITS ---
Transesophageal Echocardiogram Patient (Last, First, Middle): Cipriano Aguirre H Gender: Male Date of : 1940 Age: 84 Procedure Date: 12/17/2024 Procedure Type: Transesophageal Echocardiogram Location: OP Height: 187.96 cm Weight: 101.15 kg BSA: 2.28 m2 Heart Rate: 72 bpm BP: 119 / 66 mmHg Separator Tender: SB Referring MD: Rickey Cardoza MD Bisque Kiln Placer: Rickey Cardoza MD Symptoms: I48.19 - Other persistent atrial fibrillation Conclusion: ??? 1. Watchman device is well placed with no peridevice leak or thrombi noted in his left atrium or on the device 2. Biatrial enlargement, right greater than left 3. Normal LV ejection fraction 4. Mild mitral regurgitation 5. Severe tricuspid regurgitation 6. No intracardiac shunting 7. Moderate atherosclerotic changes noted in the aorta 8. No gross pericardial effusion Findings Procedure Information Consent was obtained prior to the procedure. Pre FORD oral cavity was checked and revealed mild overcrowding. The adult 3D probe was passed with no difficulty. This was a technically good study. Left Ventricle Normal left ventricular size, thickness, and systolic function. The visually estimated ejection fraction is between 55-60%. Right Ventricle Moderately increased right ventricular cavity size. There is mild to moderately decreased right ventricular systolic function. Atria The left atrium is moderately dilated. There is no evidence of interatrial shunt. the Watchman device identified in the left atrial appendage cavity with good occlusion of the left atrial appendage with no dany he device leakage noted. There are no thrombi noted on the top of the Watchman device. No thrombus noted in his left atrium. Left upper, right upper and right lower pulmonary injury normally into left atrium. The right atrium is severely dilated. Aortic Valve There is a doming trileaflet aortic valve. There is mild calcification of the aortic valve. There is no aortic valve stenosis. There is trace (trivial) aortic valve regurgitation. Mitral Valve There is mild anterior and moderate posterior mitral leaflet thickening. There is moderate mitral annular calcification. There is mild mitral valve regurgitation. There is no mitral valve stenosis. Pulmonic Valve The pulmonic valve is likely normal. There is trace pulmonic valve regurgitation. Tricuspid Valve Normal tricuspid valve structure. there appears to be poor coaptation of the leaflet especially the septal leaflet leading to severe tricuspid regurgitation Great Vessels All visible segments of the aorta are normal in size. The pulmonary artery was not well visualized. Moderate plaque is seen in the arch and descending thoracic aorta. Venous The inferior vena cava is mildly dilated and collapses greater than 50% with inspiration. Pericardium/Pleural There is no evidence of pericardial effusion. Measurements Tricuspid Valve TR Pk Bethel: 2.50 TR Pk Grad: 25.00 Updated by Rickey Cardoza on 04:31 PM with Status of Final Rickey Cardoza MD electronically signed on 12/19/2024 4:31:07 PM with status of Final
--- NOTE | 2024-12-17 12:51 | MHC.SHP ---
Pre-Procedural Eval Section A - 24 Hr Update-Section A only Date of Service: 12/17/24 The patient is an INPATIENT: No Changes since office visit: Yes Changes in Medication and Yes Patient answered all questions; No Cold of Flu in the past 2 weeks and No New Medical Problems The patient has been examined within 24 hours of the surgical procedure. The History & Physical has been completed within 30 days and I have reviewed it.: Yes Section B - Complete if H&P > 30 days Chief Complaint: Other persistent atrial fibrillation Allergies: Allergies Allergy/AdvReac Type Severity Reaction Status Date / Time apixaban (From ELIQUIS) Allergy Unknown BLEEDING Verified 12/10/24 09:21 ezetimibe (From ZETIA) Allergy Unknown UNKNOWN Verified 12/10/24 09:21 guaifenesin (From ROBITUSSIN) Allergy Unknown UNKNOWN Verified 12/10/24 09:21 Ywvfgsv-FEE-HbP Reductase Allergy Unknown UNKNOWN Verified 12/10/24 09:21 Inhibitor ([id number] REDUCTASE INHIBITOR) Plan I have reviewed the history and physical and performed a pertinent physical examination on my patient. No changes have occurred unless specified. Time Spent With Patient Time: Total time managing care of this patient today ____ minutes.
[2024-12-17 13:15] LABS: Base Excess Bedside Calculated 9 mmol/L (-3-3); Glucose, i-STAT 105 mg/dL (60-115); HCO3 Bedside Calculated 33 mmol/L (22-26); Hematocrit Bedside 38 %PCV (42-52); Hemoglobin Bedside 12.9 g/dL (14.0-18.0); Potassium Bedside 5.6 mmol/L (3.3-5.1); SO2 Bedside Calculated 63 %; Sodium Bedside 138 mmol/L (135-145); TCO2 Bedside 35 mmol/L (24-29); pCO2 Bedside 52 mmhg (35-48); pH Bedside 7.41 (7.35-7.45)
--- NOTE | 2024-12-17 13:20 | ECG_ITS ---
Test Reason : PREOP Blood Pressure : */* mmHG Vent. Rate : 64 BPM Atrial Rate : * BPM P-R Int : * ms QRS Dur : 102 ms QT Int : 370 ms P-R-T Axes : * -4 176 degrees QTcB Int : 381 ms Atrial fibrillation with a competing junctional pacemaker Inferior infarct , age undetermined Abnormal ECG When compared with ECG of 18-Oct-2024 08:52, No significant change was found Referred By: Dotty Sahu Electronically Signed By: Vishal Borden
[2024-12-17 13:33] LABS: Anion Gap 13 (12-20); Carbon Dioxide 30 mmol/L (22-29); Chloride 102 mmol/L (96-108); Potassium 4.4 mmol/L (3.3-5.1); Sodium 141 mmol/L (135-145)
[2024-12-17 13:35] LABS: Base Excess Bedside Calculated 8 mmol/L (-3-3); Glucose, i-STAT 192 mg/dL (60-115); HCO3 Bedside Calculated 33 mmol/L (22-26); Hematocrit Bedside 36 %PCV (42-52); Hemoglobin Bedside 12.2 g/dL (14.0-18.0); Potassium Bedside 4.4 mmol/L (3.3-5.1); SO2 Bedside Calculated 53 %; Sodium Bedside 139 mmol/L (135-145); TCO2 Bedside 35 mmol/L (24-29); pCO2 Bedside 54 mmhg (35-48); pH Bedside 7.40 (7.35-7.45)
--- NOTE | 2024-12-17 14:17 | ECG_ITS ---
Test Reason : post cardioversion Blood Pressure : */* mmHG Vent. Rate : 59 BPM Atrial Rate : * BPM P-R Int : * ms QRS Dur : 100 ms QT Int : 426 ms P-R-T Axes : * -4 145 degrees QTcB Int : 421 ms Sinus bradycardia with first degree AV block and PACs Inferior infarct (cited on or before 17-Dec-2024) ST & T wave abnormality, consider lateral ischemia Abnormal ECG When compared with ECG of 17-Dec-2024 13:38, Sinus rhythm present Referred By: Rickey Cardoza Electronically Signed By: Vishal Borden
--- NOTE | 2024-12-17 14:17 | HO.CARDIVERS ---
Cardioversion Procedure Note Cardioversion Date of Procedure: 12/17/2024 Ordering Provider: Wero Cardoza Performing Provider: Wero Cardoza Indication for Procedure: Symptomatic atrial fibrillation Pre-Op Diagnosis: Same Post-Op Diagnosis: Normal sinus rhythm FORD findings (if FORD Performed): Reported separately History: See my office note Consent: Verbal and Written consent was obtained from the patient before starting and after confirming oral antiarrhythmic use. The patient was made aware of the risk of synchronized cardioversion including benefits and alternatives Procedure: After consent obtained, cardioversion pads were attached in anteroposterior configuration and the patient was sedated by the anesthesia team. Once adequate sedation achieved, patient was delivered 200 joules of biphasic synchronized energy in anteroposterior configuration Complications: Transient hypoxemia corrected quickly by anesthesia team Impression: Normal sinus rhythm Recommendations: 1. 12 lead EKG 2. Eliquis for 1 month 3. Continue amiodarone 4. Evaluation for transcatheter tricuspid valve repair
[2024-12-17 17:06] LABS: pO2 Bedside < 50 mmhg (83-108)
[2024-12-17 17:06] LABS: pO2 Bedside < 50 mmhg (83-108)
== END 2024-12-17 16:34 | disposition home or self-care (01) ==
PROVIDERS: Nurse Practitioner; PCP Internal Medicine; Visit Provider Internal Medicine Cardiovascular Disease
PROC: (CPT 93312; principal; 2024-12-17 13:00)
PROC: 5A2204Z Restoration of Cardiac Rhythm, Single (ICD-10-PCS; CPT 93312; 2024-12-17 13:00)
DX: I48.91 Unspecified atrial fibrillation (principal); Z79.01 Long term (current) use of anticoagulants; I48.0 Paroxysmal atrial fibrillation; I11.0 Hypertensive heart disease with heart failure; I50.30 Unspecified diastolic (congestive) heart failure; I25.10 Atherosclerotic heart disease of native coronary artery without angina pectoris; Z95.1 Presence of aortocoronary bypass graft; I47.10 Supraventricular tachycardia, unspecified; E78.5 Hyperlipidemia, unspecified; Z95.818 Presence of other cardiac implants and grafts; I07.1 Rheumatic tricuspid insufficiency; Z79.899 Other long term (current) drug therapy; Z98.890 Other specified postprocedural states
CPT/HCPCS: 93312; 36415; 80051; 92960; 93005; J2003; J2704

== ENCOUNTER → 2024-12-17 11:17 | Outpatient (BNV) | payer MEDICARE, SELFPAY | PROVIDERS: PCP Internal Medicine; Visit Provider Internal Medicine Cardiovascular Disease | DX: I44.0 Atrioventricular block, first degree (principal); I25.2 Old myocardial infarction; R00.1 Bradycardia, unspecified | CPT/HCPCS: 93010 ==

== ENCOUNTER 2024-12-23 09:31 | Inpatient (IN) | payer MEDICARE, SELFPAY ==
--- NOTE | ~2024-12-23 | XR_ITS ---
EXAMINATION: XR CHEST CLINICAL INFORMATION: sob COMPARISON: Previous chest x-rays most recent October 13, 2024 TECHNIQUE: Frontal view of the chest was obtained. FINDINGS: Subsegmental atelectasis at the left lung base. Atelectasis/consolidation at the right medial lung base. Increasing small right pleural effusion. No left pleural effusion. No pneumothorax. Stable enlargement of the cardiac silhouette. Degenerative changes of the spine. Median sternotomy wires. Postsurgical changes to the lower cervical spine. XR/XR chest 1V IMPRESSION: Stable enlargement of the cardiac silhouette. New small right pleural effusion and atelectasis/consolidation at the right lung base. Subsegmental atelectasis at the left lung base. Electronically signed by: Liza Bhardwaj MD 12/23/2024 10:32 AM [facility]
--- NOTE | ~2024-12-23 | US_ITS ---
EXAMINATION: US ABDOMEN LIMITED CLINICAL INFORMATION: Check for ascites. COMPARISON: Previous MR of the abdomen October 2024, CT of the abdomen and pelvis October 2024 and abdominal ultrasound September 2024 TECHNIQUE: Limited 4 quadrant abdominal ultrasound FINDINGS: Very small amount of ascites in the right lower quadrant. US/US abdomen limited IMPRESSION: Very small amount of ascites. Electronically signed by: Liza Bhardwaj MD 12/24/2024 01:52 PM [facility]
[2024-12-23 09:38] VITALS: BP 124/58; PULSE 55; RESP 22; TEMP 35.6; O2SAT 93; BMI 32.3
--- NOTE | 2024-12-23 09:44 | ECG_ITS ---
Test Reason : SOB Blood Pressure : */* mmHG Vent. Rate : 58 BPM Atrial Rate : * BPM P-R Int : * ms QRS Dur : 92 ms QT Int : 350 ms P-R-T Axes : * -5 192 degrees QTcB Int : 343 ms Normal sinus rhythm with 1st degree A-V block Inferior infarct (cited on or before 17-Dec-2024) Abnormal ECG When compared with ECG of 17-Dec-2024 14:29, No significant changes seen QT has shortened Referred By: Generic ED Physician Electronically Signed By: KERRY MORALES MD
[2024-12-23 10:11] LABS: MANUAL DIFF FLAG NO
[2024-12-23 10:35] LABS: Alanine Aminotransferase 52 U/L (0-40); Albumin Level 3.7 g/dL (3.5-5.0); Alkaline Phosphatase 129 U/L (39-117); Anion Gap 13 (12-20); Aspartate Amino Transferase 69 U/L (5-37); Blood Urea Nitrogen 50 mg/dL (9-16); Calcium 9.0 mg/dL (8.4-10.2); Carbon Dioxide 29 mmol/L (22-29); Chloride 103 mmol/L (96-108); Creatinine Clr Calc Pharmacy 31.3; Estimated Glomerular Filt Rate 28; Lipase 56 U/L (8-78); Potassium 5.3 mmol/L (3.3-5.1); Sodium 140 mmol/L (135-145); Total Protein 6.9 g/dL (6.5-8.0)
[2024-12-23 10:44] LABS: NT Pro B Type Natriuretic Pept 1467.2 pg/mL (<300); Troponin-I High Sensitivity 9.6 ng/L (<3.5-35.0)
--- NOTE | 2024-12-23 11:03 | ED_ITS ---
HPI - SOB/Dyspnea General Chief Complaint: Dyspnea Stated Complaint: Has congestive heart failure, SOB Time Seen by Provider: 12/23/24 10:45 Source: patient and RN notes reviewed Mode of arrival: ambulatory Limitations: no limitations History of Present Illness ED Provider: Vicky Davila PA-C HPI Narrative: This is a 84-year-old male, with a past medical history of HFpEF, paroxysmal atrial fibrillation on Eliquis, hypertension, hyperlipidemia, CAD, SVT, tricuspid regurgitation, presence of Watchman left atrial appendage closure device, who presents emergency department accompanied by his daughter, with concerns of worsening shortness of breath, lightheadedness and increased weight gain over the last 1-2 weeks. Patient lives with an older olive knocker at home, and states that he is unable to take more than 3 steps due to profound shortness of breath. Of note, patient underwent a cardioversion due to symptomatic atrial fibrillation. Postop diagnosis was normal sinus rhythm. Patient reports he feels as though his legs are very swollen, in his abdomen is distended. He denies any chest pain or palpitations. No recent fevers or chills. No cough. No abdominal pain, nausea, vomiting or diarrhea. MD elicited complaint: shortness of breath and cough Onset (ago): week(s) Associated symptoms: denies other symptoms Treatment prior to arrival: none Related Data Home Medications ?Medication ?Instructions ?Recorded ?Confirmed lisinopril 5 mg tablet 5 mg PO BEDTIME 01/07/2001/06 prednisone 20 mg tablet 10 mg PO Q7D PRN Back Pain 0 10/13/24 12/23/24 furosemide 20 mg tablet 60 mg PO DAILY 12/10/2412/13 furosemide 20 mg tablet 40 mg PO DAILY@1200 PRN Jeremías a 12/23/24 12/23/24 Previous Rx's ?Medication ?Instructions ?Recorded tamsulosin 0.4 mg capsule 0.4 mg PO BEDTIME 90 days #9 0 caps 12/10/24 amiodarone 200 mg tablet 200 mg PO DAILY #30 tabs 07/06 apixaban 5 mg tablet (Eliquis) 5 mg PO BID #30 tabs dapagliflozin propanediol 5 mg 5 mg PO DAILY #30 tabs 12/19/24 tablet (Farxiga) Allergies Allergy/AdvReac Type Severity Reaction Status Date / Time apixaban (From ELIQUIS) Allergy Unknown BLEEDING Verified 12/23/24 09:42 ezetimibe (From ZETIA) Allergy Unknown UNKNOWN Verified 12/23/24 09:42 guaifenesin (From ROBITUSSIN) Allergy Unknown UNKNOWN Verified 12/23/24 09:42 Lucddhk-MVZ-BnW Reductase Allergy Unknown UNKNOWN Verified 12/23/24 09:42 Inhibitor ([id number]-KTH-UWB REDUCTASE INHIBITOR) Review of Systems 2 Review of Systems: Constitutional : No Fever, No Chills ENT/Mouth : No sore throat, No Rhinorrhea Eyes: No Eye Pain, No Swelling, No Redness Cardiovascular : No Chest Pain, +SOB Respiratory : No Cough, No Sputum Gastrointestinal : No Nausea, No Vomiting, No Diarrhea, No abdominal Pain Genitourinary : No Dysuria, No Hematuria Musculoskeletal : No joint pain, No Myalgias, No Joint Swelling Skin : No Skin Lesions Neuro : No Weakness, No Numbness, No Headache All other systems reviewed and are negative Yes all other systems are reviewed and are negative Constitutional: Constitutional: Reports as per [facility] Past Medical History Medical History Liver mass Liver mass, right lobe Fever of unknown origin (HFpEF) heart failure with preserved ejection fraction Paroxysmal atrial fibrillation HTN (hypertension) Hyperlipidemia CAD (coronary artery disease) SVT (supraventricular tachycardia) Tricuspid regurgitation Presence of Watchman left atrial appendage closure device Surgical History S/P cardiac cath Hx of CABG Stented coronary artery History of kidney surgery History of cardiac radiofrequency ablation History of carpal tunnel release Hx of heart surgery Family History Family History Father CVD (cardiovascular disease) Mother Sudden cardiac Family/Other Sudden cardiac Social History Social History Household Members: Other Housing: House Do you presently have visiting nurse or other home services: No Alcohol intake: current Alcohol intake frequency: a few times a week Comment: 2 drinks gin Q night Patient Tobacco Use Status: Never used Tobacco e-Cigarette/Vaping Use: Never Used Second Hand Smoke Exposure: No Advance Directives: No Advance Directives Information Provided: Yes Do you have a plan to hurt others: No Plan service: No Current occupational status: employed Current occupational exposures/hazards: No Cognitive needs: Yes Hearing needs: No Vision needs: No Physical Exam 2 Vital Signs: Vital Signs: Last Vital Signs Temp 96.1 F L 12/23/24 09:38 Pulse 55 12/23/24 09:38 Resp 22 H 12/23/24 09:38 BP 124/58 L 12/23/24 09:38 Pulse Ox 93 12/23/24 09:38 O2 Del Method Room Air 12/23/24 09:38 BMI result Body Mass Index 32.3 Const: General: cooperative, comfortable and no acute distress O rientation/consciousness: patient oriented x3 Limitations: no limitations HEENT: Head: Yes normal to inspection, Yes normocephalic and Yes atraumatic Ears: hearing grossly normal bilaterally General nose exam: Normal external nose present Face and sinus: Yes normal facial exam Mouth: Normal oral and palatal mucosa present, oropharynx normal and moist mucous membranes Throat: Yes posterior oropharynx normal Eyes: General: appearance normal, both eyes and all related structures E yelids: Yes eyelids normal Conjunctivae: conjunctivae normal Sclerae: s clerae normal Pupils: Equal, round and reactive pupils present EOM: EOMs intact bilaterally Neck: Neck: Yes normal visual inspection, Yes full ROM and Yes no lymphadenopathy Lymphatic: no lymphadenopathy noted Chest: Chest palpation & inspection: normal inspection of the chest Resp: Other: Lungs diminished in bilateral lower lung bases. Effort & Inspection: normal respiratory effort and able to speak in complete sentences Cardio: Rate: regular rate Rhythm: regular rhythm Heart sounds: S1 normal heart sound present and S2 normal heart sound present GI: Other: Abdomen is soft, however mildly distended. Nontender. Inspection: Yes normal to inspection Skin: General skin exam: no rashes or lesions noted Trauma: no lacerations or abrasions Wounds: no wounds Neuro: General: patient oriented x3 and moves all extremities Cranial nerves: Yes Equal, round and reactive pupils present Extrem: Other: 2+ pitting edema noted bilaterally. General: Yes normal to inspection Right upper extremity: normal to inspection Left upper extremity: normal to inspection Right lower extremity: normal to inspection Left lower extremity: normal to inspection Medications Administered Generic Name Dose Route Start Last Admin Trade Name Freq PRN Reason Stop Dose Admin Furosemide 200 mg/ Sodium 100 mls @ 2.5 mls/hr 12/23/24 12:00 12/23/24 12:31 Chloride IVCONT 5 mg/hr .Q24H TOSHIA 2.5 mls/hr 5 MG/HR Administration Medical Decision Making Medical Decision Making [facility] Narrative: This is a 84-year-old male, with a past medical history of HFpEF, paroxysmal atrial fibrillation on Eliquis, hypertension, hyperlipidemia, CAD, SVT, tricuspid regurgitation, presence of Watchman left atrial appendage closure device, who presents emergency department accompanied by his daughter, with concerns of worsening shortness of breath, lightheadedness and increased weight gain over the last 1-2 weeks. On arrival, blood pressure 124/58, respirations 22. Patient appears to be fluid overloaded with 2+ pitting edema noted bilaterally. Abdomen appears distended however nontender. Lungs are diminished throughout. Differential diagnoses include decompensated CHF, pneumonia, ACS. Will obtain labs, EKG, chest x-ray 1:51 PM 12/23/2024 (Vicky Davila PA-C): Reviewed case with Dr. Cardoza, recommending starting on Lasix drip at a 5 milligram/hour regimen. He also recommends that he should be admitted. Advised to avoid nitro paste or aspirin at this time. Patient has no chest pain. Patient is agreeable for admission for decompensated CHF. Transfer of care initiated. Differential Diagnosis Differential Diagnoses: The differential diagnosis associated with the presentation includes See above Admission/Observation Consideration of admission/observation: Escalation of care including admission/observation considered Lab Data [facility] Lab Attestation statement: I reviewed the patient's lab results. Patient with no leukocytosis, normocytic anemia with an H&H of 12.6/40. Chemistry revealing an elevated creatinine and BUN. AST ALT elevated at 69 and 52. BNP elevated at 14 67, consistent with decompensated heart failure. 12/23/24 10:06 12/23/24 10:06 Labs: Lab Results 12/23/24 12/23/24 Range/Units 10:06 12:29 WBC 6.2 (4.8-10.8) X10*3/uL RBC 4.21 L (4.60-5.80) X10*6/uL Hgb 12.6 L (14.0-18.0) g/dl Hct 40.0 L (42.0-52.0) % MCV 95.0 (80.0-98.0) fL MCH 29.9 (27.0-33.0) pg MCHC 31.5 (31.0-36.0) g/dl RDW 15.4 (11.0-16.0) % Plt Count 140 L D (160-400) X10*3/uL MPV 10.0 (9.4-12.4) fL Immature Gran % (Auto) 0.6 H (0.0-0.4) % Neut % (Auto) 84.3 H (45-73) % Lymph % (Auto) 7.1 L (20-40) % Wallace % (Auto) 6.7 (2-11) % Eos % (Auto) 1.1 (0-4) % Baso % (Auto) 0.2 (0-2) % Lymph # (Auto) 0.4 L (1.2-4.9) X10*3/uL Wallace # (Auto) 0.4 (0.1-1.2) X10*3/uL Eos # (Auto) 0.1 (0.0-0.4) X10*3/uL Baso # (Auto) 0.0 (0.0-0.2) X10*3/uL Abs Immat Gran (auto) 0.04 H (0.00-0.03) X10*3/uL Absolute Neuts (auto) 5.2 (2.0-8.3) x10*3/uL Absolute Nucleated RBC 0.000 (0.0-0.012) X10*3/uL Nucleated RBC % (auto) 0.0 (0.0-0.2) /100WBC Sodium 140 (135-145) mmol/L Potassium 5.3 H D (3.3-5.1) mmol/L Chloride 103 (96-108) mmol/L Carbon Dioxide 29 (22-29) mmol/L Anion Gap 13 (12-20) BUN 50 H (9-16) mg/dL Creatinine 2.25 H (0.5-1.4) mg/dL Estim Creat Clear Calc 31.3 Estimated GFR 28 Random Glucose 93 (60-115) mg/dL Calcium 9.0 (8.4-10.2) mg/dL Total Bilirubin 0.6 (0.0-1.0) mg/dL Direct Bilirubin 0.3 (0.0-0.5) mg/dL AST 69 H (5-37) U/L ALT 52 H (0-40) U/L Alkaline Phosphatase 129 H (39-117) U/L Troponin I High Sens 9.6 9.9 (<3.5-35.0) ng/L NT-Pro-B Natriuret Pep 1467.2 H (<300) pg/mL Total Protein 6.9 (6.5-8.0) g/dL Albumin 3.7 (3.5-5.0) g/dL Lipase 56 (8-78) U/L Independent Interpretation I performed an independent interpretation of an: EKG Interpretation: EKG notable junctional rhythm which patient has had a history of. Ventricular rate of 58 beats per minute. Radiology Impression Discussion of test interpretation with radiology: I have reviewed the radiologist's reading. Radiologist Impression: COMPARISON: Previous chest x-rays most recent October 13, 2024 TECHNIQUE: Frontal view of the chest was obtained. FINDINGS: Subsegmental atelectasis at the left lung base. Atelectasis/consolidation at the right medial lung base. Increasing small right pleural effusion. No left pleural effusion. No pneumothorax. Stable enlargement of the cardiac silhouette. Degenerative changes of the spine. Median sternotomy wires. Postsurgical changes to the lower cervical spine. XR/XR chest 1V IMPRESSION: Stable enlargement of the cardiac silhouette. New small right pleural effusion and atelectasis/consolidation at the right lung base. Subsegmental atelectasis at the left lung base. Electronically signed by: Liza Bhardwaj MD 12/23/2024 10:32 AM [facility] [place] Dictated By: Liza Bhardwaj MD Critical Care Time Critical Care Time Critical Care Time: Yes Total Critical Care Time: 35 Attestation: I have personally provided critical care time exclusive of time spent on separately billable procedures. Time includes review of lab data, radiology results, discussion with consultants, and monitoring for potential decompensation. Intervention performed as documented. Discharge Plan Discharge Clinical Impression: Decompensated heart failure Patient Disposition: Admitted As Inpatient
--- OUTSIDE RECORDS SUMMARY | 2024-12-23 11:25 | XMS_ITS | Encounter Summary ---
Author Organization [facility] Address [address] [place] [address] Phone Care Team Providers Care Isotope Technologist Name Role Phone Omid De Jesus MD Primary Care Provider Dona Cancino MD Primary Care Provider Encounter Details Date Type Department Care Team (Latest Contact Info) Description 06/25/2018 Transcribe Orders Virtual Department [address] [place] [address] Ángel Mosqueda PA [address] [place] [id number] Neck pain (Primary Dx) Social History Tobacco [...] Cervicalgia documented in this encounter Care Teams Isotope Technologist Relationship Specialty Start Date End Date Omid De Jesus MD [address] [place] [address] [place] [address] PCP - General Internal Medicine 04/04/18 10/13/24 Dona Cancino MD [address] [place] [address] Drive [address] [place] [address] PCP - General Internal Medicine 10/14/24 documented as of this encounter Additional Source Comments The information contained in this document represents components of the legal health record. It is not the complete legal health record.[facility]
--- OUTSIDE RECORDS SUMMARY | 2024-12-23 11:25 | XMS_ITS | Clinical Summary ---
Author Organization [facility] Address [address] [facility] [address] [place] [address] Phone Care Team Providers Care Reinforcer Name Role Phone Dona Cancino MD Primary Care Provider [phone] Allergies No known active allergies Medications tamsulosin [...] Team Description 10/22/2024 Home Care Visit [facility] [address] [place] [address] Catherine Castillo RN NON ADMIT HOME HEALTH VISIT 10/13/2024 Orders Only [facility] [address] [place] [address] Homehealth, Interface ProviderMD from Last 3 Months [...] Insurance MED[place] PART A [place] [id number] [employer] MEDEX SUPPLEMENT MEDICARE PART A & B [facility] MEDEX SUPPLEMENT MEDICARE PART A & B [employer] MEDEX SUPPLEMENT MEDICARE PART A & B [employer] MEDEX SUPPLEMENT MEDICARE PART A & B [employer] MEDEX SUPPLEMENT MEDICARE PART A & B [employer] MEDEX SUPPLEMENT MEDICARE PART A & B [facility] MEDEX SUPPLEMENT MEDICARE PART A & B [employer] MEDEX SUPPLEMENT MEDICARE PART A & B [employer] MEDEX SUPPLEMENT Care Teams Reinforcer Relationship Specialty Start Date End Date Dona Cancino MD [address] [place] [id number] PCP - General Internal Medicine 10/14/24 Additional Source Comments The information contained in this document represents components of the legal health record. It is not the complete legal health record.[facility]
--- OUTSIDE RECORDS SUMMARY | 2024-12-23 11:25 | XMS_ITS | Encounter Summary ---
Author Organization [facility] Address [address] [place] [address] Phone Care Team Providers Care Electric Power Superintendent Name Role Phone Omid De Jesus MD Primary Care Provider [phone] Dona Cancino MD Primary Care Provider [phone] Encounter Details Date Type Department Care Team (Late st Contact Info) Description 04/04/2018 Ancillary Orders Virtual Department [address] [place] [address] Rebel Duke MD [address] [place] [phone] [email or web address] Social History Tobacco Use Types Packs/Day [...] on filedocumented in this encounter Care Teams Electric Power Superintendent Relationship Specialty Start Date End Date Omid De Jesus MD [address] [place] [address] [address] [place] [address] PCP - General Internal Medicine 04/04/18 10/13/24 Dona Cancino MD [address] [place] [phone] PCP - General Internal Medicine 10/14/24 documented as of this encounter Additional Source Comments The information contained in this document represents components of the legal health record. It is not the complete legal health record.[facility]
--- OUTSIDE RECORDS SUMMARY | 2024-12-23 11:25 | XMS_ITS | Encounter Summary ---
Author Organization [facility] Address [address] [place] [address] Phone Care Team Providers Care Shrimp Pond Laborer Name Role Phone Omid De Jesus MD Primary Care Provider Dona Cancino MD Primary Care Provider Encounter Details Date Type Department Care Team (Late st Contact Info) Description 04/04/2018 Ancillary Orders Virtual Department [address] [place] [address] Rebel Duke MD [address] [place] [phone] [email or web address] Cold right foot; No [...] system documented in this encounter Care Teams Shrimp Pond Laborer Relationship Specialty Start Date End Date Omid De Jesus MD [address] [place] [address] Dr [address]AILASH [address] [place] [address] PCP - General Internal Medicine 04/04/18 10/13/24 Dona Cancino MD [address] [place] [phone] PCP - General Internal Medicine 10/14/24 documented as of this encounter Additional Source Comments The information contained in this document represents components of the legal health record. It is not the complete legal health record.[facility]
--- OUTSIDE RECORDS SUMMARY | 2024-12-23 11:25 | XMS_ITS | Patient Health Record ---
Author Organization [facility] Address [address] [place] [phone] Care Team Providers Care Cloth Bleaching Range Back Tender Name Role Phone Dona Cancino MD Primary [...] Lisinopril 10 MG TAKE 1 TABLET BY RAMRIO TH EVERY MORNING Oral; Duration: 30 Active Pradaxa 150 MG TAKE 1 TABLET BY RAMIRO TH EVERY MORNING Oral; Duration: 30 Active Colyte with Flavor Packs 240 GM As directed Orally Over the specified time.; Duration: 1 day(s) 08/13/2013 Active Problems Problem Type SNOMED Code ICD Code Onset Dates Problem Status W/U Status Risk Notes Problem Colon cancer screening (163140360) Colon cancer screening (V76.51) Active confirmed Problem Already on aspirin (651715621) nursing home current use of aspirin (V58.66) Active confirmed Problem Long-term current use of anticoagulant (410708703) nursing home (current) use of anticoagulants (V58.61) Active confirmed Encounters Encounter Location Date Provider Diagnosis [facility] [address] [place] [phone] 10/28/2024 Leonard Hooker Jr Plan Of Treatment Pending Test Test Name Order Date GI BIOPSY 11/24/2014 Future Test Test Name Order Date COLONOSCOPY 08/13/2013 Insurance Providers Payer Name Payer Address Payer Phone Subscriber Number Group Number Insured Name Patient Relationship to Insured Coverage Start Date Coverage End Date MEDICARE OF [place] [address] [place] [address] [id number] COLEMAN WHEAT Self - patient is the insured MED[employer] ATTN CLAIMS [address] [place] [address] [id number] COLEMAN WHEAT Self - patient is the insured Medical (General) History Medical History History ICD Code Colonoscopy, 2008, tubular adenoma Hypertension coronary artery disease with stent place ment SVT with ablation atrial fibrillation
--- OUTSIDE RECORDS SUMMARY | 2024-12-23 11:25 | XMS_ITS | Encounter Summary ---
Author Organization [facility] Address [address] [place] [address] Phone Care Team Providers Care Human Services Case Manager Name Role Phone Omid De Jesus MD Primary Care Provider Dona Cancino MD Primary Care Provider [phone] Encounter Details Date Type Department Care Team (Late st Contact Info) Description 04/05/2018 Ancillary Orders Virtual Department [address] [place] [address] Rebel Duke MD [address] [place] [address] [email or web address] Cold right foot; No pulse Social History [...] catheter directed imaging may be considered. Code 80781.52 04609 Narrative 04/05/2018 5:30 PM EST History: 77-year-old male. No pulse right foot, cold foot, status-post surgery. Question arterial insufficiency. LINDA assessment desired. Hypertension: Yes. Diminished pulses: Yes. TX: Yes. Findings: Bilateral ankle brachial indices performed. [...] assessment desired. Hypertension: Yes. Diminished pulses: Yes. TX: Yes. Findings: Bilateral ankle brachial indices performed. [...] catheter directed imaging may be considered. Code 57518.52 [id number] us Rebel Duke MD CV US VASCULAR Final R esult documented in this encounter Visit Diagnoses Diagnosis Cold right foot No pulse Other symptoms involving cardiovascular system Cold right foot No pulse Other symptoms involving cardiovascular system documented in this encounter Care Teams Human Services Case Manager Relationship Specialty Start Date End Date Omid De Jesus MD [address] [place] [address] Dr [address]ASH [address] [place] [address] PCP - General Internal Medicine 04/04/18 10/13/24 Dona Cancino MD [address] [place] [address] Drive [address] [place] [address] PCP - General Internal Medicine 10/14/24 documented as of this encounter Additional Source Comments The information contained in this document represents components of the legal health record. It is not the complete legal health record.[facility]
--- OUTSIDE RECORDS SUMMARY | 2024-12-23 11:26 | XMS_ITS | Encounter Summary ---
Author Organization [facility] Address [address] [place] [address] Phone Care Team Providers Care Head Automatic Sawyer Name Role Phone Omid De Jesus MD Primary Care Provider [phone] Dona Cancino MD Primary Care Provider Encounter Details Date Type Department Care Team (Late st Contact Info) Description 03/06/2019 Transcribe Orders [facility] Specimen Processing [address] [place] [address] Omid De Jesus MD [address] [place] [address] [place] [address] Diagnosis unknown (Primary Dx) Social History Tobacco [...] EST) WBC 5.22 3.40 - 11.20 K/uL [facility] RBC 4.14(L) 4.50 - 5.50 M/uL [facility] HGB 12.2(L) 13.0 - 17.0 g/dL [facility] HCT 38.2(L) 40.0 - 51.0 % [facility] PLT 219 130 - 400 K/uL [facility] MCV 92.3 79.0 - 98.0 fL [facility] MCH 29.5 27.0 - 34.8 pg [facility] MCHC 31.9 31.5 - 36.0 g/dL [facility] RDW 17.6(H) 10.8 - 14.6 % [facility] MPV 9.7 9.4 - 12.4 [facility] NRBC 0.00 0.00 /100 WBCs [facility] ABSOLUTE NRBC 0.00 0.00 K/uL [facility] DIFF METHOD Auto [facility] NEUTS 49.3 45.30 - 77.70 % [facility] LYMPHS 32.8 12.30 - 39.70 % [facility] MONOS 9.2 4.10 - 12.80 % [facility] EOS 6.9 0 - 7.2 % [facility] BASOS 0.8 0 - 2.80 % [facility] Granulocytes, immature (%) 1.0(H) 0.0 - 0.9 % [facility] ABSOLUTE NEUTS 2.58 1.40 - 7.70 K/uL [facility] ABSOLUTE LYMPHS 1.71 0.60 - 3.20 K/uL [facility] ABSOLUTE MONOS 0.48 0.11 - 0.59 K/uL [facility] ABSOLUTE EOS 0.36 0.01 - 0.50 K/uL [facility] ABSOLUTE BASOS 0.04 0.00 - 0.08 K/uL [facility] Granulocytes, immature 0.05 0.00 - 0.05 K/uL [facility] Blood 03/06/2019 9:05 AM EST 03/06/2019 5:25 PM EST us Omid De Jesus MD LAB BLOOD BKR ORDERABLES Fi nal Result [facility] [address] [place] [address] documented in this encounter Visit Diagnoses Diagnosis Diagnosis unknown- Primary documented in this encounter Care Teams Head Automatic Sawyer Relationship Specialty Start Date End Date Omid De Jesus MD [address] [place] [address] PCP - General Internal Medicine 04/04/18 10/13/24 Dona Cancino MD [address] [place] [address] [address] [place] [phone] PCP - General Internal Medicine 10/14/24 documented as of this encounter Additional Source Comments The information contained in this document represents components of the legal health record. It is not the complete legal health record.[facility]
[2024-12-23 11:57] LABS: Hematocrit 40.0 % (42.0-52.0); Hemoglobin 12.6 g/dl (14.0-18.0); Imm Gran Abs Auto 0.04 X10*3/uL (0.00-0.03); Imm Gran Pct Auto 0.6 % (0.0-0.4); Lymphocytes Absolute Auto 0.4 X10*3/uL (1.2-4.9); Mean Corpuscular HGB Conc 31.5 g/dl (31.0-36.0); Mean Corpuscular Hemoglobin 29.9 pg (27.0-33.0); Mean Corpuscular Volume 95.0 fL (80.0-98.0); NRBC Abs Auto 0.000 X10*3/uL (0.0-0.012); NRBC Pct Auto 0.0 /100WBC (0.0-0.2); Platelet Count 140 X10*3/uL (160-400); Red Blood Count 4.21 X10*6/uL (4.60-5.80); White Blood Count 6.2 X10*3/uL (4.8-10.8)
[2024-12-23] MEDS: Furosemide 200 MG in 0.9 % Sodium Chloride 80 ML IVCONT (12:31)
[2024-12-23 12:58] LABS: Troponin-I High Sensitivity 9.9 ng/L (<3.5-35.0)
--- NOTE | 2024-12-23 13:19 | PHA.MEDREC ---
Addendum entered by Cindy Beltre RP 12/23/24 13:26: MED REC REVIEWED BY [facility] Misa confirmed with patient that he takes prednisone 10 mg q7d prn back pain, last dose was today 12/23/24. Addendum entered by Misa Michelle 12/23/24 13:22: Patient confirmed Furosemide 60 mg QAM and 40 MG daily at noon. Original Note: Pharmacy Consult ? Medication Reconciliation Pharmacy has completed the medication reconciliation. Spoke to patient and patients daughter at bedside to confirm med list. Patients daughter had a list of patient medications. Patient states he hasn't started Finasteride 5 mg. Patient had all his morning medications today.
[2024-12-23 14:18] LABS: Resp Syncy Virus RNA Qual PCR NEGATIVE (Negative); SARS COV2 PCR INHOUSE NEGATIVE (Negative)
[2024-12-23 14:28] VITALS: BP 154/76; PULSE 62; RESP 16; TEMP 36.7; O2SAT 92
--- NOTE | 2024-12-23 15:24 | PM.IMHP ---
History of Present Illness Date of Service: 12/23/24 <Cortney Camargo NP - Last Filed: 12/24/24 07:48> Chief Complaint: SOB <Cortney Camargo NP - Last Filed: 12/24/24 07:48> 84-year-old man with a history of heart failure with preserved ejection fraction presents to the ER with concerns of increased shortness breath, lightheadedness and weight gain over the last 1-2 weeks. Patient reports dyspnea on exertion, even walking just 3 steps. He has a history of cardioversion secondary to symptomatic atrial fibrillation and he has a watchman's device as well. Chest x-ray showed new small right pleural effusion and atelectasis/consolidation in the right lung base. He denies any chest pain or palpitations. No recent fevers or chills. No cough. No abdominal pain, nausea, vomiting or diarrhea.He was started on lasix drip in the ed and will be admitted for acute CHF. <Cortney Camargo NP - Last Filed: 12/24/24 07:48> Review of Systems Review of Systems: Denies any recent fever chills or decrease in appetite respiratory see hpi cardiovascular denied chest pain gastrointestinal denies any dysphagia abdominal pain nausea vomiting or diarrhea genitourinary denies any dysuria frequency or hematuria musculoskeletal denies any joint pain or swelling neuropsych denies any weakness or seizures all other systems reviewed are negative <Cortney Camargo NP - Last Filed: 12/24/24 07:48> [facility] Medical History: Medical History Liver mass Liver mass, right lobe Fever of unknown origin (HFpEF) heart failure with preserved ejection fraction Paroxysmal atrial fibrillation HTN (hypertension) Hyperlipidemia CAD (coronary artery disease) SVT (supraventricular tachycardia) Tricuspid regurgitation Presence of Watchman left atrial appendage closure device <Cortney Camargo NP - Last Filed: 12/24/24 07:48> Family History: Family History Father CVD (cardiovascular disease) Mother Sudden cardiac Family/Other Sudden cardiac <Cortney Camargo NP - Last Filed: 12/24/24 07:48> Surgical History: Surgical History S/P cardiac cath Hx of CABG Stented coronary artery History of kidney surgery History of cardiac radiofrequency ablation History of carpal tunnel release Hx of heart surgery <Cortney Camargo NP - Last Filed: 12/24/24 07:48> Social History: Social History Household Members: Friend(s) Housing: House Do you presently have visiting nurse or other home services: No Alcohol intake: current Alcohol intake frequency: holidays/special occasions only Comment: [place] Patient Tobacco Use Status: Never used Tobacco Smoked in Last 30 Days: No e-Cigarette/Vaping Use: Never Used Second Hand Smoke Exposure: No Use of substances other than those prescribed or required for medical reasons: No Currently Displaying Signs/Symptoms of Drug Intoxication Withdrawal: No Have you been hit, kicked, punched, or otherwise hurt by someone within the past year? If so, by whom?: No Do you feel safe in your current relationship?: No Current Relationship Is there a partner from a previous relationship who is making you feel unsafe now?: No Are you made to feel afraid or neglected: No Advance Directives: No Advance Directives Information Provided: Yes Do you have a plan to hurt others: No Plan Recently lost weight without trying: Unsure How much weight loss: Not applicable Eating poorly because of decreased appetite: No Nutrition screen score: 2 Nutrition Risks: Recent weight gain Poor oral hygiene: No service: No Current occupational status: employed Current occupational exposures/hazards: No Cognitive needs: Yes Hearing needs: No Vision needs: No <Cortney Camargo NP - Last Filed: 12/24/24 07:48> Meds Allergies/Adverse reactions: Allergies Allergy/AdvReac Type Severity Reaction Status Date / Time apixaban (From ELIQUIS) Allergy Unknown BLEEDING Verified 12/23/24 09:42 ezetimibe (From ZETIA) Allergy Unknown UNKNOWN Verified 12/23/24 09:42 guaifenesin (From ROBITUSSIN) Allergy Unknown UNKNOWN Verified 12/23/24 09:42 Utzpsal-TMZ-VnC Reductase Allergy Unknown UNKNOWN Verified 12/23/24 09:42 Inhibitor (BDAVNUG-GQB-YGN REDUCTASE INHIBITOR) <Cortney Camargo NP - Last Filed: 12/24/24 07:48> Active Medications: Current Medications Acetaminophen (Acetaminophen 325 Mg Tablet) 650 mg PO Q6H PRN PRN Reason: Pain, Mild 1-3,fever,headache Calcium Carbonate (Calcium Carbonate 750 Mg Tab.Chew) 750 mg PO Q4H PRN PRN Reason: Heartburn Furosemide 200 mg/ Sodium (Chloride) 100 mls @ 2.5 mls/hr IVCONT .Q24H TOSHIA Last Admin: 12/23/24 12:31 Dose: 5 mg/hr, 2.5 mls/hr Magnesium Hydroxide (Milk Of Magnesia 30 Ml Oral.Susp) 30 ml PO DAILY PRN PRN Reason: Constipation Melatonin (Melatonin 3 Mg Tablet) 6 mg PO BEDTIME PRN PRN Reason: Insomnia Ondansetron HCl (Ondansetron Hcl 4 Mg/2 Ml Vial) 4 mg IVPUSH Q8H PRN PRN Reason: Nausea and Vomiting Sodium Chloride (0.9 % Sodium Chloride Flush 3 Ml Syringe) 3 ml IVFLUSH QSHIFT TOSHIA <Cortney Camargo NP - Last Filed: 12/24/24 07:48> Home medications: Home Medications ?Medication ?Instructions ?Recorded ?Confirmed ?Last Taken ?Type lisinopril 5 mg tablet 5 mg PO BEDTIME 01/07/20 12/23/24 12/22/24 History prednisone 20 mg tablet 10 mg PO Q7D PRN Back Pain 10/13/24 12/23/24 12/23/24 History furosemide 20 mg tablet 60 mg PO DAILY 12/10/24 12/23/24 12/23/24 History furosemide 20 mg tablet 40 mg PO DAILY@1200 PRN Edema 12/23/24 12/23/24 12/23/24 History <Cortney Camargo NP - Last Filed: 12/24/24 07:48> Physical Exam Vital Signs and Narrative: Vital Signs: Last Vital Signs Temp 98.0 F 12/23/24 14:28 Pulse 62 12/23/24 14:28 Resp 16 12/23/24 14:28 BP 154/76 H 12/23/24 14:28 Pulse Ox 92 12/23/24 14:28 O2 Del Method Room Air 12/23/24 14:28 BMI result Body Mass Index 32.3 <Cortney Camargo NP - Last Filed: 12/24/24 07:48> Appearing in no acute distress head is normocephalic atraumatic eyes pupils are PERRLA sclera is anicteric mouth throat mucous membranes are intact and moist neck is supple no lymphadenopathy, no JVD noted lung sounds rales heart regular rate rhythm, clear S1, S2 positive bowel sounds, abdomen is soft, nontender neuro patient is alert x3, no focal deficits <Cortney Camargo NP - Last Filed: 12/24/24 07:48> Results Labs CBC and Chem 7: 12/24/24 06:29 12/24/24 06:29 <Cortney Camargo NP - Last Filed: 12/24/24 07:48> Labs: Laboratory Results - last 24 hr 12/23/24 12/23/24 12/23/24 10:06 12:29 12:40 MCV 95.0 MCH 29.9 MCHC 31.5 RDW 15.4 Plt Count 140 L D MPV 10.0 Immature Gran % (Auto) 0.6 H Neut % (Auto) 84.3 H Lymph % (Auto) 7.1 L Livingston % (Auto) 6.7 Eos % (Auto) 1.1 Baso % (Auto) 0.2 Lymph # (Auto) 0.4 L [place]ston # (Auto) 0.4 Eos # (Auto) 0.1 Baso # (Auto) 0.0 Abs Immat Gran (auto) 0.04 H Absolute Neuts (auto) 5.2 Absolute Nucleated RBC 0.000 Nucleated RBC % (auto) 0.0 Anion Gap 13 Estim Creat Clear Calc 31.3 Estimated GFR 28 Random Glucose 93 Calcium 9.0 Total Bilirubin 0.6 Direct Bilirubin 0.3 AST 69 H ALT 52 H Alkaline Phosphatase 129 H Troponin I High Sens 9.6 9.9 NT-Pro-B Natriuret Pep 1467.2 H Total Protein 6.9 Albumin 3.7 Lipase 56 Influenza Type A (PCR) NEGATIVE Influenza Type B (PCR) NEGATIVE RSV RNA Qual (PCR) NEGATIVE SARS-CoV-2 RNA (RT-PCR) NEGATIVE <Cortney Camargo NP - Last Filed: 12/24/24 07:48> Imaging Radiologist's Impressions: Impressions Chest X-Ray 12/23/24 10:17 IMPRESSION: Stable enlargement of the cardiac silhouette. New small right pleural effusion and atelectasis/consolidation at the right lung base. Subsegmental atelectasis at the left lung base. Electronically signed by: Liza Bhardwaj MD 12/23/2024 10:32 AM [facility] <Cortney Camargo NP - Last Filed: 12/24/24 07:48> Assessment and Plan (1) Decompensated heart failure: Status: Acute <Cortney Camargo NP - Last Filed: 12/24/24 07:48> 84 year old man admitted with acute on chronic heart failure Acute on chronic heart failure with preserved ejection fraction IV Lasix 5 mg an hour Cardiology consultation Monitor on telemetry Daily weights Strict intake and output MARTIN Possibly from acute fluid overload Continue diuresis Monitor BMP Transaminitis Likely secondary to hepatic congestion from fluid overload Monitor Hypertension Stable blood pressure Hold lisinopril due to MARTIN BPH Hold tamsulosin DVT prophylaxis with the apixaban Full code <Cortney Camargo NP - Last Filed: 12/24/24 07:48> Quality Stroke Does the patient have a stroke diagnosis?: No <Rica Weiss MD - Last Filed: 12/24/24 07:18> VTE Prior VTE?: No <Rica Weiss MD - Last Filed: 12/24/24 07:18> VTE Risk Level:: Medical - moderate - high <Cortney Camargo NP - Last Filed: 12/24/24 07:48> VTE Device Contraindication: Treatment Not Indicated <Cortney Camargo NP - Last Filed: 12/24/24 07:48> VTE Drug Contraindication: N/A - Med Ordered <Cortney Camargo NP - Last Filed: 12/24/24 07:48>
[2024-12-23 17:24] VITALS: PULSE 66; RESP 18; O2SAT 93
--- NOTE | 2024-12-23 18:01 | PC.NURSE ---
Patient bladder scanned for over 695 of urine in bladder. Patient voided in male purewick 400cc's post void residual 378cc Cortney HALL ordered kinney catheter placed at 1720. drained 500cc after kinney placed. Patient on lasic drip at 2.5mg/hr. tele: sinus rhythm 60's.
--- NOTE | 2024-12-23 20:17 | HO.NURTONUR ---
just emptied kinney and was red colored urine. may be from the insertion but texting the MD to notify - just jose
[2024-12-23 21:38] VITALS: BP 147/68; PULSE 67; RESP 16; TEMP 36.4; O2SAT 94
[2024-12-23 22:07] VITALS: BMI 37.2
[2024-12-23 22:15] VITALS: BP 158/70; PULSE 70; RESP 16; TEMP 36.4; O2SAT 95
[2024-12-24] VITALS (7 sets, daily range): BP systolic 110–139; BP diastolic 58–68; PULSE 57–70; RESP 16–20; TEMP 36.3–37.2; O2SAT 92–98
[2024-12-24 07:04] LABS: Hematocrit 39.2 % (42.0-52.0); Hemoglobin 12.2 g/dl (14.0-18.0); Mean Corpuscular HGB Conc 31.1 g/dl (31.0-36.0); Mean Corpuscular Hemoglobin 29.3 pg (27.0-33.0); Mean Corpuscular Volume 94.2 fL (80.0-98.0); NRBC Abs Auto 0.000 X10*3/uL (0.0-0.012); NRBC Pct Auto 0.0 /100WBC (0.0-0.2); Platelet Count 151 X10*3/uL (160-400); Red Blood Count 4.16 X10*6/uL (4.60-5.80); White Blood Count 6.8 X10*3/uL (4.8-10.8)
[2024-12-24 07:19] LABS: Alanine Aminotransferase 48 U/L (0-40); Albumin Level 3.6 g/dL (3.5-5.0); Alkaline Phosphatase 108 U/L (39-117); Anion Gap 12 (12-20); Aspartate Amino Transferase 62 U/L (5-37); Blood Urea Nitrogen 41 mg/dL (9-16); Calcium 8.7 mg/dL (8.4-10.2); Carbon Dioxide 31 mmol/L (22-29); Chloride 102 mmol/L (96-108); Creatinine Clr Calc Pharmacy 39.8; Estimated Glomerular Filt Rate 34; Potassium 4.7 mmol/L (3.3-5.1); Sodium 140 mmol/L (135-145); Total Protein 6.6 g/dL (6.5-8.0)
--- NOTE | 2024-12-24 09:53 | MHC.CM.PN ---
IMM 12/24/24, Pt. lives with his S.O. and she takes care of him. He does not have home health services, he uses a walker. PCP is Dr. Cancino, HCP is on file and confirmed: Elinor. Family to transport home at [place], DCP: home with family care or with services. CM to follow for DC needs. Note: pt. stated that he will not go to [facility].
--- NOTE | 2024-12-24 10:50 | P.CONCA_ITS ---
History of Present Illness History of Present Illness Date of Service: 12/24/24 Requesting physician: Lionel Grant Consult reason: congestive heart failure Chief complaint: CHF Narrative: I was consulted to see Mitch in cardiology consultation today for decompensated congestive heart failure. Patient is a 84-year-old male with very complicated past medical history. Patient with paroxysmal atrial fibrillation in the past, CAD status post coronary artery bypass grafting, heart failure preserved ejection fraction, Watchman device placed in the past for recurrent bleed, hypertension, exertional dyspnea due to RV dysfunction. Patient recently had recurrent persistent atrial fibrillation underwent a FORD guided cardioversion after loading with amiodarone. Converted to sinus rhythm. Heart patient was already at that time having decompensated syndrome with heart failure was taking increased diuretic dose. However he was very resistant to come to the hospital for treatment and he continue to use his oral diuretic, which was not working and continued to have progressive symptoms of shortness of breath increasing shortness of breath with very minimal exertion with a abdominal distension. 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 He has been consulted with advanced cardiac valve interventional team at [facility] and was planning to see them for possible edge to edge repair of the tricuspid valve. Patient has a history of obesity. Also has history of alcohol use. He came in yesterday with progressive symptoms of shortness of breath heart failure with significant fluid overload with poor response to oral diuretic at home. Review of Systems 2 Constitutional: Constitutional: Reports lethargy and Reports weakness Eyes: Eyes: Reports no additional eye complaints Cardiovascular: Cardiovascular: Reports Abdominal Distension, Denies chest pain, Denies rapid heart rate, Reports leg edema, Denies lightheadedness, Denies Loss of Consciousness, Reports dyspnea on exertion and Reports orthopnea Respiratory: Respiratory: Reports no additional respiratory complaints and Reports dyspnea on exertion Gastrointestinal: Gastrointestinal: Reports bloating Genitourinary: Genitourinary: Reports no additional male genitourinary complaints Musculoskeletal: Musculoskeletal: Reports no additional musculoskeletal complaints Integumentary/Breasts: Skin/Breast: Reports system reviewed and no additional complaints, except as docu Neurologic: Reports system reviewed and no additional complaints, except as documented and Reports weakness Psychiatric: Psychiatric: Reports no additional psychiatric complaints Endocrine: Endocrine: Reports no additional endocrine complaints PMFSH Past Medical History Medical History Liver mass Liver mass, right lobe Fever of unknown origin (HFpEF) heart failure with preserved ejection fraction Paroxysmal atrial fibrillation HTN (hypertension) Hyperlipidemia CAD (coronary artery disease) SVT (supraventricular tachycardia) Tricuspid regurgitation Presence of Watchman left atrial appendage closure device Family History Family History Father CVD (cardiovascular disease) Mother Sudden cardiac Family/Other Sudden cardiac Surgical History Surgical History S/P cardiac cath Hx of CABG Stented coronary artery History of kidney surgery History of cardiac radiofrequency ablation History of carpal tunnel release Hx of heart surgery Social History Social History Household Members: Friend(s) Housing: House Do you presently have visiting nurse or other home services: No Alcohol intake: current Alcohol intake frequency: holidays/special occasions only Comment: [place] Patient Tobacco Use Status: Never used Tobacco Smoked in Last 30 Days: No e-Cigarette/Vaping Use: Never Used Second Hand Smoke Exposure: No Use of substances other than those prescribed or required for medical reasons: No Currently Displaying Signs/Symptoms of Drug Intoxication Withdrawal: No Have you been hit, kicked, punched, or otherwise hurt by someone within the past year? If so, by whom?: No Do you feel safe in your current relationship?: No Current Relationship Is there a partner from a previous relationship who is making you feel unsafe now?: No Are you made to feel afraid or neglected: No Advance Directives: No Advance Directives Information Provided: Yes Do you have a plan to hurt others: No Plan Recently lost weight without trying: Unsure How much weight loss: Not applicable Eating poorly because of decreased appetite: No Nutrition screen score: 2 Nutrition Risks: Recent weight gain Poor oral hygiene: No service: No Current occupational status: employed Current occupational exposures/hazards: No Cognitive needs: Yes Hearing needs: No Vision needs: No Meds Allergies Allergy/AdvReac Type Severity Reaction Status Date / Time apixaban (From ELIQUIS) Allergy Unknown BLEEDING Verified 12/23/24 09:42 ezetimibe (From ZETIA) Allergy Unknown UNKNOWN Verified 12/23/24 09:42 guaifenesin (From ROBITUSSIN) Allergy Unknown UNKNOWN Verified 12/23/24 09:42 Oijrmqw-SWZ-XpA Reductase Allergy Unknown UNKNOWN Verified 12/23/24 09:42 Inhibitor ([id number]-NDO-SAN REDUCTASE INHIBITOR) Active Medications: Current Medications Acetaminophen (Acetaminophen 325 Mg Tablet) 650 mg PO Q6H PRN PRN Reason: Pain, Mild 1-3,fever,headache Amiodarone HCl (Amiodarone Hcl 200 Mg Tablet) 200 mg PO DAILY [facility] Last Admin: 12/24/24 08:33 Dose: 200 mg Apixaban (Apixaban 5 Mg Tablet) 5 mg PO BID [facility] Last Admin: 12/24/24 07:57 Dose: 5 mg Calcium Carbonate (Calcium Carbonate 750 Mg Tab.Chew) 750 mg PO Q4H PRN PRN Reason: Heartburn Empagliflozin (Empagliflozin 10 Mg Tablet) 10 mg PO DAILY [facility] Last Admin: 12/24/24 08:33 Dose: 10 mg Furosemide 200 mg/ Sodium (Chloride) 100 mls @ 2.5 mls/hr IVCONT .Q24H [facility] Last Admin: 12/23/24 12:31 Dose: 5 mg/hr, 2.5 mls/hr Magnesium Hydroxide (Milk Of Magnesia 30 Ml Oral.Susp) 30 ml PO DAILY PRN PRN Reason: Constipation Melatonin (Melatonin 3 Mg Tablet) 6 mg PO BEDTIME PRN PRN Reason: Insomnia Ondansetron HCl (Ondansetron Hcl 4 Mg/2 Ml Vial) 4 mg IVPUSH Q8H PRN PRN Reason: Nausea and Vomiting Sodium Chloride (0.9 % Sodium Chloride Flush 3 Ml Syringe) 3 ml IVFLUSH QSHIFT [facility] Last Admin: 12/24/24 07:56 Dose: Not Given Tamsulosin HCl (Tamsulosin Hcl 0.4 Mg Capsule) 0.4 mg PO BEDTIME [facility] Home Medications ?Medication ?Instructions ?Recorded ?Confirmed ?Last Taken ?Type lisinopril 5 mg tablet 5 mg PO BEDTIME 01/07/2001/0612/22/24 History prednisone 20 mg tablet 10 mg PO Q7D PRN Back Pain 0 10/13/24 12/23/24 12/23/24 History furosemide 20 mg tablet 60 mg PO DAILY 12/10/2412/1312/23/24 History furosemide 20 mg tablet 40 mg PO DAILY@1200 PRN Jeremías a 12/23/24 12/23/24 12/23/24 History Physical Exam 2 Vital Signs: Vital Signs: Last Vital Signs Temp 98.2 F 12/24/24 07:09 Pulse 57 12/24/24 07:09 Resp 20 12/24/24 07:09 BP 116/59 L 12/24/24 07:09 Pulse Ox 98 12/24/24 07:09 O2 Del Method Oxymask 12/24/24 07:09 O2 Flow Rate 3 12/24/24 07:09 BMI result Body Mass Index 37.2 Const: General: cooperative, alert, awake and in distress mild and respiratory Nutritional Appearance: obese Orientation/consciousness: patient oriented x3 HEENT: Head: Yes normocephalic and Yes atraumatic Neck: Neck: Yes trachea midline, Yes supple and Yes JVD Resp: Effort & Inspection: normal respiratory effort Auscultation: no rales, breath sounds absent and diminished lung sounds Cardio: Jugular venous distension: JVD Rate: regular rate and bradycardic Rhythm: regular rhythm Heart sounds: S1 normal heart sound present, S2 normal heart sound present, no click, no gallops and Murmur heart sound present systolic GI: Auscultation: normal bowel sounds Skin: General skin exam: no rashes or lesions noted Neuro: General: patient oriented x3 and no focal motor deficits Extrem: General: No clubbing, No cyanosis and Yes edema Objective Labs and Meds 12/24/24 06:29 12/24/24 06:29 Lab results: Laboratory Results - last 24 hr 12/23/24 12/23/24 12/23/24 10:06 12:29 12:40 WBC 6.2 RBC 4.21 L Hgb 12.6 L Hct 40.0 L MCV 95.0 MCH 29.9 MCHC 31.5 RDW 15.4 Plt Count 140 L D MPV 10.0 Immature Gran % (Auto) 0.6 H Neut % (Auto) 84.3 H Lymph % (Auto) 7.1 L [place] % (Auto) 6.7 Eos % (Auto) 1.1 Baso % (Auto) 0.2 Lymph # (Auto) 0.4 L [place] # (Auto) 0.4 Eos # (Auto) 0.1 Baso # (Auto) 0.0 Abs Immat Gran (auto) 0.04 H Absolute Neuts (auto) 5.2 Absolute Nucleated RBC 0.000 Nucleated RBC % (auto) 0.0 Sodium Potassium Chloride Carbon Dioxide Anion Gap BUN Creatinine Estim Creat Clear Calc Estimated GFR Random Glucose Calcium Total Bilirubin AST ALT Alkaline Phosphatase Troponin I High Sens 9.9 Total Protein Albumin Influenza Type A (PCR) NEGATIVE Influenza Type B (PCR) NEGATIVE RSV RNA Qual (PCR) NEGATIVE SARS-CoV-2 RNA (RT-PCR) NEGATIVE 12/24/24 06:29 WBC 6.8 RBC 4.16 L Hgb 12.2 L Hct 39.2 L MCV 94.2 MCH 29.3 MCHC 31.1 RDW 15.7 Plt Count 151 L MPV 10.0 Immature Gran % (Auto) Neut % (Auto) Lymph % (Auto) [place] % (Auto) Eos % (Auto) Baso % (Auto) Lymph # (Auto) [place] # (Auto) Eos # (Auto) Baso # (Auto) Abs Immat Gran (auto) Absolute Neuts (auto) Absolute Nucleated RBC 0.000 Nucleated RBC % (auto) 0.0 Sodium 140 Potassium 4.7 Chloride 102 Carbon Dioxide 31 H Anion Gap 12 BUN 41 H Creatinine 1.90 H Estim Creat Clear Calc 39.8 Estimated GFR 34 Random Glucose 101 Calcium 8.7 Total Bilirubin 0.6 AST 62 H ALT 48 H Alkaline Phosphatase 108 Troponin I High Sens Total Protein 6.6 Albumin 3.6 Influenza Type A (PCR) Influenza Type B (PCR) RSV RNA Qual (PCR) SARS-CoV-2 RNA (RT-PCR) Assessment and Plan (1) Decompensated heart failure: Status: Acute Decompensated predominantly right heart failure in this elderly gentleman with multiple comorbidities and cardiac issues as well as noncardiac issues. He is most likely due to worsening of his right heart failure syndrome and severe tricuspid regurgitation. Clinically appears to be significantly fluid overload. Overall he had poor response to oral diuretic regimen and pathophysiology of this was discussed with him with poor absorption in his with oral medications. He is currently on IV drip with Lasix and has overall good response to pursue remains to be fluid overloaded. 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 Continue diuresis. Would add a low-dose metolazone today. Continue monitor electrolytes and blood pressure. Continue monitor renal function. Replace electrolytes as needed. We discussed about management of right heart failure syndrome in his progressive heart failure syndrome which portends a poor prognosis especially given his significant right side chamber enlargement and second-degree severe tricuspid regurgitation. Discussed that this is very advanced case of heart failure and if tricuspid valve repair can be performed will pursue that but this is only a palliative approach and does not correct his underlying cardiac abnormality significantly. We also discussed about potential possibility of not able to repair his tricuspid valve related to his annular dilatation and at that point time consider palliative care. He understands. He wants to pursue as much care as possible. Given his recent cardioversion I would like him to continue his Eliquis therapy to reduce his stroke risk although he has a Watchman device. Continue amiodarone to maintain rhythm. Currently maintaining rhythm. Overall prognosis is guarded. Greater than 40 minutes was spent in managing his complex care. Procedures Date of Service Date of Service: 12/24/24
[2024-12-24] MEDS: Furosemide 200 MG in 0.9 % Sodium Chloride 80 ML IVCONT (12:07)
--- NOTE | 2024-12-24 12:22 | HO.PM.IMPN ---
Subjective Subjective Date of Service: 12/24/24 Interval History: severely short of breath with any movement legs and abd swollen no chest pain Review of Systems Review of Systems: Yes all other systems are reviewed and are negative Physical Exam Vital Signs: Vital Signs: Last Vital Signs Temp 97.8 F 12/24/24 10:59 Pulse 63 12/24/24 10:59 Resp 20 12/24/24 10:59 BP 121/67 12/24/24 10:59 Pulse Ox 97 12/24/24 10:59 O2 Del Method Room Air 12/24/24 10:59 O2 Flow Rate 3 12/24/24 07:09 BMI result Body Mass Index 37.2 Gen: in no acute distress HEENT: sclera anicteric, moist mucus membranes Neck: supple Lungs: diminished at bases Heart: regular rate and rhythm, no murmurs Abd: soft, protuberant, nontender Ext: 2+ BLE edema Skin: warm/well-perfused Neuro: alert and oriented x3, no focal findings Psych: appropriate affect Objective Data Active Medications Acetaminophen (Acetaminophen 325 Mg Tablet) 650 mg PO Q6H PRN PRN Reason: Pain, Mild 1-3,fever,headache Amiodarone HCl (Amiodarone Hcl 200 Mg Tablet) 200 mg PO DAILY [facility] Last Admin: 12/24/24 08:33 Dose: 200 mg Documented By: KARTIK Apixaban (Apixaban 5 Mg Tablet) 5 mg PO BID [facility] Last Admin: 12/24/24 07:57 Dose: 5 mg Documented By: KARTIK Calcium Carbonate (Calcium Carbonate 750 Mg Tab.Chew) 750 mg PO Q4H PRN PRN Reason: Heartburn Empagliflozin (Empagliflozin 10 Mg Tablet) 10 mg PO DAILY [facility] Last Admin: 12/24/24 08:33 Dose: 10 mg Documented By: KARTIK Furosemide 200 mg/ Sodium (Chloride) 100 mls @ 2.5 mls/hr IVCONT .Q24H [facility] Last Admin: 12/24/24 12:07 Dose: 5 mg/hr, 2.5 mls/hr Documented By: KARTIK Magnesium Hydroxide (Milk Of Magnesia 30 Ml Oral.Susp) 30 ml PO DAILY PRN PRN Reason: Constipation Melatonin (Melatonin 3 Mg Tablet) 6 mg PO BEDTIME PRN PRN Reason: Insomnia Metolazone (Metolazone 2.5 Mg Tablet) 2.5 mg PO DAILY [facility] Ondansetron HCl (Ondansetron Hcl 4 Mg/2 Ml Vial) 4 mg IVPUSH Q8H PRN PRN Reason: Nausea and Vomiting Sodium Chloride (0.9 % Sodium Chloride Flush 3 Ml Syringe) 3 ml IVFLUSH QSHIFT [facility] Last Admin: 12/24/24 07:56 Dose: Not Given Documented By: KARTIK Non-Admin Reason: IV Running Tamsulosin HCl (Tamsulosin Hcl 0.4 Mg Capsule) 0.4 mg PO BEDTIME [facility] Labs 12/24/24 06:29 12/24/24 06:29 Labs: Laboratory Results - last 24 hr 12/23/24 12/23/24 12/24/24 12:29 12:40 06:29 MCV 94.2 MCH 29.3 MCHC 31.1 RDW 15.7 Plt Count 151 L MPV 10.0 Absolute Nucleated RBC 0.000 Nucleated RBC % (auto) 0.0 Anion Gap 12 Estim Creat Clear Calc 39.8 Estimated GFR 34 Random Glucose 101 Calcium 8.7 Total Bilirubin 0.6 AST 62 H ALT 48 H Alkaline Phosphatase 108 Troponin I High Sens 9.9 Total Protein 6.6 Albumin 3.6 Influenza Type A (PCR) NEGATIVE Influenza Type B (PCR) NEGATIVE RSV RNA Qual (PCR) NEGATIVE SARS-CoV-2 RNA (RT-PCR) NEGATIVE Assessment and Plan (1) Decompensated heart failure: Status: Acute Plan d2, 84yo M with pAF s/p Watchman device and recent FORD-guided CV currently on apixaban, severe TR, CAD s/p CABG, HFpEF, obesity, presenting with dyspnea and admitted for acute decompensated heart failure failing outpatient diuretic regimen ADHF, acute-chronic HFpEF/R-sided HF - continue IV furosemide 5 mg/h, add metolazone 2.5 mg/d, continue empagliflozin, monitor NT-pro-BNP/I+O/wt/lytes, Cardiology consulted MARTIN due to cardiorenal syndrome - monitor Cr while on IV diuresis; hold lisinopril severe TR - followed by [facility] advanced valve clinic and may benefit from repair AF - continue apixaban despite Watchman device given recent cardioversion, continue amiodarone congestive hepatopathy - recheck LFTs tomorrow; US for ascites check given hx cirrhosis BPH - continue tamsulosin VTE ppx: apixaban dispo: TBD In my clinical judgment, the patient requires continued inpatient hospitalization for the following reasons: advanced heart failure, severe TR, IV diuresis on continuous drip, MARTIN Total time managing care of this patient today: 50 minutes. Quality Stroke Does the patient have a stroke diagnosis?: No VTE Prior VTE?: No VTE Risk Level:: Medical - moderate - high VTE Device Contraindication: Treatment Not Indicated VTE Drug Contraindication: N/A - Med Ordered
[2024-12-25 03:17] VITALS: BP 110/55; PULSE 63; RESP 18; TEMP 36.4; O2SAT 92
[2024-12-25 07:06] VITALS: BP 117/59; PULSE 63; RESP 20; TEMP 37; O2SAT 95
[2024-12-25 07:11] LABS: Alanine Aminotransferase 45 U/L (0-40); Albumin Level 3.4 g/dL (3.5-5.0); Alkaline Phosphatase 115 U/L (39-117); Anion Gap 14 (12-20); Aspartate Amino Transferase 58 U/L (5-37); Blood Urea Nitrogen 45 mg/dL (9-16); Calcium 8.6 mg/dL (8.4-10.2); Carbon Dioxide 34 mmol/L (22-29); Chloride 96 mmol/L (96-108); Creatinine Clr Calc Pharmacy 37.8; Estimated Glomerular Filt Rate 32; Magnesium 2.2 mg/dL (1.6-2.6); Potassium 4.2 mmol/L (3.3-5.1); Sodium 140 mmol/L (135-145); Total Protein 6.4 g/dL (6.5-8.0)
[2024-12-25 07:19] LABS: NT Pro B Type Natriuretic Pept 1191.2 pg/mL (<300)
--- NOTE | 2024-12-25 08:07 | PC.NURSE ---
At approx 2200 on 12/24, Pt c/o bladder pain. Bladder scan showed >600ml in bladder. Gomez was manually irrigated with positive results. Large clot was removed and urine flowing freely.
[2024-12-25 11:05] VITALS: BP 109/58; PULSE 61; RESP 20; TEMP 36.1; O2SAT 94
--- NOTE | 2024-12-25 11:45 | HO.PM.IMPN ---
Subjective Subjective Date of Service: 12/25/24 Interval History: dyspnea improving, along with abdominal distension; negative 8.8L thus far Review of Systems Review of Systems: Yes all other systems are reviewed and are negative Physical Exam Vital Signs: Vital Signs: Last Vital Signs Temp 97.0 F 12/25/24 11:05 Pulse 61 12/25/24 11:05 Resp 20 12/25/24 11:05 BP 109/58 L 12/25/24 11:05 Pulse Ox 94 12/25/24 11:05 O2 Del Method Room Air 12/25/24 11:05 O2 Flow Rate 2 12/25/24 07:06 BMI result Body Mass Index 37.2 Gen: in no acute distress HEENT: sclera anicteric, moist mucus membranes Neck: supple Lungs: diminished at bases Heart: regular rate and rhythm, no murmurs Abd: soft, protuberant, nontender Ext: 1+ BLE edema Skin: warm/well-perfused Neuro: alert and oriented x3, no focal findings Psych: appropriate affect Objective Data Active Medications Acetaminophen (Acetaminophen 325 Mg Tablet) 650 mg PO Q6H PRN PRN Reason: Pain, Mild 1-3,fever,headache Amiodarone HCl (Amiodarone Hcl 200 Mg Tablet) 200 mg PO DAILY [facility] Last Admin: 12/25/24 08:40 Dose: 200 mg Documented By: LISA Apixaban (Apixaban 2.5 Mg Tablet) 2.5 mg PO BID [facility] Calcium Carbonate (Calcium Carbonate 750 Mg Tab.Chew) 750 mg PO Q4H PRN PRN Reason: Heartburn Empagliflozin (Empagliflozin 10 Mg Tablet) 10 mg PO DAILY [facility] Last Admin: 12/25/24 08:41 Dose: 10 mg Documented By: LISA Furosemide 200 mg/ Sodium (Chloride) 100 mls @ 2.5 mls/hr IVCONT .Q24H [facility] Last Admin: 12/24/24 12:07 Dose: 5 mg/hr, 2.5 mls/hr Documented By: KARTIK Magnesium Hydroxide (Milk Of Magnesia 30 Ml Oral.Susp) 30 ml PO DAILY PRN PRN Reason: Constipation Melatonin (Melatonin 3 Mg Tablet) 6 mg PO BEDTIME PRN PRN Reason: Insomnia Metolazone (Metolazone 2.5 Mg Tablet) 2.5 mg PO DAILY [facility] Last Admin: 12/25/24 08:40 Dose: 2.5 mg Documented By: LISA Ondansetron HCl (Ondansetron Hcl 4 Mg/2 Ml Vial) 4 mg IVPUSH Q8H PRN PRN Reason: Nausea and Vomiting Sodium Chloride (0.9 % Sodium Chloride Flush 3 Ml Syringe) 3 ml IVFLUSH QSHIFT [facility] Last Admin: 12/25/24 08:42 Dose: Not Given Documented By: LISA Non-Admin Reason: IV Running Tamsulosin HCl (Tamsulosin Hcl 0.4 Mg Capsule) 0.4 mg PO BEDTIME [facility] Last Admin: 12/24/24 22:36 Dose: 0.4 mg Documented By: W[facility] Labs 12/24/24 06:29 12/25/24 06:31 Labs: Laboratory Results - last 24 hr 12/25/24 06:31 Anion Gap 14 Estim Creat Clear Calc 37.8 Estimated GFR 32 Random Glucose 112 Calcium 8.6 Magnesium 2.2 Total Bilirubin 0.8 Direct Bilirubin 0.4 AST 58 H ALT 45 H Alkaline Phosphatase 115 NT-Pro-B Natriuret Pep 1191.2 H Total Protein 6.4 L Albumin 3.4 L Assessment and Plan (1) Decompensated heart failure: Status: Acute Plan d3, 84yo M with pAF s/p Watchman device and recent FORD-guided CV currently on apixaban, severe TR, CAD s/p CABG, HFpEF, obesity, presenting with dyspnea and admitted for acute decompensated heart failure failing outpatient diuretic regimen ADHF, acute-chronic HFpEF/R-sided HF - continue IV furosemide 5 mg/h, added metolazone 2.5 mg/d, continue empagliflozin, monitor NT-pro-BNP/I+O [negative 8.8L cumulatively]/wt/lytes, Cardiology consulted and following; will eventually need tricuspid repair as below MARTIN due to cardiorenal syndrome - monitor Cr while on IV diuresis; cpmtomie hold lisinopril severe TR - followed by [facility] [place] advanced [place] clinic AF - continue apixaban despite Watchman device given recent cardioversion, continue amiodarone nocturnal hypoxemia - should have outpt PSG congestive hepatopathy - LFTs improved; US for ascites check with only very small amount of fluid BPH - continue tamsulosin VTE ppx: apixaban dispo: TBD In my clinical judgment, the patient requires continued inpatient hospitalization for the following reasons: advanced heart failure, severe TR, IV diuresis on continuous drip, MARTIN Total time managing care of this patient today: 40 minutes. Quality Stroke Does the patient have a stroke diagnosis?: No VTE Prior VTE?: No VTE Risk Level:: Medical - moderate - high VTE Device Contraindication: Treatment Not Indicated VTE Drug Contraindication: N/A - Med Ordered
--- NOTE | 2024-12-25 13:52 | PM.PNCARD ---
Subjective Subjective Date of Service: 12/25/24 Principal diagnosis: Right heart failure Interval history: Patient says he is much improved with shortness of breath. Able to walk to the bathroom and move around in the bed without getting short of breath. Has diuresed about 8 L since yesterday. Total negative balance of about 11 L. Creatinine has remained stable although elevated. Continues to have abdominal distention. Remains in sinus rhythm. Yesterday had low oxygen level while he was sleeping. Review of Systems Constitutional: Reports no additional constitutional complaints Eyes: Reports no additional eye complaints Cardiovascular: Denies chest pain, Reports leg edema (Improved), Denies Loss of Consciousness and Reports dyspnea on exertion (Improved) Respiratory: Reports no additional respiratory complaints and Reports dyspnea on exertion (Improved) Genitourinary: Reports no additional male genitourinary complaints Reports system reviewed and no additional complaints, except as documented Physical Exam Vital Signs: Last Vital Signs Temp 97.0 F 12/25/24 11:05 Pulse 61 12/25/24 11:05 Resp 20 12/25/24 11:05 BP 109/58 L 12/25/24 11:05 Pulse Ox 94 12/25/24 11:05 O2 Del Method Room Air 12/25/24 11:05 O2 Flow Rate 2 12/25/24 07:06 BMI result Body Mass Index 37.2 Const General: cooperative, alert, awake and in distress mild and respiratory Nutritional Appearance: obese Orientation/consciousness: patient oriented x3 HEENT Head: Yes normocephalic and Yes atraumatic Neck Neck: Yes trachea midline, Yes supple and Yes JVD Resp Effort & Inspection: normal respiratory effort Auscultation: no rales, breath sounds absent and diminished lung sounds Cardio Jugular venous distension: JVD Rate: regular rate and bradycardic Rhythm: regular rhythm Heart sounds: S1 normal heart sound present, S2 normal heart sound present, no click, no gallops and Murmur heart sound present systolic GI Auscultation: normal bowel sounds Skin General skin exam: no rashes or lesions noted Neuro General: patient oriented x3 and no focal motor deficits Extrem General: No clubbing, No cyanosis and Yes edema Objective Labs and Meds 12/24/24 06:29 12/25/24 06:31 Lab results: Laboratory Results - last 24 hr 12/25/24 06:31 Sodium 140 Potassium 4.2 Chloride 96 Carbon Dioxide 34 H Anion Gap 14 BUN 45 H Creatinine 2.00 H Estim Creat Clear Calc 37.8 Estimated GFR 32 Random Glucose 112 Calcium 8.6 Magnesium 2.2 Total Bilirubin 0.8 Direct Bilirubin 0.4 AST 58 H ALT 45 H Alkaline Phosphatase 115 NT-Pro-B Natriuret Pep 1191.2 H Total Protein 6.4 L Albumin 3.4 L Imaging Radiologist's impression: Impressions Abdomen Ultrasound 12/24/24 13:30 IMPRESSION: Very small amount of ascites. Electronically signed by: Liza Bhardwaj MD 12/24/2024 01:52 PM [facility] [place] Progress Note: A&P Assessment and plan (1) Decompensated heart failure: Status: Acute Assessment and Plan: Decompensated heart failure which has been diuresing well with a boost of metolazone has diuresed significantly. Creatinine has remained stable fortunately. Will continue monitor. Continue Lasix drip. Strict intake and output chart needs to be pursued. Continue monitor renal function tomorrow. Also monitor electrolytes and replace as needed. Continue rhythm control approach. Management was discussed in details. Overall long-term prognosis appears to be poor this was discussed with him. He however wants to continue to pursue discussion for tricuspid valve repair. Will rather prefer to go to [place]. Continue rhythm control approach. Continue Eliquis for total of 1 month after cardioversion. Will follow with you Time Spent With Patient Time: Total time managing care of this patient today ____ minutes. Progress Note: Quality Stroke Does the patient have a stroke diagnosis?: No Procedures Date of Service Date of Service: 12/25/24
[2024-12-25 16:00] VITALS: BP 102/61; PULSE 18; RESP 18; TEMP 37.1; O2SAT 98
[2024-12-25] MEDS: Furosemide 200 MG in 0.9 % Sodium Chloride 80 ML IVCONT (17:59)
[2024-12-25 19:51] VITALS: BP 115/58; PULSE 68; RESP 18; TEMP 36.8; O2SAT 95
[2024-12-25 23:20] VITALS: BP 139/63; PULSE 64; RESP 18; TEMP 36.1; O2SAT 93
[2024-12-26] VITALS (7 sets, daily range): BP systolic 101–138; BP diastolic 53–65; PULSE 62–74; RESP 18–20; TEMP 36.1–37.1; O2SAT 92–99
[2024-12-26 05:22] LABS: ABG HCO3 43 mmol/L (22-26); ABG O2 % Saturation 99.0 %
[2024-12-26 05:24] LABS: ABG Refer to POC result
--- NOTE | 2024-12-26 07:35 | PC.NURSE ---
Pt was on overnight pulse ox study during the night. On 3 separate occasions, pt de satted to 60s. RN woke pt and instructed him to take deep breaths. RT was called to see pt and it was decided to place pt on 2L O2 via oxymask.
[2024-12-26 07:51] LABS: Anion Gap 15 (12-20); Blood Urea Nitrogen 38 mg/dL (9-16); Calcium 8.9 mg/dL (8.4-10.2); Carbon Dioxide 36 mmol/L (22-29); Chloride 90 mmol/L (96-108); Creatinine Clr Calc Pharmacy 42.7; Estimated Glomerular Filt Rate 37; Magnesium 2.2 mg/dL (1.6-2.6); Potassium 3.6 mmol/L (3.3-5.1); Sodium 137 mmol/L (135-145)
[2024-12-26 07:58] LABS: NT Pro B Type Natriuretic Pept 777.9 pg/mL (<300)
--- NOTE | 2024-12-26 10:46 | PM.PNCARD ---
Subjective Subjective Date of Service: 12/26/24 Principal diagnosis: Right heart failure Interval history: Patient says he is doing better. He is less short of breath walking. Remained in sinus rhythm. Blood pressure is stable. Overall negative balance of about 11.5 L. Review of Systems Constitutional: Reports no additional constitutional complaints Eyes: Reports no additional eye complaints Cardiovascular: Denies chest pain, Reports leg edema (Improved), Denies Loss of Consciousness and Reports dyspnea on exertion (Improved) Respiratory: Reports no additional respiratory complaints and Reports dyspnea on exertion (Improved) Genitourinary: Reports no additional male genitourinary complaints Reports system reviewed and no additional complaints, except as documented Physical Exam Vital Signs: Last Vital Signs Temp 97.0 F 12/26/24 07:46 Pulse 62 12/26/24 07:46 Resp 20 12/26/24 07:46 BP 114/64 12/26/24 07:46 Pulse Ox 96 12/26/24 07:46 O2 Del Method Nasal Cannula 12/26/24 07:46 O2 Flow Rate 2 12/26/24 07:46 BMI result Body Mass Index 37.2 Const General: cooperative, alert, awake and in distress mild and respiratory Nutritional Appearance: obese Orientation/consciousness: patient oriented x3 HEENT Head: Yes normocephalic and Yes atraumatic Neck Neck: Yes trachea midline, Yes supple and Yes JVD Resp Effort & Inspection: normal respiratory effort Auscultation: no rales, breath sounds absent and diminished lung sounds Cardio Jugular venous distension: JVD Rate: regular rate and bradycardic Rhythm: regular rhythm Heart sounds: S1 normal heart sound present, S2 normal heart sound present, no click, no gallops and Murmur heart sound present systolic GI Auscultation: normal bowel sounds Skin General skin exam: no rashes or lesions noted Neuro General: patient oriented x3 and no focal motor deficits Extrem General: No clubbing, No cyanosis and Yes edema Objective Labs and Meds 12/24/24 06:29 12/26/24 07:01 Lab results: Laboratory Results - last 24 hr 12/26/24 12/26/24 05:16 07:01 O2 Saturation 99.0 ABG pH at Pt Temp 7.52 H ABG pCO2 at Pt Temp 52 H ABG pO2 at Pt Temp 101 ABG HCO3 43 H ABG Base Excess (Actual) 17.5 Sodium 137 Potassium 3.6 Chloride 90 L Carbon Dioxide 36 H Anion Gap 15 BUN 38 H Creatinine 1.77 H Estim Creat Clear Calc 42.7 Estimated GFR 37 Random Glucose 111 Calcium 8.9 Magnesium 2.2 NT-Pro-B Natriuret Pep 777.9 H Progress Note: A&P Assessment and plan (1) Decompensated heart failure: Status: Acute Assessment and Plan: Decompensated congestive heart failure in this elderly man with predominantly right heart failure. Remains fluid overloaded. Continue diuresis. Strict intake and output chart needs to be pursued. Continue monitor renal function. His creatinine is actually improving with diuresis suggestive of congestive nephropathy. Continue Jardiance. Possibly contributed by his tricuspid regurgitation which appears to be secondary to his annual rehabilitation. Not sure if he is a candidate for tricuspid valve repair but will refer him as outpatient. Will follow with you Time Spent With Patient Time: Total time managing care of this patient today ____ minutes. Progress Note: Quality Stroke Does the patient have a stroke diagnosis?: No Procedures Date of Service Date of Service: 12/26/24
--- NOTE | 2024-12-26 12:09 | HO.PM.IMPN ---
Subjective Subjective Date of Service: 12/26/24 Interval History: dyspnea improving, as is abdominal distension no chest pain Review of Systems Review of Systems: Yes all other systems are reviewed and are negative Physical Exam Vital Signs: Vital Signs: Last Vital Signs Temp 97.0 F 12/26/24 11:49 Pulse 74 12/26/24 11:49 Resp 18 12/26/24 11:49 BP 101/53 L 12/26/24 11:49 Pulse Ox 92 12/26/24 11:49 O2 Del Method Room Air 12/26/24 11:49 O2 Flow Rate 2 12/26/24 07:46 BMI result Body Mass Index 37.2 Gen: in no acute distress HEENT: sclera anicteric, moist mucus membranes Neck: supple, JVD present Lungs: diminished at bases Heart: regular rate and rhythm, no murmurs Abd: soft, protuberant, nontender Ext: trace leg edema bilateraly Skin: warm/well-perfused Neuro: alert and oriented x3, no focal findings Psych: appropriate affect Objective Data Active Medications Acetaminophen (Acetaminophen 325 Mg Tablet) 650 mg PO Q6H PRN PRN Reason: Pain, Mild 1-3,fever,headache Amiodarone HCl (Amiodarone Hcl 200 Mg Tablet) 200 mg PO DAILY [facility] Last Admin: 12/26/24 08:27 Dose: 200 mg Documented By: LISA Apixaban (Apixaban 2.5 Mg Tablet) 2.5 mg PO BID [facility] Last Admin: 12/26/24 08:26 Dose: 2.5 mg Documented By: LISA Calcium Carbonate (Calcium Carbonate 750 Mg Tab.Chew) 750 mg PO Q4H PRN PRN Reason: Heartburn Empagliflozin (Empagliflozin 10 Mg Tablet) 10 mg PO DAILY [facility] Last Admin: 12/26/24 08:27 Dose: 10 mg Documented By: LISA Furosemide 200 mg/ Sodium (Chloride) 100 mls @ 2.5 mls/hr IVCONT .Q24H [facility] Last Admin: 12/25/24 17:59 Dose: 5 mg/hr, 2.5 mls/hr Documented By: LISA Magnesium Hydroxide (Milk Of Magnesia 30 Ml Oral.Susp) 30 ml PO DAILY PRN PRN Reason: Constipation Melatonin (Melatonin 3 Mg Tablet) 6 mg PO BEDTIME PRN PRN Reason: Insomnia Metolazone (Metolazone 2.5 Mg Tablet) 2.5 mg PO DAILY [facility] Last Admin: 12/26/24 08:28 Dose: 2.5 mg Documented By: LISA Ondansetron HCl (Ondansetron Hcl 4 Mg/2 Ml Vial) 4 mg IVPUSH Q8H PRN PRN Reason: Nausea and Vomiting Sodium Chloride (0.9 % Sodium Chloride Flush 3 Ml Syringe) 3 ml IVFLUSH QSHIFT [facility] Last Admin: 12/26/24 10:52 Dose: Not Given Documented By: LISA Non-Admin Reason: IV Running Tamsulosin HCl (Tamsulosin Hcl 0.4 Mg Capsule) 0.4 mg PO BEDTIME [facility] Last Admin: 12/25/24 20:24 Dose: 0.4 mg Documented By: WES Labs 12/24/24 06:29 12/26/24 07:01 Labs: Laboratory Results - last 24 hr 12/26/24 12/26/24 05:16 07:01 O2 Saturation 99.0 ABG pH at Pt Temp 7.52 H ABG pCO2 at Pt Temp 52 H ABG pO2 at Pt Temp 101 ABG HCO3 43 H ABG Base Excess (Actual) 17.5 Anion Gap 15 Estim Creat Clear Calc 42.7 Estimated GFR 37 Random Glucose 111 Calcium 8.9 Magnesium 2.2 NT-Pro-B Natriuret Pep 777.9 H Assessment and Plan (1) Decompensated heart failure: Status: Acute Plan d4, 84yo M with pAF s/p Watchman device and recent FORD-guided CV 12/17/24 currently on apixaban, severe TR, CAD s/p CABG, HFpEF, obesity, presenting with dyspnea and admitted for acute decompensated heart failure failing outpatient diuretic regimen ADHF, acute-chronic HFpEF/R-sided HF - continue IV furosemide 5 mg/h 1 more day, added metolazone 2.5 mg/d, continue empagliflozin, monitor NT-pro-BNP/I+O [negative 11.5L cumulatively]/wt/lytes, Cardiology consulted and following; will eventually need tricuspid repair as below MARTIN due to cardiorenal syndrome: monitor Cr while on IV diuresis; Cr gradually improving, suggestive of CRS; continue to hold lisinopril nocturnal hypoxemia: overnight oximetry test severe TR: followed by [facility] advanced valve clinic but pt wishes to go to [place] for repair congestive hepatopathy: LFTs improved; US for ascites check with only very small amount of fluid AF: continue apixaban for 1 mo after FORD-guided cardioversion, has Watchman device, continue amiodarone BPH: continue tamsulosin VTE ppx: apixaban dispo: TBD, PT eval requested In my clinical judgment, the patient requires continued inpatient hospitalization for the following reasons: advanced heart failure, severe TR, IV diuresis on continuous diuretic drip, MARTIN Total time managing care of this patient today: 40 minutes. Quality Stroke Does the patient have a stroke diagnosis?: No VTE Prior VTE?: No VTE Risk Level:: Medical - moderate - high VTE Device Contraindication: Treatment Not Indicated VTE Drug Contraindication: N/A - Med Ordered
[2024-12-26] MEDS: Furosemide 200 MG in 0.9 % Sodium Chloride 80 ML IVCONT (13:08)
--- NOTE | 2024-12-26 14:16 | MHC.CM.PN ---
Pt. requiring continued acute care for decompensated heart failure. DCP: home with family and private care.
[2024-12-26] MEDS: 0.9 % Sodium Chloride Flush 3 ML SYRINGE IVFLUSH (20:54)
[2024-12-27 03:49] VITALS: BP 139/69; PULSE 67; RESP 18; TEMP 37.1; O2SAT 96
[2024-12-27 07:04] VITALS: BP 117/58; PULSE 62; RESP 18; TEMP 36.6; O2SAT 96
[2024-12-27 08:03] LABS: Anion Gap 16 (12-20); Blood Urea Nitrogen 38 mg/dL (9-16); Calcium 9.6 mg/dL (8.4-10.2); Carbon Dioxide 36 mmol/L (22-29); Chloride 87 mmol/L (96-108); Creatinine Clr Calc Pharmacy 41.1; Estimated Glomerular Filt Rate 35; Magnesium 2.2 mg/dL (1.6-2.6); Potassium 3.6 mmol/L (3.3-5.1); Sodium 135 mmol/L (135-145)
[2024-12-27 08:25] LABS: NT Pro B Type Natriuretic Pept 615.6 pg/mL (<300)
--- NOTE | 2024-12-27 10:40 | PM.PNCARD ---
Subjective Subjective Date of Service: 12/27/24 Principal diagnosis: Right heart failure Interval history: Patient has improved and has diuresed further 2.5 L. Overall appears clinically much improved. BNP is downtrending to 600. Shortness of breath is improved. Remains in sinus rhythm. Creatinine in his stable Review of Systems Constitutional: Reports no additional constitutional complaints Cardiovascular: Denies chest pain, Denies rapid heart rate, Denies lightheadedness, Denies Loss of Consciousness and Reports dyspnea on exertion Respiratory: Reports no additional respiratory complaints and Reports dyspnea on exertion Reports system reviewed and no additional complaints, except as documented Physical Exam Vital Signs: Last Vital Signs Temp 97.9 F 12/27/24 07:04 Pulse 62 12/27/24 07:04 Resp 18 12/27/24 07:04 BP 117/58 L 12/27/24 07:04 Pulse Ox 96 12/27/24 07:04 O2 Del Method Nasal Cannula 12/27/24 07:04 O2 Flow Rate 2 12/27/24 07:04 BMI result Body Mass Index 37.2 Const General: cooperative, alert, awake and in distress mild and respiratory Nutritional Appearance: obese Orientation/consciousness: patient oriented x3 HEENT Head: Yes normocephalic and Yes atraumatic Neck Neck: Yes trachea midline, Yes supple and Yes JVD Resp Effort & Inspection: normal respiratory effort Auscultation: no rales, breath sounds absent and diminished lung sounds Cardio Jugular venous distension: JVD Rate: regular rate and bradycardic Rhythm: regular rhythm Heart sounds: S1 normal heart sound present, S2 normal heart sound present, no click, no gallops and Murmur heart sound present systolic GI Auscultation: normal bowel sounds Skin General skin exam: no rashes or lesions noted Neuro General: patient oriented x3 and no focal motor deficits Extrem General: No clubbing, No cyanosis and Yes edema Objective Labs and Meds 12/24/24 06:29 12/27/24 06:23 Lab results: Laboratory Results - last 24 hr 12/27/24 06:23 Hold Purple Top SEE NOTE Sodium 135 Potassium 3.6 Chloride 87 L Carbon Dioxide 36 H Anion Gap 16 BUN 38 H Creatinine 1.84 H Estim Creat Clear Calc 41.1 Estimated GFR 35 Random Glucose 115 Calcium 9.6 D Magnesium 2.2 NT-Pro-B Natriuret Pep 615.6 H Progress Note: A&P Assessment and plan (1) Decompensated heart failure: Status: Acute Assessment and Plan: Decompensated congestive heart failure most likely due to his underlying structural heart disease with diastolic heart failure as well as significant tricuspid regurgitation secondary to right-sided chamber enlargement. At this point time he has diuresed very well. Would switch him to p.o. diuretics with bumetanide 2 mg daily. Additional bumetanide as needed at home. Switch today and watch for 1 more day. Strict intake and output chart needs to be pursued. Check electrolytes as well as renal function tomorrow. Anticipate for discharge tomorrow. Ambulate as tolerated today. Overnight oximetry to be performed to see if he needs oxygen therapy at nighttime. Will also need workup for sleep apnea as outpatient. (2) Paroxysmal atrial fibrillation: Status: Acute Assessment and Plan: Paroxysmal atrial fibrillation has remained suppressed on amiodarone therapy. Continue the same. Has Watchman device and had cardioversion recently. Total Eliquis overlap for about 4 weeks. Can discontinue Eliquis after and go back to low-dose aspirin therapy. Continue rhythm control approach. Will set up for follow up as outpatient. (3) Tricuspid regurgitation: Status: Acute Assessment and Plan: Tricuspid regurgitation which appears to be secondary to significant right-sided chamber enlargement. Unsure if this would be amenable to tricuspid age to edge repair. Patient would prefer to go to [place]. Will refer him to [place] for further evaluation for his tricuspid regurgitation treatment. He is agreeable but will need to be done as an outpatient once he is better. Will set up for follow-up appointment in the clinic. Will sign of the case. Thank you for allowing me to partake in his care Time Spent With Patient Time: Total time managing care of this patient today ____ minutes. Progress Note: Quality Stroke Does the patient have a stroke diagnosis?: No Procedures Date of Service Date of Service: 12/27/24
[2024-12-27 11:01] VITALS: BP 102/59; PULSE 66; RESP 20; TEMP 36.4; O2SAT 95
[2024-12-27] MEDS: Furosemide 200 MG in 0.9 % Sodium Chloride 80 ML IVCONT (11:50)
[2024-12-27 15:27] VITALS: BP 100/60; PULSE 66; RESP 18; TEMP 36.1; O2SAT 95
--- NOTE | 2024-12-27 17:19 | HO.PM.IMPN ---
Subjective Subjective Date of Service: 12/27/24 Interval History: No acute issues overnight. Tolerant of Lasix drip. Breathing somewhat improved but still labored at times Review of Systems Denies chest pain Denies shortness of breath Denies nausea vomiting diarrhea Denies fever chills Physical Exam Vital Signs: Vital Signs: Last Vital Signs Temp 97 F 12/27/24 15:27 Pulse 66 12/27/24 15:27 Resp 18 12/27/24 15:27 BP 100/60 12/27/24 15:27 Pulse Ox 95 12/27/24 15:27 O2 Del Method Room Air 12/27/24 15:27 O2 Flow Rate 2 12/27/24 07:04 BMI result Body Mass Index 37.2 Const: Other: Awake alert no acute distress Resp: Other: Clear to auscultation bilaterally no rales rhonchi or wheezes Cardio: Other: No S4; positive S1-S2; no S3 2/6 systolic murmur noted at apex GI: Other: Soft nontender nondistended normoactive bowel sounds Extrem: Other: No edema bilaterally Objective Data Active Medications Acetaminophen (Acetaminophen 325 Mg Tablet) 650 mg PO Q6H PRN PRN Reason: Pain, Mild 1-3,fever,headache Amiodarone HCl (Amiodarone Hcl 200 Mg Tablet) 200 mg PO DAILY [facility] Last Admin: 12/27/24 07:51 Dose: 200 mg Documented By: IRINEO Apixaban (Apixaban 2.5 Mg Tablet) 2.5 mg PO BID [facility] Last Admin: 12/27/24 07:51 Dose: 2.5 mg Documented By: IRINEO Bumetanide (Bumetanide 1 Mg Tablet) 2 mg PO DAILY [facility]; Protocol Calcium Carbonate (Calcium Carbonate 750 Mg Tab.Chew) 750 mg PO Q4H PRN PRN Reason: Heartburn Empagliflozin (Empagliflozin 10 Mg Tablet) 10 mg PO DAILY [facility] Last Admin: 12/27/24 07:51 Dose: 10 mg Documented By: IRINEO Magnesium Hydroxide (Milk Of Magnesia 30 Ml Oral.Susp) 30 ml PO DAILY PRN PRN Reason: Constipation Melatonin (Melatonin 3 Mg Tablet) 6 mg PO BEDTIME PRN PRN Reason: Insomnia Metolazone (Metolazone 2.5 Mg Tablet) 2.5 mg PO DAILY [facility] Last Admin: 12/27/24 07:51 Dose: 2.5 mg Documented By: IRINEO Ondansetron HCl (Ondansetron Hcl 4 Mg/2 Ml Vial) 4 mg IVPUSH Q8H PRN PRN Reason: Nausea and Vomiting Sodium Chloride (0.9 % Sodium Chloride Flush 3 Ml Syringe) 3 ml IVFLUSH QSHIFT [facility] Last Admin: 12/27/24 15:52 Dose: Not Given Documented By: IRINEO Non-Admin Reason: IV Running Tamsulosin HCl (Tamsulosin Hcl 0.4 Mg Capsule) 0.4 mg PO BEDTIME [facility] Last Admin: 12/26/24 20:48 Dose: 0.4 mg Documented By: TAMIKO Labs 12/24/24 06:29 12/27/24 06:23 Labs: Laboratory Results - last 24 hr 12/27/24 06:23 Hold Purple Top SEE NOTE Anion Gap 16 Estim Creat Clear Calc 41.1 Estimated GFR 35 Random Glucose 115 Calcium 9.6 D Magnesium 2.2 NT-Pro-B Natriuret Pep 615.6 H Assessment and Plan (1) (HFpEF) heart failure with preserved ejection fraction: Status: Acute (2) HTN (hypertension): Status: Acute (3) Persistent atrial fibrillation: Status: Acute Plan d4, 84yo M with pAF s/p Watchman device and recent FORD-guided CV 12/17/24 currently on apixaban, severe TR, CAD s/p CABG, HFpEF, obesity, presenting with dyspnea and admitted for acute decompensated heart failure failing outpatient diuretic regimen 1.Acute-chronic HFpEF/R-sided HF - DC Lasix drip and start Bumex 2 mg daily -continue Gomez for strict I&O -continue outpatient therapies. .. Adjust as indicated 2. Acute kidney injury (stable) -switch to p.o. diuresis -follow renals/divalent 3.Severe TR -outpatient follow up for possible repair in [place] 4. Persistent atrial fibrillation -continue apixaban for 1 mo after FORD-guided cardioversion - Watchman device -continue amiodarone Full code Eliquis Quality Stroke Does the patient have a stroke diagnosis?: No VTE Prior VTE?: No VTE Risk Level:: Medical - moderate - high VTE Device Contraindication: Treatment Not Indicated VTE Drug Contraindication: N/A - Med Ordered
[2024-12-27 17:31] VITALS: BP 100/60
[2024-12-27 20:00] VITALS: BP 128/60; PULSE 76; RESP 18; TEMP 37.1; O2SAT 92
[2024-12-27] MEDS: 0.9 % Sodium Chloride Flush 3 ML SYRINGE IVFLUSH (20:14)
[2024-12-28] VITALS (8 sets, daily range): BP systolic 110–148; BP diastolic 54–72; PULSE 65–82; RESP 16–20; TEMP 36–37; O2SAT 93–97
[2024-12-28 07:58] LABS: MANUAL DIFF FLAG NO
[2024-12-28 08:01] LABS: Hematocrit 44.3 % (42.0-52.0); Hemoglobin 14.6 g/dl (14.0-18.0); Imm Gran Abs Auto 0.06 X10*3/uL (0.00-0.03); Imm Gran Pct Auto 0.7 % (0.0-0.4); Lymphocytes Absolute Auto 0.9 X10*3/uL (1.2-4.9); Mean Corpuscular HGB Conc 33.0 g/dl (31.0-36.0); Mean Corpuscular Hemoglobin 29.0 pg (27.0-33.0); Mean Corpuscular Volume 87.9 fL (80.0-98.0); NRBC Abs Auto 0.000 X10*3/uL (0.0-0.012); NRBC Pct Auto 0.0 /100WBC (0.0-0.2); Platelet Count 187 X10*3/uL (160-400); Red Blood Count 5.04 X10*6/uL (4.60-5.80); White Blood Count 8.4 X10*3/uL (4.8-10.8)
[2024-12-28] MEDS: 0.9 % Sodium Chloride Flush 3 ML SYRINGE IVFLUSH ×3 (08:16→20:10)
[2024-12-28 08:18] LABS: Alanine Aminotransferase 65 U/L (0-40); Albumin Level 4.0 g/dL (3.5-5.0); Alkaline Phosphatase 122 U/L (39-117); Anion Gap 16 (12-20); Aspartate Amino Transferase 84 U/L (5-37); Blood Urea Nitrogen 38 mg/dL (9-16); Calcium 9.6 mg/dL (8.4-10.2); Carbon Dioxide 39 mmol/L (22-29); Chloride 83 mmol/L (96-108); Creatinine Clr Calc Pharmacy 43.0; Estimated Glomerular Filt Rate 37; Potassium 3.0 mmol/L (3.3-5.1); Sodium 135 mmol/L (135-145); Total Protein 7.7 g/dL (6.5-8.0)
[2024-12-28 10:15] LABS: Magnesium 2.5 mg/dL (1.6-2.6)
--- NOTE | 2024-12-28 10:54 | P.PNCA_ITS ---
Subjective Subjective Date of Service: 12/28/24 Principal diagnosis: Right heart failure Interval history: Patient is having some cramps. Overall has done well and has had great negative balance. Doing much better. Denies any palpitations. Remains in sinus rhythm. Review of Systems Constitutional: Reports no additional constitutional complaints Cardiovascular: Denies Abdominal Distension, Denies leg edema, Denies dyspnea and Denies orthopnea Respiratory: Denies dyspnea Musculoskeletal: Reports muscle cramps Psychiatric: Reports no additional psychiatric complaints Physical Exam Vital Signs: Last Vital Signs Temp 97.4 F 12/28/24 07:15 Pulse 65 12/28/24 07:15 Resp 20 12/28/24 07:15 BP 113/57 L 12/28/24 08:15 Pulse Ox 94 12/28/24 07:15 O2 Del Method Room Air 12/28/24 07:15 O2 Flow Rate 2 12/28/24 03:43 BMI result Body Mass Index 37.2 Const General: cooperative, alert, awake and in distress mild and respiratory Nutritional Appearance: obese Orientation/consciousness: patient oriented x3 HEENT Head: Yes normocephalic and Yes atraumatic Neck Neck: Yes trachea midline, Yes supple and Yes no JVD Resp Effort & Inspection: normal respiratory effort Auscultation: no rales, breath sounds absent and diminished lung sounds Cardio Jugular venous distension: no JVD Rate: regular rate and bradycardic Rhythm: regular rhythm Heart sounds: S1 normal heart sound present, S2 normal heart sound present, no click, no gallops and Murmur heart sound present systolic GI Auscultation: normal bowel sounds Skin General skin exam: no rashes or lesions noted Neuro General: patient oriented x3 and no focal motor deficits Extrem General: No clubbing, No cyanosis and Yes edema Objective Labs and Meds 12/28/24 07:03 12/28/24 07:03 Lab results: Laboratory Results - last 24 hr 12/28/24 07:03 WBC 8.4 RBC 5.04 D Hgb 14.6 Hct 44.3 MCV 87.9 D MCH 29.0 MCHC 33.0 RDW 15.1 Plt Count 187 MPV 9.9 Immature Gran % (Auto) 0.7 H Neut % (Auto) 72.3 Lymph % (Auto) 11.0 L [place] % (Auto) 11.6 H Eos % (Auto) 4.0 Baso % (Auto) 0.4 Lymph # (Auto) 0.9 L [place] # (Auto) 1.0 Eos # (Auto) 0.3 Baso # (Auto) 0.0 Abs Immat Gran (auto) 0.06 H Absolute Neuts (auto) 6.0 Absolute Nucleated RBC 0.000 Nucleated RBC % (auto) 0.0 Sodium 135 Potassium 3.0 L Chloride 83 L Carbon Dioxide 39 H Anion Gap 16 BUN 38 H Creatinine 1.76 H Estim Creat Clear Calc 43.0 Estimated GFR 37 Fasting Glucose 114 H Calcium 9.6 Magnesium 2.5 Total Bilirubin 1.4 H AST 84 H ALT 65 H Alkaline Phosphatase 122 H Total Protein 7.7 Albumin 4.0 Progress Note: A&P Assessment and plan (1) Decompensated heart failure: Status: Acute Assessment and Plan: Decompensated congestive heart failure in his elderly gentleman related to diastolic heart failure as well as significant tricuspid regurgitation. Clinically he has diuresed extremely well and doing well. We discussed management of his heart failure in details. At this point time I would continue with oral bumetanide. We discussed weight based management with him. Additional bumetanide as outpatient when he is weight gain. He understands. Will refer him to [place] for consideration for tricuspid repair. Continue Jardiance. Overall prognosis is limited. Will continue pursue rhythm control approach and continue amiodarone therapy. Eliquis for total of 4 weeks since cardioversion. He has a Watchman device and does not require long-term oral anticoagulation therapy. Out of bed to chair and ambulate as tolerated. May need physical therapy. I would also aggressively replace his magnesium and potassium given his muscle cramps. Will sign of the case. (2) Tricuspid regurgitation: Status: Acute Assessment and Plan: Tricuspid regurgitation secondary to chamber enlargement. Not sure if he would be a candidate for repair. Will refer him to [facility] to consider the same as outpatient. This was discussed with him. He is agreeable to pursue care in [place]. Will follow with him as outpatient 7-10 days. Thank you for allowing me to partake in his care Time Spent With Patient Time: Total time managing care of this patient today ____ minutes. Progress Note: Quality Stroke Does the patient have a stroke diagnosis?: No Procedures Date of Service Date of Service: 12/28/24
[2024-12-28] MEDS: Potassium Chloride ER 20 MEQ TAB.ER.PRT 40 MEQ PO ×2 (11:04→20:09)
--- NOTE | 2024-12-28 11:54 | PC.NURSE ---
Addendum entered by Zoë Salvador RN 12/28/24 16:46: Pt brought to the bathroom and able to void 300mLs. at 1640 bladder scanned pt for <10 mLs. pt denies any discomfort. plan of care ongoing. Original Note: At 1010 Gomez catheter removed per Dr. Pizarro's order; Patient tolerated well. Voiding trial started and pt due to void at 1610. Urinal at the bedside. Plan of care ongoing. Safety and fall precautions and call shah within reach.
--- NOTE | 2024-12-28 13:51 | P.PNIM_ITS ---
Subjective Subjective Date of Service: 12/28/24 Interval History: Good response to diuresis. Mild cramping noted. Review of Systems Denies chest pain Denies shortness of breath Denies nausea vomiting diarrhea Denies fever chills Physical Exam 2 Vital Signs: Vital Signs: Last Vital Signs Temp 96.8 F 12/28/24 11:13 Pulse 69 12/28/24 11:13 Resp 20 12/28/24 11:13 BP 110/54 L 12/28/24 11:13 Pulse Ox 96 12/28/24 11:13 O2 Del Method Room Air 12/28/24 11:13 O2 Flow Rate 2 12/28/24 03:43 BMI result Body Mass Index 37.2 Const: Other: Awake alert no acute distress Resp: Other: Clear to auscultation bilaterally no rales rhonchi or wheezes Cardio: Other: No S4; positive S1-S2; no S3 2/6 systolic murmur noted at apex GI: Other: Soft nontender nondistended normoactive bowel sounds Extrem: Other: No edema bilaterally Objective Data Active Medications Acetaminophen (Acetaminophen 325 Mg Tablet) 650 mg PO Q6H PRN PRN Reason: Pain, Mild 1-3,fever,headache Amiodarone HCl (Amiodarone Hcl 200 Mg Tablet) 200 mg PO DAILY [facility] Last Admin: 12/28/24 08:16 Dose: 200 mg Documented By: IRINEO Apixaban (Apixaban 2.5 Mg Tablet) 2.5 mg PO BID [facility] Last Admin: 12/28/24 08:16 Dose: 2.5 mg Documented By: IRINEO Bumetanide (Bumetanide 1 Mg Tablet) 2 mg PO DAILY [facility]; Protocol Last Admin: 12/28/24 08:15 Dose: 2 mg Documented By: IRINEO Calcium Carbonate (Calcium Carbonate 750 Mg Tab.Chew) 750 mg PO Q4H PRN PRN Reason: Heartburn Empagliflozin (Empagliflozin 10 Mg Tablet) 10 mg PO DAILY [facility] Last Admin: 12/28/24 08:16 Dose: 10 mg Documented By: IRINEO Magnesium Hydroxide (Milk Of Magnesia 30 Ml Oral.Susp) 30 ml PO DAILY PRN PRN Reason: Constipation Melatonin (Melatonin 3 Mg Tablet) 6 mg PO BEDTIME PRN PRN Reason: Insomnia Metolazone (Metolazone 2.5 Mg Tablet) 2.5 mg PO DAILY [facility] Last Admin: 12/28/24 08:15 Dose: 2.5 mg Documented By: IRINEO Ondansetron HCl (Ondansetron Hcl 4 Mg/2 Ml Vial) 4 mg IVPUSH Q8H PRN PRN Reason: Nausea and Vomiting Potassium Chloride (Potassium Chloride Er 20 Meq Tab.Er.Prt) 40 meq PO BID [facility] Stop: 12/29/24 21:01 Last Admin: 12/28/24 11:04 Dose: 40 meq Documented By: IRINEO Sodium Chloride (0.9 % Sodium Chloride Flush 3 Ml Syringe) 3 ml IVFLUSH QSHIFT [facility] Last Admin: 12/28/24 08:16 Dose: 3 ml Documented By: IRINEO Tamsulosin HCl (Tamsulosin Hcl 0.4 Mg Capsule) 0.4 mg PO BEDTIME [facility] Last Admin: 12/27/24 20:13 Dose: 0.4 mg Documented By: TAMIKO Labs 12/28/24 07:03 12/28/24 07:03 Labs: Laboratory Results - last 24 hr 12/28/24 07:03 MCV 87.9 D MCH 29.0 MCHC 33.0 RDW 15.1 Plt Count 187 MPV 9.9 Immature Gran % (Auto) 0.7 H Neut % (Auto) 72.3 Lymph % (Auto) 11.0 L [place] % (Auto) 11.6 H Eos % (Auto) 4.0 Baso % (Auto) 0.4 Lymph # (Auto) 0.9 L [place] # (Auto) 1.0 Eos # (Auto) 0.3 Baso # (Auto) 0.0 Abs Immat Gran (auto) 0.06 H Absolute Neuts (auto) 6.0 Absolute Nucleated RBC 0.000 Nucleated RBC % (auto) 0.0 Anion Gap 16 Estim Creat Clear Calc 43.0 Estimated GFR 37 Fasting Glucose 114 H Calcium 9.6 Magnesium 2.5 Total Bilirubin 1.4 H AST 84 H ALT 65 H Alkaline Phosphatase 122 H Total Protein 7.7 Albumin 4.0 Assessment and Plan (1) Acute on chronic heart failure with preserved ejection fraction (HFpEF): Status: Acute (2) HTN (hypertension): Status: Acute (3) Persistent atrial fibrillation: Status: Acute Plan d4, 84yo M with pAF s/p Watchman device and recent FORD-guided CV 12/17/24 currently on apixaban, severe TR, CAD s/p CABG, HFpEF, obesity, presenting with dyspnea and admitted for acute decompensated heart failure failing outpatient diuretic regimen 1.Acute-chronic HFpEF/R-sided HF - DC Lasix drip and start Bumex 2 mg daily -17.5 L negative. We will do voiding trial today for hopeful DC in a.m. -continue outpatient therapies. .. Adjust as indicated 2. Acute kidney injury (stable) -switch to p.o. diuresis -follow renals/divalent 3.Severe TR -outpatient follow up for possible repair in [place] 4. Persistent atrial fibrillation -continue apixaban for 1 mo after FORD-guided cardioversion - Watchman device -continue amiodarone Full code Eliquis Quality Stroke Does the patient have a stroke diagnosis?: No VTE Prior VTE?: No VTE Risk Level:: Medical - moderate - high VTE Device Contraindication: Treatment Not Indicated VTE Drug Contraindication: N/A - Med Ordered
[2024-12-29 03:24] VITALS: BP 118/58; PULSE 63; RESP 18; TEMP 36.1
[2024-12-29 07:56] LABS: MANUAL DIFF FLAG NO
[2024-12-29 07:59] LABS: Hematocrit 43.1 % (42.0-52.0); Hemoglobin 14.3 g/dl (14.0-18.0); Imm Gran Abs Auto 0.07 X10*3/uL (0.00-0.03); Imm Gran Pct Auto 0.7 % (0.0-0.4); Lymphocytes Absolute Auto 0.7 X10*3/uL (1.2-4.9); Mean Corpuscular HGB Conc 33.2 g/dl (31.0-36.0); Mean Corpuscular Hemoglobin 29.7 pg (27.0-33.0); Mean Corpuscular Volume 89.4 fL (80.0-98.0); NRBC Abs Auto 0.000 X10*3/uL (0.0-0.012); NRBC Pct Auto 0.0 /100WBC (0.0-0.2); Platelet Count 177 X10*3/uL (160-400); Red Blood Count 4.82 X10*6/uL (4.60-5.80); White Blood Count 9.7 X10*3/uL (4.8-10.8)
[2024-12-29 08:00] VITALS: BP 118/56; PULSE 65; RESP 16; TEMP 36.9; O2SAT 95
[2024-12-29 08:15] LABS: Alanine Aminotransferase 66 U/L (0-40); Albumin Level 3.8 g/dL (3.5-5.0); Alkaline Phosphatase 117 U/L (39-117); Aspartate Amino Transferase 83 U/L (5-37); Blood Urea Nitrogen 43 mg/dL (9-16); Calcium 9.5 mg/dL (8.4-10.2); Creatinine Clr Calc Pharmacy 38.6; Estimated Glomerular Filt Rate 33; Total Protein 7.6 g/dL (6.5-8.0)
[2024-12-29] MEDS: Potassium Chloride ER 20 MEQ TAB.ER.PRT 40 MEQ PO (08:49)
[2024-12-29] MEDS: 0.9 % Sodium Chloride Flush 3 ML SYRINGE IVFLUSH (08:50)
[2024-12-29 08:58] LABS: Anion Gap 19 (12-20); Carbon Dioxide 33 mmol/L (22-29); Chloride 84 mmol/L (96-108); Potassium 3.7 mmol/L (3.3-5.1); Sodium 132 mmol/L (135-145)
[2024-12-29 11:41] VITALS: BP 99/53; PULSE 67; RESP 16; TEMP 36.1; O2SAT 96
[2024-12-29 12:00] VITALS: O2SAT 90
[2024-12-29 12:02] VITALS: PULSE 77; PULSE 87; O2SAT 90; O2SAT 97
--- NOTE | 2024-12-29 12:04 | PC.RT ---
Home 02 evaluation done. pt walked 35 feet with RT /PT (Doris Arora) on room air. pt does not need home oxygen for ambulation and rest, however, a overnight oximetry was done as pt did desat to 80% for for less than 5 minutes. Therefore pt ebenezer need nocturnal 02 only when sleeping. Will use [employer] as a [employer] company.
--- NOTE | 2024-12-29 13:59 | MHC.CM.PN ---
Addendum entered by Maia Castillo 12/29/24 14:43: CM SPOKE WITH PTS DAUGHTER WHO REPORTS FAMILY PLANS TO TAKE TURNS STAYING WITH HIM SHE ALSO ASKS THAT THE [facility] CONTACT HER TO ARRANGE SOC, MESSAGE RELAYED SHE ASKS THAT THE RN OR CM CALL HER BROTHER LARISSA WHEN PT IS READY FOR TRANSPORT, SHE SAYS SHE HAS BEEN SICK SO DOES NOT WANT TO BE CLOSE TO THE PT TODAY Original Note: JAGDEEP MET WITH PT TO DISCUSS DCP PT IS AWARE STR WAS RECOMMENDED, BUT STATES HE IS NOT GOING TO ONE OF THOSE PLACES HE SAYS HIS FAMILY HAS ARRANGED CARE IN THE HOME AND HE IS AGREEABLE TO [facility], [facility] PREFERRED PER DISCUSSION, CALL WAS PLACED TO PTS DAUGHTER/HCP, KATELIN, Allyn PARKER WAS LEFT REQUESTING A RETURN CALL PT REPORTS HIS DAUGHTER WILL COORDINATE TRANSPORT REFERRAL MADE TO [facility]
--- NOTE | 2024-12-29 14:07 | PM.DS ---
DS: Providers Provider Date of Service: 12/29/24 Date of admission: 12/23/24 12:40 Date of discharge: 12/29/24 Primary care physician: Dona Cancino MD Consults: 12/23/24 15:23 Consult to Cardiology Routine Consulting Provider: [facility] Reason for consultation: CHF DS: Diagnosis Discharge Diagnosis (1) Acute on chronic heart failure with preserved ejection fraction (HFpEF): Status: Acute (2) HTN (hypertension): Status: Acute (3) Persistent atrial fibrillation: Status: Acute DS: Summary Hospital Course Hospital Course: 4-year-old man with a history of heart failure with preserved ejection fraction presents to the ER with concerns of increased shortness breath, lightheadedness and weight gain over the last 1-2 weeks. Patient reports dyspnea on exertion, even walking just 3 steps. He has a history of cardioversion secondary to symptomatic atrial fibrillation and he has a watchman's device as well. Chest x-ray showed new small right pleural effusion and atelectasis/consolidation in the right lung base. He denies any chest pain or palpitations. No recent fevers or chills. No cough. No abdominal pain, nausea, vomiting or diarrhea.He was started on lasix drip in the ed and will be admitted for acute CHF. [facility] Admitted to telemetry where monitor failed to demonstrate any dysrhythmias cause presenting symptoms. Seen by Cardiology on 12/24/2024 (see note for details) patient was initially aggressively diuresed on Lasix drip and subsequently switched to Bumex and oral metolazone. Over the course of his hospitalization he diuresed approximately 18 L. cardiology recommendations were implemented and he will be discharged on Bumex 2 mg as well as metolazone. He was seen by Physical therapy who recommended short-term rehab however patient adamantly declined. At this time he will be discharged on oral diuresis and will follow up with Cardiology in the office Time Attestation Discharge Coordination Time (in mins): 35 Quality: Safe Use of Opioids Does Pt have an Active Cancer Diagnosis on the Problem List?: No Quality: Stroke Does the patient have a stroke diagnosis?: No Physical Exam Vital Signs: Vital Signs: Last Vital Signs Temp 97.0 F 12/29/24 11:41 Pulse 67 12/29/24 11:41 Resp 16 12/29/24 11:41 BP 99/53 L 12/29/24 11:41 Pulse Ox 90 L 12/29/24 12:00 O2 Del Method Room Air 12/29/24 11:41 O2 Flow Rate 4 12/29/24 03:24 BMI result Body Mass Index 37.2 Const: Other: Awake alert no acute distress Resp: Other: Clear to auscultation bilaterally no rales rhonchi or wheezes Cardio: Other: No S4; positive S1-S2; no S3 2/6 systolic murmur noted at apex GI: Other: Soft nontender nondistended normoactive bowel sounds Extrem: Other: No edema bilaterally DS: Data Data Completed and Pending Labs on day of discharge: Laboratory Results - last 24 hr 12/29/24 07:52 WBC 9.7 RBC 4.82 Hgb 14.3 Hct 43.1 MCV 89.4 MCH 29.7 MCHC 33.2 RDW 14.9 Plt Count 177 MPV 9.7 Immature Gran % (Auto) 0.7 H Neut % (Auto) 77.6 H Lymph % (Auto) 7.6 L [place] % (Auto) 11.1 H Eos % (Auto) 2.6 Baso % (Auto) 0.4 Lymph # (Auto) 0.7 L [place] # (Auto) 1.1 Eos # (Auto) 0.3 Baso # (Auto) 0.0 Abs Immat Gran (auto) 0.07 H Absolute Neuts (auto) 7.5 Absolute Nucleated RBC 0.000 Nucleated RBC % (auto) 0.0 Sodium 132 L Potassium 3.7 D Chloride 84 L Carbon Dioxide 33 H Anion Gap 19 BUN 43 H Creatinine 1.96 H Estim Creat Clear Calc 38.6 Estimated GFR 33 Fasting Glucose 151 H Calcium 9.5 Total Bilirubin 1.3 H AST 83 H ALT 66 H Alkaline Phosphatase 117 Total Protein 7.6 Albumin 3.8 Discharge Plan Discharge Anticipated Discharge Date/Time: 12/29/24 14:00 Patient Disposition: Home Health Service Discharge Diagnosis: Acute on chronic heart failure with preserved ejection fraction Referrals: Po,Dona Palacios MD [Primary Care Provider, Internal Medicine] - 1 Week Discharge Medications: New metolazone 2.5 mg Tablet 2.5 mg PO DAILY Qty: 30 0RF potassium chloride 20 mEq Tablet,Er Particles/Crystals 40 meq PO BID Qty: 12 0RF bumetanide 1 mg Tablet 2 mg PO DAILY Qty: 30 0RF Protocol: Hold for SBP< HOLD for SBP < : 90 Continued amiodarone 200 mg tablet 200 mg PO DAILY Qty: 30 5RF Eliquis 5 mg tablet 5 mg PO BID Qty: 30 0RF dapagliflozin propanediol [Farxiga] 5 mg tablet 5 mg PO DAILY Qty: 30 5RF prednisone 20 mg tablet 10 mg PO Q7D PRN (Reason: Back Pain) lisinopril 5 mg tablet 5 mg PO BEDTIME tamsulosin 0.4 mg capsule 0.4 mg PO BEDTIME 90 Days Qty: 90 1RF Discontinued furosemide 20 mg tablet 40 mg PO DAILY@1200 PRN (Reason: Edema) furosemide 20 mg tablet 60 mg PO DAILY Discharge Orders: Discharge Order (Routine); Ordered 12/29/24 Ordered By: Morales Pizarro Diet: Advance to usual diet Activity on Discharge: As tolerated Stand Alone Forms: Patient Portal Discharge page Print Language: Romanian Care Plan Goals: Resume all meds as taken prior to hospitalization Health Concerns: Your Jennifer has been DC in its place she will take Bumex 2 mg daily and metolazone as ordered. You have also been prescribed a potassium supplement daily Plan of Treatment: Follow up with Cardiology as scheduled as well as PCP. Assessment: See discharge summary
--- NOTE | 2024-12-29 14:10 | P.F2F_ITS ---
Service Date Service Date: 12/29/24 Encounter Date of encounter: 12/29/24 Encounter: Acute hospitalization Reasons for Services Signs and symptoms assessed: O2 saturation overall volume status and compliance with medication Reason for custodial: CV/CP assess and/or care, medication management and teach disease management Reason for physical therapy: home safety and mobility and therapeutic exercises Homebound: Leaving the home is medically contraindicated at this time without the asist of a device and/or another person due th the listed conditions above and below. Reason homebound: unsteady gait / fall risk Certification: Based on the above findings, I certify that this patient is confined to the home and needs intermittent custodial care, physical therapy and/or speech t herapy, or continues to need occupational therapy. The patient is under my care, and I have initiated the establishment of the plan of care. The patient will be followed by a physician who will periodically review the plan of care. Time Spent With Patient Time: Total time managing care of this patient today ____ minutes.
[2024-12-29 15:23] VITALS: BP 112/57; PULSE 67; RESP 16; TEMP 36.5; O2SAT 95
== END 2024-12-29 17:27 | disposition home health service (06) | DRG 291 ==
LOC: HO.ED 12:34 → HO.EDOVER 13:19 → HO.IMC 19:39
PROVIDERS: Family Medicine; Physician Assistant Medical; Admitting Provider Nurse Practitioner Acute Care; Emergency Provider Emergency Medicine; PCP Internal Medicine; Visit Provider Hospitalist
DX: I11.0 Hypertensive heart disease with heart failure (principal); I50.33 Acute on chronic diastolic (congestive) heart failure; N17.9 Acute kidney failure, unspecified; I48.19 Other persistent atrial fibrillation; I25.10 Atherosclerotic heart disease of native coronary artery without angina pectoris; N40.0 Benign prostatic hyperplasia without lower urinary tract symptoms; I50.813 Acute on chronic right heart failure; K74.60 Unspecified cirrhosis of liver; I07.1 Rheumatic tricuspid insufficiency; Z20.822 Contact with and (suspected) exposure to COVID-19; Z95.818 Presence of other cardiac implants and grafts; Z95.5 Presence of coronary angioplasty implant and graft; Z79.01 Long term (current) use of anticoagulants; Z79.899 Other long term (current) drug therapy
CPT/HCPCS: 36415; 36600; 71045; 76705; 80048; 80053; 80076; 82803; 83690; 83735; 83880; 84484; 85025; 85027; 87637; 93005; 97162; 97530; 99285; J1938

== ENCOUNTER → 2024-12-23 09:44 | Outpatient (BNV) | payer MEDICARE, SELFPAY | PROVIDERS: Admitting Provider Nurse Practitioner Acute Care; Emergency Provider Emergency Medicine; PCP Internal Medicine; Visit Provider Internal Medicine Cardiovascular Disease | DX: I44.0 Atrioventricular block, first degree (principal); I25.2 Old myocardial infarction | CPT/HCPCS: 93010 ==

== ENCOUNTER → 2024-12-23 09:45 | Outpatient (BNV) | payer MEDICARE, SELFPAY | PROVIDERS: Emergency Provider Emergency Medicine; PCP Internal Medicine; Visit Provider Radiology Diagnostic Radiology | DX: J90 Pleural effusion, not elsewhere classified (principal); J98.11 Atelectasis | CPT/HCPCS: 71045 ==

== ENCOUNTER 2024-12-23 12:40 | Outpatient (BNV) | payer MEDICARE, SELFPAY | END 2024-12-24 13:30 | PROVIDERS: Admitting Provider Nurse Practitioner Acute Care; Emergency Provider Emergency Medicine; PCP Internal Medicine; Visit Provider Radiology Diagnostic Radiology | DX: I50.9 Heart failure, unspecified (principal); K74.60 Unspecified cirrhosis of liver | CPT/HCPCS: 76705 ==

== ENCOUNTER → 2024-12-23 12:40 | Outpatient (BNV) | payer MEDICARE, SELFPAY | PROVIDERS: Admitting Provider Nurse Practitioner Acute Care; Emergency Provider Emergency Medicine; PCP Internal Medicine; Visit Provider Nurse Practitioner Acute Care | DX: I50.9 Heart failure, unspecified (principal) | CPT/HCPCS: 99232 ==

== ENCOUNTER → 2024-12-23 12:40 | Outpatient (BNV) | payer MEDICARE, SELFPAY | PROVIDERS: Admitting Provider Nurse Practitioner Acute Care; Emergency Provider Emergency Medicine; PCP Internal Medicine; Visit Provider Internal Medicine Cardiovascular Disease | DX: I50.9 Heart failure, unspecified (principal); I07.1 Rheumatic tricuspid insufficiency | CPT/HCPCS: 99233 ==

== ENCOUNTER 2024-12-30 03:28 | Emergency (ER) | payer MEDICARE, SELFPAY ==
--- NOTE | 2024-12-30 | ECG_ITS ---
Test Reason : fall Blood Pressure : */* mmHG Vent. Rate : 71 BPM Atrial Rate : 71 BPM P-R Int : 182 ms QRS Dur : 98 ms QT Int : 486 ms P-R-T Axes : 44 12 141 degrees QTcB Int : [address] & T wave abnormality, consider anterolateral ischemia Prolonged QT Abnormal ECG When compared with ECG of 23-Dec-2024 10:11, Inverted T waves have replaced nonspecific T wave abnormality in Anterolateral leads QT has lengthened Referred By: Generic ED Physician Electronically Signed By: ILYA JONES
--- NOTE | ~2024-12-30 | CT_ITS ---
CLINICAL HISTORY: fall, blood thinners CT head without contrast Comparison: CT/REG/SR - CT HEAD/BRAIN WO IV CON - 10/13/24 03:39 EDT Findings: No intra-axial mass, midline shift, hydrocephalus, or acute hemorrhage. Generalized cerebral atrophy is noted with ex vacuo dilatation of the ventricles. Chronic low-density periventricular deep white matter changes are present. Atherosclerotic calcification is noted. There is no sinus or mastoid fluid. The orbits are within normal limits. No skull fracture. Extracranial soft tissue swelling and laceration is noted over the frontal region. IMPRESSION: 1. No acute intracranial findings. This document has been electronically signed by: Anibal Oneill MD on 12/30/2024 05:09:42
--- NOTE | ~2024-12-30 | XR_ITS ---
CLINICAL HISTORY: fall 1 view chest x-ray Comparison: CR/SR - XR CHEST 1 VIEW - 12/23/24 10:17 EST CR - XR CHEST 1V - 10/13/24 01:47 EDT Findings: Hazy density is noted within the lower lungs suggesting atelectasis. Infiltrate can not be excluded. No focal consolidation is noted. Small pleural effusions may be present. The patient is status post median sternotomy. The heart size is enlarged. Pulmonary blood flow appears within normal limits. Prior lower cervical fusion is noted with screw plate fixation. Degenerative changes noted within the shoulders. No displaced fracture is seen. IMPRESSION: Degenerative and postsurgical change with some hazy density within the lung bases. Basilar atelectasis and/or infiltrate may be present. This document has been electronically signed by: Anibal Oneill MD on 12/30/2024 06:11:03
--- NOTE | ~2024-12-30 | CT_ITS ---
CLINICAL HISTORY: fall, AMS CT cervical spine without contrast Comparison: CT/SR - CT CERVICAL SPINE WO IV CON - 10/13/24 03:39 EDT Findings: There is a fracture through an anterior osteophyte at C6-7 with traumatic widening of the C6-7 disc space. There is prevertebral soft tissue swelling at C6-7 and inferiorly extending out of the field of view. There is no listhesis. Patient is status post instrumented anterior fusion and discectomy of C5-6. There is moderate C3-4 degenerative disc disease. There is multilevel facet and uncovertebral joint osteoarthritis with associated neuroforaminal stenoses. There is carotid artery calcification. IMPRESSION: Fracture through an anterior osteophyte at C6-7 with traumatic widening of the C6-7 disc space. This document has been electronically signed by: Negrito Chua MD on 12/30/2024 05:09:35
[2024-12-30 03:44] VITALS: BP 117/81; PULSE 70; O2SAT 95; BMI 29.1
[2024-12-30 04:06] LABS: MANUAL DIFF FLAG NO
[2024-12-30 04:08] LABS: Hematocrit 44.1 % (42.0-52.0); Hemoglobin 14.7 g/dl (14.0-18.0); Imm Gran Abs Auto 0.12 X10*3/uL (0.00-0.03); Imm Gran Pct Auto 1.2 % (0.0-0.4); Lymphocytes Absolute Auto 0.6 X10*3/uL (1.2-4.9); Mean Corpuscular HGB Conc 33.3 g/dl (31.0-36.0); Mean Corpuscular Hemoglobin 29.5 pg (27.0-33.0); Mean Corpuscular Volume 88.6 fL (80.0-98.0); NRBC Abs Auto 0.000 X10*3/uL (0.0-0.012); NRBC Pct Auto 0.0 /100WBC (0.0-0.2); Platelet Count 210 X10*3/uL (160-400); Red Blood Count 4.98 X10*6/uL (4.60-5.80); White Blood Count 10.4 X10*3/uL (4.8-10.8)
[2024-12-30 04:20] LABS: INTERNATIONAL NORM RATIO 2.0 (0.9-1.1); Prothrombin Time 23.7 SEC (11.2-13.5)
[2024-12-30 04:26] LABS: NT Pro B Type Natriuretic Pept 637.2 pg/mL (<300)
[2024-12-30 04:28] LABS: Alanine Aminotransferase 77 U/L (0-40); Albumin Level 4.3 g/dL (3.5-5.0); Alkaline Phosphatase 126 U/L (39-117); Aspartate Amino Transferase 92 U/L (5-37); Blood Urea Nitrogen 54 mg/dL (9-16); Calcium 9.9 mg/dL (8.4-10.2); Creatinine Clr Calc Pharmacy 30.1; Estimated Glomerular Filt Rate 27; Magnesium 2.6 mg/dL (1.6-2.6); Total Protein 8.2 g/dL (6.5-8.0)
[2024-12-30 04:29] LABS: Troponin-I High Sensitivity 25.4 ng/L (<3.5-35.0)
--- NOTE | 2024-12-30 04:45 | PC.NURSE ---
pt SPO2 noted to be 89% on the monitor, pt placed on 1L via NC for comfort
[2024-12-30 04:50] LABS: Anion Gap 22 (12-20); Carbon Dioxide 34 mmol/L (22-29); Chloride 82 mmol/L (96-108); Potassium 3.5 mmol/L (3.3-5.1); Sodium 134 mmol/L (135-145)
--- NOTE | 2024-12-30 05:17 | ED_ITS ---
HPI - Fall General Chief Complaint: Fall Stated Complaint: fall Time Seen by Provider: 12/30/24 03:50 Source: patient, family, EMS and old records reviewed Mode of arrival: EMS Limitations: no limitations History of Present Illness ED Provider: Dr. Candida Banuelos HPI Narrative: 84-year-old male with a history of atrial fibrillation, on Eliquis, HFpEF with recent hospitalization, discharged today presenting with head trauma after a fall that occurred at home. Patient was sitting on the toilet when he evidently had a syncopal episode, passing out, falling forward and hitting his head on the door jam in the bathroom. He has a large laceration overlying the frontal scalp, bleeding is poorly controlled due to use of Eliquis. Patient admits that he had been up several times in the night to urinate without issue however this past trip he did fall. Unclear if there was LOC. The fall was not witnessed. He lives at home with his ?friend? who did not see this fall. His son came to his aid, was unable to get him back on his feet and had to call 911. Patient denies chest pain, hip pain, difficulty breathing, nausea or vomiting. No dysuria. No reported bowel changes. Has been taking all of his medications as prescribed since discharge yesterday afternoon. Related Data Home Medications ?Medication ?Instructions ?Recorded ?Confirmed lisinopril 5 mg tablet 5 mg PO BEDTIME 01/07/2001/06 prednisone 20 mg tablet 10 mg PO Q7D PRN Back Pain 0 10/13/24 12/23/24 Previous Rx's ?Medication ?Instructions ?Recorded tamsulosin 0.4 mg capsule 0.4 mg PO BEDTIME 90 days #9 0 caps 12/10/24 amiodarone 200 mg tablet 200 mg PO DAILY #30 tabs 07/06 apixaban 5 mg tablet (Eliquis) 5 mg PO BID #30 tabs dapagliflozin propanediol 5 mg 5 mg PO DAILY #30 tabs 12/19/24 tablet (Farxiga) bumetanide 1 mg tablet 2 mg PO DAILY #30 tabs 12/29 metolazone 2.5 mg tablet 2.5 mg PO DAILY #30 tabs potassium chloride 20 mEq 40 meq (2 x 20 mEq) PO BID # 12 tabs 12/29/24 tablet,extended release(part/cryst) Allergies Allergy/AdvReac Type Severity Reaction Status Date / Time apixaban (From ELIQUIS) Allergy Unknown BLEEDING Verified 12/30/24 04:03 ezetimibe (From ZETIA) Allergy Unknown UNKNOWN Verified 12/30/24 04:03 guaifenesin (From ROBITUSSIN) Allergy Unknown UNKNOWN Verified 12/30/24 04:03 Jhoitsn-VVJ-IcN Reductase Allergy Unknown UNKNOWN Verified 12/30/24 04:03 Inhibitor ([id number] REDUCTASE INHIBITOR) Review of Systems 2 Review of Systems: As per HPI, full review of systems performed and negative but for the above mentioned pertinent positives and negatives. [facility] Past Medical History Medical History Liver mass Liver mass, right lobe Fever of unknown origin (HFpEF) heart failure with preserved ejection fraction Paroxysmal atrial fibrillation HTN (hypertension) Hyperlipidemia CAD (coronary artery disease) SVT (supraventricular tachycardia) Tricuspid regurgitation Presence of Watchman left atrial appendage closure device Surgical History S/P cardiac cath Hx of CABG Stented coronary artery History of kidney surgery History of cardiac radiofrequency ablation History of carpal tunnel release Hx of heart surgery Family History Family History Father CVD (cardiovascular disease) Mother Sudden cardiac Family/Other Sudden cardiac Social History Social History Household Members: Friend(s) Housing: House Do you presently have visiting nurse or other home services: No Alcohol intake: current Alcohol intake frequency: holidays/special occasions only Comment: [place]lim[place] Patient Tobacco Use Status: Never used Tobacco Smoked in Last 30 Days: No e-Cigarette/Vaping Use: Never Used Second Hand Smoke Exposure: No Use of substances other than those prescribed or required for medical reasons: No Advance Directives: No Advance Directives Information Provided: Yes service: No Current occupational status: employed Current occupational exposures/hazards: No Cognitive needs: Yes Hearing needs: No Vision needs: No Physical Exam 2 Exam: Exam: GENERAL: Uncomfortable-Appearing, chronically ill-appearing, mild distress due to pain. SKIN: Normal skin color for ethnicity, warm, dry, no rashes noted. HEENT: Normocephalic, large 4 cm irregularly shaped laceration overlying the frontal scalp/forehead, actively bleeding, no stridor, airway patent, no raccoon's eyes, no Ralph sign, dentition intact, EOMI. NECK: Soft, supple, no deformities, no lymphadenopathy, tenderness overlying C6 and C7, no crepitus, no step-offs. CHEST: Heart irregularly irregular rate and rhythm, no murmurs, symmetric chest rise and fall, no crepitus. PULMONARY: Clear to auscultation bilaterally, no labored breathing, no wheezes/rhales/rhonchi. ABDOMINAL: Soft, nondistended, nontender, positive bowel sounds in all quadrants. : Deferred. MUSCULOSKELETAL: Normal tone, full range of motion, no deformities, no contusions, superficial abrasion overlying the right knee, full active range of motion, neurovascularly intact distally. NEURO: Alert and oriented x3, CN II through XII intact, equal strength and sensation bilateral upper and lower extremities, no focal neurologic deficits. PSYCHIATRIC: Anxious affect, fluid speech, good eye contact and appropriate demeanor. Vital Signs: Vital Signs: BMI result Body Mass Index 29.1 Medical Decision Making Medical Decision Making MDM Narrative: Patient presents today with chief complaint of trauma. Different diagnosis on this patient includes intracranial hemorrhage, skull fracture, neck injury including fracture or spinal cord pathology. Other diagnoses considered would include chest or abdominal trauma as well as long bone fractures. Based on my physical exam, the ordered imaging modalities are indicated. The patient specifically does not show any signs of central cord syndrome as evidenced by equal strength in the upper extremities with normal two-point discrimination. Sensation is not altered. GCS is appropriate. Patient is neurovascularly intact. There are no signs of vascular emergency. No signs of shock. No respiratory distress. 5:20 AM 12/30/2024 (Dr. Candida Banuelos D.O.) C-spine fracture at C6-C7 of the adjacent osteophyte with widening of the disc space concern for ligamentous injury. We will discuss case with [facility] for transfer. 5:58 AM 12/30/2024 (Paul DowningO.) patient accepted for transfer ER to ER as a trauma consultation, Dr. Cr accepting. Differential Diagnosis Differential Diagnoses: The differential diagnosis associated with the presentation includes (as above) Admission/Observation Consideration of admission/observation: Escalation of care including admission/observation considered Consult Healthcare Provider Management of the patient was discussed with: [facility] ([facility] trauma) Lab Data [facility] Lab Attestation statement: I reviewed the patient's lab results. 12/30/24 04:00 12/30/24 04:00 Labs: Lab Results 12/30/24 Range/Units 04:00 WBC 10.4 (4.8-10.8) X10*3/uL RBC 4.98 (4.60-5.80) X10*6/uL Hgb 14.7 (14.0-18.0) g/dl Hct 44.1 (42.0-52.0) % MCV 88.6 (80.0-98.0) fL MCH 29.5 (27.0-33.0) pg MCHC 33.3 (31.0-36.0) g/dl RDW 15.1 (11.0-16.0) % Plt Count 210 (160-400) X10*3/uL MPV 9.7 (9.4-12.4) fL Immature Gran % (Auto) 1.2 H (0.0-0.4) % Neut % (Auto) 82.3 H (45-73) % Lymph % (Auto) 6.0 L (20-40) % Hale % (Auto) 9.6 (2-11) % Eos % (Auto) 0.6 (0-4) % Baso % (Auto) 0.3 (0-2) % Lymph # (Auto) 0.6 L (1.2-4.9) X10*3/uL Hale # (Auto) 1.0 (0.1-1.2) X10*3/uL Eos # (Auto) 0.1 (0.0-0.4) X10*3/uL Baso # (Auto) 0.0 (0.0-0.2) X10*3/uL Abs Immat Gran (auto) 0.12 H (0.00-0.03) X10*3/uL Absolute Neuts (auto) 8.6 H (2.0-8.3) x10*3/uL Absolute Nucleated RBC 0.000 (0.0-0.012) X10*3/uL Nucleated RBC % (auto) 0.0 (0.0-0.2) /100WBC PT 23.7 H (11.2-13.5) SEC INR 2.0 H (0.9-1.1) Sodium 134 L (135-145) mmol/L Potassium 3.5 (3.3-5.1) mmol/L Chloride 82 L (96-108) mmol/L Carbon Dioxide 34 H (22-29) mmol/L Anion Gap 22 H (12-20) BUN 54 H (9-16) mg/dL Creatinine 2.29 H (0.5-1.4) mg/dL Estim Creat Clear Calc 30.1 Estimated GFR 27 Random Glucose 148 H (60-115) mg/dL Calcium 9.9 (8.4-10.2) mg/dL Magnesium 2.6 (1.6-2.6) mg/dL Total Bilirubin 1.6 H (0.0-1.0) mg/dL AST 92 H (5-37) U/L ALT 77 H (0-40) U/L Alkaline Phosphatase 126 H (39-117) U/L Troponin I High Sens 25.4 D (<3.5-35.0) ng/L NT-Pro-B Natriuret Pep 637.2 H (<300) pg/mL Total Protein 8.2 H (6.5-8.0) g/dL Albumin 4.3 (3.5-5.0) g/dL Independent Interpretation I performed an independent interpretation of an: EKG Interpretation: My independent interpretation of the ECG reveals normal sinus rhythm with rate of 71, normal axis, QTC 528, T-wave inversions anteriorly, laterally, new from previous on 12/17/2024. Radiology Impression Discussion of test interpretation with radiology: I have reviewed the radiologist's reading. Radiologist Impression: CT cervical spine without contrast Findings: There is a fracture through an anterior osteophyte at C6-7 with traumatic widening of the C6-7 disc space. There is prevertebral soft tissue swelling at C6-7 and inferiorly extending out of the field of view. There is no listhesis. Patient is status post instrumented anterior fusion and discectomy of C5-6. There is moderate C3-4 degenerative disc disease. There is multilevel facet and uncovertebral joint osteoarthritis with associated neuroforaminal stenoses. There is carotid artery calcification. IMPRESSION: Fracture through an anterior osteophyte at C6-7 with traumatic widening of the C6-[address] head without contrast Comparison: CT/REG/SR - CT HEAD/BRAIN WO IV CON - 10/13/24 03:39 EDT Findings: No intra-axial mass, midline shift, hydrocephalus, or acute hemorrhage. Generalized cerebral atrophy is noted with ex vacuo dilatation of the ventricles. Chronic low-density periventricular deep white matter changes are present. Atherosclerotic calcification is noted. There is no sinus or mastoid fluid. The orbits are within normal limits. No skull fracture. Extracranial soft tissue swelling and laceration is noted over the frontal region. IMPRESSION: 1. No acute intracranial findings. Independent Historian Clinical information obtained from an independent historian. History obtained from or confirmed by: EMS and Other (son, daughter) External Record Review External record reviewed: Inpatient record Chronic Conditions Patient?s care impacted by: Other (CHF, afib) Social Determinants Patient?s care significantly limited by Social Determinants of Health including: Other Social Determinant of Health Critical Care Time Critical Care Time Critical Care Time: Yes Total Critical Care Time: 35 Attestation: CRITICAL CARE TIME: 35 minutes of critical care time was spent in direct patient care at the bedside or in the immediate area with this patient. Critical care was necessary to treat or prevent imminent or life-threatening deterioration of the following conditions unstable C-spine fracture due to trauma. This patient is high risk for decompensation and/or . This time was spent assessing and managing the patient, interpreting labs and imaging, coordinating care with other medical providers, gathering history from either the patient, their representatives, EMS or chart review, and discussing management with transfer center at [facility], Dr. Cr. Discharge Plan Discharge Clinical Impression: Unwitnessed fall Syncope Qualifiers: Syncope type: unspecified Qualified Code(s): R55 - Syncope and collapse Closed cervical spine fracture Qualifiers: Encounter type: initial encounter Cervical vertebra fracture level: unspecified cervical vertebra Qualified Code(s): S12.9XXA - Fracture of neck, unspecified, initial encounter Patient Disposition: [facility] [place] [facility] [place] Dr. Alouidor Prescriptions: No Action amiodarone 200 mg tablet 200 mg PO DAILY Qty: 30 5RF Eliquis 5 mg tablet 5 mg PO BID Qty: 30 0RF dapagliflozin propanediol [Farxiga] 5 mg tablet 5 mg PO DAILY Qty: 30 5RF prednisone 20 mg tablet 10 mg PO Q7D PRN (Reason: Back Pain) metolazone 2.5 mg Tablet 2.5 mg PO DAILY Qty: 30 0RF potassium chloride 20 mEq Tablet,Er Particles/Crystals 40 meq PO BID Qty: 12 0RF bumetanide 1 mg Tablet 2 mg PO DAILY Qty: 30 0RF Protocol: Hold for SBP< HOLD for SBP < : 90 lisinopril 5 mg tablet 5 mg PO BEDTIME tamsulosin 0.4 mg capsule 0.4 mg PO BEDTIME 90 Days Qty: 90 1RF Print Language: Polish
[2024-12-30 06:07] LABS: Appearance Urine Cloudy; Glucose Urine UA 100 mg/dL (Negative); PH 6.0 (5.0-9.0); Specific Gravity - Urine 1.010 (1.005-1.025); UMIC TRIGGER UACC YES
[2024-12-30 06:12] VITALS: RESP 15
[2024-12-30 06:18] LABS: UACC Culture Trigger YES
--- NOTE | 2024-12-30 06:39 | PC.NURSE ---
this RN spoke abilio So, RN at [facility] ED to provide transfer nurse to nurse report approximately this time
[2024-12-30 06:40] VITALS: BP 124/89; PULSE 67; RESP 16; TEMP 36.6; O2SAT 97
== END 2024-12-30 06:43 | disposition short-term general hospital (02) ==
PROVIDERS: Emergency Provider Emergency Medicine
DX: S12.500A Unspecified displaced fracture of sixth cervical vertebra, initial encounter for closed fracture (principal); S12.600A Unspecified displaced fracture of seventh cervical vertebra, initial encounter for closed fracture; S01.01XA Laceration without foreign body of scalp, initial encounter; R55 Syncope and collapse; N39.0 Urinary tract infection, site not specified; B96.89 Other specified bacterial agents as the cause of diseases classified elsewhere; I10 Essential (primary) hypertension; I48.0 Paroxysmal atrial fibrillation; Z79.01 Long term (current) use of anticoagulants; W18.11XA Fall from or off toilet without subsequent striking against object, initial encounter; Y93.9 Activity, unspecified; Y92.009 Unspecified place in unspecified non-institutional (private) residence as the place of occurrence of the external cause; Y99.9 Unspecified external cause status; Z88.8 Allergy status to other drugs, medicaments and biological substances
CPT/HCPCS: 36415; 70450; 71045; 72125; 80053; 81001; 83735; 83880; 84484; 85025; 85610; 87086; 87088; 87186; 93005; 96374; 96375; 99284; 99285; J2405; J3010

== ENCOUNTER → 2024-12-30 03:42 | Outpatient (BNV) | payer MEDICARE, SELFPAY | PROVIDERS: Emergency Provider Emergency Medicine; Visit Provider Internal Medicine | DX: R94.31 Abnormal electrocardiogram [ECG] [EKG] (principal); Z04.3 Encounter for examination and observation following other accident | CPT/HCPCS: 93010 ==

== ENCOUNTER → 2024-12-30 03:58 | Outpatient (BNV) | payer MEDICARE, SELFPAY | PROVIDERS: Emergency Provider Emergency Medicine; Visit Provider Radiology Diagnostic Radiology | DX: S12.9XXA Fracture of neck, unspecified, initial encounter (principal); M50.223 Other cervical disc displacement at C6-C7 level; Z04.3 Encounter for examination and observation following other accident | CPT/HCPCS: 72125 ==

== ENCOUNTER 2025-01-23 11:14 | Outpatient (AMB) | payer MEDICARE, SELFPAY ==
[2025-01-23 11:16] VITALS: BP 142/82; PULSE 67; O2SAT 97; BMI 29.8
--- NOTE | 2025-01-23 11:16 | MHC.PC.OV ---
Vital Signs 01/23/25 11:16 Height 6 ft 2 in Weight 231 lb 14.821 oz BMI 29.8 BP 142/82 H Blood Pressure Location Rt brachial Position Sitting Pulse 67 Pulse Source Pulse Oximeter Pulse Oximetry (%) 97 Oxygen Delivery Method Room Air Intake Visit Reasons: [facility] 01/05 Allergies apixaban (From ELIQUIS) Allergy (Unknown, Verified 01/23/25 11:16) BLEEDING ezetimibe (From ZETIA) Allergy (Unknown, Verified 01/23/25 11:16) UNKNOWN guaifenesin (From ROBITUSSIN) Allergy (Unknown, Verified 01/23/25 11:16) UNKNOWN Cuzxprl-QMF-WoL Reductase Inhibitor (IXBVKWG-OSD-ZBB REDUCTASE INHIBITOR) Allergy (Unknown, Verified 01/23/25 11:16) UNKNOWN Tobacco use date assessed: 08/01/24 Fall risk assessment: No Falls in past year Last assessed Fall Risk: 01/23/25 Dental Screening Dental Screen Date: 08/01/24 HPI HPI Comments History of Present Illness Details 84 y/o Male Patient who presents to the clinic today for HDF accompanied by Family members. PMH significant for Afib on Eliquis S/P Ablation, CAD s/p CABG, HTN, HFpEF, HDL, DM and Obesity. Pt was transfered from [facility] to [facility] and admitted on 12/30 - 01/06 for an evaluation of Syncope episode, +LOC and GCS 15. Pt had been discharged from the hospital the previous night for CHF Exacerbation, he unfortunately had an episode of syncope in the bathroom, fell and hit Face and broke Neck (C6/C7 Anterior Osteophyte Fx with Disc Space Widening. Pt was put on CTA. The Fammily was dissatisfied with the care provided at [facility] and she was discharged and admitted to [facility]. No availabe Discharge notes for review. Pt has a F/U appointments with Neurology ([facility] 01/29 and [facility] Cardiology). Family denies any new or worsening neurological symptoms since returning home. No current chest pain, shortness of breath, palpitations, or dizziness reported today. Patient reports neck discomfort but denies radiculopathy, numbness, weakness, or bowel/bladder changes. [facility] Medical History Liver mass Liver mass, right lobe Fever of unknown origin (HFpEF) heart failure with preserved ejection fraction Paroxysmal atrial fibrillation HTN (hypertension) Hyperlipidemia CAD (coronary artery disease) SVT (supraventricular tachycardia) Tricuspid regurgitation Presence of Watchman left atrial appendage closure device Surgical History S/P cardiac cath Hx of CABG Stented coronary artery History of kidney surgery History of cardiac radiofrequency ablation History of carpal tunnel release Hx of heart surgery Family History Father CVD (cardiovascular disease) Mother Sudden cardiac Family/Other Sudden cardiac Social History Household Members: Friend(s) Housing: House Do you presently have visiting nurse or other home services: No Alcohol intake: current Alcohol intake frequency: holidays/special occasions only Comment: [place]lim[place] Patient Tobacco Use Status: Never used Tobacco Tobacco use type: Cigarette e-Cigarette/Vaping Use: Never Used Second Hand Smoke Exposure: No service: No Current occupational status: employed Current occupational exposures/hazards: No Cognitive needs: Yes Hearing needs: No Vision needs: No Questionnaire Thrive Questionnaire Date Thrive assessed: 08/01/24 I am a: Patient What is your living situation today?: I have a steady place to live Within the past 12 months, did the food you bought not last and you didn't have the money to get more?: Never true Within the past 12 months, did you worry whether your food would run out before you got money to buy more?: Never true Do you have trouble paying for medicines?: No Do you have trouble getting transportation to medical appointments?: No Do you have trouble paying your heating and electricity bill?: No Do you have trouble taking care of your child, family member or friend?: No Do you have trouble with day-to-day activities such as bathing, preparing meals, shopping, managing finances, etc.?: No Are you currently unemployed and looking for a job?: No Are you interested in more education?: No Please select the resources that you would like help with: None Currently or been in a relationship where the following occur: No concerns reported THRIVE Score: 0 YULIYA-7 AMB Questionnaire YULIYA-7 Date YULIYA - 7 assessed: 08/01/24 Source: Developed by Drs. Obdulio Ware, Bridget Griffin, Chaim Dan and colleagues, with an educational jin from [employer]. Review of Systems Const All systems reviewed & are unremarkable except as noted in HPI and below Physical exam (Primary Care) Vital Signs: Last Vital Signs Pulse 67 01/23/25 11:16 BP 142/82 H 01/23/25 11:16 Pulse Ox 97 01/23/25 11:16 Oxygen Delivery Method Room Air 01/23/25 11:16 BMI result Body Mass Index 29.8 Tobacco/Smoking Status: Tobacco use Status Tobacco use date assessed 08/01/24 01/23/25 11:17 Patient Tobacco Use Status Never used Tobacco 01/23/25 11:17 Tobacco use type Cigarette 01/23/25 11:17 e-Cigarette/Vaping Use Never Used 01/23/25 11:17 Thrive Assessment: Date of Thrive Assessment Date Thrive assessed 08/01/24 01/23/25 11:17 Currently or been in a relationship where the following occur: No concerns reported Const General: no acute distress Orientation/consciousness: patient oriented x3 Limitations: wheelchair Neck Other: Cervical collar in place. Limited assessment due to immobilization. No visible skin breakdown from brace. Resp Effort & Inspection: normal respiratory effort Cardio Heart sounds: S1 normal heart sound present and S2 normal heart sound present Neuro Other: Alert and oriented x3. Cranial nerves II?XII grossly intact. No focal deficits. Strength 5/5 in BUE/BLE. Sensation intact. No pronator drift. Gait not assessed today due to cervical precautions. General: patient oriented x3 Coding Level of Care Code Est Pt Level 4 (78516) Diagnoses Closed cervical spine fracture S12.9XXA Cervical vertebra fracture level: unspecified cervical vertebra Encounter type: initial encounter Time Spent (min) 20 Assessment & Plan Assessment & Plan (1) Closed cervical spine fracture: Code(s): S12.9XXA - Fracture of neck, unspecified, initial encounter Category: Medical Qualifiers: Cervical vertebra fracture level: unspecified cervical vertebra Encounter type: initial encounter Qualified Code(s): S12.9XXA - Fracture of neck, unspecified, initial encounter Plan: Cervical spine fracture (C6/C7) ? Stable at present; cervical collar maintained. No red flag symptoms on today?s exam. Continue cervical collar as directed. Encouraged family to monitor for red flag symptoms: worsening neck pain, numbness/tingling, new weakness, bowel/bladder changes, or increased confusion. Await neurology follow-up on 01/29 ([facility]).
== END 2025-01-23 12:21 | disposition home or self-care (01) ==
LOC: HO.HMCH 11:15
PROVIDERS: PCP Internal Medicine; Visit Provider Nurse Practitioner Family
DX: S12.9XXA Fracture of neck, unspecified, initial encounter (principal)

== ENCOUNTER → 2025-01-23 11:14 | Outpatient (BNVA) | payer MEDICARE, SELFPAY | PROVIDERS: PCP Internal Medicine; Visit Provider Nurse Practitioner Family | DX: S12.9XXD Fracture of neck, unspecified, subsequent encounter (principal) | CPT/HCPCS: 99212 ==

== ENCOUNTER 2025-01-26 10:49 | Outpatient (AMB) | payer MEDICARE, SELFPAY ==
--- OUTSIDE RECORDS SUMMARY | 2025-01-07 15:30 | XMS_ITS | Encounter Summary ---
Author Organization [facility] Address [address] [place] [address] Phone Care Team Providers Care General Warehouse Worker Name Role Phone Doan Cancino MD Primary Care Provider [phone] Reason for Visit * Auth/Cert (Routine) Specialty Diagnoses / Procedures Referred By Contac t Referred To Contact Referral ID Status Reason Start Date Expiration Date Visits Re quested Visits Authorized [id number] 1 1 Encounter Details Date Type Department Care Team (Late st Contact Info) Description 01/07/2025 3:30 PM EST Home [facility] Visit [facility] [address] [place] [address] Liza Burch, PT [address] [place] [address] [email or web address] PT OASIS START OF CARE (SOC) Social History Tobacco Use Types Packs/Day Years Used Date Smoking Tobacco: Never Assessed Home Health Assessment: Transportation Answer Date Recorded Lack of Transportation (Medical) No 01/20/2025 Lack of Transportation (Non-Medical) No 01/20/2025 Patient Unable or Declines to Respond No 01/20/2025 Education Answer Date Recorded Are you interested [...] on file documented as of this encounter Last Filed Vital Signs Vital Sign Reading Time Taken Comments Blood Pressure 104/60 01/07/2025 4:35 PM EST Pulse 66 01/07/2025 3:20 PM EST Temperature 36.4 C (97.5 F) 01/07/2025 3:20 PM EST Respiratory Rate 17 01/07/2025 4:35 PM EST Oxygen Saturation 98% 01/07/2025 3:20 PM EST Inhaled Oxygen Concentration - - Weight - - Height - - Body Mass Index - - documented in this encounter Plan of Treatment Not on file documented as of this encounter Visit Diagnoses Not on filedocumented in this encounter Home Health Visit - Care Plan Visit Details Visit Type -PT OASIS START O F CARE (SOC) Discipline -Physical Therapy Problems Problem Description Start Date Status Goals Interve ntions HH - Standard of Care Disciplines: All Active Home Health Disciplines 01/07/2025 Active 1 goal linked to scheduled/document ed intervention 2 goal interventions scheduled/document ed in this visit HH - Medication Management Disciplines: All Active Home Health Disciplines 01/07/2025 Active 1 goal linked to scheduled/document ed intervention 2 goal interventions scheduled/document ed in this visit HH - Focus of Care and Teaching Disciplines: All Active Home Health Disciplines w/RD 01/07/2025 Active 1 goal linked to scheduled/document ed intervention 1 goal intervention scheduled/document ed in this visit HH - Emergency Planning - Knowledge of Disciplines: All Active Home Health Disciplines 01/07/2025 Active 1 goal linked to scheduled/document ed intervention 2 goal interventions scheduled/document ed in this visit HH - Wound Disciplines: All Active Home Health Disciplines 01/07/2025 Active 1 goal linked to scheduled/document ed intervention 1 goal intervention scheduled/document ed in this visit Goals Goal Associated Problem Outcome Goal Met? Visit Notes HH - Achieve care management for a safe to home/community discharge from homecare HH - Standard of Care No HH - Safe medication management, avoid unnecessary harm related to medication errors and/or interactions HH - Medication Management No HH - Communication and collaboration to achieve patient goals HH - Focus of Care and Teaching No HH - Knowledge of options for managing care in the event of an emergency related situation. HH - Emergency Planning - Knowledge of No HH - Demonstrate/verbalize wound care management, wound/lesion will be free from complications HH - Wound No Interventions Intervention Associated Problem/Goal Status Variance Visit Notes HH - Assess vital signs, pulse oximetry, pain, and as indicated, orthostatic vital signs Description: use agency-specific parameters Problem:HH - Standard of Care Goal:HH - Achieve care management for a safe to home/community discharge from homecare Performed HH - Assess skin integrity Problem: - Standard of Care Goal:HH - Achieve care management for a safe to home/community discharge from homecare Performed HH - I/E medication management: administration, purpose, dosages, preparation, setup, scheduling, side effects, food/drug interactions, and potential complications as indicated Description: Update patient's copy of medication list as needed. Problem: - Medication Management Goal: - Safe medication management, avoid unnecessary harm related to medication errors and/or interactions Performed - Complete medication review every visit and medication reconciliation as indicated. Pharmacy information: Problem: - Medication Management Goal: - Safe medication management, avoid unnecessary harm related to medication errors and/or interactions Performed - Focus of care, teaching completed and plan for next visit Problem: - Focus of Care and Teaching Goal: - Communication and collaboration to achieve patient goals Performed Primary Clinical Focus this Visit & Instruction Provided: VNA Services: PT SOC and evaluation Recent history: 12/24/24 Patient was admitted to [facility] where telemetry did not demonstrate any dysrhythmias to cause his presenting symptoms. Patient was see n by cardiology and initially aggressively diuresed on Lasix drip and subsequently switched to Bumex and oral metolazone. While hospitalized he was diuresed approx. 18L. At that time it was recommended that the patient go to short-term rehab however th e patient refused and was discharged 12/28/24 on oral diuresis and was to follow-up with cardiology and receive VNA services. His discharge diagnosis was Acute on chronic heart failure with preserved ejection fraction, HTN and Atrial Fibrillation. Germán elias was home less than 24 hours, and he had a syncopal episode sustaining a C6/C7 anterior osteophyte fracture with anterior disc space widening and a forehead laceration. PMHX: A-fib( on Eliquis) s/p ablation, CAD s/p CABG, tricuspid regurgitation, HFp EF, HTN, HLD, DM, obesity PRECAUTIONS: Spinal Precautions, to wear back brace at all times and not removed prior to follow-up with neurosurgery. PRIOR FUNCTIONAL STATUS: gradually worsening mobility tolerance with SOB after ambulating 3 steps with his Rollator walker. FALL Hx: Most recent fall 12/29/24 with major injury. PATIENT/CAREGIVER CONCERNS: Low BP readings and reduced mobility. SUPPORT SYSTEM: 24 hour care has been hired, Patient's son and daughter present during PT admission session. HOME SET UP: Single story home with single step to enter, no railing PRESENT EQUIPMENT: Bruce chair, manual wheelchair, rollator walker (which patient prefers to have to sit on as the seat is elevated), FWW -provided by this therapist, 04/12 commode. (need to assess shower set up.) RECOMMENDED EQUIPMENT: Firmer mattress, bed rail ( family friend was present and reports he has a bed rail that slides under the mattress and will bring over.) OBJECTIVE MEASURES: SKIN/ INCISION: laceration mid/latera l forehaead. Brusing around eyes R>L, redness at bottom ROM: RUE: Impaired at shoulders LUE: Impaired at shoulders RLE: WFL LLE: WFL STRNGTH: RUE: WFL LUE: WFL RLE: Impaired - difficulty with sit <> stand LLE: Impaired- difficulty with sit <> stand SIT<>STAND: MODAX2 SIT<>SUPINE: MODAX2, instruction provided to family/CG on log rolling and proper technique for sit <>supine, use of draw sheet to aid in moving the patient away from EOB and use of pillows to support head, neck and between kn ees for comfort. GAIT: chair follow, 5 steps with FWW and MINAX2 TOILET: Currently patient standing and caregivers are bringing the commode to the patient. STAIRS: N/T PATIENT GOALS: increase mobility SERVICES: PT, OT pending and recommend SN add on due to orthostatic hypotension/ syncope, laceration, and acute on chronic heart failure with preserved ejection fraction, HTN (currently orthostatic hypotension) and Atrial Fibrillation Summary: Patient is an 84 yo male referred to home care PT s/ p fall resulting in C6-7fx. PUBLIC HEALTH REGISTRAR AAT, and spinal precautions. He is medically involved with acute on chronic heart failure with preserved ejection fraction, a-fib and orthostatic hypotension. Patient seated in a Bruce chair upon arrival where he had bee n most of the day. Patient's son, daughter, hired caregiver and family friend present during admission/PT evaluation. Patient alert, denies any pain however does report discomfort with the PUBLIC HEALTH REGISTRAR brace. Patient's BP 96/56 seated at start of session and 1 04/60 at the end of our session. Patient is MODAX2 for sit <> stand and sit to supine/side lying using log roll, Draw sheet needed for bed mobility/positioning . Sidelying to sitting with MODAX1 and verbal cues. Patient ambulating with FWW 5 steps. HEP initiated with patient instructed in AP's, Marches, LAQ and buttock squeeze 10X each. Patient will benefit from SN assessment due to his recent medical history, orthostatic hypotension, forehead laceration, skin at risk at his bottom and medication mae ges. OT evaluation assessment pending for ADL assessment. Patient will benefit from skilled PT services for strength, balance, bed mobility, transfers, ambulation, HEP instruction and stair assessment/training. Recommend another PT session this week an d then [id number]. Patient referred to home care for: PT/OT Skills to be provided and taught: strength, balance, bed mobility, transfers, ambulation, HEP instruction and stair assessment/training. Identified concerns or barriers to care (For exampl e, Environment, Falls, Medications, Safety, Social Situations): fall risk, orthostatic hypotension. Instruction Provided to: patient and caregiver Response to Instruction/Teaching : Is partially able to teach back topics as evidenced by need for reinfo rcement. Plan for Next Visit Specific Focus & Education Needed: transfer training, therex, gait training. New Orders: PT, SN assessment Updated Discharge Plan: discharge to outpatient PT when no longer homebound/goals met. HH - I/E management of care in an urgent or emergency (ER) situation: When to call your Home Care Team/[facility], ER plans, supplies, evacuation, when to contact local ER officials and how to stay informed Problem:HH - Emergency Planning - Knowledge of Goal:HH - Knowledge of options for managing care in the event of an emergency related situation. Performed HH - Emergency planning assessment: the emergency plan, supplies needed, emergency contact numbers and an evacuation plan were reviewed Description: Patient and Caregiver is/are knowledgeable of emergency plans. Problem:HH - Emergency Planning - Knowledge of Goal:HH - Knowledge of options for managing care in the event of an emergency related situation. Performed HH - Assess wounds/lesions/meng Description: LOCATION: right of center forehead Problem:HH - Wound Goal:HH - Demonstrate/verbalize wound care management, wound/lesion will be free from complications Performed documented in this encounter Care Teams General Warehouse Worker Relationship Specialty Start Date End Date Dona Cancino MD [address] [place] [address] [place] [phone] PCP - General Internal Medicine 10/14/24 documented as of this encounter Additional Source Comments The information contained in this document represents components of the legal health record. It is not the complete legal health record.[facility]
--- OUTSIDE RECORDS SUMMARY | 2025-01-20 10:00 | XMS_ITS | Encounter Summary ---
Author Organization [facility] Address [address] [place] [address] Phone Care Team Providers Care Associate Doctor Name Role Phone Dona Cancino MD Primary Care Provider [phone] Reason for Visit * Auth/Cert (Routine) Specialty Diagnoses / Procedures Referred By Contac t Referred To Contact Referral ID Status Reason Start Date Expiration Date Visits Re quested Visits Authorized [id number] 1 1 Encounter Details Date Type Department Care Team (Late st Contact Info) Description 01/20/2025 10:00 AM EST Home [facility] Visit [facility] [address] [place] [address] Lexi Guerra I, PT [address] [place] [address] [email or web address] PT OASIS DISCHARGE NON VISIT/TELEPHONE Social History Tobacco Use Types Packs/Day Years [...] with a working camera? Not on file 09 /02/2024 Sex and Gender Information Value Date Recorded [...] Plan Visit Details Visit Type -PT OASIS D/C NON VST/TELEPHONE Discipline -Physical Therapy Problems Problem Description Start [...] the event of an emergency related situation. - Emergency Planning - Knowledge of No [...] a safe to home/community discharge from homecare Scheduled HH - Assess skin integrity Problem: - Standard of Care Goal: - Achieve care management for a safe to home/community discharge from homecare Scheduled HH - I/E medication management: administration, purpose, dosages, preparation, setup, scheduling, side effects, food/drug interactions, and potential complications as indicated Description: Update patient's copy of medication list as needed. Problem: - Medication Management Goal:HH - Safe medication management, avoid unnecessary harm related to medication errors and/or interactions Scheduled HH - Complete medication review every visit and medication reconciliation as indicated. Pharmacy information: Problem: - Medication Management Goal:HH - Safe medication management, avoid unnecessary harm related to medication errors and/or interactions Scheduled - Focus of care, teaching completed and plan for next visit Problem: - Focus of Care and Teaching Goal: - Communication and collaboration to achieve patient goals Scheduled HH - I/E management of care in an urgent or emergency (ER) situation: When to call your Home Care Team/[facility] [facility], ER plans, supplies, evacuation, when to contact local ER officials and how to stay informed Problem: - Emergency Planning - Knowledge of Goal: - Knowledge of options for managing care in the event of an emergency related situation. Scheduled - Emergency planning assessment: the emergency plan, supplies needed, emergency contact numbers and an evacuation plan were reviewed Description: Patient and Caregiver is/are knowledgeable of emergency plans. Problem: - Emergency Planning - Knowledge of Goal:HH - Knowledge of options for managing care in the event of an emergency related situation. Scheduled HH - Assess wounds/lesions/meng Description: LOCATION: right of center forehead Problem: - Wound Goal:HH - Demonstrate/verbalize wound care management, wound/lesion will be free from complications Scheduled documented in this encounter Care Teams Associate Doctor Relationship Specialty Start Date End Date Dona Cancino MD [address] [place] [address] [address] [place] [address] PCP - General Internal Medicine 10/14/24 documented as of this encounter Additional Source Comments The information contained in this document represents components of the legal health record. It is not the complete legal health record.[facility]
[2025-01-26 11:14] VITALS: BP 122/70; PULSE 64; BMI 29.4
--- NOTE | 2025-01-26 11:14 | A.OFFVIS_ITS ---
Vital Signs 01/26/25 11:14 Height 6 ft 2 in Weight 229 lb 4.492 oz BMI 29.4 BP 122/70 Blood Pressure Location Lt brachial Position Sitting Pulse 64 Intake Visit Reasons: f/u hospital. Intake Note: Follow-up with [facility] DC ekg doing better Aluminum Shingle Roofer Required: No Field Contact Person: Field Contact Person Present Accompanied by: Child Allergies apixaban (From ELIQUIS) Allergy (Unknown, Verified 01/23/25 11:16) BLEEDING ezetimibe (From ZETIA) Allergy (Unknown, Verified 01/23/25 11:16) UNKNOWN guaifenesin (From ROBITUSSIN) Allergy (Unknown, Verified 01/23/25 11:16) UNKNOWN Zeafcsy-WEG-IlX Reductase Inhibitor (MHWRZLE-VAH-NEZ REDUCTASE INHIBITOR) Allergy (Unknown, Verified 01/23/25 11:16) UNKNOWN Medication List - Last Reconciled 01/26/25 by Rickey Cardoza MD amiodarone 200 mg PO DAILY bumetanide 2 mg See Protocol PO DAILY dapagliflozin propanediol (Farxiga) 5 mg PO DAILY metolazone 2.5 mg PO .prn PRN tamsulosin 0.4 mg PO BEDTIME 90 days HPI Comments Details: Mitch comes for follow-up after hospitalization which was prolonged for heart failure syndrome predominantly right heart failure symptoms I would require extensive diuresis. This was post cardioversion and significant shortness of breath. Patient since then has done well although unfortunately had a fall which appears to be related to orthostatic syncope and add cervical spine injury for which she is in his collar. However since the hospitalization for heart failure his functional capacity is gradually improving. He said he is able to walk in his daughter was present in the room said his shortness of breath has remained stable and improved. His overall fluid status has improved as well. He has lost weight. He has not had much abdominal distension or leg edema on current diuretic regimen although he takes his diuretic regimen at nighttime. He is able to ambulate with a walker now. He denies any clear lightheadedness at this point time. Denies any prolonged palpitation irregular heartbeat. [facility] Medical History (Updated 01/26/25 @ 12:31 by Rickey Cardoza MD) (HFpEF) heart failure with preserved ejection fraction Paroxysmal atrial fibrillation Persistent atrial fibrillation Liver mass Liver mass, right lobe Fever of unknown origin HTN (hypertension) Hyperlipidemia CAD (coronary artery disease) SVT (supraventricular tachycardia) Tricuspid regurgitation Presence of Watchman left atrial appendage closure device Surgical History S/P cardiac cath Hx of CABG Stented coronary artery History of kidney surgery History of cardiac radiofrequency ablation History of carpal tunnel release Hx of heart surgery Family History Father CVD (cardiovascular disease) Mother Sudden cardiac Family/Other Sudden cardiac Social History Household Members: Friend(s) Housing: House Do you presently have visiting nurse or other home services: No Alcohol intake: current Alcohol intake frequency: holidays/special occasions only Comment: [place] Patient Tobacco Use Status: Never used Tobacco Tobacco use type: Cigarette e-Cigarette/Vaping Use: Never Used Second Hand Smoke Exposure: No service: No Current occupational status: employed Current occupational exposures/hazards: No Cognitive needs: Yes Hearing needs: No Vision needs: No Review of Systems Const Denies chills, Denies fatigue, Denies fever(s), Denies frequent falls, Denies weakness, Denies weight gain and Denies weight loss ENT Denies dizziness Card Denies chest pain, Denies leg edema, Denies lightheadedness, Denies palpitations, Denies dyspnea, Denies dyspnea on exertion, Denies orthopnea and Denies other (loss of consciousness) Resp Denies cough, Denies dyspnea and Denies dyspnea on exertion GI Denies hematochezia and Denies change in stool character Musc Denies abnormal gait, Denies muscle weakness, Denies numbness, Denies radiating pain into limb and Denies tingling Neuro Denies abnormal gait, Denies dizziness, Denies frequent falls, Denies numbness, Denies tingling and Denies weakness Endo Denies fatigue and Denies palpitations Physical Exam Vital Signs: Last Vital Signs Pulse 64 01/26/25 11:14 BP 122/70 01/26/25 11:14 BMI result Body Mass Index 29.4 Last Vital Signs Temp 97.4 F 12/28/24 07:15 Pulse 65 12/28/24 07:15 Resp 20 12/28/24 07:15 BP 113/57 L 12/28/24 08:15 Pulse Ox 94 12/28/24 07:15 O2 Del Method Room Air 12/28/24 07:15 O2 Flow Rate 2 12/28/24 03:43 BMI result Body Mass Index 37.2 Const General: cooperative, comfortable, alert and awake Nutritional Appearance: overweight and other (Frail-appearing) Orientation/consciousness: patient oriented x3 Limitations: ambulation with walker HEENT Head: Yes normocephalic and Yes atraumatic Neck Neck: Yes trachea midline, Yes supple and Yes no JVD Resp Effort & Inspection: normal respiratory effort Auscultation: clear to auscultation bilaterally, no rales and wheezes Cardio Jugular venous distension: no JVD Rate: regular rate Rhythm: regular rhythm Heart sounds: S1 normal heart sound present, S2 normal heart sound present, no click, no gallops and Murmur heart sound present systolic GI Auscultation: normal bowel sounds Skin General skin exam: no rashes or lesions noted and ecchymosis Neuro General: patient oriented x3 and no focal motor deficits Extrem General: No clubbing, No cyanosis and No edema Psych Appearance: grossly normal Office Procedures EKG Details: EKG shows normal sinus rhythm with poor R-wave progression with nonspecific STT wave changes 94502-[id number], Complete Assessment & Plan Assessment & Plan (1) (HFpEF) heart failure with preserved ejection fraction: Code(s): I50.30 - Unspecified diastolic (congestive) heart failure Category: Medical Plan: Heart failure preserved ejection fraction this elderly gentleman related to right heart failure predominantly secondary to diastolic dysfunction and chronic atrial fibrillation with significant right atrial enlargement with secondary significant tricuspid regurgitation noted on FORD. It has been difficult to see is tricuspid regurgitation on transthoracic echocardiogram. However will repeat after decongestive therapy. Clinically appears to be doing extremely well from fluid perspective. Discussed with him about management of heart failure. Continue current diuretic dose with bumetanide and additional metolazone as needed. We discussed heart failure management details to avoid hospitalization improved quality of life. He is gradually improving in overall functional status. Continue Farxiga therapy. Discussed about significant tricuspid regurgitation which is secondary to significant right-sided chamber enlargement and may not be amenable to repair. Will discuss with people in [place] to suggest possibility of edge to edge repair with tricuspid clip (2) CAD (coronary artery disease): Code(s): I25.10 - Atherosclerotic heart disease of [place] coronary artery without angina pectoris Category: Medical Plan: CAD with remote coronary artery bypass grafting with no recurrent symptoms suggestive of angina. Current point time he is on low-dose aspirin therapy that should be continued. He has refused statin therapy in the past due to muscle aches. Currently does not require any further workup from that perspective. Encouraged to maintain activity level as tolerated. (3) Paroxysmal atrial fibrillation: Code(s): I48.0 - Paroxysmal atrial fibrillation Category: Medical Plan: Paroxysmal atrial fibrillation which has been difficult to manage. Has undergo ablation in the past. Currently on amiodarone therapy and after cardioversion maintaining rhythm. Likelihood of recurrent atrial fibrillation was high. He is off oral anticoagulation therapy, status post Watchman device in the past. Eliquis therapy was temporary. Low-dose aspirin therapy should be prescribed. Avoidance of stimulants was discussed especially avoidance of alcohol use. (4) Orthostasis: Code(s): I95.1 - Orthostatic hypotension Plan: Orthostasis leading to fall and cervical spine injury. Importance of orthostatic precautions were discussed. He is at risk for orthostatic hypotension given his overall frail status. Advised to maintain adequate oral hydration. If he continues to have orthostatic syncope/lightheadedness consider therapies with midodrine. Will follow up in 6 weeks time. Greater than 40 minutes was spent in managing his complex care. Orders: Orders [facility] Today Rickey Cardoza MD I07.1 - Rheumatic tricuspid insufficiency Medications: Changed From metolazone 2.5 mg PO DAILY 30 tabs 0RF To metolazone 2.5 mg PO .prn PRN Morales Pizarro DO Coding Level of Care Code Est Pt Level 5 (85028) Diagnoses (HFpEF) heart failure with preserved ejection fraction I50.30 CAD (coronary artery disease) I25.10 Paroxysmal atrial fibrillation I48.0 Orthostasis I95.1 CPT Codes EKG - CPT: 11698-Ktqueoxxgqtmavbnl, Complete ([id number])
--- OUTSIDE RECORDS SUMMARY | 2025-01-26 15:14 | XMS_ITS | Clinical Summary ---
Author Organization [facility] Address [address] [place] [phone] Phone Care Team Providers Care Ergonomist Name Role Phone Dona Cancino MD Primary Care Provider [phone] Allergies No known active allergies Medications tamsulosin (FLOMAX) 0.4 mg Cap Take 0.4 mg by mouth nightly at bedtime. 9 Active amiodarone (PACERONE) 200 MG tablet Take 200 mg by mouth daily. 9 Active famotidine (PEPCID) 20 MG tablet Take 20 mg by mouth daily. 9 Active lisinopril (PRINIVIL,ZESTR IL) 2.5 MG tablet Take 5 mg by mouth daily. 0 Active metoprolol succinate (TOPROL-XL) 25 MG 24 hr tablet Take 25 mg by mouth daily. 0 Active clopidogreL (PLAVIX) 75 mg tablet Take 75 mg by mouth daily. 9 Active apixaban (ELIQUIS) 5 mg tablet Take 5 mg by mouth 2 (two) times a day. 5 Active gabapentin (NEURONTIN) 100 MG capsule Take 100 mg by mouth 3 (three) times a day. 5 Active bumetanide (BUMEX) 2 MG tablet Take 2 mg by mouth daily. Hold for SBP <90 5 Active ID-dapagliflozi n (21-158) 5 mg tablet Take 5 mg by mouth daily. 5 Active metOLazone (ZAROXOLYN) 2.5 MG tablet Take 2.5 mg by mouth daily. Active potassium chloride (KAYCIEL 20%) 40 mEq/15 mL Liqd Take 15 mL by mouth 2 (two) times a day. Active predniSONE (DELTASONE) 10 MG tablet Take 10 mg by mouth daily. Active predniSONE (DELTASONE) 20 MG tablet Take 10 mg by mouth as needed (as needed every 2 weeks for back pain). as needed every 2 weeks for back pain Active acetaminophen (TYLENOL) 325 mg tablet Take 975 mg by mouth every 6 (six) hours. 5 01/21/20 bisacodyl (DULCOLAX) [address] 10 mg rectally daily. 5 01/09/20 Discontinue d(Error) docusate sodium (COLACE) 100 MG capsule Take 100 mg by mouth 2 (two) times a day. 01/09/20 Discontinue d(Error) magnesium hydroxide (MILK OF MAGNESIA ORAL) Take 15 mL by mouth 2 (two) times a day. 01/09/20 Discontinue d(Error) polyethylene glycol (MIRALAX) 17 gram packet Take 17 g by mouth daily. 5 01/09/20 Discontinue d(Error) senna (SENOKOT) 8.6 mg tablet Take 2 tablets by mouth daily. 5 01/09/20 Discontinue d(Error) dutasteride-nava sulosin (CALVIN) 0.5-0.4 mg CM24 Take 1 capsule by mouth daily. 5 01/11/20 Discontinue d() thiamine (VITAMIN B-1) 100 MG tablet Take 100 mg by mouth as needed (PRN 3 doses). 5 01/09/20 Discontinue d(Error) Encounters Date Type Department Care Team Description 01/22/2025 Episode Documentation Update [facility] [address] [place] [address] April Duke 01/20/2025 10:00 AM EST Home Care Visit [facility] [address] [place], [place] [phone] Lexi Guerra I, PT PT OASIS DISCHARGE NON VISIT/TELEPHONE 01/19/2025 Home Care Visit [facility] [address] [place], [place] [phone] Sukhwinder Rascon, OT OT DISCIPLINE DISCHARGE NON VISIT/TELEPHONE 01/16/2025 9:30 AM EST Home Care Visit [facility] [address] [place], [place] [phone] Lexi Guerra I, PT PT HOME VISIT 01/16/2025 8:00 AM EST Home Care Visit [facility] [address] [place] [address] Terra Acosta, RN SN DISCIPLINE DISCHARGE NON VISIT/TELEPHONE 01/14/2025 Enrollment [facility] - Virtual Department [address] [place] [phone] 01/13/2025 12:00 PM EST Home Care Visit [facility] [address] [place] [address] Terra Acosta, RN SN HOME VISIT 01/12/2025 11:00 AM EST Home Care Visit [facility] [address] [place], [place] [phone] Sukhwinder Rascon, OT OT EVALUATION 01/12/2025 9:30 AM EST Home Care Visit [facility] [address] [place] [address] Lexi Guerra I, PT PT HOME VISIT 01/10/2025 10:30 AM EST Home Care Visit [facility] [address] [place] [address] Lety Brown, RN SN EVALUATION 01/09/2025 11:00 AM EST Home Care Visit [facility] [address] [place] [address] Lexi Guerra I, PT PT HOME VISIT 01/09/2025 Home Care Visit [facility] [address] [place] [phone] Lexi Guerra I, PT TELEPHONE ENCOUNTER 01/08/2025 Home Care Visit [facility] [address] [place] [phone] Liza Burch, PT TELEPHONE ENCOUNTER 01/07/2025 3:30 PM EST Home Care Visit [facility] [address] [place] [phone] Liza Burch, PT PT OASIS START OF CARE (SOC) 01/07/2025 Plan of Care Documentation [facility] [address] [place] [phone] 12/31/2024 Orders Only [facility] [address] [place] [phone] Homehealth, Interface ProviderMD 12/31/2024 Home Care Visit [facility] [address] [place] [phone] Lolita Lundy RN CASE COMMUNICATION 12/29/2024 Orders Only [facility] [address] [place] [phone] Homehealth, Interface ProviderMD from Last 3 Months [...] Sign Reading Time Taken Comments Blood Pressure 110/44 01/13/2025 11:59 AM EST Pulse 68 01/13/2025 11:59 AM EST Temperature 36.2 C (97.2 F) 01/13/2025 11:59 AM EST Respiratory Rate 18 01/13/2025 11:59 AM EST Oxygen Saturation 98% 01/13/2025 11:59 AM EST Inhaled Oxygen Concentration - - Weight 117.9 kg (260 lb) 03/12/2019 12:30 PM EST Height - - Body Mass Index - - Plan of Treatment Not on file Medical Devices Not on file Procedures Procedure Name Priority Date/Time Associated Diagnosis Comments OUTSIDE IMAGING 01/14/2025 OUTSIDE PROCEDURE 01/14/2025 EXTERNALLY RESULTED HEMATOLOGY Routine 12/30/2024 4:00 PM EST from Last 3 Months Results * Outside Imaging Report Only (01/14/2025) us Scanning Interface Provider IMG XR CHEST Zara l Result * Outside Procedure (01/14/2025) us Scanning Interface Provider PROCEDURE/MINOR SURG ICAL PERFORMABLES Final Result * (ABNORMAL) EXTERNALLY RESULTED HEMATOLOGY (12/30/2024 4:00 PM EST) WBC - External 10.4 4.8 - 10.8 X10*/UL RBC - External 4.98 4.60 - 5.80 X10*6/UL HCT - External 44.1 42.0 - 52.0 % HGB - External 14.7 14.0 - 18.0 G/DL Platelets - External 210 160 - 400 X10*3/UL MCV - External 88.6 80.0 - 98.0 FL RDW - External 15.1 11.0 - 16.0 % Eosinophils - External 0.6 0 - 4 % Neutrophils - External 82.3(A) 45 - 73 % WBC (manual) - External PT-INR (manual) - External) PTT - External Fibrinogen - External Fibrinogen (manual) - External Hemoglobin Electrophoresis - External Hemoglobin A1c - External Absolute Lymphocytes - External PTT - External Protime - External MONO ABS - EXTERNAL BASOS ABS - EXTERNAL Immature Gran - External 1.2(A) 0.0 - 0.4 % mch 29.5 27.0 - 33.0 PG mchc 33.3 31.0 - 36.0 G/DL MPV 9.7 9.4 - 12.4 FL LYMPHS - EXTERNAL 6.0(A) 20 - 40 % MONOS - EXTERNAL 9.6 2 - 11 % BASOS - EXTERNAL 0.3 0 - 2 % Lymphocytes (#) 0.6(A) 1.2 - 4.9 X10*3/UL MONOCYTES # 1.0 0.1 - 1.2 X10*3/UL Eos# 0.1 0.0 - 0.4 X10*3/UL BASOPHILS # 0.0 0.0 - 0.2 X10*3/UL Immature Grans (Abs) 0.12(A) 0.00 - 0.03 X10*3/UL NEUTROPHILS ABSOLUTE - EXTERNAL 8.6(A) 2.0 - 8.3 X10*3/UL Absolute Nucleated RBC 0.000 0.0 - 0.012 X10*3/UL NRBC - External 0.0 0.0 - 0.2 /100WBC 12/30/2024 4:00 PM EST Historical Provider LAB BLOOD ORDERABLES Zara l Result from Last 3 Months Insurance MEDICARE PART A & B [employer] MEDEX SUPPLEMENT MEDICARE PART A & B [employer] MEDEX SUPPLEMENT MEDICARE PART A & B [employer] MEDEX SUPPLEMENT MEDICARE PART A & B [employer] MEDEX SUPPLEMENT MEDICARE PART A & B [employer] MEDEX SUPPLEMENT MEDICARE PART A & B [employer] MEDEX SUPPLEMENT MEDICARE PART A & B [employer] SUPPLEMENT MEDICARE PART A & B [employer] SUPPLEMENT MEDICARE PART A & B [facility] MEDEX SUPPLEMENT Care Teams Ergonomist Relationship Specialty Start Date End Date Dona Cancino MD [address] [place] [address] [address] [place] [phone] PCP - General Internal Medicine 10/14/24 Additional Source Comments The information contained in this document represents components of the legal health record. It is not the complete legal health record.[facility]
--- OUTSIDE RECORDS SUMMARY | 2025-01-26 15:14 | XMS_ITS | Encounter Summary ---
Author Organization [facility] Address [address] [place] [address] Phone Care Team Providers Care Fisher Eel Spear Name Role Phone Omid De Jesus MD Primary Care Provider Dona Cancino MD Primary Care Provider [phone] Encounter Details Date Type Department Care Team (Late st Contact Info) Description 04/04/2018 Ancillary Orders Virtual Department [address] [place] [address] Rebel Duke MD [address] [place] [address] [email or web address] Cold right foot; No pulse Social History [...] system documented in this encounter Care Teams Fisher Eel Spear Relationship Specialty Start Date End Date Omid De Jesus MD [address] [place] [address] Dr KAILASH MISHRA [place] [phone] PCP - General Internal Medicine 04/04/18 10/13/24 Dona Cancino MD [address] [place] [phone] PCP - General Internal Medicine 10/14/24 documented as of this encounter Additional Source Comments The information contained in this document represents components of the legal health record. It is not the complete legal health record.[facility]
--- OUTSIDE RECORDS SUMMARY | 2025-01-26 15:15 | XMS_ITS | Encounter Summary ---
Author Organization [facility] Address [address] [place] [address] Phone Care Team Providers Care Mountain Bike Guide Name Role Phone Omid De Jesus MD Primary Care Provider Dona Cancino MD Primary Care Provider Encounter Details Date Type Department Care Team (Late st Contact Info) Description 04/05/2018 Ancillary Orders Virtual Department [address] [place] [address] Rebel Duke MD [address] [place] [address] [email or web address] Cold right foot; No pulse Social History [...] catheter directed imaging may be considered. Code 89710.52 18470 Narrative 04/05/2018 5:30 PM EST History: 77-year-old male. No pulse right foot, cold foot, status-post surgery. Question arterial insufficiency. LINDA assessment desired. Hypertension: Yes. Diminished pulses: Yes. WV: Yes. Findings: Bilateral ankle brachial indices performed. [...] assessment desired. Hypertension: Yes. Diminished pulses: Yes. WV: Yes. Findings: Bilateral ankle brachial indices performed. [...] catheter directed imaging may be considered. Code 33050.52 38681 us Rebel Duke MD CV US VASCULAR Final R esult documented in this encounter Visit Diagnoses Diagnosis Cold right foot No pulse Other symptoms involving cardiovascular system Cold right foot No pulse Other symptoms involving cardiovascular system documented in this encounter Care Teams Mountain Bike Guide Relationship Specialty Start Date End Date Omid De Jesus MD [address] [place] [address] [address] [place] [address] PCP - General Internal Medicine 04/04/18 10/13/24 Dona Cancino MD [address] [place] [address] Drive [address] [place] [phone] PCP - General Internal Medicine 10/14/24 documented as of this encounter Additional Source Comments The information contained in this document represents components of the legal health record. It is not the complete legal health record.[facility]
--- OUTSIDE RECORDS SUMMARY | 2025-01-26 15:15 | XMS_ITS | Encounter Summary ---
Author Organization [facility] Address [address] [place] [address] Phone Care Team Providers Care Email Campaign Manager Name Role Phone Omid De Jesus MD Primary Care Provider [phone] Dona Cancino MD Primary Care Provider [phone] Encounter Details Date Type Department Care Team (Latest Contact Info) Description 06/25/2018 Transcribe Orders Virtual Department [address] [place] [address] Ángel Mosqueda PA [address] [place] [address] Neck pain (Primary Dx) Social History Tobacco [...] Cervicalgia documented in this encounter Care Teams Email Campaign Manager Relationship Specialty Start Date End Date Omid De Jesus MD [address] [place] [address] [place] [address] PCP - General Internal Medicine 04/04/18 10/13/24 Dona Cancino MD [address] [place] [phone] PCP - General Internal Medicine 10/14/24 documented as of this encounter Additional Source Comments The information contained in this document represents components of the legal health record. It is not the complete legal health record.[facility]
--- OUTSIDE RECORDS SUMMARY | 2025-01-26 15:17 | XMS_ITS | Encounter Summary ---
Author Organization [facility] Address [address] [place] [address] Phone Care Team Providers Care Cake Icer And Packer Name Role Phone Dona Cancino MD Primary Care Provider [phone] Encounter Details Date Type Department Care Team (Late st Contact Info) Description 01/22/2025 Episode Documentatio n Update [facility] [address] [place] [phone] Srikanth April [address] [place] [address] [email or web address] Social History Tobacco Use Types Packs/Day Years [...] on filedocumented in this encounter Care Teams Cake Icer And Packer Relationship Specialty Start Date End Date Dona Cancino MD [address] [place] [phone] PCP - General Internal Medicine 10/14/24 documented as of this encounter Additional Source Comments The information contained in this document represents components of the legal health record. It is not the complete legal health record.[facility]
--- OUTSIDE RECORDS SUMMARY | 2025-01-26 15:19 | XMS_ITS | Encounter Summary ---
Author Organization [facility] Address [address] [place] [address] Phone Care Team Providers Care Art Manager Name Role Phone Omid De Jesus MD Primary Care Provider Dona Cancino MD Primary Care Provider [phone] Encounter Details Date Type Department Care Team (Late st Contact Info) Description 03/06/2019 Transcribe Orders [facility] Specimen Processing [address] [place] [address] Omid De Jesus MD [address] [place] [address] [place] [address] Diagnosis unknown (Primary Dx) Social History Tobacco [...] EST) WBC 5.22 3.40 - 11.20 K/uL [facility] RBC 4.14(L) 4.50 - 5.50 M/uL [facility] HGB 12.2(L) 13.0 - 17.0 g/dL [facility] HCT 38.2(L) 40.0 - 51.0 % [facility] PLT 219 130 - 400 K/uL [facility] MCV 92.3 79.0 - 98.0 fL [facility] MCH 29.5 27.0 - 34.8 pg [facility] MCHC 31.9 31.5 - 36.0 g/dL [facility] RDW 17.6(H) 10.8 - 14.6 % [facility] MPV 9.7 9.4 - 12.4 fl [facility] NRBC 0.00 0.00 /100 WBCs [facility] ABSOLUTE NRBC 0.00 0.00 K/uL [facility] DIFF METHOD Auto [facility] NEUTS 49.3 45.30 - 77.70 % [facility] LYMPHS 32.8 12.30 - 39.70 % [facility] MONOS 9.2 4.10 - 12.80 % [facility] EOS 6.9 0 - 7.2 % [facility] BASOS 0.8 0 - 2.80 % [facility] Granulocytes, immature (%) 1.0(H) 0.0 - 0.9 % [facility] ABSOLUTE NEUTS 2.58 1.40 - 7.70 K/uL [facility] ABSOLUTE LYMPHS 1.71 0.60 - 3.20 K/uL [facility] ABSOLUTE MONOS 0.48 0.11 - 0.59 K/uL [facility] ABSOLUTE EOS 0.36 0.01 - 0.50 K/uL [facility] ABSOLUTE BASOS 0.04 0.00 - 0.08 K/uL [facility] Granulocytes, immature 0.05 0.00 - 0.05 K/uL [facility] Blood 03/06/2019 9:05 AM EST 03/06/2019 5:25 PM EST us Omid De Jesus MD LAB BLOOD BKR ORDERABLES Fi nal Result [address] [address] documented in this encounter Visit Diagnoses Diagnosis Diagnosis unknown- Primary documented in this encounter Care Teams Art Manager Relationship Specialty Start Date End Date Omid De Jesus MD [address] [place] [address] [place] [address] PCP - General Internal Medicine 04/04/18 10/13/24 Dona Cancino MD [address] [place] [address] [address] [place] [id number] PCP - General Internal Medicine 10/14/24 documented as of this encounter Additional Source Comments The information contained in this document represents components of the legal health record. It is not the complete legal health record.[facility]
--- OUTSIDE RECORDS SUMMARY | 2025-01-26 15:19 | XMS_ITS | Encounter Summary ---
Author Organization [facility] Address [address] [place] [address] Phone Care Team Providers Care Medical Equipment Repairer Name Role Phone Omid De Jesus MD Primary Care Provider Dona Cancino MD Primary Care Provider [phone] Encounter Details Date Type Department Care Team (Late st Contact Info) Description 04/04/2018 Ancillary Orders Virtual Department [address] [place] [address] Rebel Duke MD [address] [place] [address] [email or web address] Social History Tobacco Use Types Packs/Day [...] on filedocumented in this encounter Care Teams Medical Equipment Repairer Relationship Specialty Start Date End Date Omid De Jesus MD [address] [place] [address] [place] [address] PCP - General Internal Medicine 04/04/18 10/13/24 Dona Cancino MD [address] [place] [id number] PCP - General Internal Medicine 10/14/24 documented as of this encounter Additional Source Comments The information contained in this document represents components of the legal health record. It is not the complete legal health record.[facility]
== END 2025-01-26 11:47 | disposition home or self-care (01) ==
LOC: HO.HCS 10:50
PROVIDERS: PCP Internal Medicine; Visit Provider Internal Medicine Cardiovascular Disease
DX: I50.30 Unspecified diastolic (congestive) heart failure (principal); I25.10 Atherosclerotic heart disease of native coronary artery without angina pectoris; I48.0 Paroxysmal atrial fibrillation; I95.1 Orthostatic hypotension
CPT/HCPCS: 93010; 99215

== ENCOUNTER → 2025-01-26 10:49 | Outpatient (BNVA) | payer MEDICARE, SELFPAY | PROVIDERS: PCP Internal Medicine; Visit Provider Internal Medicine Cardiovascular Disease | DX: Z09 Encounter for follow-up examination after completed treatment for conditions other than malignant neoplasm (principal); I25.10 Atherosclerotic heart disease of native coronary artery without angina pectoris; I48.0 Paroxysmal atrial fibrillation; I50.30 Unspecified diastolic (congestive) heart failure; I95.1 Orthostatic hypotension; I07.1 Rheumatic tricuspid insufficiency | CPT/HCPCS: 93005; 99212 ==